=== PATIENT | female | born 1970 | race Caucasian/White ===

== ENCOUNTER → 2018-07-22 12:21 | Outpatient (CLI) | payer MEDICARE, SELFPAY ==
[2018-07-22 13:39] LABS: Hematocrit 39.2 % (36-46); Mean Corpuscular HGB Conc 33.1 % (30-36); Mean Corpuscular Hemoglobin 31.5 PG (26-34); Mean Corpuscular Volume 95.3 fL (80-100); Platelet Count 217 X10^3/uL (150-400); Red Blood Cell Count 4.12 X10^6/uL (4.0-5.2); Red Cell Distribution Width 12.2 % (11.6-14.8); White Blood Cell Count 4.2 X10^3/uL (4.5-11.0)
[2018-07-22 14:29] LABS: Alanine Aminotransferase 33 IU/L (9-52); Albumin 4.8 g/dL (3.5-5.0); Albumin Globulin Ratio 1.6 (1.0-2.8); Alkaline Phosphatase 47 U/L (38-126); Aspartate Aminotransferase 30 IU/L (14-36); BUN Creatinine Ratio 25.7 (6-22); Bilirubin Total 0.9 mg/dL (0.2-1.3); Blood Urea Nitrogen 18 mg/dL (7-17); Calcium 9.8 mg/dL (8.4-10.2); Carbon Dioxide 30 mmol/L (22-32); Chloride 97 mmol/L (98-107); Cholesterol 216 mg/dL (140-199); Estimated Glomerular Filt Rate > 60.0 mL/min (>60); Glucose 74 mg/dL (70-100); HDL Cholesterol 59 mg/dL (40-60); HEMOLYSIS < 15 (0-50); LDL Cholesterol Calculated 140 mg/dL (<100); Sodium 137 mmol/L (137-145); Total Protein 7.8 g/dL (6.3-8.2); Triglycerides 84 mg/dL (35-150)
== END ==
PROVIDERS: Visit Provider Nurse Practitioner Family
DX: Z00.00 Encounter for general adult medical examination without abnormal findings (principal); E78.2 Mixed hyperlipidemia; R79.9 Abnormal finding of blood chemistry, unspecified
CPT/HCPCS: 36415; 80053; 80061; 85027

== ENCOUNTER → 2018-10-15 12:36 | Outpatient (CLI) | payer MEDICARE, SELFPAY ==
--- NOTE | 2018-10-15 12:40 | DI.MG.S_ITS ---
BILATERAL DIGITAL SCREENING MAMMOGRAM 3D/2D WITH CAD: 10/15/2018 CLINICAL: Routine screening. Comparison is made to exams dated: 10/11/2017 mammogram, 09/29/2016 mammogram, and 09/25/2015 mammogram - [facility]. There are scattered fibroglandular elements in both breasts. Current study was also evaluated with a Computer Aided Detection (CAD) system. No significant masses, calcifications, or other findings are seen in either breast. There has been no significant interval change. IMPRESSION: NEGATIVE There is no mammographic evidence of malignancy. A 1 year screening mammogram is recommended. This exam was interpreted at Station ID: [id number]. NOTE: For mammograms, a report in lay terms will be sent to the patient. Approximately 15% of breast malignancies will not be visualized mammographically. In the management of a palpable breast mass, a negative mammogram must not discourage biopsy of a clinically suspicious lesion. Electronically Signed By: Margarito garcia/brian:10/17/2018 08:58:13 letter sent: Normal Exam ACR BI-RADS Category 1: Negative 3341F
== END ==
PROVIDERS: PCP Nurse Practitioner Family; Visit Provider Nurse Practitioner Family
DX: Z12.31 Encounter for screening mammogram for malignant neoplasm of breast (principal)
CPT/HCPCS: 77063; 77067

== ENCOUNTER 2018-12-30 14:18 | Emergency (ER) | payer MEDICARE, SELFPAY ==
[2018-12-30 14:43] VITALS: BP 128/81; PULSE 60; RESP 18; TEMP 37.6; O2SAT 99; BMI 22.8
--- NOTE | 2018-12-30 14:48 | DI.RAD.S_ITS ---
PROCEDURE: XR CHEST 2V INDICATIONS: palpitations TECHNIQUE: 2 views of the chest were acquired. COMPARISON: None. FINDINGS: Surgical changes and devices: None. Lungs and pleura: Lungs are clear. No pleural effusions or pneumothorax. Mediastinum: Mediastinal contours are normal. Heart size is normal. Bones and chest wall: No suspicious bony abnormalities. Soft tissues appear unremarkable. IMPRESSION: No evidence acute pulmonary process. Dictated by: Heath Kim M.D. on 12/30/2018 at 15:55 Approved by: Heath Kim M.D. on 12/30/2018 at 15:56
[2018-12-30 15:13] LABS: Add Manual Diff / Slide Review NO; Basophils Absolute Auto 100 /uL (0-100); Basophils Percent Auto 1.3 % (0-2); Eosinophils Absolute Auto 100 /uL (0-450); Eosinophils Percent Auto 3.1 % (2-4); Hematocrit 36.4 % (36-46); Hemoglobin 12.3 g/dL (12.0-16.0); Lymphocytes Absolute Auto 1600 /uL (1100-4500); Mean Corpuscular HGB Conc 33.7 % (30-36); Mean Corpuscular Hemoglobin 32.7 PG (26-34); Monocytes Absolute Auto 300 /uL (0-900); Monocytes Percent Auto 7.7 % (3-14); Neutrophils Absolute Auto 1900 /uL (1500-7000); Neutrophils Percent Auto 48.9 % (50-75); Platelet Count 230 X10^3/uL (150-400); Red Blood Cell Count 3.75 X10^6/uL (4.0-5.2)
[2018-12-30 15:31] LABS: BUN Creatinine Ratio 25.7 (6-22); Blood Urea Nitrogen 18 mg/dL (7-17); Carbon Dioxide 32 mmol/L (22-32); Chloride 99 mmol/L (98-107); Creatine Kinase 65 U/L (30-135); Estimated Glomerular Filt Rate > 60.0 mL/min (>60); Glucose 96 mg/dL (70-100); HEMOLYSIS < 15 (0-50); Magnesium 1.7 mg/dL (1.6-2.3); Sodium 138 mmol/L (137-145)
[2018-12-30 15:40] LABS: Troponin I < 0.012 ng/mL (0.01-0.034)
[2018-12-30 16:16] LABS: Thyroid Stimulating Hormone 0.83 uIU/mL (0.47-4.68)
--- NOTE | 2018-12-30 18:55 | ED.ARRPALP ---
HPI - Arrhythmia/Palpitations General Chief Complaint: Arrhythmia/Palpitations Stated Complaint: thinks problems with her heart, pumping hard Time Seen by Provider: 12/30/18 18:54 Source: patient Mode of arrival: ambulatory Limitations: no limitations History of Present Illness HPI narrative: 48-year-old female here for evaluation of palpitations. Patient states that she has been seen here in the emergency department multiple times in the past for this. She states that she has had labs an EKG use all of which have been unremarkable. She has talk with her primary doctor and has done a Holter monitor which she states she did not have any symptoms during the period of time she was wearing this. She states that over the past couple days she has noticed the palpitations becoming worse. She states that it is a fast heart rate. She states she is short of breath when it happens. It varies in the length of time that it lasts. Has not tried anything for the symptoms. States she becomes very anxious when the symptoms occur. Related Data Home Medications Medication Instructions Recorded Confirmed baclofen 10 mg tablet 5 - 10 mg PO TID 07/26/18 07/26/18 Allergies Allergy/AdvReac Type Severity Reaction Status Date / Time hydrocodone [From Vicodin] Allergy Severe Swelling Verified 12/30/18 14:41 of tongue, hives sumatriptan [From Imitrex] Allergy Severe Anaphylaxis/ Verified 12/30/18 14:41 seizure Review of Systems Constitutional Constitutional: Denies fever(s) Cardiovascular Cardiovascular: Denies chest pain, Denies diaphoresis, Denies syncope, Reports rapid heart rate, Reports lightheadedness, Reports palpitations and Reports dyspnea Respiratory Respiratory: Denies cough and Reports dyspnea Gastrointestinal Gastrointestinal: Denies abdominal pain, Denies diarrhea and Denies vomiting Genitourinary Genitourinary: Denies dysuria Musculoskeletal Musculoskeletal: Denies myalgias and Denies arthralgias Integumentary/Breasts Skin/Breast: Denies lesions and Denies rash Neurologic Neurologic: Denies behavioral changes and Denies syncope Psychiatric Psychiatric: Reports anxiety and Denies behavioral changes Endocrine Endocrine: Reports palpitations Hematologic/Lymphatic Hematologic/Lymphatic: Denies easy bleeding and Denies easy bruising COUNTS INCLUDE 234 BEDS AT THE [facility] Medical History Back problem (Chronic ~2000) Cervical spine disease (Chronic ~2000) Chronic back pain (Chronic ~2000) DDD (degenerative disc disease) (Chronic) Migraines (Chronic ~2000) Surgical History (Updated 07/25/18 @ 21:50 by Angeline Reaves) Anesthesia (Resolved) History of endometrial ablation (Resolved ~06/25/08) History of knee surgery (Resolved ~12/05/07) History of knee surgery (Resolved ~01/2006) History of neck surgery (Resolved ~2014) History of neck surgery (Resolved ~07/2013) Surgical procedure planned (Resolved ~08/20/16) Family History (Updated 07/25/18 @ 21:54 by Angeline Reaves) Father Cancer Heart disease Hypertension Hyperlipidemia Mother Heart disease Hyperlipidemia Hypertension Sister Chronic progressive multiple sclerosis Hyperlipidemia Hypertension Omid Dumont infection Sister Heart disease Hypertension Hyperlipidemia Social History Smoking Status: Never smoker second hand exposure: No alcohol intake: current (1-2 drinks a year at special occasions.) substance use type: does not use Family History (Updated 07/25/18 @ 21:54 by Angeline Reaves) Father Cancer Heart disease Hypertension Hyperlipidemia Mother Heart disease Hyperlipidemia Hypertension Sister Chronic progressive multiple sclerosis Hyperlipidemia Hypertension Omid Dumont infection Sister Heart disease Hypertension Hyperlipidemia Social History Smoking Status: Never smoker second hand exposure: No alcohol intake: current (1-2 drinks a year at special occasions.) substance use type: does not use Exam Initial Vital Signs Initial Vital Signs: Vital Signs Temperature 99.6 F 12/30/18 14:43 Pulse Rate 60 12/30/18 14:43 Respiratory Rate 18 12/30/18 14:43 Blood Pressure 128/81 12/30/18 14:43 Pulse Oximetry 99 12/30/18 14:43 Const General: cooperative, comfortable, well developed and well groomed Orientation: alert and awake HENMT Head: normal to inspection and normocephalic Resp Effort & Inspection: normal respiratory effort Auscultation: clear to auscultation bilaterally Cardio Rate: regular rate Rhythm: regular rhythm Pulses: radial pulses present GI Inspection: non-distended Palpation: soft Skin Lesions: no lesions Rashes: no rashes Neuro General: alert and awake Cognition: normal cognition Speech: speech normal Gait: normal gait Extrem General: normal to inspection and capillary refill normal Psych Appearance: grossly normal and well kempt Course Orders Ordered: ED Orders 12/30/18 14:48 XR chest 2V Stat EKG-12 Lead Stat 12/30/18 14:57 Basic Metabolic Panel Stat Complete Blood Count AUTO DIFF Stat Magnesium Stat Thyroid Stimulating Hormone Stat Troponin & CK Cardiac Panel Stat Vital Signs Vital signs: Vital Signs - 8 hr 12/30/18 19:03 Pulse Rate 53 L Respiratory Rate 18 Blood Pressure [Left Arm] 131/77 Pulse Oximetry 98 MDM - Arrhythmia/Palpitations Lab Data Attestation: I reviewed the patient's lab results. Result diagrams: 12/30/18 14:57 12/30/18 14:57 Labs: Lab Results 12/30/18 12/30/18 12/30/18 Range/Units 14:57 14:57 14:57 WBC 4.0 L (4.5-11.0) X10^3/uL RBC 3.75 L (4.0-5.2) X10^6/uL Hgb 12.3 (12.0-16.0) g/dL Hct 36.4 (36-46) % MCV 97.0 (80-100) fL MCH 32.7 (26-34) PG MCHC 33.7 (30-36) % RDW 12.0 (11.6-14.8) % Plt Count 230 (150-400) X10^3/uL Neut % (Auto) 48.9 L (50-75) % Lymph % (Auto) 39.0 (25-40) % [place] % (Auto) 7.7 (3-14) % Eos % (Auto) 3.1 (2-4) % Baso % (Auto) 1.3 (0-2) % Neut # (Auto) 1900 (2221-3523) /uL Lymph # (Auto) 1600 (6668-2236) /uL [place] # (Auto) 300 (0-900) /uL Eos # (Auto) 100 (0-450) /uL Baso # (Auto) 100 (0-100) /uL Sodium 138 (137-145) mmol/L Potassium 4.0 (3.4-5.1) mmol/L Chloride 99 (98-107) mmol/L Carbon Dioxide 32 (22-32) mmol/L BUN 18 H (7-17) mg/dL Creatinine 0.70 (0.52-1.04) mg/dL Estimated GFR > 60.0 (>60) mL/min BUN/Creatinine Ratio 25.7 H (6-22) Glucose 96 (70-100) mg/dL Calcium 10.0 (8.4-10.2) mg/dL Magnesium 1.7 (1.6-2.3) mg/dL Total Creatine Kinase 65 (30-135) U/L CK-MB (CK-2) TNP CK-MB (CK-2) Rel Index TNP Troponin I < 0.012 (0.01-0.034) ng/mL TSH 0.83 (0.47-4.68) uIU/mL ECG Data Attestation: I personally reviewed and interpreted this ECG as follows: Prior ECG tracings: not available for review Interpretation: Sinus bradycardia Ventricular rate of 55 Normal axis Normal QRS Normal QTC No ST T wave changes MDM Narrative Medical decision making narrative: Patient has been asymptomatic since being here in the emergency department. Her EKG is unremarkable. Her labs are unremarkable. She has not had no ectopy on the monitors. She has been fairly anxious and was given Ativan for this. Discussed this with the patient. Informed her that she she needed to talk with her primary doctor regarding another Holter monitor. She was given return precautions and follow-up instructions. She expressed understanding and agreement with plan. Discharge Plan Departure Patient Disposition: Home Clinical Impression: Palpitations Discharge Date/Time: 12/30/18 19:26 Instructions: DI for Palpitations Activity Restrictions/Additional Instructions: Recommend you talk with her primary provider about the indications for a Holter monitor. You can contact 360 talk with the health resource is coordinator to help you establish a primary provider if you wish. Return to the emergency department for any new or worsening symptoms like we discussed. Prescriptions: No Action baclofen 10 mg tablet 5 - 10 mg PO TID RF: 0 Referrals: Diana Deleon ARNP [Primary Care Provider] -
[2018-12-30 19:03] VITALS: BP 131/77; PULSE 53; RESP 18; O2SAT 98
== END 2018-12-30 19:26 | disposition home or self-care (01) ==
PROVIDERS: Emergency Medicine; Emergency Provider Emergency Medicine; PCP Nurse Practitioner Family
DX: R00.2 Palpitations (principal)
CPT/HCPCS: 36415; 71046; 80048; 82550; 83735; 84443; 84484; 85025; 93005; 93010; 99282; 99285

== ENCOUNTER → 2019-11-04 16:07 | Outpatient (CLI) | payer MEDICARE, SELFPAY ==
--- NOTE | 2019-11-04 | DI.MG.S_ITS ---
BILATERAL DIGITAL SCREENING MAMMOGRAM 3D/2D WITH CAD: 11/04/2019 CLINICAL: Routine screening. Comparison is made to exams dated: 10/15/2018 mammogram - [facility], 10/11/2017 mammogram, and 09/29/2016 mammogram - [facility]. There are scattered fibroglandular elements in both breasts. Current study was also evaluated with a Computer Aided Detection (CAD) system. No significant masses, calcifications, or other findings are seen in either breast. There has been no significant interval change. IMPRESSION: NEGATIVE There is no mammographic evidence of malignancy. A 1 year screening mammogram is recommended. This exam was interpreted at Station ID: [id number]. NOTE: For mammograms, a report in lay terms will be sent to the patient. Approximately 15% of breast malignancies will not be visualized mammographically. In the management of a palpable breast mass, a negative mammogram must not discourage biopsy of a clinically suspicious lesion. Electronically Signed By: Brady blackmon/brain:11/06/2019 10:40:19 letter sent: Normal Exam ACR BI-RADS Category 1: Negative 3341F
== END ==
PROVIDERS: PCP Nurse Practitioner Family; Referring Provider Nurse Practitioner Family; Visit Provider Nurse Practitioner Family
DX: Z12.31 Encounter for screening mammogram for malignant neoplasm of breast (principal)
CPT/HCPCS: 77063; 77067

== ENCOUNTER → 2020-05-25 08:45 | Outpatient (CLI) | payer MEDICARE, SELFPAY ==
--- NOTE | 2020-05-25 08:47 | DI.MRI.S_ITS ---
PROCEDURE: MR LUMBAR SPINE WO CON INDICATIONS: back pain flare TECHNIQUE: Noncontrast sagittal T1 spin echo and T2 fast echo, sagittal STIR, axial T1 and T2 fast spin echo through the lumbar spine. In cases with scoliosis, additional coronal T2 fast spin echo may be performed. COMPARISON: None. FINDINGS: Image quality: Excellent. Alignment and Curvature: There is Grade I retrolithesis of L3 on L4, L4 on L5 and L5 on S1, most notable at L5 on S1 measuring 5 mm. Bone Marrow: Marrow is of normal overall signal. No acute vertebral body compression fractures. Spinal Cord: Conus medullaris terminates at the L1 level. Visualized cord demonstrates normal signal and size. Paraspinous Soft Tissues: No paravertebral masses. Discs: Moderate to severe disc dessication from L2-L5. L1-L2: Mild disc bulge with mild spinal stenosis. Mild left foraminal narrowing with facet and ligamentum flavum hypertrophy. Epidural lipomatosis is present. L2-L3: Mild disc bulge with superimposed posterior central protrusion. There is severe spinal stenosis and canal compression. Mild to moderate left and minimal right foraminal narrowing with facet and ligamentum flavum hypertrophy. L3-L4: Mild disc bulge with moderate to severe spinal stenosis. Moderate left and mild right foraminal narrowing facet and ligamentum flavum hypertrophy. L4-L5: Mild disc bulge with [id number] spinal stenosis. Moderate to severe left and minimal right foraminal narrowing with facet and ligamentum flavum hypertrophy. L5-S1: Mild disc bulge with minimal spinal stenosis. Severe right and moderate to severe left foraminal narrowing with flattening of the exiting L5 nerve roots on the right. Facet hypertrophy is present. IMPRESSION: 1. Multilevel degenerative changes. 2. Multilevel spinal stenosis most severe at L3-4 secondary to disc bulge with superimposed protrusion with contributing affective facet/ligamentum flavum arthropathy. 3. Multilevel foraminal narrowing most severe at L5-S1 secondary to facet arthropathy as well as retrolisthesis. Dictated by: Aure Godfrey M.D. on 05/27/2020 at 11:46 Approved by: Aure Godfrey M.D. on 05/27/2020 at 13:24
== END ==
PROVIDERS: PCP Nurse Practitioner Family; Referring Provider Nurse Practitioner Family; Visit Provider Nurse Practitioner Family
DX: M54.9 Dorsalgia, unspecified (principal); M54.2 Cervicalgia; M51.26 Other intervertebral disc displacement, lumbar region; M47.816 Spondylosis without myelopathy or radiculopathy, lumbar region; M47.817 Spondylosis without myelopathy or radiculopathy, lumbosacral region; M48.061 Spinal stenosis, lumbar region without neurogenic claudication; M48.07 Spinal stenosis, lumbosacral region; G89.29 Other chronic pain; Z98.890 Other specified postprocedural states
CPT/HCPCS: 72148

== ENCOUNTER 2020-08-27 18:51 | Emergency (ER) | payer MEDICARE, SELFPAY ==
[2020-08-27 18:57] VITALS: BP 125/70; PULSE 93; RESP 20; TEMP 37.9; O2SAT 100
--- NOTE | 2020-08-27 19:30 | DI.RAD.S_ITS ---
PROCEDURE: XR CHEST 1V INDICATIONS: suspected sepsis TECHNIQUE: One view of the chest was acquired. COMPARISON: [facility], CR, XR CHEST 2V, 12/30/2018, 15:40. FINDINGS: Surgical changes and devices: Postsurgical changes are redemonstrated in the lower cervical spine. Lungs and pleura: Lungs are clear. No pleural effusions or pneumothorax. Mediastinum: Mediastinal contours appear normal. Heart size is normal. Bones and chest wall: No suspicious bony lesions. Overlying soft tissues appear unremarkable. IMPRESSION: 1. No acute cardiopulmonary disease. Dictated by: Margarito Christensen M.D. on 08/27/2020 at 21:45 Approved by: Margarito Christensen M.D. on 08/27/2020 at 21:46
[2020-08-27 19:39] LABS: INR 1.1 (0.9-1.3); Prothrombin Time 12.4 SECONDS (10.1-12.7)
[2020-08-27 19:40] LABS: Add Manual Diff / Slide Review NO; Basophils Absolute Auto 100 /uL (0-100); Eosinophils Absolute Auto 200 /uL (0-450); Eosinophils Percent Auto 2.9 % (2-4); Hemoglobin 13.1 g/dL (12.0-16.0); Lymphocytes Absolute Auto 1700 /uL (1100-4500); Lymphocytes Percent Auto 26.9 % (25-40); Mean Corpuscular HGB Conc 33.6 % (30-36); Mean Corpuscular Hemoglobin 32.6 PG (26-34); Monocytes Absolute Auto 400 /uL (0-900); Monocytes Percent Auto 6.5 % (3-14); Neutrophils Absolute Auto 4000 /uL (1500-7000); Neutrophils Percent Auto 62.7 % (50-75); Platelet Count 265 X10^3/uL (150-400); Red Blood Cell Count 4.02 X10^6/uL (4.0-5.2); Red Cell Distribution Width 12.3 % (11.6-14.8); White Blood Cell Count 6.3 X10^3/uL (4.5-11.0)
[2020-08-27] MEDS: SODIUM CHLORIDE 0.9% 1,000 ML 1000 ML IV (19:41)
[2020-08-27 19:42] LABS: PTT Partial Thromboplastin Tim 34 SECONDS (26.4-36.2)
[2020-08-27 19:58] LABS: Alanine Aminotransferase 98 IU/L (<35); Albumin 4.7 g/dL (3.5-5.0); Albumin Globulin Ratio 1.3 (1.0-2.8); Alkaline Phosphatase 62 U/L (38-126); Aspartate Aminotransferase 74 IU/L (14-36); BUN Creatinine Ratio 22.7 (6-22); Bilirubin Total 0.8 mg/dL (0.2-1.3); Blood Urea Nitrogen 17 mg/dL (7-17); Calcium 10.3 mg/dL (8.4-10.2); Carbon Dioxide 32 mmol/L (22-32); Chloride 96 mmol/L (98-107); Estimated Glomerular Filt Rate > 60.0 mL/min (>60); Globulin 3.6 g/dL (1.7-4.1); Glucose 105 mg/dL (70-100); HEMOLYSIS < 15 (0-50); Lipase 120 U/L (23-300); Potassium 4.2 mmol/L (3.4-5.1); Sodium 136 mmol/L (137-145); Total Protein 8.3 g/dL (6.3-8.2)
[2020-08-27 20:15] LABS: Procalcitonin 0.04 ng/mL (<0.5)
--- NOTE | 2020-08-27 20:50 | ED_ITS ---
HPI - General Adult General Chief complaint: Fever Stated complaint: unable to pee or poop , fever s/p surgery Time Seen by Provider: 08/27/20 19:47 Source: patient Mode of arrival: Ambulatory History of Present Illness HPI narrative: 49-year-old woman with a history of multiple back surgeries most recently 7 days ago at [facility] in [place]. She had L2-3 micro diskectomy and laminectomy had been doing well postop until she noticed that she no longer had the sensation that her bladder was full. When she got up to void she was able to do so. She has been voiding every 2-3 hours by the clock over the last number of days. Her friend who has been helping her recover at home also noted that she has not yet had a bowel movement, it has now been 7 days. She is not passing any gas. She states that she is not actually having any pain. Her current pain medication regimen is Zofran, 10 mg of oxycodone and cyclobenzaprine. She notes that the radicular pain that she had had prior to surgery is significantly improved. The surgical site is tender but feels that it is recovering as she had with previous surgeries. She has noted no increased pain at the surgical site, redness smell or discharge. She does note for the p ast 48 hours she has had a fever that does not seem to be affected by Tylenol. Temperature is a 100? point to, cough, dysuria(but also no bladder sensation), no lower extremity edema and no localizing source of infection. Blood pressures been stable. No nausea or vomiting. No chest pain or palpitations. Related Data Home Medications Medication Instructions Recorded Confirmed baclofen 10 mg tablet 5 - 10 mg PO TID 07/26/18 07/26/18 Previous Rx's Medication Instructions Recorded gabapentin 100 mg capsule 100 mg PO BEDTIME #60 cap 05/23/20 Allergies Allergy/AdvReac Type Severity Reaction Status Date / Time hydrocodone [From Vicodin] Allergy Severe Swelling Verified 05/23/20 15:23 of tongue, hives sumatriptan [From Imitrex] Allergy Severe Anaphylaxis/ Verified 05/23/20 15:23 seizure Review of Systems Review of Systems Narrative: Remainder of complete review of systems is otherwise unremarkable except for that included in the HPI. Patient History Medical History (Updated 08/27/20 @ 23:48 by Tali Jules MD) Back problem (~2000) Cervical spine disease (~2000) Chronic back pain (~2000) DDD (degenerative disc disease) Migraines (~2000) Surgical History (Updated 05/23/20 @ 15:42 by HENRRY Denton) Anesthesia History of endometrial ablation (~06/25/08) History of knee surgery (~12/05/07) History of knee surgery (~01/2006) History of lumbar surgery History of neck surgery (~2014) History of neck surgery (~07/2013) Surgical procedure planned (~08/20/16) Family History (Updated 07/25/18 @ 21:54 by Angeline Reaves) Father Cancer Heart disease Hypertension Hyperlipidemia Mother Heart disease Hyperlipidemia Hypertension Sister Chronic progressive multiple sclerosis Hyperlipidemia Hypertension Omid Dumont infection Sister Heart disease Hypertension Hyperlipidemia Social History Smoking Status: Never smoker second hand exposure: No alcohol intake: current (1-2 drinks a year at special occasions.) substance use type: does not use Smoking Status: Never smoker alcohol intake frequency: holidays/special occasions only Substance Use Type: does not use Exam Narrative Exam Narrative: General: Healthy appearing, in mild distress. Able to give a complete and coherent history. Well-nourished well-developed HEENT: Moist mucous membranes, normal sclera with reactive pupils, Respiratory: Lungs are clear to auscultation, no wheezing no rales no rhonchi. Full and symmetrical air movement Cardiac: Regular rate and rhythm no murmurs no bruits Abdomen: Soft, nontender, no distension, decreased but present bowel tones, no flank pain Rectal exam: Full sensation to the anus to touch and temperature and no stool in the rectal vault. Skin: Warm and dry, no rashes. Lumbar Surgical site is clean and dry. Neurologic: Grossly neurologically intact with no obvious asymmetries or abnormalities Extremities: No trauma, well perfused Psych: Cooperative, appropriate insight and affect Initial Vital Signs Initial Vital Signs: Vital Signs Temperature 100.2 F H 08/27/20 18:57 Pulse Rate 93 H 08/27/20 18:57 Respiratory Rate 20 08/27/20 18:57 Blood Pressure 125/70 08/27/20 18:57 Pulse Oximetry 100 08/27/20 18:57 Course Orders Ordered: Discontinued Medications Cyclobenzaprine HCl (Cyclobenzaprine 10 Mg Tablet) 5 mg PO NOW ONE Stop: 08/27/20 21:04 Last Admin: 08/27/20 21:09 Dose: 5 mg Documented by: DEBORA Sodium Chloride (Normal Saline 0.9%) 1,000 mls @ 1,000 mls/hr IV BOLUS ONE Stop: 08/27/20 20:29 Last Infusion: 08/27/20 20:35 Dose: 0 mls/hr Documented by: Admin: 08/27/20 19:41 Dose: 1,000 mls/hr Documented by: DEBORA Magnesium Citrate (Magnesium Citrate 300 Ml Solution) 300 ml PO NOW ONE Stop: 08/27/20 23:46 Last Admin: 08/27/20 23:50 Dose: 300 ml Documented by: DEBORA Ondansetron HCl (Ondansetron 4 Mg/2 Ml Inj) 4 mg IV NOW ONE Stop: 08/27/20 21:04 Last Admin: 08/27/20 21:08 Dose: 4 mg Documented by: DEBORA Oxycodone/Acetaminophen (Oxycodone/Acetaminophen 5/325 Tablet) 2 tab PO NOW ONE Stop: 08/27/20 21:04 Last Admin: 08/27/20 21:11 Dose: 2 tab Documented by: DEBORA Vital Signs Vital signs: Vital Signs - 8 hr 08/27/20 18:57 Temperature 100.2 F H Pulse Rate 93 H Respiratory Rate 20 Blood Pressure 125/70 Pulse Oximetry 100 Medical Decision Making Medical Records Medical records reviewed: Yes I reviewed the patient's medical records. Lab Data Lab results reviewed: Yes I reviewed the patient's lab results. Result diagrams: 08/27/20 19:25 08/27/20 19:25 Labs: Lab Results 08/27/20 08/27/20 08/27/20 Range/Units 19:25 19:25 19:25 WBC 6.3 (4.5-11.0) X10^3/uL RBC 4.02 (4.0-5.2) X10^6/uL Hgb 13.1 (12.0-16.0) g/dL Hct 39.0 (36-46) % MCV 97.0 (80-100) fL MCH 32.6 (26-34) PG MCHC 33.6 (30-36) % RDW 12.3 (11.6-14.8) % Plt Count 265 (150-400) X10^3/uL Neut % (Auto) 62.7 (50-75) % Lymph % (Auto) 26.9 (25-40) % [place] % (Auto) 6.5 (3-14) % Eos % (Auto) 2.9 (2-4) % Baso % (Auto) 1.0 (0-2) % Neut # (Auto) 4000 (9851-5605) /uL Lymph # (Auto) 1700 (0029-3791) /uL [place] # (Auto) 400 (0-900) /uL Eos # (Auto) 200 (0-450) /uL Baso # (Auto) 100 (0-100) /uL PT 12.4 (10.1-12.7) SECONDS INR 1.1 (0.9-1.3) APTT 34 (26.4-36.2) SECONDS Sodium 136 L (137-145) mmol/L Potassium 4.2 (3.4-5.1) mmol/L Chloride 96 L (98-107) mmol/L Carbon Dioxide 32 (22-32) mmol/L BUN 17 (7-17) mg/dL Creatinine 0.75 (0.52-1.04) mg/dL Estimated GFR > 60.0 (>60) mL/min BUN/Creatinine Ratio 22.7 H (6-22) Glucose 105 H (70-100) mg/dL Lactate (0.7-2.1) mmol/L Calcium 10.3 H (8.4-10.2) mg/dL Total Bilirubin 0.8 (0.2-1.3) mg/dL AST 74 H (14-36) IU/L ALT 98 H (<35) IU/L Alkaline Phosphatase 62 (38-126) U/L Total Protein 8.3 H (6.3-8.2) g/dL Albumin 4.7 (3.5-5.0) g/dL Globulin 3.6 (1.7-4.1) g/dL Albumin/Globulin Ratio 1.3 (1.0-2.8) Lipase 120 (23-300) U/L Procalcitonin 0.04 (<0.5) ng/mL 08/27/20 Range/Units 19:25 WBC (4.5-11.0) X10^3/uL RBC (4.0-5.2) X10^6/uL Hgb (12.0-16.0) g/dL Hct (36-46) % MCV (80-100) fL MCH (26-34) PG MCHC (30-36) % RDW (11.6-14.8) % Plt Count (150-400) X10^3/uL Neut % (Auto) (50-75) % Lymph % (Auto) (25-40) % [place] % (Auto) (3-14) % Eos % (Auto) (2-4) % Baso % (Auto) (0-2) % Neut # (Auto) (0659-8753) /uL Lymph # (Auto) (6649-9040) /uL [place] # (Auto) (0-900) /uL Eos # (Auto) (0-450) /uL Baso # (Auto) (0-100) /uL PT (10.1-12.7) SECONDS INR (0.9-1.3) APTT (26.4-36.2) SECONDS Sodium (137-145) mmol/L Potassium (3.4-5.1) mmol/L Chloride (98-107) mmol/L Carbon Dioxide (22-32) mmol/L BUN (7-17) mg/dL Creatinine (0.52-1.04) mg/dL Estimated GFR (>60) mL/min BUN/Creatinine Ratio (6-22) Glucose (70-100) mg/dL Lactate 1.0 (0.7-2.1) mmol/L Calcium (8.4-10.2) mg/dL Total Bilirubin (0.2-1.3) mg/dL AST (14-36) IU/L ALT (<35) IU/L Alkaline Phosphatase (38-126) U/L Total Protein (6.3-8.2) g/dL Albumin (3.5-5.0) g/dL Globulin (1.7-4.1) g/dL Albumin/Globulin Ratio (1.0-2.8) Lipase (23-300) U/L Procalcitonin (<0.5) ng/mL Urine Dip Bedside Urine Glucose Negative Bedside Urine Bilirubin - Negative Bedside Urine Ketone - Negative Urine Specific [place] 1.020 Bedside Urine Occult Blood - Negative Bedside Urine pH 6.0 Bedside Urine Protein - Negative Bedside Urine Urobilinogen - Negative Bedside Urine Nitrite - Negative Bedside Urine Leukocytes - Negative Esterase Point of care testing: Urine Dip Bedside Urine Glucose Negative Bedside Urine Bilirubin - Negative Bedside Urine Ketone - Negative Urine Specific [place] 1.020 Bedside Urine Occult Blood - Negative Bedside Urine pH 6.0 Bedside Urine Protein - Negative Bedside Urine Urobilinogen - Negative Bedside Urine Nitrite - Negative Bedside Urine Leukocytes - Negative Esterase Imaging Data Abdominal x-ray: Radiologist's Impression: FINDINGS: Surgical changes and devices: There are cholecystectomy clips in the right upper quadrant. Bowel: Bowel gas pattern demonstrates moderate fecal loading within the ascending and transverse colon as well as a small amount in the descending colon compatible with constipation. No definite bowel obstruction. Soft tissues: No suspicious abdominal calcifications. Bones: No suspicious bony lesions. IMPRESSION: 1. Proximal moderate colonic stool distention compatible with constipation. No definite bowel obstruction. Dictated by: Margarito Christensen M.D. on 08/27/2020 at 22:39 MDM Narrative Medical decision making narrative: 49-year-old woman now postop day 7 lumbar laminectomy. Acute urinary retention with low-grade fevers at home and severe constipation. Florez catheter is placed. She is given a bottle of magnesium citrate to help the constipation when she is home. There is no evidence of wound infection, epidural abscess, sepsis, pneumonia or urinary tract infection. Most likely explanation for the low-grade fever is pulmonary atelectasis in this is reviewed with patient with encouragement to continue with increasing mobility and deep breathing. Questions are answered and patient is safe for discharge home. She will follow-up with her surgeon regarding the urinary retention and Florez catheter placement and management. Discharge Plan Departure Patient Disposition: Home Clinical Impression: Acute urinary retention Constipation Qualifiers: Constipation type: drug induced constipation Qualified Code(s): K59.03 - Drug induced constipation Instructions: DI for Constipation, DI for Urinary Retention in Women Activity Restrictions/Additional Instructions: Thank you for coming in tonight You do have acute urinary retention. Your post void residual was 350 cc. We put a Florez catheter in and you need to talk to your surgeon tomorrow about management of this. You are also quite constipated with most of the stool over on the right side. I have sent home with a bottle of magnesium citrate to help encourage a bowel movement. Evaluation in the ER today did not show any evidence of infection either bladder infection pneumonia or wound infection. The remainder of your blood work was reassuring we normal as well. Regarding the fever that you have been noticing, I do not have any obvious explanation at this point. Sometimes atelectasis, with the lungs do not fully expand, can cause this. Please make sure you are up and as mobile as possible and focus on taking very deep breaths throughout the day. If things get worse, please feel free to return to the emergency department. Prescriptions: No Action baclofen 10 mg tablet 5 - 10 mg PO TID RF: 0 gabapentin 100 mg capsule 100 mg PO BEDTIME Qty: 60 RF: 0 Referrals: Diana Deleon ARNP [Primary Care Provider] -
--- NOTE | 2020-08-27 21:03 | DI.RAD.S_ITS ---
PROCEDURE: XR ABDOMEN 1V INDICATIONS: pain, no BM for 7 days TECHNIQUE: One view of the abdomen acquired. COMPARISON: None. FINDINGS: Surgical changes and devices: There are cholecystectomy clips in the right upper quadrant. Bowel: Bowel gas pattern demonstrates moderate fecal loading within the ascending and transverse colon as well as a small amount in the descending colon compatible with constipation. No definite bowel obstruction. Soft tissues: No suspicious abdominal calcifications. Bones: No suspicious bony lesions. IMPRESSION: 1. Proximal moderate colonic stool distention compatible with constipation. No definite bowel obstruction. Dictated by: Margarito Christensen M.D. on 08/27/2020 at 22:39 Approved by: Margarito Christensen M.D. on 08/27/2020 at 22:41
[2020-08-27] MEDS: ONDANSETRON 4 MG/2 ML INJ IV (21:08)
[2020-08-27] MEDS: CYCLOBENZAPRINE 10 MG TABLET 5 MG PO (21:09)
[2020-08-27] MEDS: OXYCODONE/ACETAMINOPHEN 5/325 TABLET 2 TAB PO (21:11)
[2020-08-27 23:29] VITALS: BP 95/54; PULSE 68; TEMP 36.8; O2SAT 99
[2020-08-27] MEDS: MAGNESIUM CITRATE 300 ML SOLUTION PO (23:50)
[2020-08-28 00:18] VITALS: BP 108/64; PULSE 66; RESP 20; TEMP 36.6; O2SAT 96
== END 2020-08-28 00:10 | disposition home or self-care (01) ==
PROVIDERS: Emergency Medicine; Emergency Provider Emergency Medicine; PCP Nurse Practitioner Family
DX: R33.8 Other retention of urine (principal); K59.03 Drug induced constipation
CPT/HCPCS: 36415; 51701; 51705; 51798; 71045; 74018; 80053; 81003; 83605; 83690; 84145; 85025; 85610; 85730; 87040; 96361; 96374; 99284; J2405

== ENCOUNTER 2020-08-29 12:25 | Emergency (ER) | payer MEDICARE, SELFPAY ==
[2020-08-29 12:34] VITALS: BP 116/85; PULSE 118; RESP 16; TEMP 36.9; O2SAT 96; BMI 24.8
[2020-08-29 13:50] LABS: Appearance Urine UA CLOUDY; Bilirubin Urine UA NEGATIVE (NEGATIVE); Color Urine UA BROWN; Glucose Urine UA TRACE g/dL (Negative); Ketones Urine UA NEGATIVE (NEGATIVE); Leukocyte Esterase Urine UA TRACE (NEGATIVE); Nitrite Urine UA NEGATIVE (Negative); Occult Blood Urine UA 3+ (Negative); Protein Urine UA 2+ (Negative); Specific Gravity Urine UA 1.025 (1.000-1.035); Urobilinogen Urine UA 0.2 E.U./dL (0.2)
[2020-08-29 13:51] LABS: pH Urine UA 5.5 (4.5-8.0)
[2020-08-29 14:02] LABS: RBC Urine 30-100/HPF (0-5/HPF); Squamous Epithelial Cell Urine 0-1 /HPF (0-5/HPF); WBC Urine 1-5/HPF (0-5/HPF)
[2020-08-29 14:03] LABS: Bacteria Urine Many (>30); Culture Indicated Urine Specimen Cultured; Hyaline Casts Urine 0-1/LPF
--- NOTE | 2020-08-29 14:12 | ED.BACK ---
HPI - Back Pain/Injury General Chief Complaint: Back Pain/Injury Stated Complaint: back surgery,blood in urine, no BM, lots of pain Time Seen by Provider: 08/29/20 13:24 Source: patient Mode of arrival: Ambulatory Limitations: no limitations History of Present Illness HPI Narrative: Patient is a 49-year-old female with history of multiple back surgeries most recently 9 days ago at [facility]. She had an L2-L3 micro diskectomy and laminectomy. She had had fevers off and on and realize she no longer has sensation of full bladder. She was seen and evaluated here 2 days ago and found to have urinary retention and constipation. She was given stool softeners and magnesium citrate which she said she still has not had a bowel movement and continues to have a Florez catheter. She says that she still has fever in is having pain in her right hip. She can not find a comfortable position. She continues to have intermittent fevers. Her last bowel movement was last week before surgery she says she is not passing gas. However she has no abdominal pain or rectal pressure. She has no abdominal bloating nausea or vomiting. MD Complaint: back pain Related Data Home Medications Medication Instructions Recorded Confirmed baclofen 10 mg tablet 5 - 10 mg PO TID 07/26/18 07/26/18 Previous Rx's Medication Instructions Recorded gabapentin 100 mg capsule 100 mg PO BEDTIME #60 cap 05/23/20 hydrocodone-acetaminophen 1 tab PO Q6H PRN #10 tab 08/29/20 lactulose 15 ml PO TID PRN #473 ml 08/29/20 sulfamethoxazole-trimethoprim 1 tab PO BID 5 Days #10 tab 08/29/20 [Bactrim DS] Allergies Allergy/AdvReac Type Severity Reaction Status Date / Time hydrocodone [From Vicodin] Allergy Severe Swelling Verified 08/29/20 12:34 of tongue, hives sumatriptan [From Imitrex] Allergy Severe Anaphylaxis/ Verified 08/29/20 12:34 seizure Review of Systems Review of Systems ROS Unobtainable: All systems reviewed & are unremarkable except as noted in HPI and below Constitutional Constitutional: Denies chills, Reports fatigue, Reports fever(s), Denies lethargy and Denies weakness Eyes Eyes: Denies change in vision, Denies eye discharge, Denies irritation and Denies loss of vision Cardiovascular Cardiovascular: Denies chest pain, Denies irregular heart rhythm, Denies lightheadedness, Denies palpitations, Denies dyspnea, Denies dyspnea on exertion and Denies orthopnea Respiratory Respiratory: Denies cough, Denies dyspnea, Denies dyspnea on exertion and Denies wheezing Gastrointestinal Gastrointestinal: Denies abdominal pain, Denies change in bowel habits, Denies diarrhea, Denies nausea and Denies vomiting Genitourinary Genitourinary: Reports as per HPI Genitourinary: Reports as per HPI Musculoskeletal Musculoskeletal: Reports as per HPI and Reports back pain Integumentary/Breasts Skin/Breast: Denies pruritus, Denies erythema, Denies rash and Denies wounds Neurologic Neurologic: Reports as per HPI, Denies loss of vision, Denies sensory deficit and Denies weakness Endocrine Endocrine: Reports fatigue and Denies palpitations Allergic/Immunologic Allergic/Immunologic: Denies wheezing Patient History Medical History Back problem (~2000) Cervical spine disease (~2000) Chronic back pain (~2000) DDD (degenerative disc disease) Migraines (~2000) Surgical History Anesthesia History of endometrial ablation (~06/25/08) History of knee surgery (~12/05/07) History of knee surgery (~01/2006) History of lumbar surgery History of neck surgery (~2014) History of neck surgery (~07/2013) Surgical procedure planned (~08/20/16) Family History Father Cancer Heart disease Hypertension Hyperlipidemia Mother Heart disease Hyperlipidemia Hypertension Sister Chronic progressive multiple sclerosis Hyperlipidemia Hypertension Omid Dumont infection Sister Heart disease Hypertension Hyperlipidemia Social History Smoking Status: Never smoker second hand exposure: No alcohol intake: current (1-2 drinks a year at special occasions.) substance use type: does not use Smoking Status: Never smoker alcohol intake frequency: holidays/special occasions only Substance Use Type: does not use Exam Initial Vital Signs Initial Vital Signs: Vital Signs Temperature 98.4 F 08/29/20 12:34 Pulse Rate 118 H 08/29/20 12:34 Respiratory Rate 16 08/29/20 12:34 Blood Pressure 116/85 08/29/20 12:34 Pulse Oximetry 96 08/29/20 12:34 GENERAL: Well-appearing, well-nourished and in no acute distress. HEENT: Head atraumatic,EOMI, pupils reactive, face symmetric, moist mucous membranes CARDIOVASCULAR: Regular rate and rhythm without murmurs, rubs or gallops. RESPIRATORY: Breath sounds equal bilaterally, no wheezes rales or rhonchi. ABDOMEN: Soft, nontender. Normoactive bowel sounds all 4 quadrants. No guarding or rebound. RECTAL: Good rectal tone : No CVA tenderness EXTREMITIES: Normal range of motion, no clubbing or edema. Neurovascularly intact NEUROLOGICAL: Alert and oriented x4.Normal gait and speech. Cranial nerves II through XII grossly intact. Sensation intact and equal in lower extremities SKIN: Warm, dry, no laceration, no petechiae, no rashes or lesions. Course Orders Ordered: ED Orders 08/29/20 13:15 Test Urine Stat Urinalysis and Microscopic Stat Urine Culture Stat 08/29/20 14:00 Blood Culture Stat 08/29/20 14:12 MR lumbar spine wo/w con Stat 08/29/20 14:30 C-Reactive Protein Quant Stat Complete Blood Count AUTO DIFF Stat Comprehensive Metabolic Panel Stat Erythrocyte Sedimentation Rate Stat Lactate (Lactic Acid) Stat Procalcitonin Stat Discontinued Medications Sodium Chloride (Normal Saline 0.9%) 1,000 mls @ 1,000 mls/hr IV BOLUS ONE Stop: 08/29/20 15:11 Last Infusion: 08/29/20 17:00 Dose: 0 mls/hr Documented by: [email or web address] Admin: 08/29/20 14:30 Dose: 1,000 mls/hr Documented by: [email or web address] Vital Signs Vital signs: Vital Signs - 8 hr 08/29/20 12:34 08/29/20 17:23 Temperature 98.4 F Pulse Rate 118 H 75 Respiratory Rate 16 16 Blood Pressure 116/85 129/58 L Pulse Oximetry 96 97 MDM - Back Pain/Injury Lab Data Attestation: I reviewed the patient's lab results. Result diagrams: 08/29/20 14:30 08/29/20 14:30 Labs: Lab Results 08/29/20 08/29/20 08/29/20 Range/Units 13:15 13:15 14:30 WBC 4.9 (4.5-11.0) X10^3/uL RBC 3.59 L (4.0-5.2) X10^6/uL Hgb 11.8 L (12.0-16.0) g/dL Hct 35.0 L (36-46) % MCV 97.4 (80-100) fL MCH 32.9 (26-34) PG MCHC 33.8 (30-36) % RDW 12.2 (11.6-14.8) % Plt Count 245 (150-400) X10^3/uL Neut % (Auto) 56.1 (50-75) % Lymph % (Auto) 29.7 (25-40) % [place] % (Auto) 8.8 (3-14) % Eos % (Auto) 4.2 H (2-4) % Baso % (Auto) 1.2 (0-2) % Neut # (Auto) 2700 (8877-8914) /uL Lymph # (Auto) 1400 (2154-7309) /uL [place] # (Auto) 400 (0-900) /uL Eos # (Auto) 200 (0-450) /uL Baso # (Auto) 100 (0-100) /uL ESR 45 H (0-20) MM/HR Sodium (137-145) mmol/L Potassium (3.4-5.1) mmol/L Chloride (98-107) mmol/L Carbon Dioxide (22-32) mmol/L BUN (7-17) mg/dL Creatinine (0.52-1.04) mg/dL Estimated GFR (>60) mL/min BUN/Creatinine Ratio (6-22) Glucose (70-100) mg/dL Lactate (0.7-2.1) mmol/L Calcium (8.4-10.2) mg/dL Total Bilirubin (0.2-1.3) mg/dL AST (14-36) IU/L ALT (<35) IU/L Alkaline Phosphatase (38-126) U/L C-Reactive Protein (<1.0) mg/dL Total Protein (6.3-8.2) g/dL Albumin (3.5-5.0) g/dL Globulin (1.7-4.1) g/dL Albumin/Globulin Ratio (1.0-2.8) Procalcitonin (<0.5) ng/mL Urine Color Brown Urine Appearance Cloudy Urine pH 5.5 (4.5-8.0) Ur Specific [place] 1.025 (1.000-1.035) Urine Protein 2+ H (Negative) Urine Glucose (UA) Trace H (Negative) g/dL Urine Ketones Negative (NEGATIVE) Urine Occult Blood 3+ H (Negative) Urine Nitrate Negative (Negative) Urine Bilirubin Negative (NEGATIVE) Urine Urobilinogen 0.2 (0.2) E.U./dL Ur Leukocyte Esterase Trace H (NEGATIVE) Urine RBC 30-100/hpf H (0-5/HPF) Urine WBC 1-5/hpf (0-5/HPF) Ur Squamous Epith Cells 0-1 /hpf (0-5/HPF) Urine Bacteria Many (>30) H (None) Hyaline Casts 0-1/lpf (None) Ur Culture Indicated? Specimen cultured Urine Test Negative (Negative) 08/29/20 08/29/20 Range/Units 14:30 14:30 WBC (4.5-11.0) X10^3/uL RBC (4.0-5.2) X10^6/uL Hgb (12.0-16.0) g/dL Hct (36-46) % MCV (80-100) fL MCH (26-34) PG MCHC (30-36) % RDW (11.6-14.8) % Plt Count (150-400) X10^3/uL Neut % (Auto) (50-75) % Lymph % (Auto) (25-40) % [place] % (Auto) (3-14) % Eos % (Auto) (2-4) % Baso % (Auto) (0-2) % Neut # (Auto) (0039-1297) /uL Lymph # (Auto) (1682-5476) /uL [place] # (Auto) (0-900) /uL Eos # (Auto) (0-450) /uL Baso # (Auto) (0-100) /uL ESR (0-20) MM/HR Sodium 136 L (137-145) mmol/L Potassium 4.1 (3.4-5.1) mmol/L Chloride 98 (98-107) mmol/L Carbon Dioxide 32 (22-32) mmol/L BUN 16 (7-17) mg/dL Creatinine 0.79 (0.52-1.04) mg/dL Estimated GFR > 60.0 (>60) mL/min BUN/Creatinine Ratio 20.3 (6-22) Glucose 95 (70-100) mg/dL Lactate 0.9 (0.7-2.1) mmol/L Calcium 9.4 (8.4-10.2) mg/dL Total Bilirubin 0.5 (0.2-1.3) mg/dL AST 47 H (14-36) IU/L ALT 60 H (<35) IU/L Alkaline Phosphatase 62 (38-126) U/L C-Reactive Protein 1.7 H (<1.0) mg/dL Total Protein 7.3 (6.3-8.2) g/dL Albumin 4.2 (3.5-5.0) g/dL Globulin 3.1 (1.7-4.1) g/dL Albumin/Globulin Ratio 1.4 (1.0-2.8) Procalcitonin 0.03 (<0.5) ng/mL Urine Color Urine Appearance Urine pH (4.5-8.0) Ur Specific [place] (1.000-1.035) Urine Protein (Negative) Urine Glucose (UA) (Negative) g/dL Urine Ketones (NEGATIVE) Urine Occult Blood (Negative) Urine Nitrate (Negative) Urine Bilirubin (NEGATIVE) Urine Urobilinogen (0.2) E.U./dL Ur Leukocyte Esterase (NEGATIVE) Urine RBC (0-5/HPF) Urine WBC (0-5/HPF) Ur Squamous Epith Cells (0-5/HPF) Urine Bacteria (None) Hyaline Casts (None) Ur Culture Indicated? Urine Test (Negative) Imaging Data MR Lumbar: Radiologist's Impression: PROCEDURE: MR LUMBAR SPINE WO/W CON INDICATIONS: cauda equina syndrome- post operative TECHNIQUE: Noncontrast sagittal T1 spin echo and T2 fast spin echo, sagittal STIR, axial T1 and T2 fast spin echo through the lumbar spine. In cases with scoliosis, additional coronal T2 fast spin echo may be performed. After the administration of contrast, sagittal and axial T1 spin echo with fat saturation through the lumbar spine. COMPARISON: [facility], , MR LUMBAR SPINE WO CON, 05/25/2020, 8:58. FINDINGS: Image quality: Excellent. Alignment and curvature: Straightening of the normal lordotic curvature. Trace retrolisthesis of L2 on L3 and L3 on L4 as well as L4 on L5. Grade 1 retrolisthesis of L5 on S1. Marrow: Multilevel degenerative endplate sclerosis and spurring. Diffuse facet arthropathy. No evidence of acute fracture. Postsurgical changes related to decompression at the L2-L3 level, on the left. T1 isointense, T2 hyperintense 2.3 x 1.6 cm signal change present in the operative bed at the L2-L3 level image 10/3, likely reflecting postsurgical fluid collection potentially seroma or hematoma. Spinal cord: Conus medullaris terminates at the L1-L2 level. Visualized spinal cord demonstrates normal signal, without suspicious enhancement. Paraspinous soft tissues: There are fluid collections seen within the subcutaneous paraspinal soft tissues with rim enhancement, one of these measures 1.8 x 1.6 cm on axial image 15/9. A discrete epidural abscess is not seen. There is no definite enhancing granulation tissue. T12-L1: Normal appearance. L1-L2: Normal appearance. L2-L3: Posterior annular fissure is again noted. There is overall improvement in the previously seen severe canal narrowing since the prior study dated 05/25/20. Partial effacement of both lateral recesses with bilaterally symmetric appearance. Mild bilateral foraminal stenosis appears unchanged L3-L4: Mild canal narrowing. Partial effacement of both lateral recesses with bilaterally symmetric appearance. Mild bilateral foraminal stenoses, grossly unchanged L4-L5: No interval change in mild canal narrowing. Partial effacement of both lateral recesses with bilaterally symmetric appearance. Mild right foraminal narrowing. Moderate left foraminal narrowing with questionable/borderline nerve root compression although unchanged appearance L5-S1: Mild canal narrowing. Partial effacement of both lateral recesses with bilaterally symmetric appearance. Severe right foraminal stenosis with nerve root compression. Moderate left foraminal narrowing. Overall, no interval change. IMPRESSION: Postsurgical changes with interval improvement in canal narrowing at L2-L3 since 05/25/20. No definite enhancing granulation tissue identified. Scattered ill-defined fluid collections seen within the posterior paraspinal soft tissues , and operative bed, which could reflect seroma/hematoma. Recommend clinical and laboratory correlation to exclude underlying infection. If necessary, follow-up MRI in 6 weeks could be performed after treatment. No change in diffuse bilateral foraminal stenoses as detailed above. Dictated by: James Sloan M.D. on 08/29/2020 at 16:15 MDM Narrative Medical decision making narrative: Urine is now found to have bacteria in it at this time will treat for catheter associated UTI. MRI does not show any complication from surgery or at spinal abscess. She is requesting for refill on her pain medications. I have discussed with her that she will only be getting 1 prescription in needs to see her primary care provider or orthopedic surgeon in regards to any further refills. She did not have any relief with magnesium citrate will give her lactulose to try at home. Discharge Plan Departure Patient Disposition: Home Clinical Impression: UTI (urinary tract infection) Qualifiers: Urinary tract infection type: catheter-associated UTI Indwelling urinary catheter type: indwelling urethral catheter Encounter type: initial encounter Qualified Code(s): T83.511A - Infection and inflammatory reaction due to indwelling urethral catheter, initial encounter Instructions: DI for Urinary Tract Infection (UTI) Activity Restrictions/Additional Instructions: *You have been diagnosed with UTI *What to do: At this time her MRI is negative for any surgical complications. Today your urine shows infection which is probably causing your fevers. At this time continue Florez catheter. This will be removed in about 1-2 weeks *Continue to take medications as directed--> SENT TO [facility] Bactrim 1 tablet twice a day for 7 days For bowel movement recommend: Lactulose 15 mL up to 3 times a day or in till you have a bowel movement Metamucil daily, Colace 100 mg twice a day and MiraLax as needed Casey 1 tablet every 6 hours if needed for severe pain--you will need to speak with your primary care provider or your orthopedic surgeon in regards to any further pain pill prescriptions *Follow up with your primary care provider in 2-3 days Follow-up with your orthopedic *Return to ER if you should have persistent fever, increasing weakness, pain such as or any new, worsening or concerning symptoms CONTROLLED SUBSTANCE DISCHARGE (Narcotoic/benzodiazepine/Flexeril/Phenergan) 1. You have been prescribed narcotic medications, it does have acetaminophen/Tylenol/paracetamol in it, DO NOT TAKE MORE THAN 4,00mg in 24 hours of Tylenol. TRAMADOL DOES NOT CONTAIN TYLENOL 2. Please understand that we cannot provide further refills of narcotics, benzodiazepines or controlled substances through the ED and her pain management will need to be through your provider. 3. While on these medications you cannot drive or operate heavy machinery. 4. You cannot sign legal documents or perform any duties such as this. 5. As long as you're taking opiate pain medications he should also be taking a stool softener such as Colace, Dulcolax, MiraLAX or prune juice, to help avoid constipation. Prescriptions: New lactulose 10 gram/15 mL solution 15 ml PO TID PRN (Reason: constipation) Qty: 473 RF: 0 hydrocodone-acetaminophen 5-325 mg tablet 1 tab PO Q6H PRN (Reason: pain) Qty: 10 RF: 0 sulfamethoxazole-trimethoprim [Bactrim DS] 800-160 mg tablet 1 tab PO BID 5 Days Qty: 10 RF: 0 No Action baclofen 10 mg tablet 5 - 10 mg PO TID RF: 0 gabapentin 100 mg capsule 100 mg PO BEDTIME Qty: 60 RF: 0 Referrals: Diana Deleon ARNP [Primary Care Provider] -
[2020-08-29] MEDS: SODIUM CHLORIDE 0.9% 1,000 ML 1000 ML IV (14:30)
[2020-08-29 14:39] LABS: Add Manual Diff / Slide Review NO; Basophils Absolute Auto 100 /uL (0-100); Basophils Percent Auto 1.2 % (0-2); Eosinophils Absolute Auto 200 /uL (0-450); Eosinophils Percent Auto 4.2 % (2-4); Hemoglobin 11.8 g/dL (12.0-16.0); Lymphocytes Absolute Auto 1400 /uL (1100-4500); Lymphocytes Percent Auto 29.7 % (25-40); Mean Corpuscular HGB Conc 33.8 % (30-36); Mean Corpuscular Hemoglobin 32.9 PG (26-34); Mean Corpuscular Volume 97.4 fL (80-100); Monocytes Absolute Auto 400 /uL (0-900); Monocytes Percent Auto 8.8 % (3-14); Neutrophils Absolute Auto 2700 /uL (1500-7000); Neutrophils Percent Auto 56.1 % (50-75); Platelet Count 245 X10^3/uL (150-400); Red Blood Cell Count 3.59 X10^6/uL (4.0-5.2); Red Cell Distribution Width 12.2 % (11.6-14.8); White Blood Cell Count 4.9 X10^3/uL (4.5-11.0)
[2020-08-29 14:50] LABS: Lactate (Lactic Acid) 0.9 mmol/L (0.7-2.1)
[2020-08-29 14:51] LABS: Alanine Aminotransferase 60 IU/L (<35); Albumin 4.2 g/dL (3.5-5.0); Albumin Globulin Ratio 1.4 (1.0-2.8); Alkaline Phosphatase 62 U/L (38-126); Aspartate Aminotransferase 47 IU/L (14-36); BUN Creatinine Ratio 20.3 (6-22); Bilirubin Total 0.5 mg/dL (0.2-1.3); Blood Urea Nitrogen 16 mg/dL (7-17); Calcium 9.4 mg/dL (8.4-10.2); Carbon Dioxide 32 mmol/L (22-32); Chloride 98 mmol/L (98-107); Estimated Glomerular Filt Rate > 60.0 mL/min (>60); Globulin 3.1 g/dL (1.7-4.1); Glucose 95 mg/dL (70-100); HEMOLYSIS < 15 (0-50); Potassium 4.1 mmol/L (3.4-5.1); Sodium 136 mmol/L (137-145); Total Protein 7.3 g/dL (6.3-8.2)
[2020-08-29 15:07] LABS: Procalcitonin 0.03 ng/mL (<0.5)
[2020-08-29 15:12] LABS: Erythrocyte Sedimentation Rate 45 MM/HR (0-20)
[2020-08-29 15:46] LABS: Pregnancy Test Urine Negative (Negative)
[2020-08-29 16:57] LABS: C-Reactive Protein Quant 1.7 mg/dL (<1.0)
[2020-08-29 17:23] VITALS: BP 129/58; PULSE 75; RESP 16; O2SAT 97
== END 2020-08-29 17:46 | disposition home or self-care (01) ==
PROVIDERS: Emergency Provider Emergency Medicine; PCP Nurse Practitioner Family
DX: T83.511A Infection and inflammatory reaction due to indwelling urethral catheter, initial encounter (principal); R50.9 Fever, unspecified
CPT/HCPCS: 36415; 72158; 80053; 81001; 81025; 83605; 84145; 85025; 85651; 86140; 87040; 87086; 96360; 96361; 99284; A9579

== ENCOUNTER → 2020-11-05 14:14 | Outpatient (CLI) | payer MEDICARE, SELFPAY ==
--- NOTE | 2020-11-05 14:16 | DI.MG.S_ITS ---
BILATERAL DIGITAL SCREENING MAMMOGRAM 3D/2D WITH CAD: 11/05/2020 CLINICAL: Routine screening. Comparison is made to exams dated: 11/04/2019 mammogram, 10/15/2018 mammogram - [facility], and 10/11/2017 mammogram - [facility]. The tissue of both breasts is predominantly fatty. Current study was also evaluated with a Computer Aided Detection (CAD) system. No significant masses, calcifications, or other findings are seen in either breast. There has been no significant interval change. IMPRESSION: NEGATIVE There is no mammographic evidence of malignancy. A 1 year screening mammogram is recommended. This exam was interpreted at Station ID: [id number]. NOTE: For mammograms, a report in lay terms will be sent to the patient. Approximately 15% of breast malignancies will not be visualized mammographically. In the management of a palpable breast mass, a negative mammogram must not discourage biopsy of a clinically suspicious lesion. Electronically Signed By: Rosio sun/brian:11/05/2020 14:45:05 letter sent: Normal Exam ACR BI-RADS Category 1: Negative [id number]
== END ==
PROVIDERS: PCP Nurse Practitioner Family; Referring Provider Nurse Practitioner Family; Visit Provider Nurse Practitioner Family
DX: Z12.31 Encounter for screening mammogram for malignant neoplasm of breast (principal)
CPT/HCPCS: 77063; 77067

== ENCOUNTER 2021-01-07 15:25 | Emergency (ER) | payer OTHER, SELFPAY ==
[2021-01-07 15:25] VITALS: BP 138/63; PULSE 78; RESP 15; TEMP 36.3; O2SAT 97; BMI 23.3
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
[2021-01-07] MEDS: IBUPROFEN 400 MG TABLET 800 MG PO (17:43)
[2021-01-07 18:04] VITALS: BP 109/71; PULSE 66; RESP 18; O2SAT 98
== END 2021-01-07 18:06 | disposition home or self-care (01) ==
PROVIDERS: Emergency Provider Emergency Medicine; PCP Nurse Practitioner Family
DX: S16.1XXA Strain of muscle, fascia and tendon at neck level, initial encounter (principal); M54.5 Low back pain; M25.512 Pain in left shoulder; V89.2XXA Person injured in unspecified motor-vehicle accident, traffic, initial encounter
CPT/HCPCS: 72100; 72125; 73030; 99283; 99284

== ENCOUNTER 2021-03-12 12:15 | Outpatient (RCR) | payer OTHER, SELFPAY ==
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
== END 2021-05-20 09:37 ==
LOC: PHYS 12:15
PROVIDERS: Family Provider Nurse Practitioner Family; PCP Nurse Practitioner Family; Referring Provider Nurse Practitioner Family; Visit Provider Nurse Practitioner Family
DX: Z98.890 Other specified postprocedural states (principal); S46.912A Strain of unspecified muscle, fascia and tendon at shoulder and upper arm level, left arm, initial encounter; Z87.828 Personal history of other (healed) physical injury and trauma
CPT/HCPCS: 97010; 97110; 97140; 97161; 97535

== ENCOUNTER → 2021-04-01 12:14 | Outpatient (CLI) | payer OTHER, SELFPAY ==
--- NOTE | 2021-04-01 12:15 | DI.MRI.S_ITS ---
PROCEDURE: MR SHOULDER LT WO CON INDICATIONS: ongoing pain after PT and NSAIDs TECHNIQUE: Noncontrast oblique coronal T2 fast spin echo with fat saturation, oblique sagittal T1 spin echo and T2 fast spin echo with fat saturation, axial T1 spin echo and T2 fast spin echo with fat saturation through the shoulder. COMPARISON: [facility], CR, XR SHOULDER LT MIN 2V, 01/07/2021, 15:47. FINDINGS: Image quality: Excellent. Rotator cuff: Moderate to severe supraspinatus tendinosis is seen, with superimposed bursal surface fraying. There is moderate infraspinatus tendinosis. The teres minor tendon is intact. Moderate subscapularis tendinosis is seen. No significant rotator cuff tendon tear is seen. The rotator cuff musculature is normal in bulk. Bones and bursae: No acute trabecular bone injury. Chronic traction cystic changes are seen at the posterosuperior humeral head near the rotator cuff tendon insertions. Moderate degenerative changes are seen at the acromioclavicular joint with subchondral cystic changes and edema and formation of small marginal osteophytes. There is a trace amount of fluid in the subacromial/subdeltoid bursa. Capsule and soft tissues: There is nondisplaced tearing of the posterosuperior labrum with a small 5 mm paralabral cyst posteriorly. The biceps long head tendon is intact. There is complete effacement of the fat in the rotator interval. The middle and inferior glenohumeral ligaments appear thickened. IMPRESSION: 1. Nondisplaced tearing of the posterosuperior labrum with a small 5 mm posterior paralabral cyst. 2. Moderate to severe supraspinatus tendinosis with mild bursal surface fraying but no significant tear. Moderate infraspinatus and subscapularis tendinosis. 3. Moderate acromioclavicular joint osteoarthrosis. 4. Trace subacromial/subdeltoid bursal effusion or bursitis. 5. Effacement of the rotator interval fat and thickening of the inferior and middle glenohumeral ligaments are suspicious for adhesive capsulitis. Dictated by: Too Stephens M.D. on 04/01/2021 at 13:55 Approved by: Too Stephens M.D. on 04/01/2021 at 14:03
== END ==
PROVIDERS: Family Provider Nurse Practitioner Family; PCP Nurse Practitioner Family; Referring Provider Nurse Practitioner Family; Visit Provider Nurse Practitioner Family
DX: S43.492A Other sprain of left shoulder joint, initial encounter (principal); M19.012 Primary osteoarthritis, left shoulder; X58.XXXA Exposure to other specified factors, initial encounter
CPT/HCPCS: 73221

== ENCOUNTER → 2021-06-12 18:30 | Outpatient (CLI) | payer MEDICARE, OTHER, SELFPAY | PROVIDERS: Family Provider Nurse Practitioner Family; PCP Nurse Practitioner Family; Visit Provider Student in an Organized Health Care Education/Training Program | DX: R30.0 Dysuria (principal) | CPT/HCPCS: 87077; 87086; 87186 ==

== ENCOUNTER → 2021-07-04 16:36 | Outpatient (CLI) | payer OTHER, SELFPAY ==
--- NOTE | 2021-07-04 16:41 | DI.RAD.S_ITS ---
PROCEDURE: XR LUMBAR SPINE 2-3V INDICATIONS: low back pain TECHNIQUE: 5 views of the lumbar spine were acquired. COMPARISON: [facility], , XR LUMBAR SPINE 2-3V, 01/07/2021, 15:47. FINDINGS: Bones: 5 glq-nbq-bqvarxp vertebrae are present. There is normal bony alignment. Moderate to severe disc and foraminal narrowing are present L5-S1 and L4-5. Scattered areas of svcv-ta-tewkszyk disc space narrowing are present throughout the remaining lumbar spine most severe at L2-3. Moderate foraminal narrowing is present L2-3, L3-4 as well as minimal at L1-L2. No vertebral body compression fractures. No suspicious bony lesions. Soft tissues: Overlying bowel gas pattern is normal. No suspicious soft tissue calcifications. IMPRESSION: Multilevel degenerative changes most severe at L5-S1. Dictated by: Aure Godfrey M.D. on 07/04/2021 at 17:06 Approved by: Aure Godfrey M.D. on 07/04/2021 at 17:07
== END ==
PROVIDERS: Family Provider Nurse Practitioner Family; PCP Nurse Practitioner Family; Referring Provider Nurse Practitioner Family; Visit Provider Nurse Practitioner Family
DX: M47.817 Spondylosis without myelopathy or radiculopathy, lumbosacral region (principal); M54.50 Low back pain, unspecified
CPT/HCPCS: 72100

== ENCOUNTER → 2021-07-11 19:10 | Outpatient (CLI) | payer OTHER, SELFPAY ==
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
== END ==
PROVIDERS: Family Provider Nurse Practitioner Family; PCP Nurse Practitioner Family; Referring Provider Nurse Practitioner Family; Visit Provider Nurse Practitioner Family
DX: M51.36 Other intervertebral disc degeneration, lumbar region (principal); M51.37 Other intervertebral disc degeneration, lumbosacral region; M47.816 Spondylosis without myelopathy or radiculopathy, lumbar region; M47.817 Spondylosis without myelopathy or radiculopathy, lumbosacral region; M48.061 Spinal stenosis, lumbar region without neurogenic claudication; M48.07 Spinal stenosis, lumbosacral region; Z98.890 Other specified postprocedural states
CPT/HCPCS: 72148

== ENCOUNTER 2021-08-14 13:45 | Outpatient (RCR) | payer OTHER, SELFPAY ==
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
== END 2021-09-05 09:53 ==
LOC: PHYS 13:45
PROVIDERS: Family Provider Nurse Practitioner Family; PCP Nurse Practitioner Family; Referring Provider Orthopaedic Surgery; Visit Provider Orthopaedic Surgery
DX: S40.012A Contusion of left shoulder, initial encounter (principal)
CPT/HCPCS: 97014; 97110; 97140; 97162; G0283

== ENCOUNTER → 2021-12-10 15:28 | Outpatient (CLI) | payer MEDICARE, SELFPAY ==
--- NOTE | 2021-12-10 15:29 | DI.MG.S_ITS ---
BILATERAL DIGITAL SCREENING MAMMOGRAM 3D/2D WITH CAD: 12/10/2021 CLINICAL: Routine screening. Comparison is made to exams dated: 11/05/2020 mammogram, 11/04/2019 mammogram, and 10/15/2018 mammogram - [facility]. Both breasts are almost entirely fatty (category a/<25% glandular tissue). Current study was also evaluated with a Computer Aided Detection (CAD) system. No significant masses, calcifications, or other findings are seen in either breast. There has been no significant interval change. IMPRESSION: NEGATIVE There is no mammographic evidence of malignancy. A 1 year screening mammogram is recommended. Based on the Tyrer Cuzick model (a risk assessment model) the patient's lifetime risk is 4.6% and her 10 year risk is 1.2%. According to the ACR, ACS, and NCCN guidelines, an annual breast MRI exam along with mammogram is recommended if the patient's lifetime risk is 20% or greater. This exam was interpreted at Station ID: [id number]. NOTE: For mammograms, a report in lay terms will be sent to the patient. Approximately 15% of breast malignancies will not be visualized mammographically. In the management of a palpable breast mass, a negative mammogram must not discourage biopsy of a clinically suspicious lesion. Electronically Signed By: Deena pinedo/brian:12/11/2021 08:50:17 letter sent: Normal Exam ACR BI-RADS Category 1: Negative [id number]
== END ==
PROVIDERS: Family Provider Orthopaedic Surgery; PCP Nurse Practitioner Family; Referring Provider Nurse Practitioner Family; Visit Provider Nurse Practitioner Family
DX: Z12.31 Encounter for screening mammogram for malignant neoplasm of breast (principal)
CPT/HCPCS: 77063; 77067

== ENCOUNTER → 2022-01-13 09:45 | Outpatient (CLI) | payer MEDICARE, SELFPAY ==
[2022-01-13 10:44] LABS: Add Manual Diff / Slide Review NO; Basophils Absolute Auto 0 /uL (0-100); Basophils Percent Auto 1.1 % (0-2); Eosinophils Absolute Auto 100 /uL (0-450); Eosinophils Percent Auto 2.7 % (2-4); Hematocrit 36.8 % (36-46); Hemoglobin 12.8 g/dL (12.0-16.0); Lymphocytes Absolute Auto 1900 /uL (1100-4500); Lymphocytes Percent Auto 44.7 % (25-40); Mean Corpuscular HGB Conc 34.7 % (30-36); Mean Corpuscular Hemoglobin 32.8 PG (26-34); Mean Corpuscular Volume 94.4 fL (80-100); Monocytes Absolute Auto 300 /uL (0-900); Monocytes Percent Auto 7.9 % (3-14); Neutrophils Absolute Auto 1900 /uL (1500-7000); Neutrophils Percent Auto 43.6 % (50-75); Platelet Count 214 X10^3/uL (150-400); White Blood Cell Count 4.3 X10^3/uL (4.5-11.0)
[2022-01-13 11:09] LABS: Erythrocyte Sedimentation Rate 13 MM/HR (0-20)
[2022-01-13 11:14] LABS: Alanine Aminotransferase 19 IU/L (<35); Albumin 4.4 g/dL (3.5-5.0); Albumin Globulin Ratio 1.5 (1.0-2.8); Alkaline Phosphatase 46 U/L (38-126); Aspartate Aminotransferase 27 IU/L (14-36); Blood Urea Nitrogen 19 mg/dL (7-17); C-Reactive Protein Quant < 0.5 mg/dL (<1.0); Calcium 9.6 mg/dL (8.4-10.2); Carbon Dioxide 31 mmol/L (22-32); Chloride 98 mmol/L (98-107); Cholesterol 262 mg/dL (140-199); Estimated Glomerular Filt Rate > 60 mL/min (>60); Globulin 2.9 g/dL (1.7-4.1); Glucose 89 mg/dL (70-100); HDL Cholesterol 102 mg/dL (40-60); HEMOLYSIS < 15 (0-50); LDL Cholesterol Calculated 142 mg/dL (<100); Sodium 138 mmol/L (137-145); Total Protein 7.3 g/dL (6.3-8.2); Triglycerides 88 mg/dL (35-150)
[2022-01-13 11:35] LABS: TSH w/ Reflex to FT4 1.37 uIU/mL (0.47-4.68)
== END ==
PROVIDERS: Family Provider Orthopaedic Surgery; PCP Registered Nurse Diabetes Educator; Referring Provider Registered Nurse Diabetes Educator; Visit Provider Registered Nurse Diabetes Educator
DX: Z00.00 Encounter for general adult medical examination without abnormal findings (principal); Z12.11 Encounter for screening for malignant neoplasm of colon; D64.9 Anemia, unspecified; K62.5 Hemorrhage of anus and rectum; R74.8 Abnormal levels of other serum enzymes; R79.82 Elevated C-reactive protein (CRP)
CPT/HCPCS: 36415; 80053; 80061; 84443; 85025; 85651; 86140; 99213

== ENCOUNTER → 2022-02-16 12:19 | Outpatient (CLI) | payer MEDICARE, SELFPAY ==
[2022-02-16 12:53] LABS: COVID19 -Nasal RAPID Negative (Negative)
== END ==
PROVIDERS: Family Provider Orthopaedic Surgery; PCP Registered Nurse Diabetes Educator; Visit Provider Surgery
DX: Z20.822 Contact with and (suspected) exposure to COVID-19 (principal); Z01.812 Encounter for preprocedural laboratory examination
CPT/HCPCS: 87635; C9803

== ENCOUNTER 2022-02-17 07:30 | Day surgery (SDC) | payer MEDICARE, SELFPAY ==
--- NOTE | 2022-02-17 07:51 | P.HP_ITS ---
History of Present Illness History of Present Illness Date Patient Seen: 02/17/22 Chief complaint: SCREENING COLONOSCOPY Narrative: The patient presents for colorectal screening after positive fit test. No prior colonoscopy. Family history unknown secondary to adoption. On further history denies any recent gastrointestinal symptoms. No nausea, vomiting, abdominal pain, loss of appetite, unexplained weight loss, change in bowel habits, diarrhea, constipation, melena, hematochezia, or bright red blood per rectum. Patient History Medical History Back problem (~2000) Cervical spine disease (~2000) Chronic back pain (~2000) DDD (degenerative disc disease) Labral tear of shoulder (12/2020) Left shoulder strain (12/2020) Lumbar disc narrowing Migraines (~2000) Supraspinatus tendonitis (12/2020) Surgical History Anesthesia History of endometrial ablation (~06/25/08) History of knee surgery (~12/05/07) History of knee surgery (~01/2006) History of lumbar surgery History of neck surgery (~2014) History of neck surgery (~07/2013) Surgical procedure planned (~08/20/16) Family & Social History Family History Father Cancer Heart disease Hypertension Hyperlipidemia Mother Heart disease Hyperlipidemia Hypertension Sister Chronic progressive multiple sclerosis Hyperlipidemia Hypertension Omid Dumont infection Sister Heart disease Hypertension Hyperlipidemia Tobacco & Substance use: Smoking Status Never smoker alcohol intake current alcohol intake frequency holiday/special occasion Substance Use Type does not use Meds Home Medications and Allergies Home Medications Medication Instructions Recorded Confirmed Type baclofen 10 mg tablet 10 mg PO TID 12/30/21 01/27/22 History sodium sul 1.479 gram-potas ch See Rx Instructions PO PER PKG DIR 01/30/22 Rx 0.188 gram-magnes sul 0.225 gram #24 tabs tablet (Sutab) Allergies Allergy/AdvReac Type Severity Reaction Status Date / Time hydrocodone [From Vicodin] Allergy Severe Swelling Verified 01/27/22 12:42 of tongue, hives sumatriptan [From Imitrex] Allergy Severe Anaphylaxis/ Verified 01/27/22 12:42 seizure naproxen AdvReac Intermediate diarrhea Verified 01/27/22 12:42 Exam Narrative Exam Narrative: General adult woman alert oriented no acute distress Abdomen soft nontender nondistended Assessment & Plan Assessment and plan (1) Positive FIT (fecal immunochemical test): Status: Acute Assessment & Plan narrative: The patient requires colorectal screening and colonoscopy is recommended secondary to a positive fit.. Technical details were discussed. Risks, benefits, alternatives explained. Risks including but not limited to myocardial infarction, aspiration, bleeding, pain, missed lesion, incomplete examination, need for further radiographic studies, colonic perforation, and need for major abdominal surgery were discussed. All questions were answered to their satisfaction, and they are in agreement with this plan. Time Spent With Patient Critical Care time: I spent a total of [] minutes of critical care time on this patient's care toda y; this time is exclusive of procedural time.
[2022-02-17 08:07] VITALS: BP 121/69; PULSE 71; RESP 20; TEMP 36.7; O2SAT 98; BMI 24.2
[2022-02-17] MEDS: LACTATED RINGERS 1,000 ML 200 ML IV (08:10)
--- NOTE | 2022-02-17 08:30 | PM.OP.COLON ---
Operative Date/Time/Diagnoses Date of procedure: 02/17/22 Time of procedure: 08:31 Pre-op diagnosis: Positive FIT Post-op diagnosis: same Procedure & Clinicians Study performed: Colonoscopy Same procedure as scheduled: Yes Indications: Positive FIT Surgeon: Gomez Finch Procedure Notes Procedure in detail: The history and physical was performed/updated and the patient is ASA class is 2. The procedure was discussed in detail with the patient. Potential risks complications including infection, bleeding, missed diagnosis, perforation, need for surgery, and were explained. Their questions were answered and informed consent was obtained. Patient was brought to the procedure room and placed standard monitoring equipment. The patient's vital signs were monitored continuously throughout the entire procedure. Prior to starting time-out was performed. The patient was placed in the left lateral recumbent position. Procedural sedation was administered by anesthesia. Examination began with a thorough inspection of the perianal area there was no evidence of fissures, fistulae, external hemorrhoids or cutaneous malignancy. The colonoscopy scope was then placed into the anal canal and was advanced to the cecum, which was identified by the ileocecal valve, the appendiceal orifice and the confluence of the taenia. The scope was then slowly withdrawn examining colon thoroughly in all directions, irrigating it of any residual stool. FINDINGS 1. No masses or polyps 2. Internal hemorrhoids The patient tolerated the procedure well. They will be discharged once criteria are met. The prep was of good/excellent quality. The withdrawl time was 7 minutes. Impression: Normal colonoscopy Post-procedure Recommendations: Colonoscopy in 10 years and High fiber diet Disposition: same day surgery
[2022-02-17 08:53] VITALS: BP 106/67; PULSE 68; RESP 14; TEMP 36.3; O2SAT 99
[2022-02-17 08:58] VITALS: BP 109/69; PULSE 72; RESP 14; O2SAT 98
[2022-02-17 09:03] VITALS: BP 112/73; PULSE 64; RESP 14; O2SAT 98
[2022-02-17 09:08] VITALS: BP 113/72; PULSE 61; RESP 14; O2SAT 98
[2022-02-17 09:20] VITALS: BP 112/73; PULSE 60; RESP 14; TEMP 36.3; O2SAT 98
== END 2022-02-17 09:34 | disposition home or self-care (01) ==
PROVIDERS: Family Provider Orthopaedic Surgery; PCP Registered Nurse Diabetes Educator; Referring Provider Surgery; Visit Provider Surgery
PROC: 0DJD8ZZ Inspection of Lower Intestinal Tract, Via Natural or Artificial Opening Endoscopic (ICD-10-PCS; CPT 45378; principal; 2022-02-17 08:30)
DX: R19.5 Other fecal abnormalities (principal); K64.8 Other hemorrhoids
CPT/HCPCS: 45378

== ENCOUNTER 2022-08-24 12:45 | Outpatient (RCR) | payer MEDICARE, OTHER, SELFPAY ==
--- NOTE | 2021-10-09 17:24 | PT.OIE ---
Current Diagnoses Stiffness of left shoulder, not elsewhere classified (10/09/21) Weakness (10/09/21) Contusion of left shoulder, initial encounter (10/09/21) Arthroscopic surgical procedure converted to open procedure (10/09/21) Past Medical History (Last Updated 07/04/21 @ 17:14 by HENRRY Denton) Back problem (~2000) Cervical spine disease (~2000) Chronic back pain (~2000) DDD (degenerative disc disease) Labral tear of shoulder (12/2020) Left shoulder strain (12/2020) Lumbar disc narrowing Migraines (~2000) Supraspinatus tendonitis (12/2020) Past Surgical History (Last Reviewed 06/12/21 @ 19:22 by Lissa Jiménez PA-C) Anesthesia History of endometrial ablation (~06/25/08) History of knee surgery (~12/05/07) History of knee surgery (~01/2006) History of lumbar surgery History of neck surgery (~2014) History of neck surgery (~07/2013) Surgical procedure planned (~08/20/16) Visit Care Team Role Provider Type HENRRY Denton Primary Care Provider Advanced Jailer Chief Specialty: Medical Address: [address] [place] [address], [id number] Email: [email or web address] Javier Castle MD Attending Provider Physician Family Provider Referring Provider Specialty: Orthopedics Orthopedic Surgery Address: [address] [place] [address], [address] Email: [email or web address] Physical Therapy Initial Evaluation PT-OP-A Visit Information Start: 10/09/21 08:11 Freq: Status: Active Protocol: Document 10/09/21 15:20 ANGELO (Rec: 10/09/21 16:39 SAK [id number]) Out-Patient Physical Therapy Visit Information Visit Information Visit Type Initial Evaluation Visit Note 3 weeks post-op SLAP repair with distal clavicle excision. Visit Start Time 15:20 Visit Stop Time 16:15 Total Visit Minutes 55 Visit Number 1 Evaluation Information Evaluation Date 10/09/21 Precautions Precautions No lifting, gentle PROM only until 5 weeks then AROM per protocol (protocol in chart) PT-OP-B Current Condition Start: 10/09/21 08:11 Freq: Status: Active Protocol: Document 10/09/21 15:20 [facility] (Rec: 10/09/21 16:39 [facility] [id number]) Current Condition History of Current Condition Onset Date 09/18/21 Current Complaints left shoulder pain. History of Current Condition SLAP shoulder repair after failed PT. Reports post op wore sling for 1-2 weeks per doctor, then instructed in gentle limited motion and no lifting. Has had deep throbbing pain distal clavicle , has mostly been sitting or laying down, icing. Just now starting to move around a little. Has difficulty taking pain medications, has had to modify diet to tolerate. Uses ice machine. Prior Treatments and Tests Post-op with Dr. Castle , instructed no heavy lifting, no straining, move, but not too much. General protocol shows PROM until 5 weeks post op. Will contact physician office to further clarify. Future Testing and Treatments Planned Will see Dr. Castle again 6-8 weeks post-op Treatment Goals Patient/Caregiver Goals regain full active use of her left UE Prior Functional Status Baseline Function- ADL's Independent Baseline Function- Mobility Independent Current Functional Impairments (Reported) Functional Limitations- ADL's unable to use left UE Functional Limitations- Recreation/ Unable Hobbies PT-OP-F Manual Assessment Start: 10/09/21 08:11 Freq: Status: Active Protocol: Document 10/09/21 15:20 [facility] (Rec: 10/09/21 17:09 [facility] [id number]) Manual Assessments Soft Tissue Assessment Soft Tissue Mobility Assessment increased tightness left UT, periscapular region PT-OP-H Neuro Start: 10/09/21 08:11 Freq: Status: Active Protocol: Document 10/09/21 15:20 [facility] (Rec: 10/09/21 17:09 [facility] [id number]) Sensation Evaluation Gross Sensation Gross Sensation WNL PT-OP-J Posture/Palpation/Skin Start: 10/09/21 08:11 Freq: Status: Active Protocol: Document 10/09/21 15:20 [facility] (Rec: 10/09/21 17:09 [facility] [id number]) Palpation Assessment Location upper traps Palpation Location left Palpation Findings Soft Tissue Tightness,Muscle Guarding,Tenderness,Trigger Point Skin Assessment Edema Assessment Left Arm Edema Appearance Discolored,Taut Subjective Edema Description Pain,Tightness Incisional Assessment Incision Appearance/Comments well-healing arthroscopic scar ant and post. PT-OP-K Range of Motion Start: 10/09/21 08:11 Freq: Status: Active Protocol: Document 10/09/21 15:20 [facility] (Rec: 10/09/21 16:39 [facility] [id number]) Cervical Spine Range of Motion Cervical Spine Active Testing Position Sitting Flexion 60 Extension 25 Rotation Left 55 Rotation Right 55 Lateral Flexion Left 40 Lateral Flexion Right 50 Shoulder Goniometric Range of Motion Shoulder Left Passive Testing Position standing, sitting, supine Flexion 90 Extension 10 Abduction 65 External Rotation at 0 degrees Abduction 40 Internal Rotation 45 Right Shoulder ROM WFL Yes Shoulder ROM Limitations Shoulder ROM Limitations Soft Tissue Tightness,Pain, Swelling Elbow/Forearm Range of Motion Elbow/Forearm Left Elbow/Forearm ROM WFL Yes PT-OP-M Strength Start: 10/09/21 08:11 Freq: Status: Active Protocol: Document 10/09/21 15:20 [facility] (Rec: 10/09/21 17:09 [facility] [id number]) Shoulder Strength Shoulder Manual Muscle Testing Left Comments NT due to post-op 3 weeks, PROM only at this time PT-OP-Q Treatments Start: 10/09/21 08:11 Freq: Status: Active Protocol: Document 10/09/21 15:20 [facility] (Rec: 10/09/21 16:39 [facility] [id number]) Self-Care/Home Management Treatment Education Patient Education Home Exercise Program,Joint Protection,Pain Management, Posture Other Education gentle with exercises, deep breathing, relax shoulder down PT-OP-R Modalities Start: 10/09/21 08:11 Freq: Status: Active Protocol: Document 10/09/21 15:20 [facility] (Rec: 10/09/21 16:39 [facility] [id number]) Electric Stimulation Electric Stimulation Interferential Current (IFC) Body Location L shoulder Duration (Minutes) 12 Combined With Heat/Cold Cold Pack PT-OP-T Assessment and Plan Start: 10/09/21 08:11 Freq: Status: Active Protocol: Document 10/09/21 15:20 [facility] (Rec: 10/09/21 16:39 [facility] [id number]) Physical Therapy Assessment Rehab Potential Rehabilitation Potential Good Evaluation Complexity Number of Personal Factors/Comorbidities 1-2 Number of Body Systems Impaired 3 Clinical Presentation at Evaluation Evolving Impairments Impairments Pain,ROM,Strength Goals Three Impairment shoulder function Impairment unable to reach overhead or behind her back for purposes of ADL's Short Term Goal (STG) Patient will be able to reach overhead and behind her back without difficulty STG Duration 12/07/21 Childcare Provider Goal (LTG) Patient to score less than 15% on Quickdash Disability Index score as measure of improved functional use of left UE. LTG Duration 01/07/22 Two Impairment strength Short Term Goal (STG) Patient to be independent and compliant with a progressive HEP for purposes of increased left shoulder ROM and strength STG Duration 11/06/21 Mcc Goal (LTG) Patient to achieve at least 4+ /5 muscle strength left shoulder all muscle groups to allow her to return to her usual activities LTG Duration 01/07/22 One Impairment Decreased ROM left shoulder post-op shoulder surgery Short Term Goal (STG) Patient to achieve full PROM left shoulder STG Duration 11/06/21 Childcare Provider Goal (LTG) Patient to achieve full AROM left shoulder to allow her to do all usual ADL's and activities LTG Duration 01/07/22 Assessment Summary Assessment Patient presents to PT with function-limiting pain and post-op limitations in ROM and strength. She will benefit from PT to improve her left shoulder ROM and strength per protocol to allow her to return to full active use of her left UE for all her usual activities. Initiated gentle PROM per protocol and patient was issued a written HEP. We discussed POC and she agreed. Appears highly motivated. Physical Therapy Plan Frequency and Duration Frequency of Treatment 2x/Week Duration of Treatment 12 weeks Plan of Care Start Date 10/09/21 Plan of Care End Date 01/07/22 Therapeutic Interventions Therapeutic Interventions Aquatic Therapy,Home Exercise Program,Manual Therapy,Patient /Caregiver Education,Self-Care /Home Management,Soft Tissue Mobilization,Taping, Therapeutic Activities, Therapeutic Exercises Modalities Cold Pack/Ice Massage,Electric Stimulation,Hot Packs Next Visit Focus/Plan Next Note Type Treatment Note Next Visit Plan Review HEP, gentle PROM left shoulder, STM to decrease muscle tension and pain left shoulder region, gentle scar mobilization if incisions fully healed, IFES with ice pack to decrease pain and edema.
--- NOTE | 2021-10-09 17:24 | PT.OPPOC ---
Physical, Occupational & Speech Therapy At [facility] Current Diagnoses Stiffness of left shoulder, not elsewhere classified (10/09/21) Weakness (10/09/21) Contusion of left shoulder, initial encounter (10/09/21) Arthroscopic surgical procedure converted to open procedure (10/09/21) Visit Care Team Role Provider Type HENRRY Denton Primary Care Provider Advanced Pediatric Dental Assistant Specialty: Medical Address: [address] [place] [address], [id number] Email: [email or web address] Francisco Javier Castle MD Attending Provider Physician Family Provider Referring Provider Specialty: Orthopedics Orthopedic Surgery Address: [address] [place] [address], [address] Email: [email or web address] Plan Of Care PT-OP-T Assessment and Plan Start: 10/09/21 08:11 Freq: Status: Active Protocol: Document 10/09/21 15:20 SAK (Rec: 10/09/21 16:39 SAK [id number]) Physical Therapy Assessment Rehab Potential Rehabilitation Potential Good Evaluation Complexity Number of Personal Factors/Comorbidities 1-2 Number of Body Systems Impaired 3 Clinical Presentation at Evaluation Evolving Impairments Impairments Pain,ROM,Strength Goals Three Impairment shoulder function Impairment unable to reach overhead or behind her back for purposes of ADL's Short Term Goal (STG) Patient will be able to reach overhead and behind her back without difficulty STG Duration 12/07/21 [employer] Repairer Goal (LTG) Patient to score less than 15% on Quickdash Disability Index score as measure of improved functional use of left UE. LTG Duration 01/07/22 Two Impairment strength Short Term Goal (STG) Patient to be independent and compliant with a progressive HEP for purposes of increased left shoulder ROM and strength STG Duration 11/06/21 [employer] Repairer Goal (LTG) Patient to achieve at least 4+ /5 muscle strength left shoulder all muscle groups to allow her to return to her usual activities LTG Duration 01/07/22 One Impairment Decreased ROM left shoulder post-op shoulder surgery Short Term Goal (STG) Patient to achieve full PROM left shoulder STG Duration 11/06/21 [employer] Post Repairer Goal (LTG) Patient to achieve full AROM left shoulder to allow her to do all usual ADL's and activities LTG Duration 01/07/22 Assessment Summary Assessment Patient presents to PT with function-limiting pain and post-op limitations in ROM and strength. She will benefit from PT to improve her left shoulder ROM and strength per protocol to allow her to return to full active use of her left UE for all her usual activities. Initiated gentle PROM per protocol and patient was issued a written HEP. We discussed POC and she agreed. Appears highly motivated. Physical Therapy Plan Frequency and Duration Frequency of Treatment 2x/Week Duration of Treatment 12 weeks Plan of Care Start Date 10/09/21 Plan of Care End Date 01/07/22 Therapeutic Interventions Therapeutic Interventions Aquatic Therapy,Home Exercise Program,Manual Therapy,Patient /Caregiver Education,Self-Care /Home Management,Soft Tissue Mobilization,Taping, Therapeutic Activities, Therapeutic Exercises Modalities Cold Pack/Ice Massage,Electric Stimulation,Hot Packs Next Visit Focus/Plan Next Note Type Treatment Note Next Visit Plan Review HEP, gentle PROM left shoulder, STM to decrease muscle tension and pain left shoulder region, gentle scar mobilization if incisions fully healed, IFES with ice pack to decrease pain and edema. Plan of Care Dates Plan of Care Start Date 10/09/21 Plan of Care End Date 01/07/22 Electronically Signed by: Jess Sena, PT 10/09/21 2461 If you are in agreement with this Plan of Care, please return a signed and dated copy. I have reviewed this Plan of Care and certify that the skilled therapy services above are required to meet the patient?s needs. Physician Signature Date Printed Name and Credentials Clinical Instructor Signature Printed Name and Credentials
--- NOTE | 2021-10-13 16:30 | PT.OTN ---
Current Diagnoses Stiffness of left shoulder, not elsewhere classified (10/13/21) Weakness (10/13/21) Contusion of left shoulder, initial encounter (10/13/21) Arthroscopic surgical procedure converted to open procedure (10/13/21) Physical Therapy Treatment Note PT-OP-A Visit Information Start: 10/09/21 08:11 Freq: Status: Active Protocol: Document 10/13/21 15:14 [facility] (Rec: 10/13/21 16:29 [facility] [id number]) Out-Patient Physical Therapy Visit Information Visit Information Visit Type Treatment Note Visit Note 3.5 weeks post-op SLAP repair with distal clavicle excision. Visit Start Time 15:20 Visit Stop Time 16:15 Total Visit Minutes 55 Visit Number 1 Evaluation Information Evaluation Date 10/09/21 Precautions Precautions (protocol in chart) PT-OP-B Current Condition Start: 10/09/21 08:11 Freq: Status: Active Protocol: Document 10/13/21 15:14 [facility]AK (Rec: 10/13/21 16:29 [facility] [id number]) Current Condition History of Current Condition Onset Date 09/18/21 Current Complaints left shoulder pain. History of Current Condition SLAP shoulder repair after failed PT. Reports post op wore sling for 1-2 weeks per doctor, then instructed in gentle limited motion and no lifting. Has had deep throbbing pain distal clavicle , has mostly been sitting or laying down, icing. Just now starting to move around a little. Has difficulty taking pain medications, has had to modify diet to tolerate. Uses ice machine. Prior Treatments and Tests Post-op with Dr. Castle , instructed no heavy lifting, no straining, move, but not too much. General protocol shows PROM until 5 weeks post op. Will contact physician office to further clarify. Future Testing and Treatments Planned Will see Dr. Castle again 6-8 weeks post-op Treatment Goals Patient/Caregiver Goals regain full active use of her left UE PT-OP-F Manual Assessment Start: 10/09/21 08:11 Freq: Status: Active Protocol: Document 10/09/21 15:20 [facility] (Rec: 10/09/21 17:09 [facility] [id number]) Manual Assessments Soft Tissue Assessment Soft Tissue Mobility Assessment increased tightness left UT, periscapular region PT-OP-H Neuro Start: 10/09/21 08:11 Freq: Status: Active Protocol: Document 10/09/21 15:20 [facility] (Rec: 10/09/21 17:09 [facility] [id number]) Sensation Evaluation Gross Sensation Gross Sensation WNL PT-OP-J Posture/Palpation/Skin Start: 10/09/21 08:11 Freq: Status: Active Protocol: Document 10/09/21 15:20 [facility] (Rec: 10/09/21 17:09 [facility] [id number]) Palpation Assessment Location upper traps Palpation Location left Palpation Findings Soft Tissue Tightness,Muscle Guarding,Tenderness,Trigger Point Skin Assessment Edema Assessment Left Arm Edema Appearance Discolored,Taut Subjective Edema Description Pain,Tightness Incisional Assessment Incision Appearance/Comments well-healing arthroscopic scar ant and post. PT-OP-K Range of Motion Start: 10/09/21 08:11 Freq: Status: Active Protocol: Document 10/09/21 15:20 [facility] (Rec: 10/09/21 16:39 [facility] [id number]) Cervical Spine Range of Motion Cervical Spine Active Testing Position Sitting Flexion 60 Extension 25 Rotation Left 55 Rotation Right 55 Lateral Flexion Left 40 Lateral Flexion Right 50 Shoulder Goniometric Range of Motion Shoulder Left Passive Testing Position standing, sitting, supine Flexion 90 Extension 10 Abduction 65 External Rotation at 0 degrees Abduction 40 Internal Rotation 45 Right Shoulder ROM WFL Yes Shoulder ROM Limitations Shoulder ROM Limitations Soft Tissue Tightness,Pain, Swelling Elbow/Forearm Range of Motion Elbow/Forearm Left Elbow/Forearm ROM WFL Yes PT-OP-M Strength Start: 10/09/21 08:11 Freq: Status: Active Protocol: Document 10/09/21 15:20 [facility] (Rec: 10/09/21 17:09 [facility] [id number]) Shoulder Strength Shoulder Manual Muscle Testing Left Comments NT due to post-op 3 weeks, PROM only at this time PT-OP-Q Treatments Start: 10/09/21 08:11 Freq: Status: Active Protocol: Document 10/13/21 15:14 [facility] (Rec: 10/13/21 16:29 [facility] [id number]) Therapeutic Exercises Supine Exercises shoulder IR/ER Supine Exercise Name PROM, AAROM Reps/Minutes 10x ea Comments PROM PT, AAROM with wand shoulder abduction Supine Exercise Name PROM scaption Reps/Minutes 10x Comments by PT shoulder flex Supine Exercise Name PROM, AAROM by pt. Reps/Minutes 10x Sitting Exercises shoulder ER/IR Sitting Exercise Name AROM Reps/Minutes 10x shoulder flexion Sitting Exercise Name AAROM Equipment Used table slide, hands on therapy ball pulleys Sitting Exercise Name flexion Reps/Minutes 10x Comments elbow bent, cues for relaxing left UE, max 80 deg scapular squeeze Reps/Minutes 5x5 cervical ROM Reps/Minutes 5x ea Standing Exercises counter walk away Comments verbal instruction shoulder extension Reps/Minutes 10x pendulum Standing Exercise Name all directions Reps/Minutes 10x ea Manual Therapy Treatment Soft Tissue Mobilization UT, scar mob, biceps Body Location left UE Mobilization Type Myofascial Release Intensity/Depth Moderate Body Position Hooklying Self-Care/Home Management Treatment Education Patient Education Home Exercise Program,Joint Protection,Pain Management, Posture Other Education updated written HEP continued cues for relaxation of upper trap muscles, importance of postural corection PT-OP-R Modalities Start: 10/09/21 08:11 Freq: Status: Active Protocol: Document 10/13/21 15:14 [facility] (Rec: 10/13/21 16:30 [facility] [id number]) Electric Stimulation Electric Stimulation Interferential Current (IFC) Body Location L shoulder Duration (Minutes) 12 Combined With Heat/Cold Cold Pack PT-OP-T Assessment and Plan Start: 10/09/21 08:11 Freq: Status: Active Protocol: Document 10/13/21 15:14 [facility] (Rec: 10/13/21 16:29 [facility] [id number]) Physical Therapy Assessment Goals Three Impairment shoulder function Impairment unable to reach overhead or behind her back for purposes of ADL's Short Term Goal (STG) Patient will be able to reach overhead and behind her back without difficulty STG Duration 12/07/21 [facility] Goal (LTG) Patient to score less than 15% on Quickdash Disability Index score as measure of improved functional use of left UE. LTG Duration 01/07/22 Two Impairment strength Short Term Goal (STG) Patient to be independent and compliant with a progressive HEP for purposes of increased left shoulder ROM and strength STG Duration 11/06/21 [facility] Goal (LTG) Patient to achieve at least 4+ /5 muscle strength left shoulder all muscle groups to allow her to return to her usual activities LTG Duration 01/07/22 One Impairment Decreased ROM left shoulder post-op shoulder surgery Short Term Goal (STG) Patient to achieve full PROM left shoulder STG Duration 11/06/21 [employer] Goal (LTG) Patient to achieve full AROM left shoulder to allow her to do all usual ADL's and activities LTG Duration 01/07/22 Assessment Summary Assessment Patient compliant to HEP, feeling some impingement symptoms so has been very gentle. Instructed in self scar massage and encouraged use of vitamin E oil. Given options for PROM and AAROM of shoulder, emphasis to move into stretch but not impingement or sharp pain. ROM supine : flexion to 95 deg, scaption 75, ER 35, IR50. Encouraged pain medication prior to PT treatment; patient has poor tolerance for pain medication. Physical Therapy Plan Frequency and Duration Frequency of Treatment 2x/Week Duration of Treatment 12 weeks Plan of Care Start Date 10/09/21 Plan of Care End Date 01/07/22 Therapeutic Interventions Therapeutic Interventions Aquatic Therapy,Home Exercise Program,Manual Therapy,Patient /Caregiver Education,Self-Care /Home Management,Soft Tissue Mobilization,Taping, Therapeutic Activities, Therapeutic Exercises Modalities Cold Pack/Ice Massage,Electric Stimulation,Hot Packs Next Visit Focus/Plan Next Note Type Treatment Note Next Visit Plan Continue shoulder rehab s/p SLAP with distal clavicle incision. Will be 4 weeks post-op at next visit. Per protocol can do AROM; best tolerance for gravity eliminated, AAROM and PROM at this time but will progress as tolerated.
--- NOTE | 2021-10-15 16:37 | PT.OTN ---
Current Diagnoses Stiffness of left shoulder, not elsewhere classified (10/15/21) Weakness (10/15/21) Contusion of left shoulder, initial encounter (10/15/21) Arthroscopic surgical procedure converted to open procedure (10/15/21) Physical Therapy Treatment Note PT-OP-A Visit Information Start: 10/09/21 08:11 Freq: Status: Active Protocol: Document 10/15/21 15:15 [facility] (Rec: 10/15/21 16:37 [facility] [id number]) Out-Patient Physical Therapy Visit Information Visit Information Visit Type Treatment Note Visit Note 1 day short of 4 weeks post-op SLAP repair with distal clavicle excision. Protocol: 3-4th weeks Phase II (AROM with terminal stretch, pendulums to warm up, sleeper stretch for IR), with full elevation, ER and IR, no sling but still no active use of biceps. Visit Start Time 15:20 Visit Stop Time 16:15 Total Visit Minutes 60 Visit Number 1 Evaluation Information Evaluation Date 10/09/21 Precautions Precautions (protocol in chart) see above Ran out of pain meds, has been miserable for 2 days. Has been icing and doing Tylenol. Hasn't been sleeping. Now right shoulder very sore as well due to overuse of right UE. Hasn't had a bowel movement yet since surgery, agreed to contact her doctor. Can't do much exercise; hasn't done today yet due to right shoulder pain. PT-OP-B Current Condition Start: 10/09/21 08:11 Freq: Status: Active Protocol: Document 10/15/21 15:15 [facility] (Rec: 10/15/21 16:37 [facility] [id number]) Current Condition History of Current Condition Onset Date 09/18/21 Current Complaints left shoulder pain. History of Current Condition SLAP shoulder repair after failed PT. Reports post op wore sling for 1-2 weeks per doctor, then instructed in gentle limited motion and no lifting. Has had deep throbbing pain distal clavicle , has mostly been sitting or laying down, icing. Just now starting to move around a little. Has difficulty taking pain medications, has had to modify diet to tolerate. Uses ice machine. Prior Treatments and Tests Post-op with Dr. Castle , instructed no heavy lifting, no straining, move, but not too much. General protocol shows PROM until 5 weeks post op. Will contact physician office to further clarify. Future Testing and Treatments Planned Will see Dr. Castle again 6-8 weeks post-op Treatment Goals Patient/Caregiver Goals regain full active use of her left UE PT-OP-F Manual Assessment Start: 10/09/21 08:11 Freq: Status: Active Protocol: Document 10/09/21 15:20 [facility] (Rec: 10/09/21 17:09 [facility] [id number]) Manual Assessments Soft Tissue Assessment Soft Tissue Mobility Assessment increased tightness left UT, periscapular region PT-OP-H Neuro Start: 10/09/21 08:11 Freq: Status: Active Protocol: Document 10/09/21 15:20 [facility] (Rec: 10/09/21 17:09 [facility] [id number]) Sensation Evaluation Gross Sensation Gross Sensation WNL PT-OP-J Posture/Palpation/Skin Start: 10/09/21 08:11 Freq: Status: Active Protocol: Document 10/09/21 15:20 [facility] (Rec: 10/09/21 17:09 [facility] [id number]) Palpation Assessment Location upper traps Palpation Location left Palpation Findings Soft Tissue Tightness,Muscle Guarding,Tenderness,Trigger Point Skin Assessment Edema Assessment Left Arm Edema Appearance Discolored,Taut Subjective Edema Description Pain,Tightness Incisional Assessment Incision Appearance/Comments well-healing arthroscopic scar ant and post. PT-OP-K Range of Motion Start: 10/09/21 08:11 Freq: Status: Active Protocol: Document 10/09/21 15:20 [facility] (Rec: 10/09/21 16:39 [facility] [id number]) Cervical Spine Range of Motion Cervical Spine Active Testing Position Sitting Flexion 60 Extension 25 Rotation Left 55 Rotation Right 55 Lateral Flexion Left 40 Lateral Flexion Right 50 Shoulder Goniometric Range of Motion Shoulder Left Passive Testing Position standing, sitting, supine Flexion 90 Extension 10 Abduction 65 External Rotation at 0 degrees Abduction 40 Internal Rotation 45 Right Shoulder ROM WFL Yes Shoulder ROM Limitations Shoulder ROM Limitations Soft Tissue Tightness,Pain, Swelling Elbow/Forearm Range of Motion Elbow/Forearm Left Elbow/Forearm ROM WFL Yes PT-OP-M Strength Start: 10/09/21 08:11 Freq: Status: Active Protocol: Document 10/09/21 15:20 [facility] (Rec: 10/09/21 17:09 [facility] [id number]) Shoulder Strength Shoulder Manual Muscle Testing Left Comments NT due to post-op 3 weeks, PROM only at this time PT-OP-Q Treatments Start: 10/09/21 08:11 Freq: Status: Active Protocol: Document 10/15/21 15:15 [facility] (Rec: 10/15/21 16:37 [facility] [id number]) Therapeutic Exercises Supine Exercises shoulder IR/ER Supine Exercise Name PROM, AAROM Equipment Used towel roll under distal upper arm Reps/Minutes 10x ea Comments PROM PT, AAROM to AROM shoulder abduction Supine Exercise Name PROM scaption Reps/Minutes 10x Comments by PT shoulder flex Supine Exercise Name PROM Reps/Minutes 10x Comments (no AAROM using right UE due to right UE soreness) Sitting Exercises shoulder scaption Sitting Exercise Name table slide Reps/Minutes 10x Comments cues for thumb up shoulder ER/IR Sitting Exercise Name AROM, gravity eliminated table slide Reps/Minutes 10x Comments cues for relaxed UT shoulder flexion Sitting Exercise Name AAROM Equipment Used table slide, thumbs up Reps/Minutes 10x scapular squeeze Reps/Minutes 5x5 cervical ROM Reps/Minutes 5x ea Standing Exercises relaxed arm swing Standing Exercise Name walking Reps/Minutes 3 min Comments cues for relaxed shoulder, thumb forward walk pendulum Standing Exercise Name all directions Equipment Used theraband around neck as cue for relaxation, use of body Reps/Minutes 10x ea Manual Therapy Treatment Soft Tissue Mobilization UT, scar mob, biceps Body Location left UE Mobilization Type Myofascial Release Intensity/Depth Moderate Body Position Hooklying Self-Care/Home Management Treatment Education Patient Education Home Exercise Program,Joint Protection,Pain Management, Posture Other Education contacted surgeon's office during PT per PT recommendation; was adviced to try Miralax or enema, contact GP if still hasn't had bowel movement. Urged increased activity level to promote movement of bowels . updated written HEP Recommended I love you massage video to facilitate bowel movement PT-OP-R Modalities Start: 10/09/21 08:11 Freq: Status: Active Protocol: Document 10/15/21 15:15 [facility] (Rec: 10/15/21 16:37 [facility] [id number]) Electric Stimulation Electric Stimulation Interferential Current (IFC) Body Location L shoulder, right shoulder Duration (Minutes) 12 Combined With Heat/Cold Cold Pack PT-OP-T Assessment and Plan Start: 10/09/21 08:11 Freq: Status: Active Protocol: Document 10/15/21 15:15 [facility] (Rec: 10/15/21 16:37 [facility] [id number]) Physical Therapy Assessment Goals Three Impairment shoulder function Impairment unable to reach overhead or behind her back for purposes of ADL's Short Term Goal (STG) Patient will be able to reach overhead and behind her back without difficulty STG Duration 12/07/21 Detention Goal (LTG) Patient to score less than 15% on Quickdash Disability Index score as measure of improved functional use of left UE. LTG Duration 01/07/22 Two Impairment strength Short Term Goal (STG) Patient to be independent and compliant with a progressive HEP for purposes of increased left shoulder ROM and strength STG Duration 11/06/21 Detention Goal (LTG) Patient to achieve at least 4+ /5 muscle strength left shoulder all muscle groups to allow her to return to her usual activities LTG Duration 01/07/22 One Impairment Decreased ROM left shoulder post-op shoulder surgery Short Term Goal (STG) Patient to achieve full PROM left shoulder STG Duration 11/06/21 Detention Goal (LTG) Patient to achieve full AROM left shoulder to allow her to do all usual ADL's and activities LTG Duration 01/07/22 Assessment Summary Assessment Due to difficulty tolerating pain meds, and deciding to discontinue except for Tylenol patient pain has increased, she has slept poorly last couple days and done minimal exercise. Also suffering from constipation, has contacted physician and follow recommendations, contact GP if difficulty persists. Physical Therapy Plan Frequency and Duration Frequency of Treatment 2x/Week Duration of Treatment 12 weeks Plan of Care Start Date 10/09/21 Plan of Care End Date 01/07/22 Therapeutic Interventions Therapeutic Interventions Aquatic Therapy,Home Exercise Program,Manual Therapy,Patient /Caregiver Education,Self-Care /Home Management,Soft Tissue Mobilization,Taping, Therapeutic Activities, Therapeutic Exercises Modalities Cold Pack/Ice Massage,Electric Stimulation,Hot Packs Next Visit Focus/Plan Next Note Type Treatment Note Next Visit Plan ROM measurements. Continue shoulder rehab s/p SLAP with distal clavicle incision. Progress to more active movement at shoulder per protocol with caution to prevent impingement. Soft tissue mobilization and modalities PRN to decrease soft tissue tension and post exercise pain and swelling.
--- NOTE | 2021-10-21 12:47 | PT.OTN ---
Current Diagnoses Stiffness of left shoulder, not elsewhere classified (10/21/21) Weakness (10/21/21) Contusion of left shoulder, initial encounter (10/21/21) Arthroscopic surgical procedure converted to open procedure (10/21/21) Physical Therapy Treatment Note PT-OP-A Visit Information Start: 10/09/21 08:11 Freq: Status: Active Protocol: Document 10/21/21 11:19 AMB (Rec: 10/21/21 12:02 AMB [id number]) Out-Patient Physical Therapy Visit Information Visit Information Visit Type Treatment Note Visit Note 2 days short of 5 weeks post of SLAP repair Visit Start Time 11:19 Visit Stop Time 12:16 Total Visit Minutes 55 Visit Number 4 PT-OP-B Current Condition Start: 10/09/21 08:11 Freq: Status: Active Protocol: Document 10/15/21 15:15 SAK (Rec: 10/15/21 16:37 SAK [id number]) Current Condition History of Current Condition Onset Date 09/18/21 Current Complaints left shoulder pain. History of Current Condition SLAP shoulder repair after failed PT. Reports post op wore sling for 1-2 weeks per doctor, then instructed in gentle limited motion and no lifting. Has had deep throbbing pain distal clavicle , has mostly been sitting or laying down, icing. Just now starting to move around a little. Has difficulty taking pain medications, has had to modify diet to tolerate. Uses ice machine. Prior Treatments and Tests Post-op with Dr. Castle , instructed no heavy lifting, no straining, move, but not too much. General protocol shows PROM until 5 weeks post op. Will contact physician office to further clarify. Future Testing and Treatments Planned Will see Dr. Castle again 6-8 weeks post-op Treatment Goals Patient/Caregiver Goals regain full active use of her left UE PT-OP-C Subjective Start: 10/09/21 08:11 Freq: Status: Active Protocol: Document 10/21/21 11:19 AMB (Rec: 10/21/21 12:02 AMB [id number]) OP-PT Subjective Patient Comments Patient Comments Not taking pain meds, shoulder is getting better slowly, not sleeping well. PT-OP-F Manual Assessment Start: 10/09/21 08:11 Freq: Status: Active Protocol: Document 10/09/21 15:20 SAK (Rec: 10/09/21 17:09 [facility] [id number]) Manual Assessments Soft Tissue Assessment Soft Tissue Mobility Assessment increased tightness left UT, periscapular region PT-OP-H Neuro Start: 10/09/21 08:11 Freq: Status: Active Protocol: Document 10/09/21 15:20 [facility] (Rec: 10/09/21 17:09 [facility] [id number]) Sensation Evaluation Gross Sensation Gross Sensation WNL PT-OP-J Posture/Palpation/Skin Start: 10/09/21 08:11 Freq: Status: Active Protocol: Document 10/09/21 15:20 [facility] (Rec: 10/09/21 17:09 [facility] [id number]) Palpation Assessment Location upper traps Palpation Location left Palpation Findings Soft Tissue Tightness,Muscle Guarding,Tenderness,Trigger Point Skin Assessment Edema Assessment Left Arm Edema Appearance Discolored,Taut Subjective Edema Description Pain,Tightness Incisional Assessment Incision Appearance/Comments well-healing arthroscopic scar ant and post. PT-OP-K Range of Motion Start: 10/09/21 08:11 Freq: Status: Active Protocol: Document 10/09/21 15:20 [facility] (Rec: 10/09/21 16:39 [facility] [id number]) Cervical Spine Range of Motion Cervical Spine Active Testing Position Sitting Flexion 60 Extension 25 Rotation Left 55 Rotation Right 55 Lateral Flexion Left 40 Lateral Flexion Right 50 Shoulder Goniometric Range of Motion Shoulder Left Passive Testing Position standing, sitting, supine Flexion 90 Extension 10 Abduction 65 External Rotation at 0 degrees Abduction 40 Internal Rotation 45 Right Shoulder ROM WFL Yes Shoulder ROM Limitations Shoulder ROM Limitations Soft Tissue Tightness,Pain, Swelling Elbow/Forearm Range of Motion Elbow/Forearm Left Elbow/Forearm ROM WFL Yes PT-OP-M Strength Start: 10/09/21 08:11 Freq: Status: Active Protocol: Document 10/09/21 15:20 [facility] (Rec: 10/09/21 17:09 [facility] [id number]) Shoulder Strength Shoulder Manual Muscle Testing Left Comments NT due to post-op 3 weeks, PROM only at this time PT-OP-Q Treatments Start: 10/09/21 08:11 Freq: Status: Active Protocol: Document 10/21/21 11:19 AMB (Rec: 10/21/21 12:02 AMB [id number]) Therapeutic Exercises Supine Exercises shoulder IR/ER Supine Exercise Name PROM, AAROM Equipment Used towel roll under distal upper arm Reps/Minutes 10x ea Comments PROM PT, AAROM to AROM shoulder abduction Supine Exercise Name PROM scaption Reps/Minutes 10x Comments by PT shoulder flex Supine Exercise Name PROM Reps/Minutes 10x Comments (no AAROM using right UE due to right UE soreness) Sitting Exercises shoulder scaption Sitting Exercise Name table slide Reps/Minutes 10x Comments cues for thumb up shoulder flexion Sitting Exercise Name AAROM Equipment Used table slide, thumbs up Reps/Minutes 10x Standing Exercises counter walk away Comments verbal instruction shoulder extension Resistance AROM Reps/Minutes 10x pendulum Standing Exercise Name all directions Equipment Used theraband around neck as cue for relaxation, use of body Reps/Minutes 10x ea Manual Therapy Treatment Soft Tissue Mobilization UT, scar mob, biceps Body Location left UE Mobilization Type Myofascial Release Intensity/Depth Moderate Body Position Hooklying PT-OP-R Modalities Start: 10/09/21 08:11 Freq: Status: Active Protocol: Document 10/21/21 11:15 AMB (Rec: 10/21/21 12:42 AMB [id number]) Electric Stimulation Electric Stimulation Interferential Current (IFC) Body Location L shoulder, Duration (Minutes) 12 Combined With Heat/Cold Cold Pack PT-OP-T Assessment and Plan Start: 10/09/21 08:11 Freq: Status: Active Protocol: Document 10/21/21 11:19 AMB (Rec: 10/21/21 12:02 AMB [id number]) Physical Therapy Assessment Goals Three Impairment shoulder function Impairment unable to reach overhead or behind her back for purposes of ADL's Short Term Goal (STG) Patient will be able to reach overhead and behind her back without difficulty STG Duration 12/07/21 [employer] Reading [employer] Goal (LTG) Patient to score less than 15% on Quickdash Disability Index score as measure of improved functional use of left UE. LTG Duration 01/07/22 Two Impairment strength Short Term Goal (STG) Patient to be independent and compliant with a progressive HEP for purposes of increased left shoulder ROM and strength STG Duration 11/06/21 Retirement Goal (LTG) Patient to achieve at least 4+ /5 muscle strength left shoulder all muscle groups to allow her to return to her usual activities LTG Duration 01/07/22 One Impairment Decreased ROM left shoulder post-op shoulder surgery Short Term Goal (STG) Patient to achieve full PROM left shoulder STG Duration 11/06/21 Retirement Goal (LTG) Patient to achieve full AROM left shoulder to allow her to do all usual ADL's and activities LTG Duration 01/07/22 Assessment Summary Assessment Rajwinder pain is overall improving, but pain continues above shoulder height, will work more into AROM as tolerated as next visit she will be 5 weeks post op, but will likely need slower progression due to pain. Physical Therapy Plan Next Visit Focus/Plan Next Note Type Treatment Note Next Visit Plan ROM measurements. Continue shoulder rehab s/p SLAP with distal clavicle incision. Progress to more active movement at shoulder per protocol with caution to prevent impingement. Soft tissue mobilization and modalities PRN to decrease soft tissue tension and post exercise pain and swelling.
--- NOTE | 2021-10-23 16:02 | PT.OTN ---
Current Diagnoses Stiffness of left shoulder, not elsewhere classified (10/23/21) Weakness (10/23/21) Contusion of left shoulder, initial encounter (10/23/21) Arthroscopic surgical procedure converted to open procedure (10/23/21) Physical Therapy Treatment Note PT-OP-A Visit Information Start: 10/09/21 08:11 Freq: Status: Active Protocol: Document 10/23/21 15:40 AMB (Rec: 10/23/21 16:02 AMB [id number]) Out-Patient Physical Therapy Visit Information Visit Information Visit Type Treatment Note Visit Note 5 week protocol: active range of motion elevation, external and internal range. Visit Start Time 13:45 Visit Stop Time 14:30 Total Visit Minutes 45 Visit Number 5 PT-OP-B Current Condition Start: 10/09/21 08:11 Freq: Status: Active Protocol: Document 10/15/21 15:15 SAK (Rec: 10/15/21 16:37 SAK [id number]) Current Condition History of Current Condition Onset Date 09/18/21 Current Complaints left shoulder pain. History of Current Condition SLAP shoulder repair after failed PT. Reports post op wore sling for 1-2 weeks per doctor, then instructed in gentle limited motion and no lifting. Has had deep throbbing pain distal clavicle , has mostly been sitting or laying down, icing. Just now starting to move around a little. Has difficulty taking pain medications, has had to modify diet to tolerate. Uses ice machine. Prior Treatments and Tests Post-op with Dr. Castle , instructed no heavy lifting, no straining, move, but not too much. General protocol shows PROM until 5 weeks post op. Will contact physician office to further clarify. Future Testing and Treatments Planned Will see Dr. Castle again 6-8 weeks post-op Treatment Goals Patient/Caregiver Goals regain full active use of her left UE PT-OP-C Subjective Start: 10/09/21 08:11 Freq: Status: Active Protocol: Document 10/23/21 15:40 AMB (Rec: 10/23/21 16:02 AMB [id number]) OP-PT Subjective Patient Comments Patient Comments Taking aleve, sleep still challenging, but is doing HEP. Icing. PT-OP-F Manual Assessment Start: 10/09/21 08:11 Freq: Status: Active Protocol: Document 10/09/21 15:20 SAK (Rec: 10/09/21 17:09 [facility] [id number]) Manual Assessments Soft Tissue Assessment Soft Tissue Mobility Assessment increased tightness left UT, periscapular region PT-OP-H Neuro Start: 10/09/21 08:11 Freq: Status: Active Protocol: Document 10/09/21 15:20 SAK (Rec: 10/09/21 17:09 SAK [id number]) Sensation Evaluation Gross Sensation Gross Sensation WNL PT-OP-J Posture/Palpation/Skin Start: 10/09/21 08:11 Freq: Status: Active Protocol: Document 10/09/21 15:20 SAK (Rec: 10/09/21 17:09 SAK [id number]) Palpation Assessment Location upper traps Palpation Location left Palpation Findings Soft Tissue Tightness,Muscle Guarding,Tenderness,Trigger Point Skin Assessment Edema Assessment Left Arm Edema Appearance Discolored,Taut Subjective Edema Description Pain,Tightness Incisional Assessment Incision Appearance/Comments well-healing arthroscopic scar ant and post. PT-OP-K Range of Motion Start: 10/09/21 08:11 Freq: Status: Active Protocol: Document 10/09/21 15:20 [facility] (Rec: 10/09/21 16:39 SAK [id number]) Cervical Spine Range of Motion Cervical Spine Active Testing Position Sitting Flexion 60 Extension 25 Rotation Left 55 Rotation Right 55 Lateral Flexion Left 40 Lateral Flexion Right 50 Shoulder Goniometric Range of Motion Shoulder Left Passive Testing Position standing, sitting, supine Flexion 90 Extension 10 Abduction 65 External Rotation at 0 degrees Abduction 40 Internal Rotation 45 Right Shoulder ROM WFL Yes Shoulder ROM Limitations Shoulder ROM Limitations Soft Tissue Tightness,Pain, Swelling Elbow/Forearm Range of Motion Elbow/Forearm Left Elbow/Forearm ROM WFL Yes PT-OP-M Strength Start: 10/09/21 08:11 Freq: Status: Active Protocol: Document 10/09/21 15:20 [facility] (Rec: 10/09/21 17:09 [facility] [id number]) Shoulder Strength Shoulder Manual Muscle Testing Left Comments NT due to post-op 3 weeks, PROM only at this time PT-OP-Q Treatments Start: 10/09/21 08:11 Freq: Status: Active Protocol: Document 10/23/21 15:40 AMB (Rec: 10/23/21 16:02 AMB [id number]) Therapeutic Exercises Supine Exercises shoulder flexion Supine Exercise Name AROM Reps/Minutes 2x10 Comments partial range 0-30 shoulder IR/ER Supine Exercise Name AROM Equipment Used towel roll under distal upper arm Reps/Minutes 10x ea Comments PROM PT, AAROM to AROM shoulder abduction Supine Exercise Name PROM scaption Reps/Minutes 10x Comments by PT shoulder flex Supine Exercise Name PROM Reps/Minutes 10x Comments (no AAROM using right UE due to right UE soreness) Sidelying Exercises 1 Sidelying Exercise Name shoulder ER AROM Reps/Minutes 2x10 Sitting Exercises shoulder ER/IR Sitting Exercise Name AROM Reps/Minutes 10x Comments cues for relaxed UT Standing Exercises pendulum Standing Exercise Name all directions Reps/Minutes 10x ea Manual Therapy Treatment Soft Tissue Mobilization UT, scar mob, biceps Body Location left UE Mobilization Type Myofascial Release Intensity/Depth Moderate Body Position Hooklying PT-OP-R Modalities Start: 10/09/21 08:11 Freq: Status: Active Protocol: Document 10/21/21 11:15 AMB (Rec: 10/21/21 12:42 AMB [id number]) Electric Stimulation Electric Stimulation Interferential Current (IFC) Body Location L shoulder, Duration (Minutes) 12 Combined With Heat/Cold Cold Pack PT-OP-T Assessment and Plan Start: 10/09/21 08:11 Freq: Status: Active Protocol: Document 10/23/21 15:40 AMB (Rec: 10/23/21 16:02 AMB [id number]) Physical Therapy Assessment Goals Three Impairment shoulder function Impairment unable to reach overhead or behind her back for purposes of ADL's Short Term Goal (STG) Patient will be able to reach overhead and behind her back without difficulty STG Duration 12/07/21 Supervisor [employer] Goal (LTG) Patient to score less than 15% on Quickdash Disability Index score as measure of improved functional use of left UE. LTG Duration 01/07/22 Two Impairment strength Short Term Goal (STG) Patient to be independent and compliant with a progressive HEP for purposes of increased left shoulder ROM and strength STG Duration 11/06/21 Supervisor [employer] Goal (LTG) Patient to achieve at least 4+ /5 muscle strength left shoulder all muscle groups to allow her to return to her usual activities LTG Duration 01/07/22 One Impairment Decreased ROM left shoulder post-op shoulder surgery Short Term Goal (STG) Patient to achieve full PROM left shoulder STG Duration 7/21/22 [facility] Goal (LTG) Patient to achieve full AROM left shoulder to allow her to do all usual ADL's and activities LTG Duration 01/07/22 Assessment Summary Assessment Ansley tolerated AROM activities with low repetition today. Will benefit from continued strengthening as tolerated. Physical Therapy Plan Next Visit Focus/Plan Next Note Type Treatment Note Next Visit Plan ROM measurements. Progress active range
--- NOTE | 2021-10-27 15:58 | PT.OTN ---
Current Diagnoses Stiffness of left shoulder, not elsewhere classified (10/27/21) Weakness (10/27/21) Contusion of left shoulder, initial encounter (10/27/21) Arthroscopic surgical procedure converted to open procedure (10/27/21) Physical Therapy Treatment Note PT-OP-A Visit Information Start: 10/09/21 08:11 Freq: Status: Active Protocol: Document 10/27/21 13:00 AMB (Rec: 10/27/21 13:48 AMB [id number]) Out-Patient Physical Therapy Visit Information Visit Information Visit Type Treatment Note Visit Note 5 week protocol: active range of motion elevation, external and internal range. Visit Start Time 13:00 Visit Stop Time 13:45 Total Visit Minutes 45 Visit Number 6 PT-OP-B Current Condition Start: 10/09/21 08:11 Freq: Status: Active Protocol: Document 10/15/21 15:15 SAK (Rec: 10/15/21 16:37 SAK [id number]) Current Condition History of Current Condition Onset Date 09/18/21 Current Complaints left shoulder pain. History of Current Condition SLAP shoulder repair after failed PT. Reports post op wore sling for 1-2 weeks per doctor, then instructed in gentle limited motion and no lifting. Has had deep throbbing pain distal clavicle , has mostly been sitting or laying down, icing. Just now starting to move around a little. Has difficulty taking pain medications, has had to modify diet to tolerate. Uses ice machine. Prior Treatments and Tests Post-op with Dr. Castle , instructed no heavy lifting, no straining, move, but not too much. General protocol shows PROM until 5 weeks post op. Will contact physician office to further clarify. Future Testing and Treatments Planned Will see Dr. Castle again 6-8 weeks post-op Treatment Goals Patient/Caregiver Goals regain full active use of her left UE PT-OP-C Subjective Start: 10/09/21 08:11 Freq: Status: Active Protocol: Document 10/27/21 13:00 AMB (Rec: 10/27/21 13:48 AMB [id number]) OP-PT Subjective Patient Comments Patient Comments Did suddenly move at the [employer] parking long. Was quite sore after that. Has been doing the exercises though. PT-OP-F Manual Assessment Start: 10/09/21 08:11 Freq: Status: Active Protocol: Document 10/09/21 15:20 SAK (Rec: 10/09/21 17:09 SAK [id number]) Manual Assessments Soft Tissue Assessment Soft Tissue Mobility Assessment increased tightness left UT, periscapular region PT-OP-H Neuro Start: 10/09/21 08:11 Freq: Status: Active Protocol: Document 10/09/21 15:20 SAK (Rec: 10/09/21 17:09 SAK [id number]) Sensation Evaluation Gross Sensation Gross Sensation WNL PT-OP-J Posture/Palpation/Skin Start: 10/09/21 08:11 Freq: Status: Active Protocol: Document 10/09/21 15:20 SAK (Rec: 10/09/21 17:09 SAK [id number]) Palpation Assessment Location upper traps Palpation Location left Palpation Findings Soft Tissue Tightness,Muscle Guarding,Tenderness,Trigger Point Skin Assessment Edema Assessment Left Arm Edema Appearance Discolored,Taut Subjective Edema Description Pain,Tightness Incisional Assessment Incision Appearance/Comments well-healing arthroscopic scar ant and post. PT-OP-K Range of Motion Start: 10/09/21 08:11 Freq: Status: Active Protocol: Document 10/09/21 15:20 SAK (Rec: 10/09/21 16:39 SAK [id number]) Cervical Spine Range of Motion Cervical Spine Active Testing Position Sitting Flexion 60 Extension 25 Rotation Left 55 Rotation Right 55 Lateral Flexion Left 40 Lateral Flexion Right 50 Shoulder Goniometric Range of Motion Shoulder Left Passive Testing Position standing, sitting, supine Flexion 90 Extension 10 Abduction 65 External Rotation at 0 degrees Abduction 40 Internal Rotation 45 Right Shoulder ROM WFL Yes Shoulder ROM Limitations Shoulder ROM Limitations Soft Tissue Tightness,Pain, Swelling Elbow/Forearm Range of Motion Elbow/Forearm Left Elbow/Forearm ROM WFL Yes PT-OP-M Strength Start: 10/09/21 08:11 Freq: Status: Active Protocol: Document 10/09/21 15:20 SAK (Rec: 10/09/21 17:09 SAK [id number]) Shoulder Strength Shoulder Manual Muscle Testing Left Comments NT due to post-op 3 weeks, PROM only at this time PT-OP-Q Treatments Start: 10/09/21 08:11 Freq: Status: Active Protocol: Document 10/27/21 13:00 AMB (Rec: 10/27/21 13:48 AMB [id number]) Therapeutic Exercises Supine Exercises shoulder flexion Supine Exercise Name AROM-- bent elbow Reps/Minutes 2x10 Comments partial range 0-30 shoulder IR/ER Supine Exercise Name AROM Equipment Used towel roll under distal upper arm Reps/Minutes 10x ea Comments PROM PT, AAROM to AROM shoulder abduction Supine Exercise Name PROM scaption Reps/Minutes 10x Comments by PT shoulder flex Supine Exercise Name PROM Reps/Minutes 10x Comments (no AAROM using right UE due to right UE soreness) Sidelying Exercises shoulder abduciton Comments AAROM 0-90 1 Sidelying Exercise Name shoulder ER AROM Reps/Minutes 2x10 Sitting Exercises rows Sitting Exercise Name AROM Reps/Minutes 2x10 scapular squeeze Reps/Minutes 5x5 Standing Exercises shoulder extension Resistance AROM Reps/Minutes 10x Manual Therapy Treatment Soft Tissue Mobilization UT, scar mob, biceps Body Location left UE Mobilization Type Myofascial Release Intensity/Depth Moderate Body Position Hooklying PT-OP-R Modalities Start: 10/09/21 08:11 Freq: Status: Active Protocol: Document 10/21/21 11:15 AMB (Rec: 10/21/21 12:42 AMB [id number]) Electric Stimulation Electric Stimulation Interferential Current (IFC) Body Location L shoulder, Duration (Minutes) 12 Combined With Heat/Cold Cold Pack PT-OP-T Assessment and Plan Start: 10/09/21 08:11 Freq: Status: Active Protocol: Document 10/27/21 13:00 AMB (Rec: 10/27/21 13:48 AMB [id number]) Physical Therapy Assessment Goals Three Impairment shoulder function Impairment unable to reach overhead or behind her back for purposes of ADL's Short Term Goal (STG) Patient will be able to reach overhead and behind her back without difficulty STG Duration 12/07/21 Senior Living Goal (LTG) Patient to score less than 15% on Quickdash Disability Index score as measure of improved functional use of left UE. LTG Duration 01/07/22 Two Impairment strength Short Term Goal (STG) Patient to be independent and compliant with a progressive HEP for purposes of increased left shoulder ROM and strength STG Duration 11/06/21 Manager [employer] Goal (LTG) Patient to achieve at least 4+ /5 muscle strength left shoulder all muscle groups to allow her to return to her usual activities LTG Duration 01/07/22 One Impairment Decreased ROM left shoulder post-op shoulder surgery Short Term Goal (STG) Patient to achieve full PROM left shoulder STG Duration 11/06/21 Senior Living Goal (LTG) Patient to achieve full AROM left shoulder to allow her to do all usual ADL's and activities LTG Duration 01/07/22 Assessment Summary Assessment Ansley is improving and tolerating more AROM activities. Continues to have pain when moving into neutral from shoulder flexion feels like a catch. Encouraged her in rows just AROM for now as a new part of her HEP. Physical Therapy Plan Next Visit Focus/Plan Next Note Type Treatment Note Next Visit Plan ROM measurements. Progress active range, consider resistance
--- NOTE | 2021-10-29 15:29 | PT.OTN ---
Current Diagnoses Stiffness of left shoulder, not elsewhere classified (10/29/21) Weakness (10/29/21) Contusion of left shoulder, initial encounter (10/29/21) Arthroscopic surgical procedure converted to open procedure (10/29/21) Physical Therapy Treatment Note PT-OP-A Visit Information Start: 10/09/21 08:11 Freq: Status: Active Protocol: Document 10/29/21 13:01 AMB (Rec: 10/29/21 13:38 AMB [id number]) Out-Patient Physical Therapy Visit Information Visit Information Visit Type Treatment Note Visit Start Time 13:00 Visit Stop Time 13:45 Total Visit Minutes 45 Visit Number 7 PT-OP-B Current Condition Start: 10/09/21 08:11 Freq: Status: Active Protocol: Document 10/15/21 15:15 SAK (Rec: 10/15/21 16:37 SAK [id number]) Current Condition History of Current Condition Onset Date 09/18/21 Current Complaints left shoulder pain. History of Current Condition SLAP shoulder repair after failed PT. Reports post op wore sling for 1-2 weeks per doctor, then instructed in gentle limited motion and no lifting. Has had deep throbbing pain distal clavicle , has mostly been sitting or laying down, icing. Just now starting to move around a little. Has difficulty taking pain medications, has had to modify diet to tolerate. Uses ice machine. Prior Treatments and Tests Post-op with Dr. Castle , instructed no heavy lifting, no straining, move, but not too much. General protocol shows PROM until 5 weeks post op. Will contact physician office to further clarify. Future Testing and Treatments Planned Will see Dr. Castle again 6-8 weeks post-op Treatment Goals Patient/Caregiver Goals regain full active use of her left UE PT-OP-C Subjective Start: 10/09/21 08:11 Freq: Status: Active Protocol: Document 10/29/21 13:01 AMB (Rec: 10/29/21 13:38 AMB [id number]) OP-PT Subjective Patient Comments Patient Comments Bent elbow flexion is the hardest. Other exercises are going ok. PT-OP-F Manual Assessment Start: 10/09/21 08:11 Freq: Status: Active Protocol: Document 10/09/21 15:20 SAK (Rec: 10/09/21 17:09 SAK [id number]) Manual Assessments Soft Tissue Assessment Soft Tissue Mobility Assessment increased tightness left UT, periscapular region PT-OP-H Neuro Start: 10/09/21 08:11 Freq: Status: Active Protocol: Document 10/09/21 15:20 [facility] (Rec: 10/09/21 17:09 [facility] [id number]) Sensation Evaluation Gross Sensation Gross Sensation WNL PT-OP-J Posture/Palpation/Skin Start: 10/09/21 08:11 Freq: Status: Active Protocol: Document 10/09/21 15:20 [facility] (Rec: 10/09/21 17:09 [facility] [id number]) Palpation Assessment Location upper traps Palpation Location left Palpation Findings Soft Tissue Tightness,Muscle Guarding,Tenderness,Trigger Point Skin Assessment Edema Assessment Left Arm Edema Appearance Discolored,Taut Subjective Edema Description Pain,Tightness Incisional Assessment Incision Appearance/Comments well-healing arthroscopic scar ant and post. PT-OP-K Range of Motion Start: 10/09/21 08:11 Freq: Status: Active Protocol: Document 10/09/21 15:20 [facility] (Rec: 10/09/21 16:39 [facility] [id number]) Cervical Spine Range of Motion Cervical Spine Active Testing Position Sitting Flexion 60 Extension 25 Rotation Left 55 Rotation Right 55 Lateral Flexion Left 40 Lateral Flexion Right 50 Shoulder Goniometric Range of Motion Shoulder Left Passive Testing Position standing, sitting, supine Flexion 90 Extension 10 Abduction 65 External Rotation at 0 degrees Abduction 40 Internal Rotation 45 Right Shoulder ROM WFL Yes Shoulder ROM Limitations Shoulder ROM Limitations Soft Tissue Tightness,Pain, Swelling Elbow/Forearm Range of Motion Elbow/Forearm Left Elbow/Forearm ROM WFL Yes PT-OP-M Strength Start: 10/09/21 08:11 Freq: Status: Active Protocol: Document 10/09/21 15:20 [facility] (Rec: 10/09/21 17:09 [facility] [id number]) Shoulder Strength Shoulder Manual Muscle Testing Left Comments NT due to post-op 3 weeks, PROM only at this time PT-OP-Q Treatments Start: 10/09/21 08:11 Freq: Status: Active Protocol: Document 10/29/21 13:01 AMB (Rec: 10/29/21 13:38 AMB [id number]) Therapeutic Exercises Supine Exercises isometrics Supine Exercise Name IR and extension Side left Reps/Minutes 5x5 ea shoulder flexion Supine Exercise Name AROM-- bent elbow Reps/Minutes 2x10 Comments partial -83 Sidelying Exercises shoulder abduciton Reps/Minutes 2x10 Comments AROM 0-90 1 Sidelying Exercise Name shoulder ER AROM Reps/Minutes 2x10 Sitting Exercises rows Sitting Exercise Name AROM Reps/Minutes 2x10 scapular squeeze Reps/Minutes 5x5 Standing Exercises t band rows Side bilateral Resistance #1 t band Reps/Minutes 1x10 counter walk away Comments verbal instruction Manual Therapy Treatment Soft Tissue Mobilization UT, scar mob, biceps Body Location left UE Mobilization Type Myofascial Release Intensity/Depth Moderate Body Position Hooklying Manual Techniques scar mobilization Body Location l shoulder PT-OP-R Modalities Start: 10/09/21 08:11 Freq: Status: Active Protocol: Document 10/21/21 11:15 AMB (Rec: 10/21/21 12:42 AMB [id number]) Electric Stimulation Electric Stimulation Interferential Current (IFC) Body Location L shoulder, Duration (Minutes) 12 Combined With Heat/Cold Cold Pack PT-OP-T Assessment and Plan Start: 10/09/21 08:11 Freq: Status: Active Protocol: Document 10/29/21 15:23 AMB (Rec: 10/29/21 15:25 AMB [id number]) Physical Therapy Assessment Goals Three Impairment shoulder function Impairment unable to reach overhead or behind her back for purposes of ADL's Short Term Goal (STG) Patient will be able to reach overhead and behind her back without difficulty STG Duration 12/07/21 Sales And Marketing Engineer Goal (LTG) Patient to score less than 15% on Quickdash Disability Index score as measure of improved functional use of left UE. LTG Duration 01/07/22 Two Impairment strength Short Term Goal (STG) Patient to be independent and compliant with a progressive HEP for purposes of increased left shoulder ROM and strength STG Duration 11/06/21 Jail Goal (LTG) Patient to achieve at least 4+ /5 muscle strength left shoulder all muscle groups to allow her to return to her usual activities LTG Duration 01/07/22 One Impairment Decreased ROM left shoulder post-op shoulder surgery Short Term Goal (STG) Patient to achieve full PROM left shoulder STG Duration 11/06/21 Sales And Marketing Engineer Goal (LTG) Patient to achieve full AROM left shoulder to allow her to do all usual ADL's and activities LTG Duration 01/07/22 Assessment Summary Assessment Ansley is improving in tolerance to exercises, she tolerated isometrics today, and was given another option for flexion, avoiding the most difficult 0-30 zones. Started resistance with t bands for rows, and tolerated low reps well. Physical Therapy Plan Next Visit Focus/Plan Next Note Type Treatment Note Next Visit Plan ROM measurements. Progress active range, consider resistance
--- NOTE | 2021-11-03 15:48 | PT.OTN ---
Current Diagnoses Stiffness of left shoulder, not elsewhere classified (11/03/21) Weakness (11/03/21) Contusion of left shoulder, initial encounter (11/03/21) Arthroscopic surgical procedure converted to open procedure (11/03/21) Physical Therapy Treatment Note PT-OP-A Visit Information Start: 10/09/21 08:11 Freq: Status: Active Protocol: Document 11/03/21 13:05 AMB (Rec: 11/03/21 13:48 AMB [id number]) Out-Patient Physical Therapy Visit Information Visit Information Visit Type Treatment Note Visit Start Time 13:00 Visit Stop Time 13:45 Total Visit Minutes 45 Visit Number 8 PT-OP-B Current Condition Start: 10/09/21 08:11 Freq: Status: Active Protocol: Document 10/15/21 15:15 SAK (Rec: 10/15/21 16:37 SAK [id number]) Current Condition History of Current Condition Onset Date 09/18/21 Current Complaints left shoulder pain. History of Current Condition SLAP shoulder repair after failed PT. Reports post op wore sling for 1-2 weeks per doctor, then instructed in gentle limited motion and no lifting. Has had deep throbbing pain distal clavicle , has mostly been sitting or laying down, icing. Just now starting to move around a little. Has difficulty taking pain medications, has had to modify diet to tolerate. Uses ice machine. Prior Treatments and Tests Post-op with Dr. Castle , instructed no heavy lifting, no straining, move, but not too much. General protocol shows PROM until 5 weeks post op. Will contact physician office to further clarify. Future Testing and Treatments Planned Will see Dr. Castle again 6-8 weeks post-op Treatment Goals Patient/Caregiver Goals regain full active use of her left UE PT-OP-C Subjective Start: 10/09/21 08:11 Freq: Status: Active Protocol: Document 11/03/21 13:05 AMB (Rec: 11/03/21 13:48 AMB [id number]) OP-PT Subjective Patient Comments Patient Comments Feels like turning a corner and getting better, still challenging to put a plate in a microwave PT-OP-F Manual Assessment Start: 10/09/21 08:11 Freq: Status: Active Protocol: Document 10/09/21 15:20 SAK (Rec: 10/09/21 17:09 SAK [id number]) Manual Assessments Soft Tissue Assessment Soft Tissue Mobility Assessment increased tightness left UT, periscapular region PT-OP-H Neuro Start: 10/09/21 08:11 Freq: Status: Active Protocol: Document 10/09/21 15:20 SAK (Rec: 10/09/21 17:09 [facility] [id number]) Sensation Evaluation Gross Sensation Gross Sensation WNL PT-OP-J Posture/Palpation/Skin Start: 10/09/21 08:11 Freq: Status: Active Protocol: Document 10/09/21 15:20 SAK (Rec: 10/09/21 17:09 [facility] [id number]) Palpation Assessment Location upper traps Palpation Location left Palpation Findings Soft Tissue Tightness,Muscle Guarding,Tenderness,Trigger Point Skin Assessment Edema Assessment Left Arm Edema Appearance Discolored,Taut Subjective Edema Description Pain,Tightness Incisional Assessment Incision Appearance/Comments well-healing arthroscopic scar ant and post. PT-OP-K Range of Motion Start: 10/09/21 08:11 Freq: Status: Active Protocol: Document 10/09/21 15:20 [facility] (Rec: 10/09/21 16:39 [facility] [id number]) Cervical Spine Range of Motion Cervical Spine Active Testing Position Sitting Flexion 60 Extension 25 Rotation Left 55 Rotation Right 55 Lateral Flexion Left 40 Lateral Flexion Right 50 Shoulder Goniometric Range of Motion Shoulder Left Passive Testing Position standing, sitting, supine Flexion 90 Extension 10 Abduction 65 External Rotation at 0 degrees Abduction 40 Internal Rotation 45 Right Shoulder ROM WFL Yes Shoulder ROM Limitations Shoulder ROM Limitations Soft Tissue Tightness,Pain, Swelling Elbow/Forearm Range of Motion Elbow/Forearm Left Elbow/Forearm ROM WFL Yes PT-OP-M Strength Start: 10/09/21 08:11 Freq: Status: Active Protocol: Document 10/09/21 15:20 [facility] (Rec: 10/09/21 17:09 [facility] [id number]) Shoulder Strength Shoulder Manual Muscle Testing Left Comments NT due to post-op 3 weeks, PROM only at this time PT-OP-Q Treatments Start: 10/09/21 08:11 Freq: Status: Active Protocol: Document 11/03/21 13:05 AMB (Rec: 11/03/21 13:48 AMB [id number]) Therapeutic Exercises Sidelying Exercises shoulder abduciton Reps/Minutes 2x10 Comments AROM 0-90 1 Sidelying Exercise Name shoulder ER AROM Reps/Minutes 2x10 Standing Exercises t band IR Side left Resistance #1 t band Reps/Minutes 2x10 horizontal adduction Side left Resistance T band #1 Reps/Minutes 2x10 t band rows Side bilateral Resistance #1 t band Reps/Minutes 2x10 shoulder extension Side left Resistance AROM Reps/Minutes 20x Manual Therapy Treatment Soft Tissue Mobilization UT, scar mob, biceps Body Location left UE Mobilization Type Myofascial Release Intensity/Depth Moderate Body Position Hooklying PT-OP-R Modalities Start: 10/09/21 08:11 Freq: Status: Active Protocol: Document 10/21/21 11:15 AMB (Rec: 10/21/21 12:42 AMB [id number]) Electric Stimulation Electric Stimulation Interferential Current (IFC) Body Location L shoulder, Duration (Minutes) 12 Combined With Heat/Cold Cold Pack PT-OP-T Assessment and Plan Start: 10/09/21 08:11 Freq: Status: Active Protocol: Document 11/03/21 13:05 AMB (Rec: 11/03/21 13:48 AMB [id number]) Physical Therapy Assessment Goals Three Impairment shoulder function Impairment unable to reach overhead or behind her back for purposes of ADL's Short Term Goal (STG) Patient will be able to reach overhead and behind her back without difficulty STG Duration 12/07/21 Senior Sql Server Dba Goal (LTG) Patient to score less than 15% on Quickdash Disability Index score as measure of improved functional use of left UE. LTG Duration 01/07/22 Two Impairment strength Short Term Goal (STG) Patient to be independent and compliant with a progressive HEP for purposes of increased left shoulder ROM and strength STG Duration 11/06/21 Half-Way Goal (LTG) Patient to achieve at least 4+ /5 muscle strength left shoulder all muscle groups to allow her to return to her usual activities LTG Duration 01/07/22 One Impairment Decreased ROM left shoulder post-op shoulder surgery Short Term Goal (STG) Patient to achieve full PROM left shoulder STG Duration 11/06/21 Half-Way Goal (LTG) Patient to achieve full AROM left shoulder to allow her to do all usual ADL's and activities LTG Duration 01/07/22 Assessment Summary Assessment Ansley is doing better, shoulder is continuing to tolerate more range and strengthening, but keeping resistance low for now.
--- NOTE | 2021-11-05 15:31 | PT.OTN ---
Current Diagnoses Stiffness of left shoulder, not elsewhere classified (11/05/21) Weakness (11/05/21) Contusion of left shoulder, initial encounter (11/05/21) Arthroscopic surgical procedure converted to open procedure (11/05/21) Physical Therapy Treatment Note PT-OP-A Visit Information Start: 10/09/21 08:11 Freq: Status: Active Protocol: Document 11/05/21 13:00 AMB (Rec: 11/05/21 13:48 AMB [id number]) Out-Patient Physical Therapy Visit Information Visit Information Visit Type Treatment Note Visit Start Time 13:00 Visit Stop Time 13:45 Total Visit Minutes 45 Visit Number 9 PT-OP-B Current Condition Start: 10/09/21 08:11 Freq: Status: Active Protocol: Document 10/15/21 15:15 SAK (Rec: 10/15/21 16:37 SAK [id number]) Current Condition History of Current Condition Onset Date 09/18/21 Current Complaints left shoulder pain. History of Current Condition SLAP shoulder repair after failed PT. Reports post op wore sling for 1-2 weeks per doctor, then instructed in gentle limited motion and no lifting. Has had deep throbbing pain distal clavicle , has mostly been sitting or laying down, icing. Just now starting to move around a little. Has difficulty taking pain medications, has had to modify diet to tolerate. Uses ice machine. Prior Treatments and Tests Post-op with Dr. Castle , instructed no heavy lifting, no straining, move, but not too much. General protocol shows PROM until 5 weeks post op. Will contact physician office to further clarify. Future Testing and Treatments Planned Will see Dr. Castle again 6-8 weeks post-op Treatment Goals Patient/Caregiver Goals regain full active use of her left UE PT-OP-C Subjective Start: 10/09/21 08:11 Freq: Status: Active Protocol: Document 11/05/21 13:00 AMB (Rec: 11/05/21 13:48 AMB [id number]) OP-PT Subjective Patient Comments Patient Comments Did try to rock up a package this morning and his having more pain with her clavicle. PT-OP-F Manual Assessment Start: 10/09/21 08:11 Freq: Status: Active Protocol: Document 10/09/21 15:20 SAK (Rec: 10/09/21 17:09 SAK [id number]) Manual Assessments Soft Tissue Assessment Soft Tissue Mobility Assessment increased tightness left UT, periscapular region PT-OP-H Neuro Start: 10/09/21 08:11 Freq: Status: Active Protocol: Document 10/09/21 15:20 SAK (Rec: 10/09/21 17:09 [facility] [id number]) Sensation Evaluation Gross Sensation Gross Sensation WNL PT-OP-J Posture/Palpation/Skin Start: 10/09/21 08:11 Freq: Status: Active Protocol: Document 10/09/21 15:20 SAK (Rec: 10/09/21 17:09 [facility] [id number]) Palpation Assessment Location upper traps Palpation Location left Palpation Findings Soft Tissue Tightness,Muscle Guarding,Tenderness,Trigger Point Skin Assessment Edema Assessment Left Arm Edema Appearance Discolored,Taut Subjective Edema Description Pain,Tightness Incisional Assessment Incision Appearance/Comments well-healing arthroscopic scar ant and post. PT-OP-K Range of Motion Start: 10/09/21 08:11 Freq: Status: Active Protocol: Document 10/09/21 15:20 [facility] (Rec: 10/09/21 16:39 [facility] [id number]) Cervical Spine Range of Motion Cervical Spine Active Testing Position Sitting Flexion 60 Extension 25 Rotation Left 55 Rotation Right 55 Lateral Flexion Left 40 Lateral Flexion Right 50 Shoulder Goniometric Range of Motion Shoulder Left Passive Testing Position standing, sitting, supine Flexion 90 Extension 10 Abduction 65 External Rotation at 0 degrees Abduction 40 Internal Rotation 45 Right Shoulder ROM WFL Yes Shoulder ROM Limitations Shoulder ROM Limitations Soft Tissue Tightness,Pain, Swelling Elbow/Forearm Range of Motion Elbow/Forearm Left Elbow/Forearm ROM WFL Yes PT-OP-M Strength Start: 10/09/21 08:11 Freq: Status: Active Protocol: Document 10/09/21 15:20 SAK (Rec: 10/09/21 17:09 [facility] [id number]) Shoulder Strength Shoulder Manual Muscle Testing Left Comments NT due to post-op 3 weeks, PROM only at this time PT-OP-Q Treatments Start: 10/09/21 08:11 Freq: Status: Active Protocol: Document 11/05/21 15:25 AMB (Rec: 11/05/21 15:29 AMB [id number]) Therapeutic Exercises Supine Exercises shoulder flexion Supine Exercise Name AROM-- bent elbow Reps/Minutes 2x10 Comments partial [id number] shoulder abduction Supine Exercise Name PROM scaption Reps/Minutes 10x Comments by PT shoulder flex Supine Exercise Name PROM Reps/Minutes 10x Prone Exercises I, Y Comments AROM, partial range rows Prone Exercise Name off side of table Side left Reps/Minutes 2x5 Comments AROM Sidelying Exercises 1 Sidelying Exercise Name shoulder ER AROM Reps/Minutes 2x10 Manual Therapy Treatment Soft Tissue Mobilization subclavius Body Location Left Mobilization Type Myofascial Release,Sustained Pressure,Trigger Point Release Intensity/Depth Moderate Body Position Supine PT-OP-R Modalities Start: 10/09/21 08:11 Freq: Status: Active Protocol: Document 10/21/21 11:15 AMB (Rec: 10/21/21 12:42 AMB [id number]) Electric Stimulation Electric Stimulation Interferential Current (IFC) Body Location L shoulder, Duration (Minutes) 12 Combined With Heat/Cold Cold Pack PT-OP-T Assessment and Plan Start: 10/09/21 08:11 Freq: Status: Active Protocol: Document 11/05/21 13:00 AMB (Rec: 11/05/21 13:48 AMB [id number]) Physical Therapy Assessment Goals Three Impairment shoulder function Impairment unable to reach overhead or behind her back for purposes of ADL's Short Term Goal (STG) Patient will be able to reach overhead and behind her back without difficulty STG Duration 12/07/21 Alf Goal (LTG) Patient to score less than 15% on Quickdash Disability Index score as measure of improved functional use of left UE. LTG Duration 01/07/22 Two Impairment strength Short Term Goal (STG) Patient to be independent and compliant with a progressive HEP for purposes of increased left shoulder ROM and strength STG Duration 11/06/21 Antique Furniture Reproducer Goal (LTG) Patient to achieve at least 4+ /5 muscle strength left shoulder all muscle groups to allow her to return to her usual activities LTG Duration 01/07/22 One Impairment Decreased ROM left shoulder post-op shoulder surgery Short Term Goal (STG) Patient to achieve full PROM left shoulder STG Duration 11/06/21 Antique Furniture Reproducer Goal (LTG) Patient to achieve full AROM left shoulder to allow her to do all usual ADL's and activities LTG Duration 01/07/22 Assessment Summary Assessment Ansley continues to have discomfort over AC joint, especially after trying to lift package today, but did feel better after manual today . Progressing, tolerating more AROM activities, does fatigue quickly with scapular stabilization. Physical Therapy Plan Next Visit Focus/Plan Next Note Type Progress Note Next Visit Plan ROM measurements. Progress active range, consider resistance
--- NOTE | 2021-11-10 15:10 | PT.OTN ---
Current Diagnoses Stiffness of left shoulder, not elsewhere classified (11/10/21) Weakness (11/10/21) Contusion of left shoulder, initial encounter (11/10/21) Arthroscopic surgical procedure converted to open procedure (11/10/21) Physical Therapy Treatment Note PT-OP-A Visit Information Start: 10/09/21 08:11 Freq: Status: Active Protocol: Document 11/10/21 13:00 AMB (Rec: 11/10/21 15:10 AMB [id number]) Out-Patient Physical Therapy Visit Information Visit Information Visit Type Treatment Note Visit Start Time 13:00 Visit Stop Time 13:45 Total Visit Minutes 45 Visit Number 10 PT-OP-B Current Condition Start: 10/09/21 08:11 Freq: Status: Active Protocol: Document 10/15/21 15:15 SAK (Rec: 10/15/21 16:37 SAK [id number]) Current Condition History of Current Condition Onset Date 09/18/21 Current Complaints left shoulder pain. History of Current Condition SLAP shoulder repair after failed PT. Reports post op wore sling for 1-2 weeks per doctor, then instructed in gentle limited motion and no lifting. Has had deep throbbing pain distal clavicle , has mostly been sitting or laying down, icing. Just now starting to move around a little. Has difficulty taking pain medications, has had to modify diet to tolerate. Uses ice machine. Prior Treatments and Tests Post-op with Dr. Castle , instructed no heavy lifting, no straining, move, but not too much. General protocol shows PROM until 5 weeks post op. Will contact physician office to further clarify. Future Testing and Treatments Planned Will see Dr. Castle again 6-8 weeks post-op Treatment Goals Patient/Caregiver Goals regain full active use of her left UE PT-OP-C Subjective Start: 10/09/21 08:11 Freq: Status: Active Protocol: Document 11/10/21 13:00 AMB (Rec: 11/10/21 15:10 AMB [id number]) OP-PT Subjective Patient Comments Patient Comments Ansley was sore in her upper trap over the weekend, overall is continuing to try to use the arm more. Switching to her personal insurance because PIP is up, so now has a copay which may be a limiting factor. PT-OP-F Manual Assessment Start: 10/09/21 08:11 Freq: Status: Active Protocol: Document 10/09/21 15:20 SAK (Rec: 10/09/21 17:09 SAK [id number]) Manual Assessments Soft Tissue Assessment Soft Tissue Mobility Assessment increased tightness left UT, periscapular region PT-OP-H Neuro Start: 10/09/21 08:11 Freq: Status: Active Protocol: Document 10/09/21 15:20 SAK (Rec: 10/09/21 17:09 SAK [id number]) Sensation Evaluation Gross Sensation Gross Sensation WNL PT-OP-J Posture/Palpation/Skin Start: 10/09/21 08:11 Freq: Status: Active Protocol: Document 10/09/21 15:20 SAK (Rec: 10/09/21 17:09 SAK [id number]) Palpation Assessment Location upper traps Palpation Location left Palpation Findings Soft Tissue Tightness,Muscle Guarding,Tenderness,Trigger Point Skin Assessment Edema Assessment Left Arm Edema Appearance Discolored,Taut Subjective Edema Description Pain,Tightness Incisional Assessment Incision Appearance/Comments well-healing arthroscopic scar ant and post. PT-OP-K Range of Motion Start: 10/09/21 08:11 Freq: Status: Active Protocol: Document 10/09/21 15:20 SAK (Rec: 10/09/21 16:39 SAK [id number]) Cervical Spine Range of Motion Cervical Spine Active Testing Position Sitting Flexion 60 Extension 25 Rotation Left 55 Rotation Right 55 Lateral Flexion Left 40 Lateral Flexion Right 50 Shoulder Goniometric Range of Motion Shoulder Left Passive Testing Position standing, sitting, supine Flexion 90 Extension 10 Abduction 65 External Rotation at 0 degrees Abduction 40 Internal Rotation 45 Right Shoulder ROM WFL Yes Shoulder ROM Limitations Shoulder ROM Limitations Soft Tissue Tightness,Pain, Swelling Elbow/Forearm Range of Motion Elbow/Forearm Left Elbow/Forearm ROM WFL Yes PT-OP-M Strength Start: 10/09/21 08:11 Freq: Status: Active Protocol: Document 10/09/21 15:20 SAK (Rec: 10/09/21 17:09 SAK [id number]) Shoulder Strength Shoulder Manual Muscle Testing Left Comments NT due to post-op 3 weeks, PROM only at this time PT-OP-Q Treatments Start: 10/09/21 08:11 Freq: Status: Active Protocol: Document 11/10/21 13:00 AMB (Rec: 11/10/21 15:10 AMB [id number]) Therapeutic Exercises Prone Exercises I, Y Reps/Minutes 2x8 Comments AROM, partial range rows Prone Exercise Name off side of table Side left Reps/Minutes 2x5 Comments AROM Standing Exercises adduction Resistance #1 t band Reps/Minutes 2x10 t band IR Side left Resistance #1 t band Reps/Minutes 2x10 horizontal adduction Side left Resistance T band #1 Reps/Minutes 2x10 Comments to neutral only t band rows Side bilateral Resistance #1 t band Reps/Minutes 2x10 relaxed arm swing Standing Exercise Name walking Reps/Minutes 3 min Comments cues for relaxed shoulder, thumb forward walk counter walk away Comments verbal instruction shoulder extension Side left Resistance AROM Reps/Minutes 20x pendulum Standing Exercise Name all directions Reps/Minutes 10x ea Manual Therapy Treatment Soft Tissue Mobilization UT, scar mob, biceps Body Location left UE Mobilization Type Myofascial Release Intensity/Depth Moderate Body Position Hooklying PT-OP-R Modalities Start: 10/09/21 08:11 Freq: Status: Active Protocol: Document 10/21/21 11:15 AMB (Rec: 10/21/21 12:42 AMB [id number]) Electric Stimulation Electric Stimulation Interferential Current (IFC) Body Location L shoulder, Duration (Minutes) 12 Combined With Heat/Cold Cold Pack PT-OP-T Assessment and Plan Start: 10/09/21 08:11 Freq: Status: Active Protocol: Document 11/10/21 13:00 AMB (Rec: 11/10/21 15:10 AMB [id number]) Physical Therapy Assessment Goals Three Impairment shoulder function Impairment unable to reach overhead or behind her back for purposes of ADL's Short Term Goal (STG) Patient will be able to reach overhead and behind her back without difficulty STG Duration 12/07/21 Assisted Goal (LTG) Patient to score less than 15% on Quickdash Disability Index score as measure of improved functional use of left UE. LTG Duration 01/07/22 Two Impairment strength Short Term Goal (STG) Patient to be independent and compliant with a progressive HEP for purposes of increased left shoulder ROM and strength STG Duration 11/06/21 Upper Cutter Goal (LTG) Patient to achieve at least 4+ /5 muscle strength left shoulder all muscle groups to allow her to return to her usual activities LTG Duration 01/07/22 One Impairment Decreased ROM left shoulder post-op shoulder surgery Short Term Goal (STG) Patient to achieve full PROM left shoulder STG Duration 11/06/21 Assisted Goal (LTG) Patient to achieve full AROM left shoulder to allow her to do all usual ADL's and activities LTG Duration 01/07/22 Assessment Summary Assessment Ansley is tolerating more resistance exercises, still keeping t band resistance low. But overall tolerating exercises below shoulder height well, prone exercises can perform scaption above shoulder height. Physical Therapy Plan Next Visit Focus/Plan Next Note Type Progress Note Next Visit Plan Progress resistance as tolerated.
--- NOTE | 2021-11-12 13:52 | PT.OTN ---
Current Diagnoses Stiffness of left shoulder, not elsewhere classified (11/12/21) Weakness (11/12/21) Contusion of left shoulder, initial encounter (11/12/21) Arthroscopic surgical procedure converted to open procedure (11/12/21) Physical Therapy Treatment Note PT-OP-A Visit Information Start: 10/09/21 08:11 Freq: Status: Active Protocol: Document 11/12/21 13:08 AMB (Rec: 11/12/21 13:23 AMB [id number]) Out-Patient Physical Therapy Visit Information Visit Information Visit Type Progress Note Visit Start Time 13:00 Visit Stop Time 13:45 Total Visit Minutes 45 Visit Number 11 PT-OP-B Current Condition Start: 10/09/21 08:11 Freq: Status: Active Protocol: Document 10/15/21 15:15 SAK (Rec: 10/15/21 16:37 SAK [id number]) Current Condition History of Current Condition Onset Date 09/18/21 Current Complaints left shoulder pain. History of Current Condition SLAP shoulder repair after failed PT. Reports post op wore sling for 1-2 weeks per doctor, then instructed in gentle limited motion and no lifting. Has had deep throbbing pain distal clavicle , has mostly been sitting or laying down, icing. Just now starting to move around a little. Has difficulty taking pain medications, has had to modify diet to tolerate. Uses ice machine. Prior Treatments and Tests Post-op with Dr. Castle , instructed no heavy lifting, no straining, move, but not too much. General protocol shows PROM until 5 weeks post op. Will contact physician office to further clarify. Future Testing and Treatments Planned Will see Dr. Catsle again 6-8 weeks post-op Treatment Goals Patient/Caregiver Goals regain full active use of her left UE PT-OP-C Subjective Start: 10/09/21 08:11 Freq: Status: Active Protocol: Document 11/12/21 13:08 AMB (Rec: 11/12/21 13:23 AMB [id number]) OP-PT Subjective Patient Comments Patient Comments Ansley has been doing the t band at home. PT-OP-F Manual Assessment Start: 10/09/21 08:11 Freq: Status: Active Protocol: Document 10/09/21 15:20 SAK (Rec: 10/09/21 17:09 SAK [id number]) Manual Assessments Soft Tissue Assessment Soft Tissue Mobility Assessment increased tightness left UT, periscapular region PT-OP-H Neuro Start: 10/09/21 08:11 Freq: Status: Active Protocol: Document 10/09/21 15:20 SAK (Rec: 10/09/21 17:09 SAK [id number]) Sensation Evaluation Gross Sensation Gross Sensation WNL PT-OP-J Posture/Palpation/Skin Start: 10/09/21 08:11 Freq: Status: Active Protocol: Document 10/09/21 15:20 SAK (Rec: 10/09/21 17:09 SAK [id number]) Palpation Assessment Location upper traps Palpation Location left Palpation Findings Soft Tissue Tightness,Muscle Guarding,Tenderness,Trigger Point Skin Assessment Edema Assessment Left Arm Edema Appearance Discolored,Taut Subjective Edema Description Pain,Tightness Incisional Assessment Incision Appearance/Comments well-healing arthroscopic scar ant and post. PT-OP-K Range of Motion Start: 10/09/21 08:11 Freq: Status: Active Protocol: Document 11/12/21 13:23 AMB (Rec: 11/12/21 13:26 AMB [id number]) Shoulder Goniometric Range of Motion Shoulder Left Passive Flexion 140 Abduction 155 External Rotation at 90 degrees 61 Abduction External Rotation at 0 degrees Abduction 70 PT-OP-M Strength Start: 10/09/21 08:11 Freq: Status: Active Protocol: Document 10/09/21 15:20 SAK (Rec: 10/09/21 17:09 SAK [id number]) Shoulder Strength Shoulder Manual Muscle Testing Left Comments NT due to post-op 3 weeks, PROM only at this time PT-OP-Q Treatments Start: 10/09/21 08:11 Freq: Status: Active Protocol: Document 11/12/21 13:42 AMB (Rec: 11/12/21 13:45 AMB [id number]) Therapeutic Exercises Standing Exercises t band ER Resistance #2 t band Reps/Minutes 2x10 t band IR Side left Resistance #2 t band Reps/Minutes 2x10 t band rows Side bilateral Resistance #2 t band Reps/Minutes 2x10 shoulder extension Side left Resistance #2 t band Reps/Minutes 20x Manual Therapy Treatment Soft Tissue Mobilization UT, scar mob, biceps Body Location left UE Mobilization Type Myofascial Release Intensity/Depth Moderate Body Position Hooklying PT-OP-R Modalities Start: 10/09/21 08:11 Freq: Status: Active Protocol: Document 10/21/21 11:15 AMB (Rec: 10/21/21 12:42 AMB [id number]) Electric Stimulation Electric Stimulation Interferential Current (IFC) Body Location L shoulder, Duration (Minutes) 12 Combined With Heat/Cold Cold Pack PT-OP-T Assessment and Plan Start: 10/09/21 08:11 Freq: Status: Active Protocol: Document 11/12/21 13:08 AMB (Rec: 11/12/21 13:23 AMB [id number]) Physical Therapy Assessment Goals Three Impairment shoulder function Impairment unable to reach overhead or behind her back for purposes of ADL's Short Term Goal (STG) Patient will be able to reach overhead and behind her back without difficulty STG Duration 12/07/21 Penitentiary Goal (LTG) Patient to score less than 15% on Quickdash Disability Index score as measure of improved functional use of left UE. LTG Duration 01/07/22 Two Impairment strength Short Term Goal (STG) Patient to be independent and compliant with a progressive HEP for purposes of increased left shoulder ROM and strength STG Duration 11/06/21 Penitentiary Goal (LTG) Patient to achieve at least 4+ /5 muscle strength left shoulder all muscle groups to allow her to return to her usual activities LTG Duration 01/07/22 One Impairment Decreased ROM left shoulder post-op shoulder surgery Short Term Goal (STG) Patient to achieve full PROM left shoulder STG Duration 11/06/21 Penitentiary Goal (LTG) Patient to achieve full AROM left shoulder to allow her to do all usual ADL's and activities LTG Duration 01/07/22 Assessment Summary Assessment Ansley is tolerating more resistance, does continue to have pain in scapula. Overall pain is improving, and ROM is significantly improved from eval. Physical Therapy Plan Next Visit Focus/Plan Next Note Type Progress Note Next Visit Plan Progress resistance as tolerated.
--- NOTE | 2021-11-17 13:46 | PT.OTN ---
Current Diagnoses Stiffness of left shoulder, not elsewhere classified (11/17/21) Weakness (11/17/21) Contusion of left shoulder, initial encounter (11/17/21) Arthroscopic surgical procedure converted to open procedure (11/17/21) Physical Therapy Treatment Note PT-OP-A Visit Information Start: 10/09/21 08:11 Freq: Status: Active Protocol: Document 11/17/21 13:05 AMB (Rec: 11/17/21 13:17 AMB [id number]) Out-Patient Physical Therapy Visit Information Visit Information Visit Type Treatment Note Visit Start Time 13:00 Visit Stop Time 13:45 Total Visit Minutes 45 Visit Number 12 PT-OP-B Current Condition Start: 10/09/21 08:11 Freq: Status: Active Protocol: Document 10/15/21 15:15 SAK (Rec: 10/15/21 16:37 SAK [id number]) Current Condition History of Current Condition Onset Date 09/18/21 Current Complaints left shoulder pain. History of Current Condition SLAP shoulder repair after failed PT. Reports post op wore sling for 1-2 weeks per doctor, then instructed in gentle limited motion and no lifting. Has had deep throbbing pain distal clavicle , has mostly been sitting or laying down, icing. Just now starting to move around a little. Has difficulty taking pain medications, has had to modify diet to tolerate. Uses ice machine. Prior Treatments and Tests Post-op with Dr. Castle , instructed no heavy lifting, no straining, move, but not too much. General protocol shows PROM until 5 weeks post op. Will contact physician office to further clarify. Future Testing and Treatments Planned Will see Dr. Castle again 6-8 weeks post-op Treatment Goals Patient/Caregiver Goals regain full active use of her left UE PT-OP-C Subjective Start: 10/09/21 08:11 Freq: Status: Active Protocol: Document 11/17/21 13:05 AMB (Rec: 11/17/21 13:17 AMB [id number]) OP-PT Subjective Patient Comments Patient Comments Pt has returned to [place] for the first time since surgery. PT-OP-F Manual Assessment Start: 10/09/21 08:11 Freq: Status: Active Protocol: Document 10/09/21 15:20 SAK (Rec: 10/09/21 17:09 SAK [id number]) Manual Assessments Soft Tissue Assessment Soft Tissue Mobility Assessment increased tightness left UT, periscapular region PT-OP-H Neuro Start: 10/09/21 08:11 Freq: Status: Active Protocol: Document 10/09/21 15:20 SAK (Rec: 10/09/21 17:09 SAK [id number]) Sensation Evaluation Gross Sensation Gross Sensation WNL PT-OP-J Posture/Palpation/Skin Start: 10/09/21 08:11 Freq: Status: Active Protocol: Document 10/09/21 15:20 SAK (Rec: 10/09/21 17:09 SAK [id number]) Palpation Assessment Location upper traps Palpation Location left Palpation Findings Soft Tissue Tightness,Muscle Guarding,Tenderness,Trigger Point Skin Assessment Edema Assessment Left Arm Edema Appearance Discolored,Taut Subjective Edema Description Pain,Tightness Incisional Assessment Incision Appearance/Comments well-healing arthroscopic scar ant and post. PT-OP-K Range of Motion Start: 10/09/21 08:11 Freq: Status: Active Protocol: Document 11/12/21 13:23 AMB (Rec: 11/12/21 13:26 AMB [id number]) Shoulder Goniometric Range of Motion Shoulder Left Passive Flexion 140 Abduction 155 External Rotation at 90 degrees 61 Abduction External Rotation at 0 degrees Abduction 70 PT-OP-M Strength Start: 10/09/21 08:11 Freq: Status: Active Protocol: Document 10/09/21 15:20 SAK (Rec: 10/09/21 17:09 SAK [id number]) Shoulder Strength Shoulder Manual Muscle Testing Left Comments NT due to post-op 3 weeks, PROM only at this time PT-OP-Q Treatments Start: 10/09/21 08:11 Freq: Status: Active Protocol: Document 11/17/21 13:05 AMB (Rec: 11/17/21 13:17 AMB [id number]) Cardio Equipment Upper Body Ergometer (UBE) Seat Position 9 Height 0 Therapeutic Exercises Prone Exercises I, Y Reps/Minutes 2x8 Comments AROM, partial range rows Prone Exercise Name off side of table Side left Reps/Minutes 2x5 Comments AROM Standing Exercises t band ER Resistance #2 t band Reps/Minutes 2x10 t band IR Side left Resistance #2 t band Reps/Minutes 2x10 t band rows Side bilateral Resistance #2 t band Reps/Minutes 2x10 shoulder extension Side left Resistance #2 t band Reps/Minutes 20x Manual Therapy Treatment Soft Tissue Mobilization subclavius Body Location Left Mobilization Type Myofascial Release,Sustained Pressure,Trigger Point Release Intensity/Depth Moderate Body Position Supine UT, scar mob, biceps Body Location left UE Mobilization Type Myofascial Release Intensity/Depth Moderate Body Position Hooklying PT-OP-R Modalities Start: 10/09/21 08:11 Freq: Status: Active Protocol: Document 10/21/21 11:15 AMB (Rec: 10/21/21 12:42 AMB [id number]) Electric Stimulation Electric Stimulation Interferential Current (IFC) Body Location L shoulder, Duration (Minutes) 12 Combined With Heat/Cold Cold Pack PT-OP-T Assessment and Plan Start: 10/09/21 08:11 Freq: Status: Active Protocol: Document 11/17/21 13:05 AMB (Rec: 11/17/21 13:17 AMB [id number]) Physical Therapy Assessment Goals Three Impairment shoulder function Impairment unable to reach overhead or behind her back for purposes of ADL's Short Term Goal (STG) Patient will be able to reach overhead and behind her back without difficulty STG Duration 12/07/21 Assistant Teacher Primary Goal (LTG) Patient to score less than 15% on Quickdash Disability Index score as measure of improved functional use of left UE. LTG Duration 01/07/22 Two Impairment strength Short Term Goal (STG) Patient to be independent and compliant with a progressive HEP for purposes of increased left shoulder ROM and strength STG Duration 11/06/21 Assistant Teacher Primary Goal (LTG) Patient to achieve at least 4+ /5 muscle strength left shoulder all muscle groups to allow her to return to her usual activities LTG Duration 01/07/22 One Impairment Decreased ROM left shoulder post-op shoulder surgery Short Term Goal (STG) Patient to achieve full PROM left shoulder STG Duration 11/06/21 Alf Goal (LTG) Patient to achieve full AROM left shoulder to allow her to do all usual ADL's and activities LTG Duration 01/07/22 Assessment Summary Assessment Ansley is going to be cutting her appointments down to 1x/ week due to her copay. Tolerated UBE. Physical Therapy Plan Next Visit Focus/Plan Next Note Type Progress Note Next Visit Plan Progress resistance as tolerated.
--- NOTE | 2021-12-02 15:46 | PT.OTN ---
Current Diagnoses Stiffness of left shoulder, not elsewhere classified (12/02/21) Weakness (12/02/21) Contusion of left shoulder, initial encounter (12/02/21) Arthroscopic surgical procedure converted to open procedure (12/02/21) Physical Therapy Treatment Note PT-OP-A Visit Information Start: 10/09/21 08:11 Freq: Status: Active Protocol: Document 12/02/21 14:37 AMB (Rec: 12/02/21 15:46 AMB [id number]) Out-Patient Physical Therapy Visit Information Visit Information Visit Type Treatment Note Visit Start Time 14:30 Visit Stop Time 15:15 Total Visit Minutes 45 Visit Number 13 PT-OP-B Current Condition Start: 10/09/21 08:11 Freq: Status: Active Protocol: Document 10/15/21 15:15 SAK (Rec: 10/15/21 16:37 SAK [id number]) Current Condition History of Current Condition Onset Date 09/18/21 Current Complaints left shoulder pain. History of Current Condition SLAP shoulder repair after failed PT. Reports post op wore sling for 1-2 weeks per doctor, then instructed in gentle limited motion and no lifting. Has had deep throbbing pain distal clavicle , has mostly been sitting or laying down, icing. Just now starting to move around a little. Has difficulty taking pain medications, has had to modify diet to tolerate. Uses ice machine. Prior Treatments and Tests Post-op with Dr. Castle , instructed no heavy lifting, no straining, move, but not too much. General protocol shows PROM until 5 weeks post op. Will contact physician office to further clarify. Future Testing and Treatments Planned Will see Dr. Castle again 6-8 weeks post-op Treatment Goals Patient/Caregiver Goals regain full active use of her left UE PT-OP-C Subjective Start: 10/09/21 08:11 Freq: Status: Active Protocol: Document 12/02/21 14:37 AMB (Rec: 12/02/21 15:46 AMB [id number]) OP-PT Subjective Patient Comments Patient Comments Pt returns from helpign her sister and forgot to take her theraband while she was gone. PT-OP-F Manual Assessment Start: 10/09/21 08:11 Freq: Status: Active Protocol: Document 10/09/21 15:20 SAK (Rec: 10/09/21 17:09 SAK [id number]) Manual Assessments Soft Tissue Assessment Soft Tissue Mobility Assessment increased tightness left UT, periscapular region PT-OP-H Neuro Start: 10/09/21 08:11 Freq: Status: Active Protocol: Document 10/09/21 15:20 SAK (Rec: 10/09/21 17:09 [facility] [id number]) Sensation Evaluation Gross Sensation Gross Sensation WNL PT-OP-J Posture/Palpation/Skin Start: 10/09/21 08:11 Freq: Status: Active Protocol: Document 10/09/21 15:20 SAK (Rec: 10/09/21 17:09 [facility] [id number]) Palpation Assessment Location upper traps Palpation Location left Palpation Findings Soft Tissue Tightness,Muscle Guarding,Tenderness,Trigger Point Skin Assessment Edema Assessment Left Arm Edema Appearance Discolored,Taut Subjective Edema Description Pain,Tightness Incisional Assessment Incision Appearance/Comments well-healing arthroscopic scar ant and post. PT-OP-K Range of Motion Start: 10/09/21 08:11 Freq: Status: Active Protocol: Document 11/12/21 13:23 AMB (Rec: 11/12/21 13:26 AMB [id number]) Shoulder Goniometric Range of Motion Shoulder Left Passive Flexion 140 Abduction 155 External Rotation at 90 degrees 61 Abduction External Rotation at 0 degrees Abduction 70 PT-OP-M Strength Start: 10/09/21 08:11 Freq: Status: Active Protocol: Document 10/09/21 15:20 SAK (Rec: 10/09/21 17:09 [facility] [id number]) Shoulder Strength Shoulder Manual Muscle Testing Left Comments NT due to post-op 3 weeks, PROM only at this time PT-OP-Q Treatments Start: 10/09/21 08:11 Freq: Status: Active Protocol: Document 12/02/21 14:37 AMB (Rec: 12/02/21 15:46 AMB [id number]) Therapeutic Exercises Supine Exercises isometrics Supine Exercise Name IR and extension Side left Reps/Minutes 5x5 ea Standing Exercises ball against wall circles Standing Exercise Name CW, CCW wall walk up and lift Reps/Minutes 5x5 Manual Therapy Treatment Soft Tissue Mobilization subclavius Body Location Left Mobilization Type Myofascial Release,Sustained Pressure,Trigger Point Release Intensity/Depth Moderate Body Position Supine Comments added deltoid PT-OP-R Modalities Start: 10/09/21 08:11 Freq: Status: Active Protocol: Document 10/21/21 11:15 AMB (Rec: 10/21/21 12:42 AMB [id number]) Electric Stimulation Electric Stimulation Interferential Current (IFC) Body Location L shoulder, Duration (Minutes) 12 Combined With Heat/Cold Cold Pack PT-OP-T Assessment and Plan Start: 10/09/21 08:11 Freq: Status: Active Protocol: Document 12/02/21 14:37 AMB (Rec: 12/02/21 15:46 AMB [id number]) Physical Therapy Assessment Goals Three Impairment shoulder function Impairment unable to reach overhead or behind her back for purposes of ADL's Short Term Goal (STG) Patient will be able to reach overhead and behind her back without difficulty STG Duration 12/07/21 Snf Goal (LTG) Patient to score less than 15% on Quickdash Disability Index score as measure of improved functional use of left UE. LTG Duration 01/07/22 Two Impairment strength Short Term Goal (STG) Patient to be independent and compliant with a progressive HEP for purposes of increased left shoulder ROM and strength STG Duration 11/06/21 Cocoa Butter Filter Operator Goal (LTG) Patient to achieve at least 4+ /5 muscle strength left shoulder all muscle groups to allow her to return to her usual activities LTG Duration 01/07/22 One Impairment Decreased ROM left shoulder post-op shoulder surgery Short Term Goal (STG) Patient to achieve full PROM left shoulder STG Duration 11/06/21 Snf Goal (LTG) Patient to achieve full AROM left shoulder to allow her to do all usual ADL's and activities LTG Duration 01/07/22 Assessment Summary Assessment Ansley is having more deltoid pain that she had been. Difficulty with sleeping when arm is out away from her. Continues to have weakness in shoulder height and above positions but ROM is improving . Physical Therapy Plan Next Visit Focus/Plan Next Note Type Treatment Note Next Visit Plan Progress resistance as tolerated.
--- NOTE | 2021-12-08 14:30 | PT.OTN ---
Current Diagnoses Stiffness of left shoulder, not elsewhere classified (12/08/21) Weakness (12/08/21) Contusion of left shoulder, initial encounter (12/08/21) Arthroscopic surgical procedure converted to open procedure (12/08/21) Physical Therapy Treatment Note PT-OP-A Visit Information Start: 10/09/21 08:11 Freq: Status: Active Protocol: Document 12/08/21 14:32 AMB (Rec: 12/08/21 15:16 AMB [id number]) Out-Patient Physical Therapy Visit Information Visit Information Visit Type Treatment Note Visit Start Time 14:30 Visit Stop Time 15:15 Total Visit Minutes 45 Visit Number 14 PT-OP-B Current Condition Start: 10/09/21 08:11 Freq: Status: Active Protocol: Document 10/15/21 15:15 SAK (Rec: 10/15/21 16:37 SAK [id number]) Current Condition History of Current Condition Onset Date 09/18/21 Current Complaints left shoulder pain. History of Current Condition SLAP shoulder repair after failed PT. Reports post op wore sling for 1-2 weeks per doctor, then instructed in gentle limited motion and no lifting. Has had deep throbbing pain distal clavicle , has mostly been sitting or laying down, icing. Just now starting to move around a little. Has difficulty taking pain medications, has had to modify diet to tolerate. Uses ice machine. Prior Treatments and Tests Post-op with Dr. Castle , instructed no heavy lifting, no straining, move, but not too much. General protocol shows PROM until 5 weeks post op. Will contact physician office to further clarify. Future Testing and Treatments Planned Will see Dr. Castle again 6-8 weeks post-op Treatment Goals Patient/Caregiver Goals regain full active use of her left UE PT-OP-C Subjective Start: 10/09/21 08:11 Freq: Status: Active Protocol: Document 12/08/21 14:32 AMB (Rec: 12/08/21 15:16 AMB [id number]) OP-PT Subjective Patient Comments Patient Comments Pt reports she drove a lot over this last week and her shoulder has been really painful PT-OP-F Manual Assessment Start: 10/09/21 08:11 Freq: Status: Active Protocol: Document 10/09/21 15:20 SAK (Rec: 10/09/21 17:09 SAK [id number]) Manual Assessments Soft Tissue Assessment Soft Tissue Mobility Assessment increased tightness left UT, periscapular region PT-OP-H Neuro Start: 10/09/21 08:11 Freq: Status: Active Protocol: Document 10/09/21 15:20 SAK (Rec: 10/09/21 17:09 SAK [id number]) Sensation Evaluation Gross Sensation Gross Sensation WNL PT-OP-J Posture/Palpation/Skin Start: 10/09/21 08:11 Freq: Status: Active Protocol: Document 10/09/21 15:20 SAK (Rec: 10/09/21 17:09 SAK [id number]) Palpation Assessment Location upper traps Palpation Location left Palpation Findings Soft Tissue Tightness,Muscle Guarding,Tenderness,Trigger Point Skin Assessment Edema Assessment Left Arm Edema Appearance Discolored,Taut Subjective Edema Description Pain,Tightness Incisional Assessment Incision Appearance/Comments well-healing arthroscopic scar ant and post. PT-OP-K Range of Motion Start: 10/09/21 08:11 Freq: Status: Active Protocol: Document 11/12/21 13:23 AMB (Rec: 11/12/21 13:26 AMB [id number]) Shoulder Goniometric Range of Motion Shoulder Left Passive Flexion 140 Abduction 155 External Rotation at 90 degrees 61 Abduction External Rotation at 0 degrees Abduction 70 PT-OP-M Strength Start: 10/09/21 08:11 Freq: Status: Active Protocol: Document 10/09/21 15:20 SAK (Rec: 10/09/21 17:09 [facility] [id number]) Shoulder Strength Shoulder Manual Muscle Testing Left Comments NT due to post-op 3 weeks, PROM only at this time PT-OP-Q Treatments Start: 10/09/21 08:11 Freq: Status: Active Protocol: Document 12/08/21 14:32 AMB (Rec: 12/08/21 15:16 AMB [id number]) Cardio Equipment Upper Body Ergometer (UBE) Duration (Minutes) 5 Seat Position 9 Height 0 Therapeutic Exercises Supine Exercises isometrics Supine Exercise Name IR and extension Side left Reps/Minutes 5x5 ea Sitting Exercises rows Sitting Exercise Name AROM Reps/Minutes 2x10 scapular squeeze Reps/Minutes 5x5 cervical ROM Reps/Minutes 5x ea Standing Exercises adduction Resistance #1 t band Reps/Minutes 2x10 Manual Therapy Treatment Soft Tissue Mobilization UT, scar mob, biceps Body Location left UE Mobilization Type Myofascial Release Intensity/Depth Moderate Body Position Hooklying PT-OP-R Modalities Start: 10/09/21 08:11 Freq: Status: Active Protocol: Document 10/21/21 11:15 AMB (Rec: 10/21/21 12:42 AMB [id number]) Electric Stimulation Electric Stimulation Interferential Current (IFC) Body Location L shoulder, Duration (Minutes) 12 Combined With Heat/Cold Cold Pack PT-OP-T Assessment and Plan Start: 10/09/21 08:11 Freq: Status: Active Protocol: Document 12/08/21 14:32 AMB (Rec: 12/08/21 15:16 AMB [id number]) Physical Therapy Assessment Goals Three Impairment shoulder function Impairment unable to reach overhead or behind her back for purposes of ADL's Short Term Goal (STG) Patient will be able to reach overhead and behind her back without difficulty STG Duration 12/07/21 Mcfp Goal (LTG) Patient to score less than 15% on Quickdash Disability Index score as measure of improved functional use of left UE. LTG Duration 01/07/22 Two Impairment strength Short Term Goal (STG) Patient to be independent and compliant with a progressive HEP for purposes of increased left shoulder ROM and strength STG Duration 11/06/21 Software Asset Management Analyst Goal (LTG) Patient to achieve at least 4+ /5 muscle strength left shoulder all muscle groups to allow her to return to her usual activities LTG Duration 01/07/22 One Impairment Decreased ROM left shoulder post-op shoulder surgery Short Term Goal (STG) Patient to achieve full PROM left shoulder STG Duration 11/06/21 Mcfp Goal (LTG) Patient to achieve full AROM left shoulder to allow her to do all usual ADL's and activities LTG Duration 01/07/22 Assessment Summary Assessment Ansley is continuing to have upper trap pain, especially with increased activity. Physical Therapy Plan Next Visit Focus/Plan Next Note Type Treatment Note Next Visit Plan Progress resistance as tolerated.
--- NOTE | 2021-12-09 07:40 | PT.OTN ---
Current Diagnoses Stiffness of left shoulder, not elsewhere classified (12/08/21) Weakness (12/08/21) Contusion of left shoulder, initial encounter (12/08/21) Arthroscopic surgical procedure converted to open procedure (12/08/21) Physical Therapy Treatment Note PT-OP-A Visit Information Start: 10/09/21 08:11 Freq: Status: Active Protocol: Document 12/08/21 14:32 AMB (Rec: 12/08/21 15:16 AMB [id number]) Out-Patient Physical Therapy Visit Information Visit Information Visit Type Treatment Note Visit Start Time 14:30 Visit Stop Time 15:15 Total Visit Minutes 45 Visit Number 14 PT-OP-B Current Condition Start: 10/09/21 08:11 Freq: Status: Active Protocol: Document 10/15/21 15:15 SAK (Rec: 10/15/21 16:37 SAK [id number]) Current Condition History of Current Condition Onset Date 09/18/21 Current Complaints left shoulder pain. History of Current Condition SLAP shoulder repair after failed PT. Reports post op wore sling for 1-2 weeks per doctor, then instructed in gentle limited motion and no lifting. Has had deep throbbing pain distal clavicle , has mostly been sitting or laying down, icing. Just now starting to move around a little. Has difficulty taking pain medications, has had to modify diet to tolerate. Uses ice machine. Prior Treatments and Tests Post-op with Dr. Castle , instructed no heavy lifting, no straining, move, but not too much. General protocol shows PROM until 5 weeks post op. Will contact physician office to further clarify. Future Testing and Treatments Planned Will see Dr. Castle again 6-8 weeks post-op Treatment Goals Patient/Caregiver Goals regain full active use of her left UE PT-OP-C Subjective Start: 10/09/21 08:11 Freq: Status: Active Protocol: Document 12/08/21 14:32 AMB (Rec: 12/08/21 15:16 AMB [id number]) OP-PT Subjective Patient Comments Patient Comments Pt reports she drove a lot over this last week and her shoulder has been really painful PT-OP-F Manual Assessment Start: 10/09/21 08:11 Freq: Status: Active Protocol: Document 10/09/21 15:20 SAK (Rec: 10/09/21 17:09 SAK [id number]) Manual Assessments Soft Tissue Assessment Soft Tissue Mobility Assessment increased tightness left UT, periscapular region PT-OP-H Neuro Start: 10/09/21 08:11 Freq: Status: Active Protocol: Document 10/09/21 15:20 SAK (Rec: 10/09/21 17:09 SAK [id number]) Sensation Evaluation Gross Sensation Gross Sensation WNL PT-OP-J Posture/Palpation/Skin Start: 10/09/21 08:11 Freq: Status: Active Protocol: Document 10/09/21 15:20 SAK (Rec: 10/09/21 17:09 SAK [id number]) Palpation Assessment Location upper traps Palpation Location left Palpation Findings Soft Tissue Tightness,Muscle Guarding,Tenderness,Trigger Point Skin Assessment Edema Assessment Left Arm Edema Appearance Discolored,Taut Subjective Edema Description Pain,Tightness Incisional Assessment Incision Appearance/Comments well-healing arthroscopic scar ant and post. PT-OP-K Range of Motion Start: 10/09/21 08:11 Freq: Status: Active Protocol: Document 11/12/21 13:23 AMB (Rec: 11/12/21 13:26 AMB [id number]) Shoulder Goniometric Range of Motion Shoulder Left Passive Flexion 140 Abduction 155 External Rotation at 90 degrees 61 Abduction External Rotation at 0 degrees Abduction 70 PT-OP-M Strength Start: 10/09/21 08:11 Freq: Status: Active Protocol: Document 10/09/21 15:20 SAK (Rec: 10/09/21 17:09 [facility] [id number]) Shoulder Strength Shoulder Manual Muscle Testing Left Comments NT due to post-op 3 weeks, PROM only at this time PT-OP-Q Treatments Start: 10/09/21 08:11 Freq: Status: Active Protocol: Document 12/08/21 14:32 AMB (Rec: 12/08/21 15:16 AMB [id number]) Cardio Equipment Upper Body Ergometer (UBE) Duration (Minutes) 5 Seat Position 9 Height 0 Therapeutic Exercises Supine Exercises isometrics Supine Exercise Name IR and extension Side left Reps/Minutes 5x5 ea Sitting Exercises rows Sitting Exercise Name AROM Reps/Minutes 2x10 scapular squeeze Reps/Minutes 5x5 cervical ROM Reps/Minutes 5x ea Standing Exercises adduction Resistance #1 t band Reps/Minutes 2x10 Manual Therapy Treatment Soft Tissue Mobilization UT, scar mob, biceps Body Location left UE Mobilization Type Myofascial Release Intensity/Depth Moderate Body Position Hooklying PT-OP-R Modalities Start: 10/09/21 08:11 Freq: Status: Active Protocol: Document 10/21/21 11:15 AMB (Rec: 10/21/21 12:42 AMB [id number]) Electric Stimulation Electric Stimulation Interferential Current (IFC) Body Location L shoulder, Duration (Minutes) 12 Combined With Heat/Cold Cold Pack PT-OP-T Assessment and Plan Start: 10/09/21 08:11 Freq: Status: Active Protocol: Document 12/08/21 14:32 AMB (Rec: 12/08/21 15:16 AMB [id number]) Physical Therapy Assessment Goals Three Impairment shoulder function Impairment unable to reach overhead or behind her back for purposes of ADL's Short Term Goal (STG) Patient will be able to reach overhead and behind her back without difficulty STG Duration 12/07/21 Residential Goal (LTG) Patient to score less than 15% on Quickdash Disability Index score as measure of improved functional use of left UE. LTG Duration 01/07/22 Two Impairment strength Short Term Goal (STG) Patient to be independent and compliant with a progressive HEP for purposes of increased left shoulder ROM and strength STG Duration 11/06/21 Coal Handling Supervisor Goal (LTG) Patient to achieve at least 4+ /5 muscle strength left shoulder all muscle groups to allow her to return to her usual activities LTG Duration 01/07/22 One Impairment Decreased ROM left shoulder post-op shoulder surgery Short Term Goal (STG) Patient to achieve full PROM left shoulder STG Duration 11/06/21 Residential Goal (LTG) Patient to achieve full AROM left shoulder to allow her to do all usual ADL's and activities LTG Duration 01/07/22 Assessment Summary Assessment Ansley is continuing to have upper trap pain, especially with increased activity. Physical Therapy Plan Next Visit Focus/Plan Next Note Type Treatment Note Next Visit Plan Progress resistance as tolerated.
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
--- NOTE | 2022-01-06 17:03 | PT.OTN ---
Current Diagnoses Stiffness of left shoulder, not elsewhere classified (01/06/22) Weakness (01/06/22) Contusion of left shoulder, initial encounter (01/06/22) Arthroscopic surgical procedure converted to open procedure (01/06/22) Physical Therapy Treatment Note PT-OP-A Visit Information Start: 10/09/21 08:11 Freq: Status: Active Protocol: Document 01/06/22 13:48 SAK (Rec: 01/06/22 14:36 [facility] [id number]) Out-Patient Physical Therapy Visit Information Visit Information Visit Type Treatment Note Visit Start Time 13:45 Visit Stop Time 14:45 Total Visit Minutes 60 Visit Number 18 PT-OP-B Current Condition Start: 10/09/21 08:11 Freq: Status: Active Protocol: Document 10/15/21 15:15 SAK (Rec: 10/15/21 16:37 SAK [id number]) Current Condition History of Current Condition Onset Date 09/18/21 Current Complaints left shoulder pain. History of Current Condition SLAP shoulder repair after failed PT. Reports post op wore sling for 1-2 weeks per doctor, then instructed in gentle limited motion and no lifting. Has had deep throbbing pain distal clavicle , has mostly been sitting or laying down, icing. Just now starting to move around a little. Has difficulty taking pain medications, has had to modify diet to tolerate. Uses ice machine. Prior Treatments and Tests Post-op with Dr. Castle , instructed no heavy lifting, no straining, move, but not too much. General protocol shows PROM until 5 weeks post op. Will contact physician office to further clarify. Future Testing and Treatments Planned Will see Dr. Castle again 6-8 weeks post-op Treatment Goals Patient/Caregiver Goals regain full active use of her left UE PT-OP-C Subjective Start: 10/09/21 08:11 Freq: Status: Active Protocol: Document 01/06/22 13:48 SAK (Rec: 01/06/22 14:36 SAK [id number]) OP-PT Subjective Patient Comments Patient Comments Still hurting at night, feels she took 10 steps backward, shoulder tight all the time, can't get into a comfortable position; if shoulder falls in front or back of her. Doing HEP though only tolerates lower reps and slower, smaller movement. Using ball and theracane for self massage PT-OP-F Manual Assessment Start: 10/09/21 08:11 Freq: Status: Active Protocol: Document 10/09/21 15:20 SAK (Rec: 10/09/21 17:09 SAK [id number]) Manual Assessments Soft Tissue Assessment Soft Tissue Mobility Assessment increased tightness left UT, periscapular region PT-OP-H Neuro Start: 10/09/21 08:11 Freq: Status: Active Protocol: Document 10/09/21 15:20 SAK (Rec: 10/09/21 17:09 SAK [id number]) Sensation Evaluation Gross Sensation Gross Sensation WNL PT-OP-J Posture/Palpation/Skin Start: 10/09/21 08:11 Freq: Status: Active Protocol: Document 10/09/21 15:20 SAK (Rec: 10/09/21 17:09 SAK [id number]) Palpation Assessment Location upper traps Palpation Location left Palpation Findings Soft Tissue Tightness,Muscle Guarding,Tenderness,Trigger Point Skin Assessment Edema Assessment Left Arm Edema Appearance Discolored,Taut Subjective Edema Description Pain,Tightness Incisional Assessment Incision Appearance/Comments well-healing arthroscopic scar ant and post. PT-OP-K Range of Motion Start: 10/09/21 08:11 Freq: Status: Active Protocol: Document 12/25/21 14:02 AMB (Rec: 12/25/21 14:14 AMB [id number]) Shoulder Goniometric Range of Motion Shoulder Left Passive Flexion 146 Abduction 155 PT-OP-M Strength Start: 10/09/21 08:11 Freq: Status: Active Protocol: Document 12/29/21 13:32 AMB (Rec: 12/31/21 13:33 AMB [id number]) Shoulder Strength Shoulder Manual Muscle Testing Left Flexion 4- Good- Extension 4+ Good+ Abduction (C5) 4 Good External Rotation 4- Good- Internal Rotation 4 Good PT-OP-Q Treatments Start: 10/09/21 08:11 Freq: Status: Active Protocol: Document 01/06/22 13:48 SAK (Rec: 01/06/22 14:36 SAK [id number]) Therapeutic Exercises Sitting Exercises trunk rotation Sitting Exercise Name hand on lateral opposite knee Reps/Minutes 2 x 30 Comments with deep breathing shoulder rolls Sitting Exercise Name demetria, unil Reps/Minutes 5x ea shoulder ER/IR Sitting Exercise Name AROM Reps/Minutes 10x Comments cues for relaxed UT pulleys Sitting Exercise Name flexion, scaption Reps/Minutes 10x Comments elbow bent, cues for relaxing left UE, max 105 deg scapular squeeze Reps/Minutes 5x5 Standing Exercises wall walk up and lift Standing Exercise Name HEP t band ER Standing Exercise Name HEP t band IR Standing Exercise Name HEP t band rows Standing Exercise Name HEP shoulder extension Standing Exercise Name HEP Manual Therapy Treatment Soft Tissue Mobilization rhomboids Body Location plus Teres lucrecia Mobilization Type Myofascial Release,Sustained Pressure,Trigger Point Release Intensity/Depth Moderate Body Position Sidelying subscapularis Mobilization Type Sustained Pressure,Trigger Point Release,Other Intensity/Depth Moderate Body Position Supine Comments pin and stretch with passive shoulder flex UT, scar mob, biceps Body Location left UE Mobilization Type Myofascial Release Intensity/Depth Moderate Body Position Hooklying Self-Care/Home Management Treatment Education Patient Education Home Exercise Program,Pain Management,Posture Other Education deep breathing in and out through nose, longer exhale than inhale for calming of nervous system, muscle relaxation PT-OP-R Modalities Start: 10/09/21 08:11 Freq: Status: Active Protocol: Document 01/06/22 13:48 [facility] (Rec: 01/06/22 17:03 [facility] [id number]) Hot Pack/Cold Pack Treatment Hot Pack Location L shoulder Patient Position Hooklying Treatment Duration (minutes) 15 Patient Tolerance Good Comments 2 hot packs; one over the top of shoulder and one in subaxillary region PT-OP-T Assessment and Plan Start: 10/09/21 08:11 Freq: Status: Active Protocol: Document 01/06/22 13:48 [facility] (Rec: 01/06/22 14:36 [facility] [id number]) Physical Therapy Assessment Goals Three Impairment shoulder function Impairment unable to reach overhead or behind her back for purposes of ADL's Short Term Goal (STG) Patient will be able to reach overhead and behind her back without difficulty. Pain continues to limit, can reach overhead but for very limited duration, can don/doff bra with difficulty. STG Duration 12/07/21 Senior Living Goal (LTG) Patient to score less than 15% on Quickdash Disability Index score as measure of improved functional use of left UE. LTG Duration 01/07/22 Two Impairment strength Short Term Goal (STG) Patient to be independent and compliant with a progressive HEP for purposes of increased left shoulder ROM and strength STG Duration MET Senior Living Goal (LTG) Patient to achieve at least 4+ /5 muscle strength left shoulder all muscle groups to allow her to return to her usual activities. Progress made: 4/5 in most muscle groups LTG Duration 02/23/21 One Impairment Decreased ROM left shoulder post-op shoulder surgery Short Term Goal (STG) Patient to achieve full PROM left shoulder-- pain limit end range, but significantly improved in comparison to preop and immediately post op STG Duration - progressing Senior Living Goal (LTG) Patient to achieve full AROM left shoulder to allow her to do all usual ADL's and activities LTG Duration 02/23/22 Assessment Summary Assessment patient verbalizing good compliance to HEP, increased time spent on manual techniques and trial of moist heat for muscle relaxation as patient in chronic stress and pain pattern. Improved relaxation and tolerance for ROM with deep breathing, subscap needs further pin and stretch, release techniques. Physical Therapy Plan Frequency and Duration Frequency of Treatment 1x/Week Duration of Treatment 8 weeks Plan of Care Start Date 12/29/20 Plan of Care End Date 02/23/22 Therapeutic Interventions Therapeutic Interventions Aquatic Therapy,Home Exercise Program,Manual Therapy,Patient /Caregiver Education,Self-Care /Home Management,Soft Tissue Mobilization,Taping, Therapeutic Activities, Therapeutic Exercises Modalities Cold Pack/Ice Massage,Electric Stimulation,Hot Packs Next Visit Focus/Plan Next Note Type Treatment Note Next Visit Plan Progress ther ex per POC as tolerated. Manual techniques especially to subscap, consider gentle joint mobs. Continue to stress deep breathing, relaxation techniques. Evaluate response to moist heat today. Consider IFES with moist heat next session. Also consider iontophoresis
--- NOTE | 2022-01-13 20:09 | PT.OPPOC ---
Physical, Occupational & Speech Therapy At [facility] Current Diagnoses Stiffness of left shoulder, not elsewhere classified (01/13/22) Weakness (01/13/22) Contusion of left shoulder, initial encounter (01/13/22) Arthroscopic surgical procedure converted to open procedure (01/13/22) Visit Care Team Role Provider Type HENRRY [place] Primary Care Provider Advanced Manufacturing Worker Specialty: Medical Address: [address] [place] [address], [id number] Email: [email or web address] Francisco Javier Castle MD Attending Provider Physician Family Provider Referring Provider Specialty: Orthopedics Orthopedic Surgery Address: [address] [place] [address], [id number] Email: Plan Of Care PT-OP-T Assessment and Plan Start: 10/09/21 08:11 Freq: Status: Active Protocol: Document 01/13/22 20:55 AMB (Rec: 01/13/22 21:14 AMB [id number]) Physical Therapy Assessment Assessment Summary Assessment nAsley has plateaued both with her reported pain and ROM, so we are planning to increase her frequency back up to 2x/ week to work on reducing her pain, improving her ROM and strength so that she is able to get back to a more aggressive HEP. Physical Therapy Plan Frequency and Duration Frequency of Treatment 2x/Week Duration of treatment (weeks) 10 Plan of Care Start Date 01/13/22 Plan of Care End Date 03/24/22 Therapeutic Interventions Therapeutic Interventions Aquatic Therapy,Home Exercise Program,Manual Therapy,Patient /Caregiver Education,Self-Care /Home Management,Soft Tissue Mobilization,Taping, Therapeutic Activities, Therapeutic Exercises Modalities Cold Pack/Ice Massage,Electric Stimulation,Hot Packs, Iontophoresis Other Therapeutic Interventions iontophoresis with dexamethasone Next Visit Focus/Plan Next Note Type Treatment Note Next Visit Plan Progress ther ex per POC as tolerated. Manual techniques especially to subscap, consider gentle joint mobs. Continue to stress deep breathing, relaxation techniques. Evaluate response to moist heat today. Consider IFES with moist heat next session. Also consider iontophoresis Plan of Care Dates Plan of Care Start Date 01/13/22 Plan of Care End Date 03/24/22 Electronically Signed by: Madiha Winchester, ROLY 01/15/222008 If you are in agreement with this Plan of Care, please return a signed and dated copy. I have reviewed this Plan of Care and certify that the skilled therapy services above are required to meet the patient?s needs. Physician Signature Date Printed Name and Credentials Clinical Instructor Signature Printed Name and Credentials
--- NOTE | 2022-01-13 20:09 | PT.OTN ---
Current Diagnoses Stiffness of left shoulder, not elsewhere classified (01/13/22) Weakness (01/13/22) Contusion of left shoulder, initial encounter (01/13/22) Arthroscopic surgical procedure converted to open procedure (01/13/22) Physical Therapy Treatment Note PT-OP-A Visit Information Start: 10/09/21 08:11 Freq: Status: Active Protocol: Document 01/13/22 20:55 AMB (Rec: 01/13/22 21:14 AMB [id number]) Out-Patient Physical Therapy Visit Information Visit Information Visit Type Treatment Note Visit Start Time 13:45 Visit Stop Time 14:30 Total Visit Minutes 45 Visit Number 19 PT-OP-B Current Condition Start: 10/09/21 08:11 Freq: Status: Active Protocol: Document 10/15/21 15:15 SAK (Rec: 10/15/21 16:37 SAK [id number]) Current Condition History of Current Condition Onset Date 09/18/21 Current Complaints left shoulder pain. History of Current Condition SLAP shoulder repair after failed PT. Reports post op wore sling for 1-2 weeks per doctor, then instructed in gentle limited motion and no lifting. Has had deep throbbing pain distal clavicle , has mostly been sitting or laying down, icing. Just now starting to move around a little. Has difficulty taking pain medications, has had to modify diet to tolerate. Uses ice machine. Prior Treatments and Tests Post-op with Dr. Castel , instructed no heavy lifting, no straining, move, but not too much. General protocol shows PROM until 5 weeks post op. Will contact physician office to further clarify. Future Testing and Treatments Planned Will see Dr. Castle again 6-8 weeks post-op Treatment Goals Patient/Caregiver Goals regain full active use of her left UE PT-OP-C Subjective Start: 10/09/21 08:11 Freq: Status: Active Protocol: Document 01/13/22 20:55 AMB (Rec: 01/13/22 21:14 AMB [id number]-) OP-PT Subjective Patient Comments Patient Comments Continues to find that sleep is difficult, feels that PT is hleping,b ut also feels like she has plateaued since decreasing frequency to 1x/ week due to copay. PT-OP-F Manual Assessment Start: 10/09/21 08:11 Freq: Status: Active Protocol: Document 10/09/21 15:20 SAK (Rec: 10/09/21 17:09 SAK [id number]) Manual Assessments Soft Tissue Assessment Soft Tissue Mobility Assessment increased tightness left UT, periscapular region PT-OP-H Neuro Start: 10/09/21 08:11 Freq: Status: Active Protocol: Document 10/09/21 15:20 SAK (Rec: 10/09/21 17:09 SAK [id number]) Sensation Evaluation Gross Sensation Gross Sensation WNL PT-OP-J Posture/Palpation/Skin Start: 10/09/21 08:11 Freq: Status: Active Protocol: Document 10/09/21 15:20 SAK (Rec: 10/09/21 17:09 SAK [id number]) Palpation Assessment Location upper traps Palpation Location left Palpation Findings Soft Tissue Tightness,Muscle Guarding,Tenderness,Trigger Point Skin Assessment Edema Assessment Left Arm Edema Appearance Discolored,Taut Subjective Edema Description Pain,Tightness Incisional Assessment Incision Appearance/Comments well-healing arthroscopic scar ant and post. PT-OP-K Range of Motion Start: 10/09/21 08:11 Freq: Status: Active Protocol: Document 12/25/21 14:02 AMB (Rec: 12/25/21 14:14 AMB [id number]) Shoulder Goniometric Range of Motion Shoulder Left Passive Flexion 146 Abduction 155 PT-OP-M Strength Start: 10/09/21 08:11 Freq: Status: Active Protocol: Document 12/29/21 13:32 AMB (Rec: 12/31/21 13:33 AMB [id number]) Shoulder Strength Shoulder Manual Muscle Testing Left Flexion 4- Good- Extension 4+ Good+ Abduction (C5) 4 Good External Rotation 4- Good- Internal Rotation 4 Good PT-OP-Q Treatments Start: 10/09/21 08:11 Freq: Status: Active Protocol: Document 01/13/22 12:56 AMB (Rec: 01/14/22 13:01 AMB [id number]) Therapeutic Exercises Sitting Exercises shoulder rolls Sitting Exercise Name demetria, unil Reps/Minutes 5x ea Standing Exercises t band ER Standing Exercise Name HEP Resistance #2 t band Reps/Minutes 2x10 t band IR Standing Exercise Name HEP Side left Resistance #2 t band Reps/Minutes 2x10 t band rows Standing Exercise Name HEP Side bilateral Resistance #3 t band Reps/Minutes 2x10 shoulder extension Standing Exercise Name HEP Side left Resistance #2 t band Reps/Minutes 20x Manual Therapy Treatment Soft Tissue Mobilization rhomboids Body Location plus Teres lucrecia Mobilization Type Myofascial Release,Sustained Pressure,Trigger Point Release Intensity/Depth Moderate Body Position Sidelying subscapularis Mobilization Type Sustained Pressure,Trigger Point Release,Other Intensity/Depth Moderate Body Position Supine Comments pin and stretch with passive shoulder flex PT-OP-R Modalities Start: 10/09/21 08:11 Freq: Status: Active Protocol: Document 01/06/22 13:48 SAK (Rec: 01/06/22 17:03 SAK [id number]) Hot Pack/Cold Pack Treatment Hot Pack Location L shoulder Patient Position Hooklying Treatment Duration (minutes) 15 Patient Tolerance Good Comments 2 hot packs; one over the top of shoulder and one in subaxillary region PT-OP-T Assessment and Plan Start: 10/09/21 08:11 Freq: Status: Active Protocol: Document 01/13/22 20:55 AMB (Rec: 01/13/22 21:14 AMB [id number]) Physical Therapy Assessment Assessment Summary Assessment Ansley has plateaued both with her reported pain and ROM, so we are planning to increase her frequency back up to 2x/ week to work on reducing her pain, improving her ROM and strength so that she is able to get back to a more aggressive HEP. Physical Therapy Plan Frequency and Duration Frequency of Treatment 2x/Week Duration of treatment (weeks) 10 Plan of Care Start Date 01/13/22 Plan of Care End Date 03/24/22 Therapeutic Interventions Therapeutic Interventions Aquatic Therapy,Home Exercise Program,Manual Therapy,Patient /Caregiver Education,Self-Care /Home Management,Soft Tissue Mobilization,Taping, Therapeutic Activities, Therapeutic Exercises Modalities Cold Pack/Ice Massage,Electric Stimulation,Hot Packs, Iontophoresis Other Therapeutic Interventions iontophoresis with dexamethasone Next Visit Focus/Plan Next Note Type Treatment Note Next Visit Plan Progress ther ex per POC as tolerated. Manual techniques especially to subscap, consider gentle joint mobs. Continue to stress deep breathing, relaxation techniques. Evaluate response to moist heat today. Consider IFES with moist heat next session. Also consider iontophoresis
--- NOTE | 2022-01-16 20:51 | PT.OTN ---
Current Diagnoses Stiffness of left shoulder, not elsewhere classified (01/16/22) Weakness (01/16/22) Contusion of left shoulder, initial encounter (01/16/22) Arthroscopic surgical procedure converted to open procedure (01/16/22) Physical Therapy Treatment Note PT-OP-A Visit Information Start: 10/09/21 08:11 Freq: Status: Active Protocol: Document 01/16/22 13:04 AMB (Rec: 01/16/22 13:44 AMB [id number]) Out-Patient Physical Therapy Visit Information Visit Information Visit Type Treatment Note Visit Start Time 13:00 Visit Stop Time 13:45 Total Visit Minutes 45 Visit Number 20 PT-OP-B Current Condition Start: 10/09/21 08:11 Freq: Status: Active Protocol: Document 10/15/21 15:15 SAK (Rec: 10/15/21 16:37 SAK [id number]) Current Condition History of Current Condition Onset Date 09/18/21 Current Complaints left shoulder pain. History of Current Condition SLAP shoulder repair after failed PT. Reports post op wore sling for 1-2 weeks per doctor, then instructed in gentle limited motion and no lifting. Has had deep throbbing pain distal clavicle , has mostly been sitting or laying down, icing. Just now starting to move around a little. Has difficulty taking pain medications, has had to modify diet to tolerate. Uses ice machine. Prior Treatments and Tests Post-op with Dr. Castle , instructed no heavy lifting, no straining, move, but not too much. General protocol shows PROM until 5 weeks post op. Will contact physician office to further clarify. Future Testing and Treatments Planned Will see Dr. Castle again 6-8 weeks post-op Treatment Goals Patient/Caregiver Goals regain full active use of her left UE PT-OP-C Subjective Start: 10/09/21 08:11 Freq: Status: Active Protocol: Document 01/16/22 13:04 AMB (Rec: 01/16/22 13:44 AMB [id number]) OP-PT Subjective Patient Comments Patient Comments Continues to be painful with sleeping, hasn't been able to return to yardowork yet. PT-OP-F Manual Assessment Start: 10/09/21 08:11 Freq: Status: Active Protocol: Document 10/09/21 15:20 SAK (Rec: 10/09/21 17:09 SAK [id number]) Manual Assessments Soft Tissue Assessment Soft Tissue Mobility Assessment increased tightness left UT, periscapular region PT-OP-H Neuro Start: 10/09/21 08:11 Freq: Status: Active Protocol: Document 10/09/21 15:20 SAK (Rec: 10/09/21 17:09 SAK [id number]) Sensation Evaluation Gross Sensation Gross Sensation WNL PT-OP-J Posture/Palpation/Skin Start: 10/09/21 08:11 Freq: Status: Active Protocol: Document 10/09/21 15:20 SAK (Rec: 10/09/21 17:09 SAK [id number]) Palpation Assessment Location upper traps Palpation Location left Palpation Findings Soft Tissue Tightness,Muscle Guarding,Tenderness,Trigger Point Skin Assessment Edema Assessment Left Arm Edema Appearance Discolored,Taut Subjective Edema Description Pain,Tightness Incisional Assessment Incision Appearance/Comments well-healing arthroscopic scar ant and post. PT-OP-K Range of Motion Start: 10/09/21 08:11 Freq: Status: Active Protocol: Document 12/25/21 14:02 AMB (Rec: 12/25/21 14:14 AMB [id number]) Shoulder Goniometric Range of Motion Shoulder Left Passive Flexion 146 Abduction 155 PT-OP-M Strength Start: 10/09/21 08:11 Freq: Status: Active Protocol: Document 12/29/21 13:32 AMB (Rec: 12/31/21 13:33 AMB [id number]) Shoulder Strength Shoulder Manual Muscle Testing Left Flexion 4- Good- Extension 4+ Good+ Abduction (C5) 4 Good External Rotation 4- Good- Internal Rotation 4 Good PT-OP-Q Treatments Start: 10/09/21 08:11 Freq: Status: Active Protocol: Document 01/16/22 13:04 AMB (Rec: 01/16/22 13:44 AMB [id number]) Therapeutic Exercises Standing Exercises t band ER Standing Exercise Name HEP Resistance #3 t band Reps/Minutes 2x10 adduction Resistance #2 t band Reps/Minutes 2x10 t band IR Standing Exercise Name HEP Side left Resistance #3 t band Reps/Minutes 2x10 t band rows Standing Exercise Name HEP Side bilateral Resistance #3 t band Reps/Minutes 2x10 Manual Therapy Treatment Soft Tissue Mobilization rhomboids Body Location plus Teres lucrecia Mobilization Type Myofascial Release,Sustained Pressure,Trigger Point Release Intensity/Depth Moderate Body Position Sidelying subscapularis Mobilization Type Sustained Pressure,Trigger Point Release,Other Intensity/Depth Moderate Body Position Supine Comments pin and stretch with passive shoulder flex PT-OP-R Modalities Start: 10/09/21 08:11 Freq: Status: Active Protocol: Document 01/16/22 13:00 AMB (Rec: 01/18/22 20:43 AMB [id number]) Iontophoresis Treatment Shoulder Treatment Medication Dexamethasone (-) Medication Amount (mL) (ml) 1 Treatment Polarity Negative to Negative Active Electrode Placement posterior shoulder Dispersive Electrode Placement anterior shoulder PT-OP-T Assessment and Plan Start: 10/09/21 08:11 Freq: Status: Active Protocol: Document 01/16/22 13:04 AMB (Rec: 01/16/22 13:44 AMB [id number]) Physical Therapy Assessment Goals Three Impairment shoulder function Impairment unable to reach overhead or behind her back for purposes of ADL's Short Term Goal (STG) Patient will be able to reach overhead and behind her back without difficulty. Pain continues to limit, can reach overhead but for very limited duration, can don/doff bra with difficulty. STG Duration 12/07/21 Penitentiary Goal (LTG) Patient to score less than 15% on Quickdash Disability Index score as measure of improved functional use of left UE. LTG Duration 01/07/22 Two Impairment strength Short Term Goal (STG) Patient to be independent and compliant with a progressive HEP for purposes of increased left shoulder ROM and strength STG Duration MET Project Lead Goal (LTG) Patient to achieve at least 4+ /5 muscle strength left shoulder all muscle groups to allow her to return to her usual activities. Progress made: 4/5 in most muscle groups LTG Duration 02/23/21 One Impairment Decreased ROM left shoulder post-op shoulder surgery Short Term Goal (STG) Patient to achieve full PROM left shoulder-- pain limit end range, but significantly improved in comparison to preop and immediately post op STG Duration - progressing Project Lead Goal (LTG) Patient to achieve full AROM left shoulder to allow her to do all usual ADL's and activities LTG Duration 02/23/22 Assessment Summary Assessment Ansley does have sensitive skin so did explain in detail regarding iontophoresis, to leave on for 4 hours, etc. Overall continues to have pain both anterior and posterior shoulder, feels a block with flexion and abduction. Passive flexion is significantly improved from before surgery, but active use of the shoulder continues to be limited. Physical Therapy Plan Frequency and Duration Frequency of Treatment 2x/Week Duration of treatment (weeks) 10 Plan of Care Start Date 01/13/22 Plan of Care End Date 03/24/22 Next Visit Focus/Plan Next Note Type Treatment Note Next Visit Plan Progress ther ex per POC as tolerated. Manual techniques especially to subscap, consider gentle joint mobs. Continue to stress deep breathing, relaxation techniques. Evaluate response to moist heat today.
--- NOTE | 2022-01-19 13:03 | PT.OTN ---
Current Diagnoses Stiffness of left shoulder, not elsewhere classified (01/19/22) Weakness (01/19/22) Contusion of left shoulder, initial encounter (01/19/22) Arthroscopic surgical procedure converted to open procedure (01/19/22) Physical Therapy Treatment Note PT-OP-A Visit Information Start: 10/09/21 08:11 Freq: Status: Active Protocol: Document 01/19/22 10:13 AMB (Rec: 01/19/22 10:58 AMB [id number]) Out-Patient Physical Therapy Visit Information Visit Information Visit Type Treatment Note Visit Start Time 10:15 Visit Stop Time 11:00 Total Visit Minutes 45 Visit Number 21 PT-OP-B Current Condition Start: 10/09/21 08:11 Freq: Status: Active Protocol: Document 10/15/21 15:15 SAK (Rec: 10/15/21 16:37 SAK [id number]) Current Condition History of Current Condition Onset Date 09/18/21 Current Complaints left shoulder pain. History of Current Condition SLAP shoulder repair after failed PT. Reports post op wore sling for 1-2 weeks per doctor, then instructed in gentle limited motion and no lifting. Has had deep throbbing pain distal clavicle , has mostly been sitting or laying down, icing. Just now starting to move around a little. Has difficulty taking pain medications, has had to modify diet to tolerate. Uses ice machine. Prior Treatments and Tests Post-op with Dr. Castle , instructed no heavy lifting, no straining, move, but not too much. General protocol shows PROM until 5 weeks post op. Will contact physician office to further clarify. Future Testing and Treatments Planned Will see Dr. Castle again 6-8 weeks post-op Treatment Goals Patient/Caregiver Goals regain full active use of her left UE PT-OP-C Subjective Start: 10/09/21 08:11 Freq: Status: Active Protocol: Document 01/16/22 13:04 AMB (Rec: 01/16/22 13:44 AMB [id number]) OP-PT Subjective Patient Comments Patient Comments Continues to be painful with sleeping, hasn't been able to return to yardowork yet. PT-OP-F Manual Assessment Start: 10/09/21 08:11 Freq: Status: Active Protocol: Document 10/09/21 15:20 SAK (Rec: 10/09/21 17:09 SAK [id number]) Manual Assessments Soft Tissue Assessment Soft Tissue Mobility Assessment increased tightness left UT, periscapular region PT-OP-H Neuro Start: 10/09/21 08:11 Freq: Status: Active Protocol: Document 10/09/21 15:20 SAK (Rec: 10/09/21 17:09 SAK [id number]) Sensation Evaluation Gross Sensation Gross Sensation WNL PT-OP-J Posture/Palpation/Skin Start: 10/09/21 08:11 Freq: Status: Active Protocol: Document 10/09/21 15:20 SAK (Rec: 10/09/21 17:09 SAK [id number]) Palpation Assessment Location upper traps Palpation Location left Palpation Findings Soft Tissue Tightness,Muscle Guarding,Tenderness,Trigger Point Skin Assessment Edema Assessment Left Arm Edema Appearance Discolored,Taut Subjective Edema Description Pain,Tightness Incisional Assessment Incision Appearance/Comments well-healing arthroscopic scar ant and post. PT-OP-K Range of Motion Start: 10/09/21 08:11 Freq: Status: Active Protocol: Document 12/25/21 14:02 AMB (Rec: 12/25/21 14:14 AMB [id number]) Shoulder Goniometric Range of Motion Shoulder Left Passive Flexion 146 Abduction 155 PT-OP-M Strength Start: 10/09/21 08:11 Freq: Status: Active Protocol: Document 12/29/21 13:32 AMB (Rec: 12/31/21 13:33 AMB [id number]) Shoulder Strength Shoulder Manual Muscle Testing Left Flexion 4- Good- Extension 4+ Good+ Abduction (C5) 4 Good External Rotation 4- Good- Internal Rotation 4 Good PT-OP-Q Treatments Start: 10/09/21 08:11 Freq: Status: Active Protocol: Document 01/19/22 10:13 AMB (Rec: 01/19/22 10:58 AMB [id number]) Therapeutic Exercises Standing Exercises biceps curls Standing Exercise Name supination and neutral Resistance 3# Reps/Minutes 2x10 t band ER Standing Exercise Name HEP Resistance #3 t band Reps/Minutes 2x10 adduction Resistance #2 t band Reps/Minutes 2x10 t band IR Standing Exercise Name HEP Side left Resistance #3 t band Reps/Minutes 2x10 t band rows Standing Exercise Name HEP Side bilateral Resistance #3 t band Reps/Minutes 2x10 counter walk away Comments verbal instruction Manual Therapy Treatment Soft Tissue Mobilization rhomboids Body Location plus Teres lucrecia Mobilization Type Myofascial Release,Sustained Pressure,Trigger Point Release Intensity/Depth Moderate Body Position Sidelying subscapularis Mobilization Type Sustained Pressure,Trigger Point Release,Other Intensity/Depth Moderate Body Position Supine Comments pin and stretch with passive shoulder flex PT-OP-R Modalities Start: 10/09/21 08:11 Freq: Status: Active Protocol: Document 01/19/22 10:13 AMB (Rec: 01/19/22 10:58 AMB [id number]) Iontophoresis Treatment Shoulder Treatment Medication Dexamethasone (-) Medication Amount (mL) (ml) 1 Treatment Polarity Negative to Negative Active Electrode Placement posterior shoulder Dispersive Electrode Placement anterior shoulder PT-OP-T Assessment and Plan Start: 10/09/21 08:11 Freq: Status: Active Protocol: Document 01/19/22 10:13 AMB (Rec: 01/19/22 10:58 AMB [id number]) Physical Therapy Assessment Goals Three Impairment shoulder function Impairment unable to reach overhead or behind her back for purposes of ADL's Short Term Goal (STG) Patient will be able to reach overhead and behind her back without difficulty. Pain continues to limit, can reach overhead but for very limited duration, can don/doff bra with difficulty. STG Duration 12/07/21 Snf Goal (LTG) Patient to score less than 15% on Quickdash Disability Index score as measure of improved functional use of left UE. LTG Duration 01/07/22 Two Impairment strength Short Term Goal (STG) Patient to be independent and compliant with a progressive HEP for purposes of increased left shoulder ROM and strength STG Duration MET [employer] Goal (LTG) Patient to achieve at least 4+ /5 muscle strength left shoulder all muscle groups to allow her to return to her usual activities. Progress made: 4/5 in most muscle groups LTG Duration 02/23/21 One Impairment Decreased ROM left shoulder post-op shoulder surgery Short Term Goal (STG) Patient to achieve full PROM left shoulder-- pain limit end range, but significantly improved in comparison to preop and immediately post op STG Duration - progressing Snf Goal (LTG) Patient to achieve full AROM left shoulder to allow her to do all usual ADL's and activities LTG Duration 02/23/22 Assessment Summary Assessment Ansley did well with iontophoresis last visit. She continues to have pain with abduction, ER, IR, but tolerated biceps curls well, stating that is the most weight she has lifted in a long time. Physical Therapy Plan Frequency and Duration Frequency of Treatment 2x/Week Duration of treatment (weeks) 10 Plan of Care Start Date 01/13/22 Plan of Care End Date 03/24/22 Therapeutic Interventions Therapeutic Interventions Aquatic Therapy,Home Exercise Program,Manual Therapy,Patient /Caregiver Education,Self-Care /Home Management,Soft Tissue Mobilization,Taping, Therapeutic Activities, Therapeutic Exercises Modalities Cold Pack/Ice Massage,Electric Stimulation,Hot Packs, Iontophoresis Other Therapeutic Interventions iontophoresis with dexamethasone Next Visit Focus/Plan Next Note Type Treatment Note Next Visit Plan Progress ther ex per POC as tolerated. Manual techniques especially to subscap, consider gentle joint mobs. Continue to stress deep breathing, relaxation techniques.
--- NOTE | 2022-01-27 16:00 | PT.OTN ---
Current Diagnoses Stiffness of left shoulder, not elsewhere classified (01/27/22) Weakness (01/27/22) Contusion of left shoulder, initial encounter (01/27/22) Arthroscopic surgical procedure converted to open procedure (01/27/22) Physical Therapy Treatment Note PT-OP-A Visit Information Start: 10/09/21 08:11 Freq: Status: Active Protocol: Document 01/27/22 08:18 AMB (Rec: 01/27/22 08:59 AMB [id number]) Out-Patient Physical Therapy Visit Information Visit Information Visit Type Treatment Note Visit Start Time 08:15 Visit Stop Time 09:00 Total Visit Minutes 45 Visit Number 22 PT-OP-B Current Condition Start: 10/09/21 08:11 Freq: Status: Active Protocol: Document 10/15/21 15:15 SAK (Rec: 10/15/21 16:37 SAK [id number]) Current Condition History of Current Condition Onset Date 09/18/21 Current Complaints left shoulder pain. History of Current Condition SLAP shoulder repair after failed PT. Reports post op wore sling for 1-2 weeks per doctor, then instructed in gentle limited motion and no lifting. Has had deep throbbing pain distal clavicle , has mostly been sitting or laying down, icing. Just now starting to move around a little. Has difficulty taking pain medications, has had to modify diet to tolerate. Uses ice machine. Prior Treatments and Tests Post-op with Dr. Castle , instructed no heavy lifting, no straining, move, but not too much. General protocol shows PROM until 5 weeks post op. Will contact physician office to further clarify. Future Testing and Treatments Planned Will see Dr. Castle again 6-8 weeks post-op Treatment Goals Patient/Caregiver Goals regain full active use of her left UE PT-OP-C Subjective Start: 10/09/21 08:11 Freq: Status: Active Protocol: Document 01/27/22 08:18 AMB (Rec: 01/27/22 08:59 AMB [id number]) OP-PT Subjective Patient Comments Patient Comments Did feel like ionto was helpful, was painful over the weekend. PT-OP-F Manual Assessment Start: 10/09/21 08:11 Freq: Status: Active Protocol: Document 10/09/21 15:20 SAK (Rec: 10/09/21 17:09 SAK [id number]) Manual Assessments Soft Tissue Assessment Soft Tissue Mobility Assessment increased tightness left UT, periscapular region PT-OP-H Neuro Start: 10/09/21 08:11 Freq: Status: Active Protocol: Document 10/09/21 15:20 SAK (Rec: 10/09/21 17:09 SAK [id number]) Sensation Evaluation Gross Sensation Gross Sensation WNL PT-OP-J Posture/Palpation/Skin Start: 10/09/21 08:11 Freq: Status: Active Protocol: Document 10/09/21 15:20 SAK (Rec: 10/09/21 17:09 SAK [id number]) Palpation Assessment Location upper traps Palpation Location left Palpation Findings Soft Tissue Tightness,Muscle Guarding,Tenderness,Trigger Point Skin Assessment Edema Assessment Left Arm Edema Appearance Discolored,Taut Subjective Edema Description Pain,Tightness Incisional Assessment Incision Appearance/Comments well-healing arthroscopic scar ant and post. PT-OP-K Range of Motion Start: 10/09/21 08:11 Freq: Status: Active Protocol: Document 12/25/21 14:02 AMB (Rec: 12/25/21 14:14 AMB [id number]) Shoulder Goniometric Range of Motion Shoulder Left Passive Flexion 146 Abduction 155 PT-OP-M Strength Start: 10/09/21 08:11 Freq: Status: Active Protocol: Document 12/29/21 13:32 AMB (Rec: 12/31/21 13:33 AMB [id number]) Shoulder Strength Shoulder Manual Muscle Testing Left Flexion 4- Good- Extension 4+ Good+ Abduction (C5) 4 Good External Rotation 4- Good- Internal Rotation 4 Good PT-OP-Q Treatments Start: 10/09/21 08:11 Freq: Status: Active Protocol: Document 01/27/22 08:18 AMB (Rec: 01/27/22 08:59 AMB [id number]) Therapeutic Exercises Standing Exercises biceps curls Standing Exercise Name supination and neutral Resistance 3# Reps/Minutes 2x10 adduction Resistance #2 t band Reps/Minutes 2x10 t band IR Standing Exercise Name HEP Side left Resistance #3 t band Reps/Minutes 2x10 t band rows Standing Exercise Name HEP Side bilateral Resistance #3 t band Reps/Minutes 2x10 shoulder extension Standing Exercise Name HEP Side left Resistance #2 t band Reps/Minutes 20x Manual Therapy Treatment Soft Tissue Mobilization rhomboids Body Location plus Teres lucrecia Mobilization Type Myofascial Release,Sustained Pressure,Trigger Point Release Intensity/Depth Moderate Body Position Sidelying subscapularis Mobilization Type Sustained Pressure,Trigger Point Release,Other Intensity/Depth Moderate Body Position Supine Comments pin and stretch with passive shoulder flex PT-OP-R Modalities Start: 10/09/21 08:11 Freq: Status: Active Protocol: Document 01/19/22 10:13 AMB (Rec: 01/19/22 10:58 AMB [id number]) Iontophoresis Treatment Shoulder Treatment Medication Dexamethasone (-) Medication Amount (mL) (ml) 1 Treatment Polarity Negative to Negative Active Electrode Placement posterior shoulder Dispersive Electrode Placement anterior shoulder PT-OP-T Assessment and Plan Start: 10/09/21 08:11 Freq: Status: Active Protocol: Document 01/27/22 08:18 AMB (Rec: 01/27/22 08:59 AMB [id number]) Physical Therapy Assessment Goals Three Impairment shoulder function Impairment unable to reach overhead or behind her back for purposes of ADL's Short Term Goal (STG) Patient will be able to reach overhead and behind her back without difficulty. Pain continues to limit, can reach overhead but for very limited duration, can don/doff bra with difficulty. STG Duration 12/07/21 Senior Care Goal (LTG) Patient to score less than 15% on Quickdash Disability Index score as measure of improved functional use of left UE. 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 Progress made: 4/5 in most muscle groups LTG Duration 02/23/21 One Impairment Decreased ROM left shoulder post-op shoulder surgery Short Term Goal (STG) Patient to achieve full PROM left shoulder-- pain limit end range, but significantly improved in comparison to preop and immediately post op STG Duration - progressing Senior Care Goal (LTG) Patient to achieve full AROM left shoulder to allow her to do all usual ADL's and activities LTG Duration 02/23/22 Assessment Summary Assessment Ansley was dissapointed we didn't have iontophoresis pads today. Does find those helpful. Overall is continuing to have improving ROM, but pain is a limiting factor. Physical Therapy Plan Next Visit Focus/Plan Next Note Type Treatment Note Next Visit Plan Progress ther ex per POC as tolerated. Manual techniques especially to subscap, consider gentle joint mobs. Continue to stress deep breathing, relaxation techniques.
--- NOTE | 2022-01-30 14:05 | PT.OTN ---
Current Diagnoses Stiffness of left shoulder, not elsewhere classified (01/30/22) Weakness (01/30/22) Contusion of left shoulder, initial encounter (01/30/22) Arthroscopic surgical procedure converted to open procedure (01/30/22) Physical Therapy Treatment Note PT-OP-A Visit Information Start: 10/09/21 08:11 Freq: Status: Active Protocol: Document 01/30/22 11:21 AMB (Rec: 01/30/22 11:37 AMB [id number]) Out-Patient Physical Therapy Visit Information Visit Information Visit Type Treatment Note Visit Start Time 11:15 Visit Stop Time 12:00 Total Visit Minutes 45 Visit Number 23 PT-OP-B Current Condition Start: 10/09/21 08:11 Freq: Status: Active Protocol: Document 10/15/21 15:15 SAK (Rec: 10/15/21 16:37 SAK [id number]) Current Condition History of Current Condition Onset Date 09/18/21 Current Complaints left shoulder pain. History of Current Condition SLAP shoulder repair after failed PT. Reports post op wore sling for 1-2 weeks per doctor, then instructed in gentle limited motion and no lifting. Has had deep throbbing pain distal clavicle , has mostly been sitting or laying down, icing. Just now starting to move around a little. Has difficulty taking pain medications, has had to modify diet to tolerate. Uses ice machine. Prior Treatments and Tests Post-op with Dr. Castle , instructed no heavy lifting, no straining, move, but not too much. General protocol shows PROM until 5 weeks post op. Will contact physician office to further clarify. Future Testing and Treatments Planned Will see Dr. Castle again 6-8 weeks post-op Treatment Goals Patient/Caregiver Goals regain full active use of her left UE PT-OP-C Subjective Start: 10/09/21 08:11 Freq: Status: Active Protocol: Document 01/30/22 11:21 AMB (Rec: 01/30/22 11:37 AMB [id number]) OP-PT Subjective Patient Comments Patient Comments Pt is continueing to notice soreness but is continuing to go on her walks. PT-OP-F Manual Assessment Start: 10/09/21 08:11 Freq: Status: Active Protocol: Document 10/09/21 15:20 SAK (Rec: 10/09/21 17:09 SAK [id number]) Manual Assessments Soft Tissue Assessment Soft Tissue Mobility Assessment increased tightness left UT, periscapular region PT-OP-H Neuro Start: 10/09/21 08:11 Freq: Status: Active Protocol: Document 10/09/21 15:20 SAK (Rec: 10/09/21 17:09 SAK [id number]) Sensation Evaluation Gross Sensation Gross Sensation WNL PT-OP-J Posture/Palpation/Skin Start: 10/09/21 08:11 Freq: Status: Active Protocol: Document 10/09/21 15:20 SAK (Rec: 10/09/21 17:09 SAK [id number]) Palpation Assessment Location upper traps Palpation Location left Palpation Findings Soft Tissue Tightness,Muscle Guarding,Tenderness,Trigger Point Skin Assessment Edema Assessment Left Arm Edema Appearance Discolored,Taut Subjective Edema Description Pain,Tightness Incisional Assessment Incision Appearance/Comments well-healing arthroscopic scar ant and post. PT-OP-K Range of Motion Start: 10/09/21 08:11 Freq: Status: Active Protocol: Document 12/25/21 14:02 AMB (Rec: 12/25/21 14:14 AMB [id number]) Shoulder Goniometric Range of Motion Shoulder Left Passive Flexion 146 Abduction 155 PT-OP-M Strength Start: 10/09/21 08:11 Freq: Status: Active Protocol: Document 12/29/21 13:32 AMB (Rec: 12/31/21 13:33 AMB [id number]) Shoulder Strength Shoulder Manual Muscle Testing Left Flexion 4- Good- Extension 4+ Good+ Abduction (C5) 4 Good External Rotation 4- Good- Internal Rotation 4 Good PT-OP-Q Treatments Start: 10/09/21 08:11 Freq: Status: Active Protocol: Document 01/30/22 11:21 AMB (Rec: 01/30/22 11:37 AMB [id number]) Therapeutic Exercises Standing Exercises scaption Standing Exercise Name 1# Reps/Minutes 10 biceps curls Standing Exercise Name supination and neutral Resistance 3# Reps/Minutes 2x10 t band ER Standing Exercise Name HEP Resistance #3 t band Reps/Minutes 2x10 adduction Resistance #2 t band Reps/Minutes 2x10 t band rows Standing Exercise Name HEP Side bilateral Resistance #3 t band Reps/Minutes 2x10 Manual Therapy Treatment Soft Tissue Mobilization rhomboids Body Location plus Teres lucrecia Mobilization Type Myofascial Release,Sustained Pressure,Trigger Point Release Intensity/Depth Moderate Body Position Sidelying subscapularis Mobilization Type Sustained Pressure,Trigger Point Release,Other Intensity/Depth Moderate Body Position Supine Comments pin and stretch with passive shoulder flex PT-OP-R Modalities Start: 10/09/21 08:11 Freq: Status: Active Protocol: Document 01/30/22 11:15 AMB (Rec: 01/30/22 11:54 AMB [id number]) Iontophoresis Treatment Shoulder Treatment Medication Dexamethasone (-) Medication Amount (mL) (ml) 1 Treatment Polarity Negative to Negative Active Electrode Placement posterior shoulder Dispersive Electrode Placement anterior shoulder PT-OP-T Assessment and Plan Start: 10/09/21 08:11 Freq: Status: Active Protocol: Document 01/30/22 11:21 AMB (Rec: 01/30/22 11:37 AMB [id number]) Physical Therapy Assessment Goals Three Impairment shoulder function Impairment unable to reach overhead or behind her back for purposes of ADL's Short Term Goal (STG) Patient will be able to reach overhead and behind her back without difficulty. Pain continues to limit, can reach overhead but for very limited duration, can don/doff bra with difficulty. STG Duration 12/07/21 Skilled Nursing Goal (LTG) Patient to score less than 15% on Quickdash Disability Index score as measure of improved functional use of left UE. 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 Progress made: 4/5 in most muscle groups LTG Duration 02/23/21 One Impairment Decreased ROM left shoulder post-op shoulder surgery Short Term Goal (STG) Patient to achieve full PROM left shoulder-- pain limit end range, but significantly improved in comparison to preop and immediately post op STG Duration - progressing Coin Machine Assembler Goal (LTG) Patient to achieve full AROM left shoulder to allow her to do all usual ADL's and activities LTG Duration 02/23/22 Assessment Summary Assessment Ansley is tolerating more weight exercises, but does have pain with these, continues to feel a clunk in the shoulder with flexion over shoulder height, less so with passive range. Physical Therapy Plan Frequency and Duration Frequency of Treatment 2x/Week Duration of treatment (weeks) 10 Plan of Care Start Date 01/13/22 Plan of Care End Date 03/24/22 Next Visit Focus/Plan Next Note Type Treatment Note Next Visit Plan Progress ther ex per POC as tolerated. Manual techniques especially to subscap, consider gentle joint mobs. Continue to stress deep breathing, relaxation techniques.
--- NOTE | 2022-02-10 15:44 | PT.OTN ---
Current Diagnoses Stiffness of left shoulder, not elsewhere classified (02/10/22) Weakness (02/10/22) Contusion of left shoulder, initial encounter (02/10/22) Arthroscopic surgical procedure converted to open procedure (02/10/22) Physical Therapy Treatment Note PT-OP-A Visit Information Start: 10/09/21 08:11 Freq: Status: Active Protocol: Document 02/10/22 14:30 AMB (Rec: 02/10/22 15:41 AMB [id number]) Out-Patient Physical Therapy Visit Information Visit Information Visit Type Treatment Note Visit Note 09/26 Visit Start Time 11:15 Visit Stop Time 12:00 Total Visit Minutes 45 Visit Number 24 PT-OP-B Current Condition Start: 10/09/21 08:11 Freq: Status: Active Protocol: Document 10/15/21 15:15 SAK (Rec: 10/15/21 16:37 SAK [id number]) Current Condition History of Current Condition Onset Date 09/18/21 Current Complaints left shoulder pain. History of Current Condition SLAP shoulder repair after failed PT. Reports post op wore sling for 1-2 weeks per doctor, then instructed in gentle limited motion and no lifting. Has had deep throbbing pain distal clavicle , has mostly been sitting or laying down, icing. Just now starting to move around a little. Has difficulty taking pain medications, has had to modify diet to tolerate. Uses ice machine. Prior Treatments and Tests Post-op with Dr. Castle , instructed no heavy lifting, no straining, move, but not too much. General protocol shows PROM until 5 weeks post op. Will contact physician office to further clarify. Future Testing and Treatments Planned Will see Dr. Castle again 6-8 weeks post-op Treatment Goals Patient/Caregiver Goals regain full active use of her left UE PT-OP-C Subjective Start: 10/09/21 08:11 Freq: Status: Active Protocol: Document 02/10/22 14:30 AMB (Rec: 02/10/22 15:41 AMB [id number]) OP-PT Subjective Patient Comments Patient Comments Pt describing some increased soreness after last visit, but it has calmed down. However is noticing more upper trap tightness today. PT-OP-F Manual Assessment Start: 10/09/21 08:11 Freq: Status: Active Protocol: Document 10/09/21 15:20 SAK (Rec: 10/09/21 17:09 SAK [id number]) Manual Assessments Soft Tissue Assessment Soft Tissue Mobility Assessment increased tightness left UT, periscapular region PT-OP-H Neuro Start: 10/09/21 08:11 Freq: Status: Active Protocol: Document 10/09/21 15:20 SAK (Rec: 10/09/21 17:09 SAK [id number]) Sensation Evaluation Gross Sensation Gross Sensation WNL PT-OP-J Posture/Palpation/Skin Start: 10/09/21 08:11 Freq: Status: Active Protocol: Document 10/09/21 15:20 SAK (Rec: 10/09/21 17:09 SAK [id number]) Palpation Assessment Location upper traps Palpation Location left Palpation Findings Soft Tissue Tightness,Muscle Guarding,Tenderness,Trigger Point Skin Assessment Edema Assessment Left Arm Edema Appearance Discolored,Taut Subjective Edema Description Pain,Tightness Incisional Assessment Incision Appearance/Comments well-healing arthroscopic scar ant and post. PT-OP-K Range of Motion Start: 10/09/21 08:11 Freq: Status: Active Protocol: Document 12/25/21 14:02 AMB (Rec: 12/25/21 14:14 AMB [id number]) Shoulder Goniometric Range of Motion Shoulder Left Passive Flexion 146 Abduction 155 PT-OP-M Strength Start: 10/09/21 08:11 Freq: Status: Active Protocol: Document 12/29/21 13:32 AMB (Rec: 12/31/21 13:33 AMB [id number]) Shoulder Strength Shoulder Manual Muscle Testing Left Flexion 4- Good- Extension 4+ Good+ Abduction (C5) 4 Good External Rotation 4- Good- Internal Rotation 4 Good PT-OP-Q Treatments Start: 10/09/21 08:11 Freq: Status: Active Protocol: Document 02/10/22 14:30 AMB (Rec: 02/10/22 15:41 AMB [id number]) Cardio Equipment Upper Body Ergometer (UBE) Duration (Minutes) 5 Seat Position 9 Height 3 Other fwd/backward Therapeutic Exercises Standing Exercises rows (weight) Side left Resistance 2# Reps/Minutes 2x10 scaption Standing Exercise Name 1# Reps/Minutes 10 Comments 0-45 biceps curls Standing Exercise Name supination and neutral Resistance 3# Reps/Minutes 2x10 Manual Therapy Treatment Soft Tissue Mobilization subscapularis Mobilization Type Sustained Pressure,Trigger Point Release,Other Intensity/Depth Moderate Body Position Supine Comments pin and stretch with passive shoulder flex UT, scar mob, biceps Body Location left UE Mobilization Type Myofascial Release Intensity/Depth Moderate Body Position Hooklying PT-OP-R Modalities Start: 10/09/21 08:11 Freq: Status: Active Protocol: Document 02/10/22 14:30 AMB (Rec: 02/10/22 15:41 AMB [id number]) Iontophoresis Treatment Shoulder Treatment Medication Dexamethasone (-) Medication Amount (mL) (ml) 1 Treatment Polarity Negative to Negative Active Electrode Placement anterior shoulder Dispersive Electrode Placement posterior shoulder PT-OP-T Assessment and Plan Start: 10/09/21 08:11 Freq: Status: Active Protocol: Document 02/10/22 14:30 AMB (Rec: 02/10/22 15:41 AMB [id number]) Physical Therapy Assessment Goals Three Impairment shoulder function Impairment unable to reach overhead or behind her back for purposes of ADL's Short Term Goal (STG) Patient will be able to reach overhead and behind her back without difficulty. Pain continues to limit, can reach overhead but for very limited duration, can don/doff bra with difficulty. STG Duration 12/07/21 Fpc Goal (LTG) Patient to score less than 15% on Quickdash Disability Index score as measure of improved functional use of left UE. LTG Duration 01/07/22 Two Impairment strength Short Term Goal (STG) Patient to be independent and compliant with a progressive HEP for purposes of increased left shoulder ROM and strength STG Duration MET Fpc Goal (LTG) Patient to achieve at least 4+ /5 muscle strength left shoulder all muscle groups to allow her to return to her usual activities. Progress made: 4/5 in most muscle groups LTG Duration 02/23/21 One Impairment Decreased ROM left shoulder post-op shoulder surgery Short Term Goal (STG) Patient to achieve full PROM left shoulder-- pain limit end range, but significantly improved in comparison to preop and immediately post op STG Duration - progressing Senior Net Developer Goal (LTG) Patient to achieve full AROM left shoulder to allow her to do all usual ADL's and activities LTG Duration 02/23/22 Assessment Summary Assessment Added new weight exercises today. She is tolerating them , but she continuing to have pain in the throughout the shoulder and the mid trap with shoulder height movements. Physical Therapy Plan Next Visit Focus/Plan Next Note Type Treatment Note Next Visit Plan Progress ther ex per POC as tolerated. Manual techniques especially to subscap, consider gentle joint mobs. Continue to stress deep breathing, relaxation techniques.
--- NOTE | 2022-02-23 16:00 | PT.OTN ---
Current Diagnoses Stiffness of left shoulder, not elsewhere classified (02/23/22) Weakness (02/23/22) Contusion of left shoulder, initial encounter (02/23/22) Arthroscopic surgical procedure converted to open procedure (02/23/22) Physical Therapy Treatment Note PT-OP-A Visit Information Start: 10/09/21 08:11 Freq: Status: Active Protocol: Document 02/23/22 13:05 AMB (Rec: 02/23/22 13:25 AMB [id number]) Out-Patient Physical Therapy Visit Information Visit Information Visit Type Treatment Note Visit Note 10/26 Visit Start Time 13:00 Visit Stop Time 13:45 Total Visit Minutes 45 Visit Number 25 PT-OP-B Current Condition Start: 10/09/21 08:11 Freq: Status: Active Protocol: Document 10/15/21 15:15 SAK (Rec: 10/15/21 16:37 SAK [id number]) Current Condition History of Current Condition Onset Date 09/18/21 Current Complaints left shoulder pain. History of Current Condition SLAP shoulder repair after failed PT. Reports post op wore sling for 1-2 weeks per doctor, then instructed in gentle limited motion and no lifting. Has had deep throbbing pain distal clavicle , has mostly been sitting or laying down, icing. Just now starting to move around a little. Has difficulty taking pain medications, has had to modify diet to tolerate. Uses ice machine. Prior Treatments and Tests Post-op with Dr. Castle , instructed no heavy lifting, no straining, move, but not too much. General protocol shows PROM until 5 weeks post op. Will contact physician office to further clarify. Future Testing and Treatments Planned Will see Dr. Castle again 6-8 weeks post-op Treatment Goals Patient/Caregiver Goals regain full active use of her left UE PT-OP-C Subjective Start: 10/09/21 08:11 Freq: Status: Active Protocol: Document 02/23/22 13:05 AMB (Rec: 02/23/22 13:25 AMB [id number]) OP-PT Subjective Patient Comments Patient Comments Pt continues to have pain with abduction and extension. PT-OP-F Manual Assessment Start: 10/09/21 08:11 Freq: Status: Active Protocol: Document 10/09/21 15:20 SAK (Rec: 10/09/21 17:09 SAK [id number]) Manual Assessments Soft Tissue Assessment Soft Tissue Mobility Assessment increased tightness left UT, periscapular region PT-OP-H Neuro Start: 10/09/21 08:11 Freq: Status: Active Protocol: Document 10/09/21 15:20 SAK (Rec: 10/09/21 17:09 SAK [id number]) Sensation Evaluation Gross Sensation Gross Sensation WNL PT-OP-J Posture/Palpation/Skin Start: 10/09/21 08:11 Freq: Status: Active Protocol: Document 10/09/21 15:20 SAK (Rec: 10/09/21 17:09 SAK [id number]) Palpation Assessment Location upper traps Palpation Location left Palpation Findings Soft Tissue Tightness,Muscle Guarding,Tenderness,Trigger Point Skin Assessment Edema Assessment Left Arm Edema Appearance Discolored,Taut Subjective Edema Description Pain,Tightness Incisional Assessment Incision Appearance/Comments well-healing arthroscopic scar ant and post. PT-OP-K Range of Motion Start: 10/09/21 08:11 Freq: Status: Active Protocol: Document 12/25/21 14:02 AMB (Rec: 12/25/21 14:14 AMB [id number]) Shoulder Goniometric Range of Motion Shoulder Left Passive Flexion 146 Abduction 155 PT-OP-M Strength Start: 10/09/21 08:11 Freq: Status: Active Protocol: Document 12/29/21 13:32 AMB (Rec: 12/31/21 13:33 AMB [id number]) Shoulder Strength Shoulder Manual Muscle Testing Left Flexion 4- Good- Extension 4+ Good+ Abduction (C5) 4 Good External Rotation 4- Good- Internal Rotation 4 Good PT-OP-Q Treatments Start: 10/09/21 08:11 Freq: Status: Active Protocol: Document 02/23/22 13:05 AMB (Rec: 02/23/22 13:25 AMB [id number]) Cardio Equipment Upper Body Ergometer (UBE) Duration (Minutes) 7 Seat Position 9 Height 3 Other fwd/backward Therapeutic Exercises Sitting Exercises rows Sitting Exercise Name AROM Reps/Minutes 2x10 shoulder ER/IR Sitting Exercise Name AROM Reps/Minutes 10x Comments cues for relaxed UT pulleys Sitting Exercise Name flexion, scaption Reps/Minutes 10x Comments elbow bent, cues for relaxing left UE, max 105 deg Standing Exercises t band ER Standing Exercise Name HEP Resistance #3 t band Reps/Minutes 2x10 t band IR Standing Exercise Name HEP Side left Resistance #3 t band Reps/Minutes 2x10 Manual Therapy Treatment Soft Tissue Mobilization subscapularis Mobilization Type Sustained Pressure,Trigger Point Release,Other Intensity/Depth Moderate Body Position Supine Comments pin and stretch with passive shoulder flex UT, scar mob, biceps Body Location left UE Mobilization Type Myofascial Release Intensity/Depth Moderate Body Position Hooklying PT-OP-R Modalities Start: 10/09/21 08:11 Freq: Status: Active Protocol: Document 02/23/22 13:05 AMB (Rec: 02/23/22 13:25 AMB [id number]) Iontophoresis Treatment Shoulder Treatment Medication Dexamethasone (-) Medication Amount (mL) (ml) 1 Treatment Polarity Negative to Negative Active Electrode Placement anterior shoulder Dispersive Electrode Placement posterior shoulder PT-OP-T Assessment and Plan Start: 10/09/21 08:11 Freq: Status: Active Protocol: Document 02/23/22 13:05 AMB (Rec: 02/23/22 13:25 AMB [id number]) Physical Therapy Assessment Goals Three Impairment shoulder function Impairment unable to reach overhead or behind her back for purposes of ADL's Short Term Goal (STG) Patient will be able to reach overhead and behind her back without difficulty. Pain continues to limit, can reach overhead but for very limited duration, can don/doff bra with difficulty. STG Duration 12/07/21 Offset Printing Pressmen Goal (LTG) Patient to score less than 15% on Quickdash Disability Index score as measure of improved functional use of left UE. LTG Duration 01/07/22 Two Impairment strength Short Term Goal (STG) Patient to be independent and compliant with a progressive HEP for purposes of increased left shoulder ROM and strength STG Duration MET [facility] Goal (LTG) Patient to achieve at least 4+ /5 muscle strength left shoulder all muscle groups to allow her to return to her usual activities. Progress made: 4/5 in most muscle groups LTG Duration 02/23/21 One Impairment Decreased ROM left shoulder post-op shoulder surgery Short Term Goal (STG) Patient to achieve full PROM left shoulder-- pain limit end range, but significantly improved in comparison to preop and immediately post op STG Duration - progressing Offset Printing Pressmen Goal (LTG) Patient to achieve full AROM left shoulder to allow her to do all usual ADL's and activities LTG Duration 02/23/22 Assessment Summary Assessment Ansley continues to have painful abduction and internal rotation. Iontophoresis appears to be helping with pain. Physical Therapy Plan Frequency and Duration Frequency of Treatment 2x/Week Duration of treatment (weeks) 10 Plan of Care Start Date 01/13/22 Plan of Care End Date 03/24/22 Therapeutic Interventions Therapeutic Interventions Aquatic Therapy,Home Exercise Program,Manual Therapy,Patient /Caregiver Education,Self-Care /Home Management,Soft Tissue Mobilization,Taping, Therapeutic Activities, Therapeutic Exercises Modalities Cold Pack/Ice Massage,Electric Stimulation,Hot Packs, Iontophoresis Other Therapeutic Interventions iontophoresis with dexamethasone Next Visit Focus/Plan Next Note Type Treatment Note Next Visit Plan Manual techniques especially to subscap, consider gentle joint mobs. Continue to stress deep breathing, relaxation techniques.
--- NOTE | 2022-02-25 21:11 | PT.OTN ---
Current Diagnoses Stiffness of left shoulder, not elsewhere classified (02/25/22) Weakness (02/25/22) Contusion of left shoulder, initial encounter (02/25/22) Arthroscopic surgical procedure converted to open procedure (02/25/22) Physical Therapy Treatment Note PT-OP-A Visit Information Start: 10/09/21 08:11 Freq: Status: Active Protocol: Document 02/25/22 13:00 AMB (Rec: 02/25/22 13:17 AMB [id number]) Out-Patient Physical Therapy Visit Information Visit Information Visit Type Treatment Note Visit Note 11/26 Visit Start Time 13:00 Visit Stop Time 13:45 Total Visit Minutes 45 Visit Number 26 PT-OP-B Current Condition Start: 10/09/21 08:11 Freq: Status: Active Protocol: Document 10/15/21 15:15 SAK (Rec: 10/15/21 16:37 SAK [id number]) Current Condition History of Current Condition Onset Date 09/18/21 Current Complaints left shoulder pain. History of Current Condition SLAP shoulder repair after failed PT. Reports post op wore sling for 1-2 weeks per doctor, then instructed in gentle limited motion and no lifting. Has had deep throbbing pain distal clavicle , has mostly been sitting or laying down, icing. Just now starting to move around a little. Has difficulty taking pain medications, has had to modify diet to tolerate. Uses ice machine. Prior Treatments and Tests Post-op with Dr. Castle , instructed no heavy lifting, no straining, move, but not too much. General protocol shows PROM until 5 weeks post op. Will contact physician office to further clarify. Future Testing and Treatments Planned Will see Dr. Castle again 6-8 weeks post-op Treatment Goals Patient/Caregiver Goals regain full active use of her left UE PT-OP-C Subjective Start: 10/09/21 08:11 Freq: Status: Active Protocol: Document 02/25/22 13:00 AMB (Rec: 02/25/22 13:17 AMB [id number]) OP-PT Subjective Patient Comments Patient Comments Pt is stiff today with the cold weather. PT-OP-F Manual Assessment Start: 10/09/21 08:11 Freq: Status: Active Protocol: Document 10/09/21 15:20 SAK (Rec: 10/09/21 17:09 SAK [id number]) Manual Assessments Soft Tissue Assessment Soft Tissue Mobility Assessment increased tightness left UT, periscapular region PT-OP-H Neuro Start: 10/09/21 08:11 Freq: Status: Active Protocol: Document 10/09/21 15:20 SAK (Rec: 10/09/21 17:09 SAK [id number]) Sensation Evaluation Gross Sensation Gross Sensation WNL PT-OP-J Posture/Palpation/Skin Start: 10/09/21 08:11 Freq: Status: Active Protocol: Document 10/09/21 15:20 SAK (Rec: 10/09/21 17:09 SAK [id number]) Palpation Assessment Location upper traps Palpation Location left Palpation Findings Soft Tissue Tightness,Muscle Guarding,Tenderness,Trigger Point Skin Assessment Edema Assessment Left Arm Edema Appearance Discolored,Taut Subjective Edema Description Pain,Tightness Incisional Assessment Incision Appearance/Comments well-healing arthroscopic scar ant and post. PT-OP-K Range of Motion Start: 10/09/21 08:11 Freq: Status: Active Protocol: Document 12/25/21 14:02 AMB (Rec: 12/25/21 14:14 AMB [id number]) Shoulder Goniometric Range of Motion Shoulder Left Passive Flexion 146 Abduction 155 PT-OP-M Strength Start: 10/09/21 08:11 Freq: Status: Active Protocol: Document 12/29/21 13:32 AMB (Rec: 12/31/21 13:33 AMB [id number]) Shoulder Strength Shoulder Manual Muscle Testing Left Flexion 4- Good- Extension 4+ Good+ Abduction (C5) 4 Good External Rotation 4- Good- Internal Rotation 4 Good PT-OP-Q Treatments Start: 10/09/21 08:11 Freq: Status: Active Protocol: Document 02/25/22 13:00 AMB (Rec: 02/25/22 13:17 AMB [id number]) Cardio Equipment Upper Body Ergometer (UBE) Duration (Minutes) 7 Seat Position 9 Height 3 Other fwd/backward Therapeutic Exercises Sitting Exercises rows Sitting Exercise Name AROM Reps/Minutes 2x10 shoulder ER/IR Sitting Exercise Name AROM Reps/Minutes 10x Comments cues for relaxed UT pulleys Sitting Exercise Name flexion, scaption Reps/Minutes 10x Comments elbow bent, cues for relaxing left UE, max 105 deg Standing Exercises wall walk up and lift Reps/Minutes 3 Comments to 90 degrees only, did increase pain t band ER Standing Exercise Name HEP Resistance #3 t band Reps/Minutes 2x10 t band IR Standing Exercise Name HEP Side left Resistance #3 t band Reps/Minutes 2x10 Manual Therapy Treatment Soft Tissue Mobilization subscapularis Mobilization Type Sustained Pressure,Trigger Point Release,Other Intensity/Depth Moderate Body Position Supine Comments pin and stretch with passive shoulder flex PT-OP-R Modalities Start: 10/09/21 08:11 Freq: Status: Active Protocol: Document 02/23/22 13:05 AMB (Rec: 02/23/22 13:25 AMB [id number]) Iontophoresis Treatment Shoulder Treatment Medication Dexamethasone (-) Medication Amount (mL) (ml) 1 Treatment Polarity Negative to Negative Active Electrode Placement anterior shoulder Dispersive Electrode Placement posterior shoulder PT-OP-T Assessment and Plan Start: 10/09/21 08:11 Freq: Status: Active Protocol: Document 02/25/22 13:00 AMB (Rec: 02/25/22 13:17 AMB [id number]) Physical Therapy Assessment Goals Three Impairment shoulder function Impairment unable to reach overhead or behind her back for purposes of ADL's Short Term Goal (STG) Patient will be able to reach overhead and behind her back without difficulty. Pain continues to limit, can reach overhead but for very limited duration, can don/doff bra with difficulty. STG Duration 12/07/21 Supervisor In Charge Goal (LTG) Patient to score less than 15% on Quickdash Disability Index score as measure of improved functional use of left UE. LTG Duration 01/07/22 Two Impairment strength Short Term Goal (STG) Patient to be independent and compliant with a progressive HEP for purposes of increased left shoulder ROM and strength STG Duration MET [facility] Goal (LTG) Patient to achieve at least 4+ /5 muscle strength left shoulder all muscle groups to allow her to return to her usual activities. Progress made: 4/5 in most muscle groups LTG Duration 02/23/21 One Impairment Decreased ROM left shoulder post-op shoulder surgery Short Term Goal (STG) Patient to achieve full PROM left shoulder-- pain limit end range, but significantly improved in comparison to preop and immediately post op STG Duration - progressing Supervisor In Charge Goal (LTG) Patient to achieve full AROM left shoulder to allow her to do all usual ADL's and activities LTG Duration 02/23/22 Assessment Summary Assessment Ansley continues to have pain with overhead activities, but is tolerating shoulder flexion and abduction to shoulder height at this point. Physical Therapy Plan Frequency and Duration Frequency of Treatment 2x/Week Duration of treatment (weeks) 10 Plan of Care Start Date 01/13/22 Plan of Care End Date 03/24/22
--- NOTE | 2022-03-02 16:00 | PT.OTN ---
Current Diagnoses Stiffness of left shoulder, not elsewhere classified (03/02/22) Weakness (03/02/22) Contusion of left shoulder, initial encounter (03/02/22) Arthroscopic surgical procedure converted to open procedure (03/02/22) Physical Therapy Treatment Note PT-OP-A Visit Information Start: 10/09/21 08:11 Freq: Status: Active Protocol: Document 03/02/22 13:20 AMB (Rec: 03/02/22 13:54 AMB [id number]) Out-Patient Physical Therapy Visit Information Visit Information Visit Type Treatment Note Visit Note 12/27 Visit Start Time 13:00 Visit Stop Time 13:45 Total Visit Minutes 45 Visit Number 27 PT-OP-B Current Condition Start: 10/09/21 08:11 Freq: Status: Active Protocol: Document 10/15/21 15:15 SAK (Rec: 10/15/21 16:37 SAK [id number]) Current Condition History of Current Condition Onset Date 09/18/21 Current Complaints left shoulder pain. History of Current Condition SLAP shoulder repair after failed PT. Reports post op wore sling for 1-2 weeks per doctor, then instructed in gentle limited motion and no lifting. Has had deep throbbing pain distal clavicle , has mostly been sitting or laying down, icing. Just now starting to move around a little. Has difficulty taking pain medications, has had to modify diet to tolerate. Uses ice machine. Prior Treatments and Tests Post-op with Dr. Castle , instructed no heavy lifting, no straining, move, but not too much. General protocol shows PROM until 5 weeks post op. Will contact physician office to further clarify. Future Testing and Treatments Planned Will see Dr. Castle again 6-8 weeks post-op Treatment Goals Patient/Caregiver Goals regain full active use of her left UE PT-OP-C Subjective Start: 10/09/21 08:11 Freq: Status: Active Protocol: Document 03/02/22 13:00 AMB (Rec: 03/03/22 12:57 AMB [id number]) OP-PT Subjective Patient Comments Patient Comments Ansley had a bad weekend, had increased pain after last visit with the wall walks, continues to feel burning pain down the arm. PT-OP-F Manual Assessment Start: 10/09/21 08:11 Freq: Status: Active Protocol: Document 10/09/21 15:20 SAK (Rec: 10/09/21 17:09 SAK [id number]) Manual Assessments Soft Tissue Assessment Soft Tissue Mobility Assessment increased tightness left UT, periscapular region PT-OP-H Neuro Start: 10/09/21 08:11 Freq: Status: Active Protocol: Document 10/09/21 15:20 SAK (Rec: 10/09/21 17:09 SAK [id number]) Sensation Evaluation Gross Sensation Gross Sensation WNL PT-OP-J Posture/Palpation/Skin Start: 10/09/21 08:11 Freq: Status: Active Protocol: Document 10/09/21 15:20 SAK (Rec: 10/09/21 17:09 SAK [id number]) Palpation Assessment Location upper traps Palpation Location left Palpation Findings Soft Tissue Tightness,Muscle Guarding,Tenderness,Trigger Point Skin Assessment Edema Assessment Left Arm Edema Appearance Discolored,Taut Subjective Edema Description Pain,Tightness Incisional Assessment Incision Appearance/Comments well-healing arthroscopic scar ant and post. PT-OP-K Range of Motion Start: 10/09/21 08:11 Freq: Status: Active Protocol: Document 12/25/21 14:02 AMB (Rec: 12/25/21 14:14 AMB [id number]) Shoulder Goniometric Range of Motion Shoulder Left Passive Flexion 146 Abduction 155 PT-OP-M Strength Start: 10/09/21 08:11 Freq: Status: Active Protocol: Document 12/29/21 13:32 AMB (Rec: 12/31/21 13:33 AMB [id number]) Shoulder Strength Shoulder Manual Muscle Testing Left Flexion 4- Good- Extension 4+ Good+ Abduction (C5) 4 Good External Rotation 4- Good- Internal Rotation 4 Good PT-OP-Q Treatments Start: 10/09/21 08:11 Freq: Status: Active Protocol: Document 03/02/22 13:00 AMB (Rec: 03/08/22 09:28 AMB [id number]) Manual Therapy Treatment Soft Tissue Mobilization rhomboids Body Location plus Teres lucrecia Mobilization Type Myofascial Release,Sustained Pressure,Trigger Point Release Intensity/Depth Moderate Body Position Sidelying subscapularis Mobilization Type Sustained Pressure,Trigger Point Release,Other Intensity/Depth Moderate Body Position Supine Comments pin and stretch with passive shoulder flex, abd, ER, IR UT, scar mob, biceps Body Location left UE Mobilization Type Myofascial Release Intensity/Depth Moderate Body Position Hooklying PT-OP-R Modalities Start: 10/09/21 08:11 Freq: Status: Active Protocol: Document 03/02/22 13:00 AMB (Rec: 03/08/22 09:28 AMB [id number]) Iontophoresis Treatment Shoulder Treatment Medication Dexamethasone (-) Medication Amount (mL) (ml) 1 Treatment Polarity Negative to Negative Active Electrode Placement anterior shoulder Dispersive Electrode Placement posterior shoulder PT-OP-T Assessment and Plan Start: 10/09/21 08:11 Freq: Status: Active Protocol: Document 03/02/22 13:20 AMB (Rec: 03/02/22 13:54 AMB [id number]) Physical Therapy Assessment Goals Three Impairment shoulder function Impairment unable to reach overhead or behind her back for purposes of ADL's Short Term Goal (STG) Patient will be able to reach overhead and behind her back without difficulty. Pain continues to limit, can reach overhead but for very limited duration, can don/doff bra with difficulty. STG Duration 12/07/21 Care Home Goal (LTG) Patient to score less than 15% on Quickdash Disability Index score as measure of improved functional use of left UE. LTG Duration 01/07/22 Two Impairment strength Short Term Goal (STG) Patient to be independent and compliant with a progressive HEP for purposes of increased left shoulder ROM and strength STG Duration MET Research Analyst Goal (LTG) Patient to achieve at least 4+ /5 muscle strength left shoulder all muscle groups to allow her to return to her usual activities. Progress made: 4/5 in most muscle groups LTG Duration 02/23/21 One Impairment Decreased ROM left shoulder post-op shoulder surgery Short Term Goal (STG) Patient to achieve full PROM left shoulder-- pain limit end range, but significantly improved in comparison to preop and immediately post op STG Duration - progressing Research Analyst Goal (LTG) Patient to achieve full AROM left shoulder to allow her to do all usual ADL's and activities LTG Duration 02/23/22 Assessment Summary Assessment Backed off on ther ex today as pt had another flareup, likely after wall walk exercise last visit. Discussed how we do need to push the shoulder at this point, butpt feels that pain that has been lasting this long is not ok. Physical Therapy Plan Next Visit Focus/Plan Next Note Type Treatment Note Next Visit Plan Manual techniques especially to subscap, consider gentle joint mobs. Continue to stress deep breathing, relaxation techniques.
--- NOTE | 2022-03-09 15:45 | PT.OTN ---
Current Diagnoses Stiffness of left shoulder, not elsewhere classified (03/09/22) Weakness (03/09/22) Contusion of left shoulder, initial encounter (03/09/22) Arthroscopic surgical procedure converted to open procedure (03/09/22) Physical Therapy Treatment Note PT-OP-A Visit Information Start: 10/09/21 08:11 Freq: Status: Active Protocol: Document 03/09/22 12:59 AMB (Rec: 03/09/22 14:35 AMB [id number]) Out-Patient Physical Therapy Visit Information Visit Information Visit Type Progress Note Visit Start Time 14:00 Visit Stop Time 14:30 Total Visit Minutes 30 Visit Number 28 PT-OP-B Current Condition Start: 10/09/21 08:11 Freq: Status: Active Protocol: Document 10/15/21 15:15 SAK (Rec: 10/15/21 16:37 SAK [id number]) Current Condition History of Current Condition Onset Date 09/18/21 Current Complaints left shoulder pain. History of Current Condition SLAP shoulder repair after failed PT. Reports post op wore sling for 1-2 weeks per doctor, then instructed in gentle limited motion and no lifting. Has had deep throbbing pain distal clavicle , has mostly been sitting or laying down, icing. Just now starting to move around a little. Has difficulty taking pain medications, has had to modify diet to tolerate. Uses ice machine. Prior Treatments and Tests Post-op with Dr. Castle , instructed no heavy lifting, no straining, move, but not too much. General protocol shows PROM until 5 weeks post op. Will contact physician office to further clarify. Future Testing and Treatments Planned Will see Dr. Castle again 6-8 weeks post-op Treatment Goals Patient/Caregiver Goals regain full active use of her left UE PT-OP-C Subjective Start: 10/09/21 08:11 Freq: Status: Active Protocol: Document 03/09/22 12:59 AMB (Rec: 03/09/22 14:35 AMB [id number]) OP-PT Subjective Patient Comments Patient Comments Ansley is noticing that the arm is feeling better than last week. But has still be really careful about moving the arm. PT-OP-F Manual Assessment Start: 10/09/21 08:11 Freq: Status: Active Protocol: Document 10/09/21 15:20 SAK (Rec: 10/09/21 17:09 SAK [id number]) Manual Assessments Soft Tissue Assessment Soft Tissue Mobility Assessment increased tightness left UT, periscapular region PT-OP-H Neuro Start: 10/09/21 08:11 Freq: Status: Active Protocol: Document 10/09/21 15:20 SAK (Rec: 10/09/21 17:09 SAK [id number]) Sensation Evaluation Gross Sensation Gross Sensation WNL PT-OP-J Posture/Palpation/Skin Start: 10/09/21 08:11 Freq: Status: Active Protocol: Document 10/09/21 15:20 SAK (Rec: 10/09/21 17:09 SAK [id number]) Palpation Assessment Location upper traps Palpation Location left Palpation Findings Soft Tissue Tightness,Muscle Guarding,Tenderness,Trigger Point Skin Assessment Edema Assessment Left Arm Edema Appearance Discolored,Taut Subjective Edema Description Pain,Tightness Incisional Assessment Incision Appearance/Comments well-healing arthroscopic scar ant and post. PT-OP-K Range of Motion Start: 10/09/21 08:11 Freq: Status: Active Protocol: Document 12/25/21 14:02 AMB (Rec: 12/25/21 14:14 AMB [id number]) Shoulder Goniometric Range of Motion Shoulder Left Passive Flexion 146 Abduction 155 PT-OP-M Strength Start: 10/09/21 08:11 Freq: Status: Active Protocol: Document 12/29/21 13:32 AMB (Rec: 12/31/21 13:33 AMB [id number]) Shoulder Strength Shoulder Manual Muscle Testing Left Flexion 4- Good- Extension 4+ Good+ Abduction (C5) 4 Good External Rotation 4- Good- Internal Rotation 4 Good PT-OP-Q Treatments Start: 10/09/21 08:11 Freq: Status: Active Protocol: Document 03/09/22 13:45 AMB (Rec: 03/09/22 15:41 AMB [id number]) Therapeutic Exercises Supine Exercises shoulder flexion Supine Exercise Name AROM-- bent elbow Reps/Minutes 2x10 Comments partial [id number] shoulder IR/ER Supine Exercise Name AROM Equipment Used towel roll under distal upper arm Reps/Minutes 10x ea Comments PROM PT, AAROM to AROM shoulder abduction Supine Exercise Name PROM scaption Reps/Minutes 10x Comments by PT Sitting Exercises shoulder rolls Sitting Exercise Name demetria, unil Reps/Minutes 5x ea pulleys Sitting Exercise Name flexion, scaption Reps/Minutes 10x Comments elbow bent, cues for relaxing left UE, Manual Therapy Treatment Soft Tissue Mobilization rhomboids Body Location plus Teres lucrecia Mobilization Type Myofascial Release,Sustained Pressure,Trigger Point Release Intensity/Depth Moderate Body Position Sidelying subscapularis Mobilization Type Sustained Pressure,Trigger Point Release,Other Intensity/Depth Moderate Body Position Supine Comments pin and stretch with passive shoulder flex, abd, ER, IR PT-OP-R Modalities Start: 10/09/21 08:11 Freq: Status: Active Protocol: Document 03/09/22 13:45 AMB (Rec: 03/09/22 15:42 AMB [id number]) Iontophoresis Treatment Shoulder Treatment Medication Dexamethasone (-) Medication Amount (mL) (ml) 1 Treatment Polarity Negative to Negative Active Electrode Placement anterior shoulder Dispersive Electrode Placement posterior shoulder PT-OP-T Assessment and Plan Start: 10/09/21 08:11 Freq: Status: Active Protocol: Document 03/09/22 12:59 AMB (Rec: 03/09/22 14:35 AMB [id number]) Physical Therapy Assessment Goals Three Impairment shoulder function Impairment unable to reach overhead or behind her back for purposes of ADL's Short Term Goal (STG) Patient will be able to reach overhead and behind her back without difficulty. Pain continues to limit, can reach overhead but for very limited duration, can don/doff bra with difficulty. STG Duration 12/07/21 Day Trader Goal (LTG) Patient to score less than 15% on Quickdash Disability Index score as measure of improved functional use of left UE. LTG Duration 01/07/22 Two Impairment strength Short Term Goal (STG) Patient to be independent and compliant with a progressive HEP for purposes of increased left shoulder ROM and strength STG Duration MET Day Trader Goal (LTG) Patient to achieve at least 4+ /5 muscle strength left shoulder all muscle groups to allow her to return to her usual activities. Progress made: 4/5 in most muscle groups LTG Duration 02/23/21 One Impairment Decreased ROM left shoulder post-op shoulder surgery Short Term Goal (STG) Patient to achieve full PROM left shoulder-- pain limit end range, but significantly improved in comparison to preop and immediately post op STG Duration - progressing Group Home Goal (LTG) Patient to achieve full AROM left shoulder to allow her to do all usual ADL's and activities LTG Duration 02/23/22 Assessment Summary Assessment Ansley is doing better with her pain, but does describe fearfullness of overdoing it again and creating pain at rest. Pt will benefit from continued strengthening below shoulder height. Physical Therapy Plan Frequency and Duration Frequency of Treatment 2x/Week Duration of treatment (weeks) 10 Plan of Care Start Date 01/13/22 Plan of Care End Date 03/24/22 Therapeutic Interventions Therapeutic Interventions Aquatic Therapy,Home Exercise Program,Manual Therapy,Patient /Caregiver Education,Self-Care /Home Management,Soft Tissue Mobilization,Taping, Therapeutic Activities, Therapeutic Exercises Modalities Cold Pack/Ice Massage,Electric Stimulation,Hot Packs, Iontophoresis Other Therapeutic Interventions iontophoresis with dexamethasone Next Visit Focus/Plan Next Note Type Treatment Note Next Visit Plan Manual techniques especially to subscap, consider gentle joint mobs. Continue to stress deep breathing, relaxation techniques.
--- NOTE | 2022-03-16 13:00 | PT.OTN ---
Current Diagnoses Stiffness of left shoulder, not elsewhere classified (03/16/22) Weakness (03/16/22) Contusion of left shoulder, initial encounter (03/16/22) Arthroscopic surgical procedure converted to open procedure (03/16/22) Physical Therapy Treatment Note PT-OP-A Visit Information Start: 10/09/21 08:11 Freq: Status: Active Protocol: Document 03/16/22 13:00 AMB (Rec: 03/16/22 13:47 AMB [id number]) Out-Patient Physical Therapy Visit Information Visit Information Visit Type Progress Note Visit Start Time 13:00 Visit Stop Time 13:45 Total Visit Minutes 45 Visit Number 29 PT-OP-B Current Condition Start: 10/09/21 08:11 Freq: Status: Active Protocol: Document 10/15/21 15:15 SAK (Rec: 10/15/21 16:37 SAK [id number]) Current Condition History of Current Condition Onset Date 09/18/21 Current Complaints left shoulder pain. History of Current Condition SLAP shoulder repair after failed PT. Reports post op wore sling for 1-2 weeks per doctor, then instructed in gentle limited motion and no lifting. Has had deep throbbing pain distal clavicle , has mostly been sitting or laying down, icing. Just now starting to move around a little. Has difficulty taking pain medications, has had to modify diet to tolerate. Uses ice machine. Prior Treatments and Tests Post-op with Dr. Castle , instructed no heavy lifting, no straining, move, but not too much. General protocol shows PROM until 5 weeks post op. Will contact physician office to further clarify. Future Testing and Treatments Planned Will see Dr. Castle again 6-8 weeks post-op Treatment Goals Patient/Caregiver Goals regain full active use of her left UE PT-OP-C Subjective Start: 10/09/21 08:11 Freq: Status: Active Protocol: Document 03/16/22 13:00 AMB (Rec: 03/16/22 13:47 AMB [id number]) OP-PT Subjective Patient Comments Patient Comments Ansley PT-OP-F Manual Assessment Start: 10/09/21 08:11 Freq: Status: Active Protocol: Document 10/09/21 15:20 SAK (Rec: 10/09/21 17:09 SAK [id number]) Manual Assessments Soft Tissue Assessment Soft Tissue Mobility Assessment increased tightness left UT, periscapular region PT-OP-H Neuro Start: 10/09/21 08:11 Freq: Status: Active Protocol: Document 10/09/21 15:20 SAK (Rec: 10/09/21 17:09 SAK [id number]) Sensation Evaluation Gross Sensation Gross Sensation WNL PT-OP-J Posture/Palpation/Skin Start: 10/09/21 08:11 Freq: Status: Active Protocol: Document 10/09/21 15:20 SAK (Rec: 10/09/21 17:09 SAK [id number]) Palpation Assessment Location upper traps Palpation Location left Palpation Findings Soft Tissue Tightness,Muscle Guarding,Tenderness,Trigger Point Skin Assessment Edema Assessment Left Arm Edema Appearance Discolored,Taut Subjective Edema Description Pain,Tightness Incisional Assessment Incision Appearance/Comments well-healing arthroscopic scar ant and post. PT-OP-K Range of Motion Start: 10/09/21 08:11 Freq: Status: Active Protocol: Document 12/25/21 14:02 AMB (Rec: 12/25/21 14:14 AMB [id number]) Shoulder Goniometric Range of Motion Shoulder Left Passive Flexion 146 Abduction 155 PT-OP-M Strength Start: 10/09/21 08:11 Freq: Status: Active Protocol: Document 12/29/21 13:32 AMB (Rec: 12/31/21 13:33 AMB [id number]) Shoulder Strength Shoulder Manual Muscle Testing Left Flexion 4- Good- Extension 4+ Good+ Abduction (C5) 4 Good External Rotation 4- Good- Internal Rotation 4 Good PT-OP-Q Treatments Start: 10/09/21 08:11 Freq: Status: Active Protocol: Document 03/16/22 13:00 AMB (Rec: 03/16/22 13:47 AMB [id number]) Therapeutic Exercises Supine Exercises scapular punch Supine Exercise Name AROM Reps/Minutes 2x10 shoulder flexion to 90 degrees Supine Exercise Name isometrics maintaining position against flex/ext/ horiz add/horiz abd Reps/Minutes 3 min shoulder flexion Supine Exercise Name AROM-- bent elbow Reps/Minutes 2x10 Comments partial -98 shoulder abduction Supine Exercise Name PROM scaption Reps/Minutes 10x Comments by PT Sitting Exercises pulleys Sitting Exercise Name flexion, scaption Reps/Minutes 10x Comments elbow bent, cues for relaxing left UE, Manual Therapy Treatment Soft Tissue Mobilization rhomboids Body Location plus Teres lucrecia Mobilization Type Myofascial Release,Sustained Pressure,Trigger Point Release Intensity/Depth Moderate Body Position Sidelying subscapularis Mobilization Type Sustained Pressure,Trigger Point Release,Other Intensity/Depth Moderate Body Position Supine Comments pin and stretch with passive shoulder flex, abd, ER, IR PT-OP-R Modalities Start: 10/09/21 08:11 Freq: Status: Active Protocol: Document 03/16/22 13:00 AMB (Rec: 03/17/22 08:48 AMB [id number]) Iontophoresis Treatment Shoulder Treatment Medication Dexamethasone (-) Medication Amount (mL) (ml) 1 Treatment Polarity Negative to Negative Active Electrode Placement anterior shoulder Dispersive Electrode Placement posterior shoulder PT-OP-T Assessment and Plan Start: 10/09/21 08:11 Freq: Status: Active Protocol: Document 03/16/22 13:00 AMB (Rec: 03/16/22 13:47 AMB [id number]) Physical Therapy Assessment Goals Three Impairment shoulder function Impairment unable to reach overhead or behind her back for purposes of ADL's Short Term Goal (STG) Patient will be able to reach overhead and behind her back without difficulty. Pain continues to limit, can reach overhead but for very limited duration, can don/doff bra with difficulty. STG Duration 04/24/22 Plasticator Goal (LTG) Patient to score less than 15% on Quickdash Disability Index score as measure of improved functional use of left UE. LTG Duration 05/25/21 Two Impairment strength Short Term Goal (STG) Patient to be independent and compliant with a progressive HEP for purposes of increased left shoulder ROM and strength STG Duration MET Snf Goal (LTG) Patient to achieve at least 4+ /5 muscle strength left shoulder all muscle groups to allow her to return to her usual activities. Progress made: 4/5 in most muscle groups LTG Duration 05/25/22 One Impairment Decreased ROM left shoulder post-op shoulder surgery Short Term Goal (STG) Patient to achieve full PROM left shoulder-- pain limit end range, but significantly improved in comparison to preop and immediately post op STG Duration - progressing Snf Goal (LTG) Patient to achieve full AROM left shoulder to allow her to do all usual ADL's and activities LTG Duration 05/25/22 Assessment Summary Assessment 142 flexion today. Overall Ansley has had ups and downs. Both exercises in physical therapy and activities at home tend to flare up her pain for weeks. Today it was having made 2 apple pies. Ansley verbalizes that she does her exercises, and tries to move her shoulder so that it doesn' t freeze, but she also rests it due to the pain. In comparsion to last progress note her ROM has not really progressed, but it was doing better before this last flare up. Pain continues to be a limiting factor. We will continue to work in PT on getting more range and strength, but Ansley will need to show good improvement over the next few months to continue. Physical Therapy Plan Frequency and Duration Frequency of Treatment 1x/Week Duration of treatment (weeks) 10 Plan of Care Start Date 03/16/22 Plan of Care End Date 05/25/22 Therapeutic Interventions Therapeutic Interventions Aquatic Therapy,Home Exercise Program,Manual Therapy,Patient /Caregiver Education,Self-Care /Home Management,Soft Tissue Mobilization,Taping, Therapeutic Activities, Therapeutic Exercises Modalities Cold Pack/Ice Massage,Electric Stimulation,Hot Packs, Iontophoresis Other Therapeutic Interventions iontophoresis with dexamethasone Next Visit Focus/Plan Next Note Type Treatment Note Next Visit Plan Progress strengthening starting with below shoulder height.
--- NOTE | 2022-03-16 13:00 | PT.OPPOC ---
Physical, Occupational & Speech Therapy At [facility] Current Diagnoses Stiffness of left shoulder, not elsewhere classified (03/16/22) Weakness (03/16/22) Contusion of left shoulder, initial encounter (03/16/22) Arthroscopic surgical procedure converted to open procedure (03/16/22) Visit Care Team Role Provider Type HENRRY [place] Primary Care Provider Advanced Cotton Classer Aide Specialty: Medical Address: [address] [place] [address], [id number] Email: [email or web address] Javier Castle MD Attending Provider Physician Family Provider Referring Provider Specialty: Orthopedics Orthopedic Surgery Address: [address] [place] [address], [id number] Email: [email or web address] Plan Of Care PT-OP-T Assessment and Plan Start: 10/09/21 08:11 Freq: Status: Active Protocol: Document 03/16/22 13:00 AMB (Rec: 03/16/22 13:47 AMB [id number]) Physical Therapy Assessment Goals Three Impairment shoulder function Impairment unable to reach overhead or behind her back for purposes of ADL's Short Term Goal (STG) Patient will be able to reach overhead and behind her back without difficulty. Pain continues to limit, can reach overhead but for very limited duration, can don/doff bra with difficulty. STG Duration 04/24/22 Meeting Specialist Goal (LTG) Patient to score less than 15% on Quickdash Disability Index score as measure of improved functional use of left UE. LTG Duration 05/25/21 Two Impairment strength Short Term Goal (STG) Patient to be independent and compliant with a progressive HEP for purposes of increased left shoulder ROM and strength STG Duration MET Residential Goal (LTG) Patient to achieve at least 4+ /5 muscle strength left shoulder all muscle groups to allow her to return to her usual activities. Progress made: 4/5 in most muscle groups LTG Duration 05/25/22 One Impairment Decreased ROM left shoulder post-op shoulder surgery Short Term Goal (STG) Patient to achieve full PROM left shoulder-- pain limit end range, but significantly improved in comparison to preop and immediately post op STG Duration - progressing Meeting Specialist Goal (LTG) Patient to achieve full AROM left shoulder to allow her to do all usual ADL's and activities LTG Duration 05/25/22 Assessment Summary Assessment 142 flexion today. Overall Ansley has had ups and downs. Both exercises in physical therapy and activities at home tend to flare up her pain for weeks. Today it was having made 2 apple pies. Ansley verbalizes that she does her exercises, and tries to move her shoulder so that it doesn' t freeze, but she also rests it due to the pain. In comparison to last progress note her ROM has not really progressed, but it was doing better before this last flare up. Pain continues to be a limiting factor. We will continue to work in PT on getting more range and strength, but Ansley will need to show good improvement over the next few months to continue. Physical Therapy Plan Frequency and Duration Frequency of Treatment 1x/Week Duration of treatment (weeks) 10 Plan of Care Start Date 03/16/22 Plan of Care End Date 05/25/22 Therapeutic Interventions Therapeutic Interventions Aquatic Therapy,Home Exercise Program,Manual Therapy,Patient /Caregiver Education,Self-Care /Home Management,Soft Tissue Mobilization,Taping, Therapeutic Activities, Therapeutic Exercises Modalities Cold Pack/Ice Massage,Electric Stimulation,Hot Packs, Iontophoresis Other Therapeutic Interventions iontophoresis with dexamethasone Next Visit Focus/Plan Next Note Type Treatment Note Next Visit Plan Progress strengthening starting with below shoulder height. Plan of Care Dates Plan of Care Start Date 03/16/22 Plan of Care End Date 05/25/22 Electronically Signed by: Madiha Winchester, PT 03/17/22 0852 If you are in agreement with this Plan of Care, please return a signed and dated copy. I have reviewed this Plan of Care and certify that the skilled therapy services above are required to meet the patient?s needs. Physician Signature Date Printed Name and Credentials Clinical Instructor Signature Printed Name and Credentials
--- NOTE | 2022-03-23 14:00 | PT.OTN ---
Current Diagnoses Stiffness of left shoulder, not elsewhere classified (03/23/22) Weakness (03/23/22) Contusion of left shoulder, initial encounter (03/23/22) Arthroscopic surgical procedure converted to open procedure (03/23/22) Physical Therapy Treatment Note PT-OP-A Visit Information Start: 10/09/21 08:11 Freq: Status: Active Protocol: Document 03/23/22 13:06 AMB (Rec: 03/23/22 13:36 AMB [id number]) Out-Patient Physical Therapy Visit Information Visit Information Visit Type Treatment Note Visit Start Time 13:00 Visit Stop Time 13:45 Total Visit Minutes 45 Visit Number 30 PT-OP-B Current Condition Start: 10/09/21 08:11 Freq: Status: Active Protocol: Document 10/15/21 15:15 SAK (Rec: 10/15/21 16:37 SAK [id number]) Current Condition History of Current Condition Onset Date 09/18/21 Current Complaints left shoulder pain. History of Current Condition SLAP shoulder repair after failed PT. Reports post op wore sling for 1-2 weeks per doctor, then instructed in gentle limited motion and no lifting. Has had deep throbbing pain distal clavicle , has mostly been sitting or laying down, icing. Just now starting to move around a little. Has difficulty taking pain medications, has had to modify diet to tolerate. Uses ice machine. Prior Treatments and Tests Post-op with Dr. Castle , instructed no heavy lifting, no straining, move, but not too much. General protocol shows PROM until 5 weeks post op. Will contact physician office to further clarify. Future Testing and Treatments Planned Will see Dr. Castle again 6-8 weeks post-op Treatment Goals Patient/Caregiver Goals regain full active use of her left UE PT-OP-C Subjective Start: 10/09/21 08:11 Freq: Status: Active Protocol: Document 03/23/22 13:06 AMB (Rec: 03/23/22 13:36 AMB [id number]) OP-PT Subjective Patient Comments Patient Comments Nadeems shoulder is doing a little bit better. PT-OP-F Manual Assessment Start: 10/09/21 08:11 Freq: Status: Active Protocol: Document 10/09/21 15:20 SAK (Rec: 10/09/21 17:09 SAK [id number]) Manual Assessments Soft Tissue Assessment Soft Tissue Mobility Assessment increased tightness left UT, periscapular region PT-OP-H Neuro Start: 10/09/21 08:11 Freq: Status: Active Protocol: Document 10/09/21 15:20 SAK (Rec: 10/09/21 17:09 SAK [id number]) Sensation Evaluation Gross Sensation Gross Sensation WNL PT-OP-J Posture/Palpation/Skin Start: 10/09/21 08:11 Freq: Status: Active Protocol: Document 10/09/21 15:20 SAK (Rec: 10/09/21 17:09 SAK [id number]) Palpation Assessment Location upper traps Palpation Location left Palpation Findings Soft Tissue Tightness,Muscle Guarding,Tenderness,Trigger Point Skin Assessment Edema Assessment Left Arm Edema Appearance Discolored,Taut Subjective Edema Description Pain,Tightness Incisional Assessment Incision Appearance/Comments well-healing arthroscopic scar ant and post. PT-OP-K Range of Motion Start: 10/09/21 08:11 Freq: Status: Active Protocol: Document 12/25/21 14:02 AMB (Rec: 12/25/21 14:14 AMB [id number]) Shoulder Goniometric Range of Motion Shoulder Left Passive Flexion 146 Abduction 155 PT-OP-M Strength Start: 10/09/21 08:11 Freq: Status: Active Protocol: Document 12/29/21 13:32 AMB (Rec: 12/31/21 13:33 AMB [id number]) Shoulder Strength Shoulder Manual Muscle Testing Left Flexion 4- Good- Extension 4+ Good+ Abduction (C5) 4 Good External Rotation 4- Good- Internal Rotation 4 Good PT-OP-Q Treatments Start: 10/09/21 08:11 Freq: Status: Active Protocol: Document 03/23/22 13:06 AMB (Rec: 03/23/22 13:36 AMB [id number]) Therapeutic Exercises Supine Exercises scapular punch Supine Exercise Name AROM Reps/Minutes 2x10 Sitting Exercises rows Sitting Exercise Name AROM Reps/Minutes 2x10 pulleys Sitting Exercise Name flexion, scaption Reps/Minutes 10x Comments elbow bent, cues for relaxing left UE, Standing Exercises biceps curls Standing Exercise Name neutral Resistance 3# Reps/Minutes 2x10 Manual Therapy Treatment Soft Tissue Mobilization rhomboids Body Location plus Teres lucrecia Mobilization Type Myofascial Release,Sustained Pressure,Trigger Point Release Intensity/Depth Moderate Body Position Sidelying Joint Mobilizations GH AP Comments GrII PT-OP-R Modalities Start: 10/09/21 08:11 Freq: Status: Active Protocol: Document 03/23/22 13:00 AMB (Rec: 03/26/22 12:21 AMB [id number]) Iontophoresis Treatment Shoulder Treatment Medication Dexamethasone (-) Medication Amount (mL) (ml) 1 Treatment Polarity Negative to Negative Active Electrode Placement anterior shoulder Dispersive Electrode Placement posterior shoulder PT-OP-T Assessment and Plan Start: 10/09/21 08:11 Freq: Status: Active Protocol: Document 03/23/22 13:06 AMB (Rec: 03/23/22 13:36 AMB [id number]) Physical Therapy Assessment Goals Three Impairment shoulder function Impairment unable to reach overhead or behind her back for purposes of ADL's Short Term Goal (STG) Patient will be able to reach overhead and behind her back without difficulty. Pain continues to limit, can reach overhead but for very limited duration, can don/doff bra with difficulty. STG Duration 04/24/22 Skilled Nursing Goal (LTG) Patient to score less than 15% on Quickdash Disability Index score as measure of improved functional use of left UE. LTG Duration 05/25/21 Two Impairment strength Short Term Goal (STG) Patient to be independent and compliant with a progressive HEP for purposes of increased left shoulder ROM and strength STG Duration MET Skilled Nursing Goal (LTG) Patient to achieve at least 4+ /5 muscle strength left shoulder all muscle groups to allow her to return to her usual activities. Progress made: 4/5 in most muscle groups LTG Duration 05/25/22 One Impairment Decreased ROM left shoulder post-op shoulder surgery Short Term Goal (STG) Patient to achieve full PROM left shoulder-- pain limit end range, but significantly improved in comparison to preop and immediately post op STG Duration - progressing Skilled Nursing Goal (LTG) Patient to achieve full AROM left shoulder to allow her to do all usual ADL's and activities LTG Duration 05/25/22 Assessment Summary Assessment Pt had 148 degrees of flexion today but continues to be limited by pain. Reports continued difficulty sleeping. Did try to vacuum and that went ok, but continues to be sore. Physical Therapy Plan Frequency and Duration Frequency of Treatment 1x/Week Duration of treatment (weeks) 10 Plan of Care Start Date 03/16/22 Plan of Care End Date 05/25/22 Therapeutic Interventions Therapeutic Interventions Aquatic Therapy,Home Exercise Program,Manual Therapy,Patient /Caregiver Education,Self-Care /Home Management,Soft Tissue Mobilization,Taping, Therapeutic Activities, Therapeutic Exercises Modalities Cold Pack/Ice Massage,Electric Stimulation,Hot Packs, Iontophoresis Other Therapeutic Interventions iontophoresis with dexamethasone Next Visit Focus/Plan Next Note Type Treatment Note Next Visit Plan Progress strengthening starting with below shoulder height.
--- NOTE | 2022-03-30 14:03 | PT.OTN ---
Current Diagnoses Stiffness of left shoulder, not elsewhere classified (03/30/22) Weakness (03/30/22) Contusion of left shoulder, initial encounter (03/30/22) Arthroscopic surgical procedure converted to open procedure (03/30/22) Physical Therapy Treatment Note PT-OP-A Visit Information Start: 10/09/21 08:11 Freq: Status: Active Protocol: Document 03/30/22 13:01 AMB (Rec: 03/30/22 13:14 AMB [id number]) Out-Patient Physical Therapy Visit Information Visit Information Visit Type Treatment Note Visit Start Time 13:00 Visit Stop Time 13:45 Total Visit Minutes 45 Visit Number 31 PT-OP-B Current Condition Start: 10/09/21 08:11 Freq: Status: Active Protocol: Document 10/15/21 15:15 SAK (Rec: 10/15/21 16:37 SAK [id number]) Current Condition History of Current Condition Onset Date 09/18/21 Current Complaints left shoulder pain. History of Current Condition SLAP shoulder repair after failed PT. Reports post op wore sling for 1-2 weeks per doctor, then instructed in gentle limited motion and no lifting. Has had deep throbbing pain distal clavicle , has mostly been sitting or laying down, icing. Just now starting to move around a little. Has difficulty taking pain medications, has had to modify diet to tolerate. Uses ice machine. Prior Treatments and Tests Post-op with Dr. Castle , instructed no heavy lifting, no straining, move, but not too much. General protocol shows PROM until 5 weeks post op. Will contact physician office to further clarify. Future Testing and Treatments Planned Will see Dr. Castle again 6-8 weeks post-op Treatment Goals Patient/Caregiver Goals regain full active use of her left UE PT-OP-C Subjective Start: 10/09/21 08:11 Freq: Status: Active Protocol: Document 03/30/22 13:01 AMB (Rec: 03/30/22 13:14 AMB [id number]) OP-PT Subjective Patient Comments Patient Comments Nadeems shoulder is doing a little bit better. PT-OP-F Manual Assessment Start: 10/09/21 08:11 Freq: Status: Active Protocol: Document 10/09/21 15:20 SAK (Rec: 10/09/21 17:09 SAK [id number]) Manual Assessments Soft Tissue Assessment Soft Tissue Mobility Assessment increased tightness left UT, periscapular region PT-OP-H Neuro Start: 10/09/21 08:11 Freq: Status: Active Protocol: Document 10/09/21 15:20 SAK (Rec: 10/09/21 17:09 SAK [id number]) Sensation Evaluation Gross Sensation Gross Sensation WNL PT-OP-J Posture/Palpation/Skin Start: 10/09/21 08:11 Freq: Status: Active Protocol: Document 10/09/21 15:20 SAK (Rec: 10/09/21 17:09 SAK [id number]) Palpation Assessment Location upper traps Palpation Location left Palpation Findings Soft Tissue Tightness,Muscle Guarding,Tenderness,Trigger Point Skin Assessment Edema Assessment Left Arm Edema Appearance Discolored,Taut Subjective Edema Description Pain,Tightness Incisional Assessment Incision Appearance/Comments well-healing arthroscopic scar ant and post. PT-OP-K Range of Motion Start: 10/09/21 08:11 Freq: Status: Active Protocol: Document 12/25/21 14:02 AMB (Rec: 12/25/21 14:14 AMB [id number]) Shoulder Goniometric Range of Motion Shoulder Left Passive Flexion 146 Abduction 155 PT-OP-M Strength Start: 10/09/21 08:11 Freq: Status: Active Protocol: Document 12/29/21 13:32 AMB (Rec: 12/31/21 13:33 AMB [id number]) Shoulder Strength Shoulder Manual Muscle Testing Left Flexion 4- Good- Extension 4+ Good+ Abduction (C5) 4 Good External Rotation 4- Good- Internal Rotation 4 Good PT-OP-Q Treatments Start: 10/09/21 08:11 Freq: Status: Active Protocol: Document 03/30/22 13:01 AMB (Rec: 03/30/22 13:14 AMB [id number]) Therapeutic Exercises Sitting Exercises pulleys Sitting Exercise Name flexion, scaption Reps/Minutes 10x Comments elbow bent, cues for relaxing left UE, Standing Exercises biceps curls Standing Exercise Name neutral Resistance 3# Reps/Minutes 2x10 t band ER Standing Exercise Name HEP Resistance #3 t band Reps/Minutes 2x10 t band IR Standing Exercise Name HEP Side left Resistance #3 t band Reps/Minutes 2x10 Manual Therapy Treatment Soft Tissue Mobilization rhomboids Body Location plus Teres lucrecia Mobilization Type Myofascial Release,Sustained Pressure,Trigger Point Release Intensity/Depth Moderate Body Position Sidelying subscapularis Mobilization Type Sustained Pressure,Trigger Point Release,Other Intensity/Depth Moderate Body Position Supine Comments pin and stretch with passive shoulder flex, abd, ER, IR PT-OP-R Modalities Start: 10/09/21 08:11 Freq: Status: Active Protocol: Document 03/30/22 13:01 AMB (Rec: 03/30/22 13:14 AMB [id number]) Iontophoresis Treatment Shoulder Treatment Medication Dexamethasone (-) Medication Amount (mL) (ml) 1 Treatment Polarity Negative to Negative Active Electrode Placement anterior shoulder Dispersive Electrode Placement posterior shoulder PT-OP-T Assessment and Plan Start: 10/09/21 08:11 Freq: Status: Active Protocol: Document 03/30/22 13:01 AMB (Rec: 03/30/22 13:14 AMB [id number]) Physical Therapy Assessment Goals Three Impairment shoulder function Impairment unable to reach overhead or behind her back for purposes of ADL's Short Term Goal (STG) Patient will be able to reach overhead and behind her back without difficulty. Pain continues to limit, can reach overhead but for very limited duration, can don/doff bra with difficulty. STG Duration 04/24/22 Mcfp Goal (LTG) Patient to score less than 15% on Quickdash Disability Index score as measure of improved functional use of left UE. LTG Duration 05/25/21 Two Impairment strength Short Term Goal (STG) Patient to be independent and compliant with a progressive HEP for purposes of increased left shoulder ROM and strength STG Duration MET First Grade Teacher Goal (LTG) Patient to achieve at least 4+ /5 muscle strength left shoulder all muscle groups to allow her to return to her usual activities. Progress made: 4/5 in most muscle groups LTG Duration 05/25/22 One Impairment Decreased ROM left shoulder post-op shoulder surgery Short Term Goal (STG) Patient to achieve full PROM left shoulder-- pain limit end range, but significantly improved in comparison to preop and immediately post op STG Duration - progressing First Grade Teacher Goal (LTG) Patient to achieve full AROM left shoulder to allow her to do all usual ADL's and activities LTG Duration 05/25/22 Assessment Summary Assessment Pt's pain is decreased today, but continues to be fearful of movement, increased pain. Physical Therapy Plan Frequency and Duration Frequency of Treatment 1x/Week Duration of treatment (weeks) 10 Plan of Care Start Date 03/16/22 Plan of Care End Date 05/25/22 Therapeutic Interventions Therapeutic Interventions Aquatic Therapy,Home Exercise Program,Manual Therapy,Patient /Caregiver Education,Self-Care /Home Management,Soft Tissue Mobilization,Taping, Therapeutic Activities, Therapeutic Exercises Modalities Cold Pack/Ice Massage,Electric Stimulation,Hot Packs, Iontophoresis Other Therapeutic Interventions iontophoresis with dexamethasone
--- NOTE | 2022-04-22 11:03 | PT.OTN ---
Current Diagnoses Stiffness of left shoulder, not elsewhere classified (04/22/22) Weakness (04/22/22) Contusion of left shoulder, initial encounter (04/22/22) Arthroscopic surgical procedure converted to open procedure (04/22/22) Physical Therapy Treatment Note PT-OP-A Visit Information Start: 10/09/21 08:11 Freq: Status: Active Protocol: Document 04/22/22 09:45 AMB (Rec: 04/22/22 10:34 AMB [id number]) Out-Patient Physical Therapy Visit Information Visit Information Visit Type Treatment Note Visit Start Time 09:45 Visit Stop Time 10:30 Total Visit Minutes 45 Visit Number 32 PT-OP-B Current Condition Start: 10/09/21 08:11 Freq: Status: Active Protocol: Document 10/15/21 15:15 SAK (Rec: 10/15/21 16:37 SAK [id number]) Current Condition History of Current Condition Onset Date 09/18/21 Current Complaints left shoulder pain. History of Current Condition SLAP shoulder repair after failed PT. Reports post op wore sling for 1-2 weeks per doctor, then instructed in gentle limited motion and no lifting. Has had deep throbbing pain distal clavicle , has mostly been sitting or laying down, icing. Just now starting to move around a little. Has difficulty taking pain medications, has had to modify diet to tolerate. Uses ice machine. Prior Treatments and Tests Post-op with Dr. Castle , instructed no heavy lifting, no straining, move, but not too much. General protocol shows PROM until 5 weeks post op. Will contact physician office to further clarify. Future Testing and Treatments Planned Will see Dr. Castle again 6-8 weeks post-op Treatment Goals Patient/Caregiver Goals regain full active use of her left UE PT-OP-C Subjective Start: 10/09/21 08:11 Freq: Status: Active Protocol: Document 04/22/22 09:45 AMB (Rec: 04/22/22 10:34 AMB [id number]) OP-PT Subjective Patient Comments Patient Comments Ansley did not have any big flare ups over the past few weeks while she was celebrating [employer]. PT-OP-F Manual Assessment Start: 10/09/21 08:11 Freq: Status: Active Protocol: Document 10/09/21 15:20 SAK (Rec: 10/09/21 17:09 SAK [id number]) Manual Assessments Soft Tissue Assessment Soft Tissue Mobility Assessment increased tightness left UT, periscapular region PT-OP-H Neuro Start: 10/09/21 08:11 Freq: Status: Active Protocol: Document 10/09/21 15:20 SAK (Rec: 10/09/21 17:09 SAK [id number]) Sensation Evaluation Gross Sensation Gross Sensation WNL PT-OP-J Posture/Palpation/Skin Start: 10/09/21 08:11 Freq: Status: Active Protocol: Document 10/09/21 15:20 SAK (Rec: 10/09/21 17:09 SAK [id number]) Palpation Assessment Location upper traps Palpation Location left Palpation Findings Soft Tissue Tightness,Muscle Guarding,Tenderness,Trigger Point Skin Assessment Edema Assessment Left Arm Edema Appearance Discolored,Taut Subjective Edema Description Pain,Tightness Incisional Assessment Incision Appearance/Comments well-healing arthroscopic scar ant and post. PT-OP-K Range of Motion Start: 10/09/21 08:11 Freq: Status: Active Protocol: Document 12/25/21 14:02 AMB (Rec: 12/25/21 14:14 AMB [id number]) Shoulder Goniometric Range of Motion Shoulder Left Passive Flexion 146 Abduction 155 PT-OP-M Strength Start: 10/09/21 08:11 Freq: Status: Active Protocol: Document 12/29/21 13:32 AMB (Rec: 12/31/21 13:33 AMB [id number]) Shoulder Strength Shoulder Manual Muscle Testing Left Flexion 4- Good- Extension 4+ Good+ Abduction (C5) 4 Good External Rotation 4- Good- Internal Rotation 4 Good PT-OP-Q Treatments Start: 10/09/21 08:11 Freq: Status: Active Protocol: Document 04/22/22 09:45 AMB (Rec: 04/22/22 10:34 AMB [id number]) Therapeutic Exercises Sidelying Exercises shoulder abduciton Reps/Minutes 2x10 Comments AROM 0-90 1 Sidelying Exercise Name shoulder ER AROM Reps/Minutes 2x10 Sitting Exercises pulleys Sitting Exercise Name flexion, scaption Reps/Minutes 10x Comments elbow bent, cues for relaxing left UE, Standing Exercises biceps curls Standing Exercise Name neutral Resistance 3# Reps/Minutes 2x10 t band rows Standing Exercise Name HEP Side bilateral Resistance #3 t band Reps/Minutes 2x10 shoulder extension Standing Exercise Name HEP Side left Resistance #2 t band Reps/Minutes 20x Manual Therapy Treatment Soft Tissue Mobilization UT, scar mob, biceps Body Location left UE Mobilization Type Myofascial Release Intensity/Depth Moderate Body Position Hooklying PT-OP-R Modalities Start: 10/09/21 08:11 Freq: Status: Active Protocol: Document 04/22/22 14:20 AMB (Rec: 04/22/22 14:21 AMB [id number]) Iontophoresis Treatment Shoulder Treatment Medication Dexamethasone (-) Medication Amount (mL) (ml) 1 Treatment Polarity Negative to Negative Active Electrode Placement anterior shoulder Dispersive Electrode Placement posterior shoulder PT-OP-T Assessment and Plan Start: 10/09/21 08:11 Freq: Status: Active Protocol: Document 04/22/22 09:45 AMB (Rec: 04/22/22 10:34 AMB [id number]) Physical Therapy Assessment Goals Three Impairment shoulder function Impairment unable to reach overhead or behind her back for purposes of ADL's Short Term Goal (STG) Patient will be able to reach overhead and behind her back without difficulty. Pain continues to limit, can reach overhead but for very limited duration, can don/doff bra with difficulty. STG Duration 04/24/22 Alf Goal (LTG) Patient to score less than 15% on Quickdash Disability Index score as measure of improved functional use of left UE. LTG Duration 05/25/21 Two Impairment strength Short Term Goal (STG) Patient to be independent and compliant with a progressive HEP for purposes of increased left shoulder ROM and strength STG Duration MET Trucking Supervisor Goal (LTG) Patient to achieve at least 4+ /5 muscle strength left shoulder all muscle groups to allow her to return to her usual activities. Progress made: 4/5 in most muscle groups LTG Duration 05/25/22 One Impairment Decreased ROM left shoulder post-op shoulder surgery Short Term Goal (STG) Patient to achieve full PROM left shoulder-- pain limit end range, but significantly improved in comparison to preop and immediately post op STG Duration - progressing Alf Goal (LTG) Patient to achieve full AROM left shoulder to allow her to do all usual ADL's and activities LTG Duration 05/25/22 Assessment Summary Assessment Working more on strengthening below shoulder height seemed to work better today. Less pain in joint, although continues to be painful in upper trap. Physical Therapy Plan Frequency and Duration Frequency of Treatment 1x/Week Duration of treatment (weeks) 10 Plan of Care Start Date 03/16/22 Plan of Care End Date 05/25/22 Therapeutic Interventions Therapeutic Interventions Aquatic Therapy,Home Exercise Program,Manual Therapy,Patient /Caregiver Education,Self-Care /Home Management,Soft Tissue Mobilization,Taping, Therapeutic Activities, Therapeutic Exercises Modalities Cold Pack/Ice Massage,Electric Stimulation,Hot Packs, Iontophoresis Other Therapeutic Interventions iontophoresis with dexamethasone Next Visit Focus/Plan Next Note Type Treatment Note Next Visit Plan Progress strengthening starting with below shoulder height.
--- NOTE | 2022-05-04 13:48 | PT.OTN ---
Current Diagnoses Stiffness of left shoulder, not elsewhere classified (05/04/22) Weakness (05/04/22) Contusion of left shoulder, initial encounter (05/04/22) Arthroscopic surgical procedure converted to open procedure (05/04/22) Physical Therapy Treatment Note PT-OP-A Visit Information Start: 10/09/21 08:11 Freq: Status: Active Protocol: Document 05/04/22 13:02 AMB (Rec: 05/04/22 13:48 AMB [id number]) Out-Patient Physical Therapy Visit Information Visit Information Visit Type Treatment Note Visit Start Time 13:00 Visit Stop Time 13:45 Total Visit Minutes 45 Visit Number 33 PT-OP-B Current Condition Start: 10/09/21 08:11 Freq: Status: Active Protocol: Document 10/15/21 15:15 SAK (Rec: 10/15/21 16:37 SAK [id number]) Current Condition History of Current Condition Onset Date 09/18/21 Current Complaints left shoulder pain. History of Current Condition SLAP shoulder repair after failed PT. Reports post op wore sling for 1-2 weeks per doctor, then instructed in gentle limited motion and no lifting. Has had deep throbbing pain distal clavicle , has mostly been sitting or laying down, icing. Just now starting to move around a little. Has difficulty taking pain medications, has had to modify diet to tolerate. Uses ice machine. Prior Treatments and Tests Post-op with Dr. Castle , instructed no heavy lifting, no straining, move, but not too much. General protocol shows PROM until 5 weeks post op. Will contact physician office to further clarify. Future Testing and Treatments Planned Will see Dr. Castle again 6-8 weeks post-op Treatment Goals Patient/Caregiver Goals regain full active use of her left UE PT-OP-C Subjective Start: 10/09/21 08:11 Freq: Status: Active Protocol: Document 05/04/22 13:02 AMB (Rec: 05/04/22 13:48 AMB [id number]) OP-PT Subjective Patient Comments Patient Comments Pt reports continuing doing pendulums and wall walks, has been stressed with family and that has been making her tighter. PT-OP-F Manual Assessment Start: 10/09/21 08:11 Freq: Status: Active Protocol: Document 10/09/21 15:20 SAK (Rec: 10/09/21 17:09 SAK [id number]) Manual Assessments Soft Tissue Assessment Soft Tissue Mobility Assessment increased tightness left UT, periscapular region PT-OP-H Neuro Start: 10/09/21 08:11 Freq: Status: Active Protocol: Document 10/09/21 15:20 SAK (Rec: 10/09/21 17:09 SAK [id number]) Sensation Evaluation Gross Sensation Gross Sensation WNL PT-OP-J Posture/Palpation/Skin Start: 10/09/21 08:11 Freq: Status: Active Protocol: Document 10/09/21 15:20 SAK (Rec: 10/09/21 17:09 SAK [id number]) Palpation Assessment Location upper traps Palpation Location left Palpation Findings Soft Tissue Tightness,Muscle Guarding,Tenderness,Trigger Point Skin Assessment Edema Assessment Left Arm Edema Appearance Discolored,Taut Subjective Edema Description Pain,Tightness Incisional Assessment Incision Appearance/Comments well-healing arthroscopic scar ant and post. PT-OP-K Range of Motion Start: 10/09/21 08:11 Freq: Status: Active Protocol: Document 12/25/21 14:02 AMB (Rec: 12/25/21 14:14 AMB [id number]) Shoulder Goniometric Range of Motion Shoulder Left Passive Flexion 146 Abduction 155 PT-OP-M Strength Start: 10/09/21 08:11 Freq: Status: Active Protocol: Document 12/29/21 13:32 AMB (Rec: 12/31/21 13:33 AMB [id number]) Shoulder Strength Shoulder Manual Muscle Testing Left Flexion 4- Good- Extension 4+ Good+ Abduction (C5) 4 Good External Rotation 4- Good- Internal Rotation 4 Good PT-OP-Q Treatments Start: 10/09/21 08:11 Freq: Status: Active Protocol: Document 05/04/22 13:02 AMB (Rec: 05/04/22 13:48 AMB [id number]) Therapeutic Exercises Sidelying Exercises shoulder abduciton Reps/Minutes 2x10 Comments AROM 0-45 1 Sidelying Exercise Name shoulder ER AROM Reps/Minutes 2x10 Standing Exercises rows (weight) Side left Resistance 2# Reps/Minutes 2x10 biceps curls Standing Exercise Name neutral Resistance 3# Reps/Minutes 2x10 Manual Therapy Treatment Soft Tissue Mobilization rhomboids Body Location plus Teres lucrecia Mobilization Type Myofascial Release,Sustained Pressure,Trigger Point Release Intensity/Depth Moderate Body Position Sidelying UT, scar mob, biceps Body Location left UE Mobilization Type Myofascial Release Intensity/Depth Moderate Body Position Hooklying PT-OP-R Modalities Start: 10/09/21 08:11 Freq: Status: Active Protocol: Document 05/04/22 13:02 AMB (Rec: 05/04/22 13:48 AMB [id number]) Iontophoresis Treatment Shoulder Treatment Medication Dexamethasone (-) Medication Amount (mL) (ml) 1 Treatment Polarity Negative to Negative Active Electrode Placement anterior shoulder Dispersive Electrode Placement posterior shoulder PT-OP-T Assessment and Plan Start: 10/09/21 08:11 Freq: Status: Active Protocol: Document 05/04/22 13:02 AMB (Rec: 05/04/22 13:48 AMB [id number]) Physical Therapy Assessment Goals Three Impairment shoulder function Impairment unable to reach overhead or behind her back for purposes of ADL's Short Term Goal (STG) Patient will be able to reach overhead and behind her back without difficulty. Pain continues to limit, can reach overhead but for very limited duration, can don/doff bra with difficulty. STG Duration 04/24/22 Halfway Goal (LTG) Patient to score less than 15% on Quickdash Disability Index score as measure of improved functional use of left UE. LTG Duration 05/25/21 Two Impairment strength Short Term Goal (STG) Patient to be independent and compliant with a progressive HEP for purposes of increased left shoulder ROM and strength STG Duration MET Loading Machine Tool Setter Goal (LTG) Patient to achieve at least 4+ /5 muscle strength left shoulder all muscle groups to allow her to return to her usual activities. Progress made: 4/5 in most muscle groups LTG Duration 05/25/22 One Impairment Decreased ROM left shoulder post-op shoulder surgery Short Term Goal (STG) Patient to achieve full PROM left shoulder-- pain limit end range, but significantly improved in comparison to preop and immediately post op STG Duration - progressing Loading Machine Tool Setter Goal (LTG) Patient to achieve full AROM left shoulder to allow her to do all usual ADL's and activities LTG Duration 05/25/22 Assessment Summary Assessment Ansley is tolerating stretching, but continues to be painful and tight. Encouraged to continue with gentle ROM and work back into resistance training. Physical Therapy Plan Frequency and Duration Frequency of Treatment 1x/Week Duration of treatment (weeks) 10 Plan of Care Start Date 03/16/22 Plan of Care End Date 05/25/22 Therapeutic Interventions Therapeutic Interventions Aquatic Therapy,Home Exercise Program,Manual Therapy,Patient /Caregiver Education,Self-Care /Home Management,Soft Tissue Mobilization,Taping, Therapeutic Activities, Therapeutic Exercises Modalities Cold Pack/Ice Massage,Electric Stimulation,Hot Packs, Iontophoresis Other Therapeutic Interventions iontophoresis with dexamethasone Next Visit Focus/Plan Next Note Type Treatment Note Next Visit Plan Progress strengthening starting with below shoulder height.
--- NOTE | 2022-05-11 14:53 | PT.OTN ---
Current Diagnoses Stiffness of left shoulder, not elsewhere classified (05/11/22) Weakness (05/11/22) Contusion of left shoulder, initial encounter (05/11/22) Arthroscopic surgical procedure converted to open procedure (05/11/22) Physical Therapy Treatment Note PT-OP-A Visit Information Start: 10/09/21 08:11 Freq: Status: Active Protocol: Document 05/11/22 13:03 AMB (Rec: 05/11/22 13:46 AMB [id number]) Out-Patient Physical Therapy Visit Information Visit Information Visit Type Treatment Note Visit Start Time 13:00 Visit Stop Time 13:45 Total Visit Minutes 45 Visit Number 34 PT-OP-B Current Condition Start: 10/09/21 08:11 Freq: Status: Active Protocol: Document 10/15/21 15:15 SAK (Rec: 10/15/21 16:37 SAK [id number]) Current Condition History of Current Condition Onset Date 09/18/21 Current Complaints left shoulder pain. History of Current Condition SLAP shoulder repair after failed PT. Reports post op wore sling for 1-2 weeks per doctor, then instructed in gentle limited motion and no lifting. Has had deep throbbing pain distal clavicle , has mostly been sitting or laying down, icing. Just now starting to move around a little. Has difficulty taking pain medications, has had to modify diet to tolerate. Uses ice machine. Prior Treatments and Tests Post-op with Dr. Castle , instructed no heavy lifting, no straining, move, but not too much. General protocol shows PROM until 5 weeks post op. Will contact physician office to further clarify. Future Testing and Treatments Planned Will see Dr. Castle again 6-8 weeks post-op Treatment Goals Patient/Caregiver Goals regain full active use of her left UE PT-OP-C Subjective Start: 10/09/21 08:11 Freq: Status: Active Protocol: Document 05/11/22 13:03 AMB (Rec: 05/11/22 13:46 AMB [id number]) OP-PT Subjective Patient Comments Patient Comments Pt reports stiffness in shoulder is continuing, has been doign her HEP, is challenged by horizontal abduction. PT-OP-F Manual Assessment Start: 10/09/21 08:11 Freq: Status: Active Protocol: Document 10/09/21 15:20 SAK (Rec: 10/09/21 17:09 SAK [id number]) Manual Assessments Soft Tissue Assessment Soft Tissue Mobility Assessment increased tightness left UT, periscapular region PT-OP-H Neuro Start: 10/09/21 08:11 Freq: Status: Active Protocol: Document 10/09/21 15:20 SAK (Rec: 10/09/21 17:09 SAK [id number]) Sensation Evaluation Gross Sensation Gross Sensation WNL PT-OP-J Posture/Palpation/Skin Start: 10/09/21 08:11 Freq: Status: Active Protocol: Document 10/09/21 15:20 SAK (Rec: 10/09/21 17:09 SAK [id number]) Palpation Assessment Location upper traps Palpation Location left Palpation Findings Soft Tissue Tightness,Muscle Guarding,Tenderness,Trigger Point Skin Assessment Edema Assessment Left Arm Edema Appearance Discolored,Taut Subjective Edema Description Pain,Tightness Incisional Assessment Incision Appearance/Comments well-healing arthroscopic scar ant and post. PT-OP-K Range of Motion Start: 10/09/21 08:11 Freq: Status: Active Protocol: Document 12/25/21 14:02 AMB (Rec: 12/25/21 14:14 AMB [id number]) Shoulder Goniometric Range of Motion Shoulder Left Passive Flexion 146 Abduction 155 PT-OP-M Strength Start: 10/09/21 08:11 Freq: Status: Active Protocol: Document 12/29/21 13:32 AMB (Rec: 12/31/21 13:33 AMB [id number]) Shoulder Strength Shoulder Manual Muscle Testing Left Flexion 4- Good- Extension 4+ Good+ Abduction (C5) 4 Good External Rotation 4- Good- Internal Rotation 4 Good PT-OP-Q Treatments Start: 10/09/21 08:11 Freq: Status: Active Protocol: Document 05/11/22 13:03 AMB (Rec: 05/11/22 13:46 AMB [id number]) Therapeutic Exercises Sidelying Exercises shoulder abduciton Reps/Minutes 2x10 Comments AROM 0-45 1 Sidelying Exercise Name shoulder ER AROM Reps/Minutes 2x10 Sitting Exercises ball rolling Sitting Exercise Name 65cm Reps/Minutes 2x2 min Comments flexion, horizontal abduction Standing Exercises biceps curls Standing Exercise Name neutral Resistance 2# Reps/Minutes 2x10 t band ER Standing Exercise Name HEP Resistance #3 t band Reps/Minutes 2x10 t band IR Standing Exercise Name HEP Side left Resistance #3 t band Reps/Minutes 2x10 t band rows Standing Exercise Name HEP Side bilateral Resistance #3 t band Reps/Minutes 2x10 Manual Therapy Treatment Soft Tissue Mobilization UT, scar mob, biceps Body Location left UE Mobilization Type Myofascial Release Intensity/Depth Moderate Body Position Hooklying PT-OP-R Modalities Start: 10/09/21 08:11 Freq: Status: Active Protocol: Document 05/11/22 13:03 AMB (Rec: 05/11/22 13:46 AMB [id number]) Iontophoresis Treatment Shoulder Treatment Medication Dexamethasone (-) Medication Amount (mL) (ml) 1 Treatment Polarity Negative to Negative Active Electrode Placement anterior shoulder Dispersive Electrode Placement posterior shoulder PT-OP-T Assessment and Plan Start: 10/09/21 08:11 Freq: Status: Active Protocol: Document 05/11/22 13:03 AMB (Rec: 05/11/22 13:46 AMB [id number]) Physical Therapy Assessment Goals Three Impairment shoulder function Impairment unable to reach overhead or behind her back for purposes of ADL's Short Term Goal (STG) Patient will be able to reach overhead and behind her back without difficulty. Pain continues to limit, can reach overhead but for very limited duration, can don/doff bra with difficulty. STG Duration 04/24/22 Detention Goal (LTG) Patient to score less than 15% on Quickdash Disability Index score as measure of improved functional use of left UE. LTG Duration 05/25/21 Two Impairment strength Short Term Goal (STG) Patient to be independent and compliant with a progressive HEP for purposes of increased left shoulder ROM and strength STG Duration MET Detention Goal (LTG) Patient to achieve at least 4+ /5 muscle strength left shoulder all muscle groups to allow her to return to her usual activities. Progress made: 4/5 in most muscle groups LTG Duration 05/25/22 One Impairment Decreased ROM left shoulder post-op shoulder surgery Short Term Goal (STG) Patient to achieve full PROM left shoulder-- pain limit end range, but significantly improved in comparison to preop and immediately post op STG Duration - progressing Detention Goal (LTG) Patient to achieve full AROM left shoulder to allow her to do all usual ADL's and activities LTG Duration 05/25/22 Assessment Summary Assessment Ansley continues to be challenged by strengthening exercises, but she did not have any sharp pain with this treatment. Have decreased PROM activities and doing more AROM and self stretching which she is tolerating more. Physical Therapy Plan Frequency and Duration Frequency of Treatment 1x/Week Duration of treatment (weeks) 10 Plan of Care Start Date 03/16/22 Plan of Care End Date 05/25/22 Therapeutic Interventions Therapeutic Interventions Aquatic Therapy,Home Exercise Program,Manual Therapy,Patient /Caregiver Education,Self-Care /Home Management,Soft Tissue Mobilization,Taping, Therapeutic Activities, Therapeutic Exercises Modalities Cold Pack/Ice Massage,Electric Stimulation,Hot Packs, Iontophoresis Other Therapeutic Interventions iontophoresis with dexamethasone Next Visit Focus/Plan Next Note Type Treatment Note Next Visit Plan Progress strengthening starting with below shoulder height.
--- NOTE | 2022-06-01 11:51 | PT.OTN ---
Current Diagnoses Stiffness of left shoulder, not elsewhere classified (06/01/22) Weakness (06/01/22) Contusion of left shoulder, initial encounter (06/01/22) Arthroscopic surgical procedure converted to open procedure (06/01/22) Physical Therapy Treatment Note PT-OP-A Visit Information Start: 10/09/21 08:11 Freq: Status: Active Protocol: Document 06/01/22 10:35 AMB (Rec: 06/01/22 11:17 AMB [id number]) Out-Patient Physical Therapy Visit Information Visit Information Visit Type Progress Note Visit Start Time 10:30 Visit Stop Time 11:15 Total Visit Minutes 45 Visit Number 35 PT-OP-B Current Condition Start: 10/09/21 08:11 Freq: Status: Active Protocol: Document 10/15/21 15:15 SAK (Rec: 10/15/21 16:37 SAK [id number]) Current Condition History of Current Condition Onset Date 09/18/21 Current Complaints left shoulder pain. History of Current Condition SLAP shoulder repair after failed PT. Reports post op wore sling for 1-2 weeks per doctor, then instructed in gentle limited motion and no lifting. Has had deep throbbing pain distal clavicle , has mostly been sitting or laying down, icing. Just now starting to move around a little. Has difficulty taking pain medications, has had to modify diet to tolerate. Uses ice machine. Prior Treatments and Tests Post-op with Dr. Castle , instructed no heavy lifting, no straining, move, but not too much. General protocol shows PROM until 5 weeks post op. Will contact physician office to further clarify. Future Testing and Treatments Planned Will see Dr. Castle again 6-8 weeks post-op Treatment Goals Patient/Caregiver Goals regain full active use of her left UE PT-OP-C Subjective Start: 10/09/21 08:11 Freq: Status: Active Protocol: Document 06/01/22 10:35 AMB (Rec: 06/01/22 11:17 AMB [id number]) OP-PT Subjective Patient Comments Patient Comments Pt hasn't been seen in a few weeks. PT-OP-F Manual Assessment Start: 10/09/21 08:11 Freq: Status: Active Protocol: Document 10/09/21 15:20 SAK (Rec: 10/09/21 17:09 SAK [id number]) Manual Assessments Soft Tissue Assessment Soft Tissue Mobility Assessment increased tightness left UT, periscapular region PT-OP-H Neuro Start: 10/09/21 08:11 Freq: Status: Active Protocol: Document 10/09/21 15:20 SAK (Rec: 10/09/21 17:09 SAK [id number]) Sensation Evaluation Gross Sensation Gross Sensation WNL PT-OP-J Posture/Palpation/Skin Start: 10/09/21 08:11 Freq: Status: Active Protocol: Document 10/09/21 15:20 SAK (Rec: 10/09/21 17:09 SAK [id number]) Palpation Assessment Location upper traps Palpation Location left Palpation Findings Soft Tissue Tightness,Muscle Guarding,Tenderness,Trigger Point Skin Assessment Edema Assessment Left Arm Edema Appearance Discolored,Taut Subjective Edema Description Pain,Tightness Incisional Assessment Incision Appearance/Comments well-healing arthroscopic scar ant and post. PT-OP-K Range of Motion Start: 10/09/21 08:11 Freq: Status: Active Protocol: Document 12/25/21 14:02 AMB (Rec: 12/25/21 14:14 AMB [id number]) Shoulder Goniometric Range of Motion Shoulder Left Passive Flexion 146 Abduction 155 PT-OP-M Strength Start: 10/09/21 08:11 Freq: Status: Active Protocol: Document 12/29/21 13:32 AMB (Rec: 12/31/21 13:33 AMB [id number]) Shoulder Strength Shoulder Manual Muscle Testing Left Flexion 4- Good- Extension 4+ Good+ Abduction (C5) 4 Good External Rotation 4- Good- Internal Rotation 4 Good PT-OP-Q Treatments Start: 10/09/21 08:11 Freq: Status: Active Protocol: Document 06/01/22 10:35 AMB (Rec: 06/01/22 11:17 AMB [id number]) Therapeutic Exercises Sidelying Exercises 1 Sidelying Exercise Name shoulder ER AROM Reps/Minutes 2x10 Sitting Exercises scapular squeeze Reps/Minutes 5x5 Standing Exercises tricep ext Resistance 2# Reps/Minutes 1x10 biceps curls Standing Exercise Name neutral Resistance 2# Reps/Minutes 2x15 t band IR Standing Exercise Name HEP Side left Resistance #3 t band Reps/Minutes 2x10 t band rows Standing Exercise Name HEP Side bilateral Resistance #3 t band Reps/Minutes 2x10 shoulder extension Standing Exercise Name HEP Side left Resistance #2 t band Reps/Minutes 20x Manual Therapy Treatment Soft Tissue Mobilization rhomboids Body Location plus Teres lucrecia Mobilization Type Myofascial Release,Sustained Pressure,Trigger Point Release Intensity/Depth Moderate Body Position Sidelying subscapularis Mobilization Type Sustained Pressure,Trigger Point Release,Other Intensity/Depth Moderate Body Position Supine Comments pin and stretch with very gentle passive shoulder flex, abd, ER, IR subclavius Body Location Left Mobilization Type Myofascial Release,Sustained Pressure,Trigger Point Release Intensity/Depth Moderate Body Position Supine Comments added deltoid UT, scar mob, biceps Body Location left UE Mobilization Type Myofascial Release Intensity/Depth Moderate Body Position Hooklying PT-OP-R Modalities Start: 10/09/21 08:11 Freq: Status: Active Protocol: Document 05/11/22 13:03 AMB (Rec: 05/11/22 13:46 AMB [id number]) Iontophoresis Treatment Shoulder Treatment Medication Dexamethasone (-) Medication Amount (mL) (ml) 1 Treatment Polarity Negative to Negative Active Electrode Placement anterior shoulder Dispersive Electrode Placement posterior shoulder PT-OP-T Assessment and Plan Start: 10/09/21 08:11 Freq: Status: Active Protocol: Document 06/01/22 10:35 AMB (Rec: 06/01/22 11:17 AMB [id number]) Physical Therapy Assessment Goals Three Impairment shoulder function Impairment unable to reach overhead or behind her back for purposes of ADL's Short Term Goal (STG) Patient will be able to reach overhead and behind her back without difficulty. Pain continues to limit, can reach overhead but for very limited duration, can don/doff bra with difficulty. STG Duration 07/10/22 Penitentiary Goal (LTG) Patient to score less than 15% on Quickdash Disability Index score as measure of improved functional use of left UE. LTG Duration 08/10/22 Two Impairment strength Short Term Goal (STG) Patient to be independent and compliant with a progressive HEP for purposes of increased left shoulder ROM and strength STG Duration MET Penitentiary Goal (LTG) Patient to achieve at least 4+ /5 muscle strength left shoulder all muscle groups to allow her to return to her usual activities. Progress made: 4/5 in most muscle groups LTG Duration 08/09/22 One Impairment Decreased ROM left shoulder post-op shoulder surgery Short Term Goal (STG) Patient to achieve full PROM left shoulder-- pain limit end range, but significantly improved in comparison to preop and immediately post op STG Duration 07/10/22 Penitentiary Goal (LTG) Patient to achieve full AROM left shoulder to allow her to do all usual ADL's and activities LTG Duration 08/09/22 Assessment Summary Assessment Ansley tolerated increased strengthening today. She seems to be turning a corner with her rehab, with less pain flares. Continues to be very weak and has really struggled to progress strengthening to anything above shoulder height . Is tolerating more strengthening at this point, but weight and ROM is very limited. As pt has shown improvements in pain and strengthening tolerance, but continues to be very challenged with ADLs (example donning bra is still challenging and painful) she would continue to benefit from skilled therapy to guide her in getting as much function out of the shoulder as possible. Physical Therapy Plan Frequency and Duration Frequency of Treatment 1x/Week Duration of treatment (weeks) 10 Plan of Care Start Date 06/01/22 Plan of Care End Date 08/10/22 Therapeutic Interventions Therapeutic Interventions Aquatic Therapy,Home Exercise Program,Manual Therapy,Patient /Caregiver Education,Self-Care /Home Management,Soft Tissue Mobilization,Taping, Therapeutic Activities, Therapeutic Exercises Modalities Cold Pack/Ice Massage,Electric Stimulation,Hot Packs, Iontophoresis Other Therapeutic Interventions iontophoresis with dexamethasone Next Visit Focus/Plan Next Note Type Treatment Note Next Visit Plan Progress strengthening starting with below shoulder height.
--- NOTE | 2022-06-01 11:51 | PT.OPPOC ---
Physical, Occupational & Speech Therapy At [facility] Current Diagnoses Stiffness of left shoulder, not elsewhere classified (06/01/22) Weakness (06/01/22) Contusion of left shoulder, initial encounter (06/01/22) Arthroscopic surgical procedure converted to open procedure (06/01/22) Visit Care Team Role Provider Type HENRRY [place] Primary Care Provider Advanced Creative Services Designer Specialty: Medical Address: [address] [place] [address], [id number] Email: [email or web address] Javier Castle MD Attending Provider Physician Family Provider Referring Provider Specialty: Orthopedics Orthopedic Surgery Address: [address] [place] [address], [id number] Email: [email or web address] Plan Of Care PT-OP-T Assessment and Plan Start: 10/09/21 08:11 Freq: Status: Active Protocol: Document 06/01/22 10:35 AMB (Rec: 06/01/22 11:17 AMB [id number]) Physical Therapy Assessment Goals Three Impairment shoulder function Impairment unable to reach overhead or behind her back for purposes of ADL's Short Term Goal (STG) Patient will be able to reach overhead and behind her back without difficulty. Pain continues to limit, can reach overhead but for very limited duration, can don/doff bra with difficulty. STG Duration 07/10/22 Vascular Tech Goal (LTG) Patient to score less than 15% on Quickdash Disability Index score as measure of improved functional use of left UE. LTG Duration 08/10/22 Two Impairment strength Short Term Goal (STG) Patient to be independent and compliant with a progressive HEP for purposes of increased left shoulder ROM and strength STG Duration MET Fci Goal (LTG) Patient to achieve at least 4+ /5 muscle strength left shoulder all muscle groups to allow her to return to her usual activities. Progress made: 4/5 in most muscle groups LTG Duration 08/09/22 One Impairment Decreased ROM left shoulder post-op shoulder surgery Short Term Goal (STG) Patient to achieve full PROM left shoulder-- pain limit end range, but significantly improved in comparison to preop and immediately post op STG Duration 07/10/22 Fci Goal (LTG) Patient to achieve full AROM left shoulder to allow her to do all usual ADL's and activities LTG Duration 08/09/22 Assessment Summary Assessment Ansley tolerated increased strengthening today. She seems to be turning a corner with her rehab, with less pain flares. Continues to be very weak and has really struggled to progress strengthening to anything above shoulder height . Is tolerating more strengthening at this point, but weight and ROM is very limited. As pt has shown improvements in pain and strengthening tolerance, but continues to be very challenged with ADLs (example donning bra is still challenging and painful) she would continue to benefit from skilled therapy to guide her in getting as much function out of the shoulder as possible. Physical Therapy Plan Frequency and Duration Frequency of Treatment 1x/Week Duration of treatment (weeks) 10 Plan of Care Start Date 06/01/22 Plan of Care End Date 08/10/22 Therapeutic Interventions Therapeutic Interventions Aquatic Therapy,Home Exercise Program,Manual Therapy,Patient /Caregiver Education,Self-Care /Home Management,Soft Tissue Mobilization,Taping, Therapeutic Activities, Therapeutic Exercises Modalities Cold Pack/Ice Massage,Electric Stimulation,Hot Packs, Iontophoresis Other Therapeutic Interventions iontophoresis with dexamethasone Next Visit Focus/Plan Next Note Type Treatment Note Next Visit Plan Progress strengthening starting with below shoulder height. Plan of Care Dates Plan of Care Start Date 06/01/22 Plan of Care End Date 08/10/22 Electronically Signed by: Madiha Winchester, PT 06/04/22 5103 If you are in agreement with this Plan of Care, please return a signed and dated copy. I have reviewed this Plan of Care and certify that the skilled therapy services above are required to meet the patient?s needs. Physician Signature Date Printed Name and Credentials Clinical Instructor Signature Printed Name and Credentials
--- NOTE | 2022-06-09 16:18 | PT.OTN ---
Current Diagnoses Stiffness of left shoulder, not elsewhere classified (06/09/22) Weakness (06/09/22) Contusion of left shoulder, initial encounter (06/09/22) Arthroscopic surgical procedure converted to open procedure (06/09/22) Physical Therapy Treatment Note PT-OP-A Visit Information Start: 10/09/21 08:11 Freq: Status: Active Protocol: Document 06/09/22 13:53 AMB (Rec: 06/09/22 14:30 AMB [id number]) Out-Patient Physical Therapy Visit Information Visit Information Visit Type Treatment Note Visit Start Time 13:45 Visit Stop Time 14:30 Total Visit Minutes 45 Visit Number 36 PT-OP-B Current Condition Start: 10/09/21 08:11 Freq: Status: Active Protocol: Document 10/15/21 15:15 SAK (Rec: 10/15/21 16:37 SAK [id number]) Current Condition History of Current Condition Onset Date 09/18/21 Current Complaints left shoulder pain. History of Current Condition SLAP shoulder repair after failed PT. Reports post op wore sling for 1-2 weeks per doctor, then instructed in gentle limited motion and no lifting. Has had deep throbbing pain distal clavicle , has mostly been sitting or laying down, icing. Just now starting to move around a little. Has difficulty taking pain medications, has had to modify diet to tolerate. Uses ice machine. Prior Treatments and Tests Post-op with Dr. Castle , instructed no heavy lifting, no straining, move, but not too much. General protocol shows PROM until 5 weeks post op. Will contact physician office to further clarify. Future Testing and Treatments Planned Will see Dr. Castle again 6-8 weeks post-op Treatment Goals Patient/Caregiver Goals regain full active use of her left UE PT-OP-C Subjective Start: 10/09/21 08:11 Freq: Status: Active Protocol: Document 06/09/22 13:53 AMB (Rec: 06/09/22 14:30 AMB [id number]) OP-PT Subjective Patient Comments Patient Comments Pt reports increased stress and collar bone pain. PT-OP-F Manual Assessment Start: 10/09/21 08:11 Freq: Status: Active Protocol: Document 10/09/21 15:20 SAK (Rec: 10/09/21 17:09 SAK [id number]) Manual Assessments Soft Tissue Assessment Soft Tissue Mobility Assessment increased tightness left UT, periscapular region PT-OP-H Neuro Start: 10/09/21 08:11 Freq: Status: Active Protocol: Document 10/09/21 15:20 SAK (Rec: 10/09/21 17:09 SAK [id number]) Sensation Evaluation Gross Sensation Gross Sensation WNL PT-OP-J Posture/Palpation/Skin Start: 10/09/21 08:11 Freq: Status: Active Protocol: Document 10/09/21 15:20 SAK (Rec: 10/09/21 17:09 SAK [id number]) Palpation Assessment Location upper traps Palpation Location left Palpation Findings Soft Tissue Tightness,Muscle Guarding,Tenderness,Trigger Point Skin Assessment Edema Assessment Left Arm Edema Appearance Discolored,Taut Subjective Edema Description Pain,Tightness Incisional Assessment Incision Appearance/Comments well-healing arthroscopic scar ant and post. PT-OP-K Range of Motion Start: 10/09/21 08:11 Freq: Status: Active Protocol: Document 12/25/21 14:02 AMB (Rec: 12/25/21 14:14 AMB [id number]) Shoulder Goniometric Range of Motion Shoulder Left Passive Flexion 146 Abduction 155 PT-OP-M Strength Start: 10/09/21 08:11 Freq: Status: Active Protocol: Document 12/29/21 13:32 AMB (Rec: 12/31/21 13:33 AMB [id number]) Shoulder Strength Shoulder Manual Muscle Testing Left Flexion 4- Good- Extension 4+ Good+ Abduction (C5) 4 Good External Rotation 4- Good- Internal Rotation 4 Good PT-OP-Q Treatments Start: 10/09/21 08:11 Freq: Status: Active Protocol: Document 06/09/22 13:53 AMB (Rec: 06/09/22 14:30 AMB [id number]) Therapeutic Exercises Standing Exercises tricep ext Resistance 2# Reps/Minutes 1x10 rows (weight) Side left Resistance 2# Reps/Minutes 2x10 biceps curls Standing Exercise Name neutral Resistance 3# Reps/Minutes 1x15 shoulder extension Standing Exercise Name HEP Side left Resistance #2 t band Reps/Minutes 20x Manual Therapy Treatment Soft Tissue Mobilization subscapularis Mobilization Type Sustained Pressure,Trigger Point Release,Other Intensity/Depth Moderate Body Position Supine Comments pin and stretch with very gentle passive shoulder flex, abd, ER, IR subclavius Body Location Left Mobilization Type Myofascial Release,Sustained Pressure,Trigger Point Release Intensity/Depth Moderate Body Position Supine Comments added deltoid UT, scar mob, biceps Body Location left UE Mobilization Type Myofascial Release Intensity/Depth Moderate Body Position Hooklying PT-OP-R Modalities Start: 10/09/21 08:11 Freq: Status: Active Protocol: Document 05/11/22 13:03 AMB (Rec: 05/11/22 13:46 AMB [id number]) Iontophoresis Treatment Shoulder Treatment Medication Dexamethasone (-) Medication Amount (mL) (ml) 1 Treatment Polarity Negative to Negative Active Electrode Placement anterior shoulder Dispersive Electrode Placement posterior shoulder PT-OP-T Assessment and Plan Start: 10/09/21 08:11 Freq: Status: Active Protocol: Document 06/09/22 13:53 AMB (Rec: 06/09/22 14:30 AMB [id number]) Physical Therapy Assessment Goals Three Impairment shoulder function Impairment unable to reach overhead or behind her back for purposes of ADL's Short Term Goal (STG) Patient will be able to reach overhead and behind her back without difficulty. Pain continues to limit, can reach overhead but for very limited duration, can don/doff bra with difficulty. STG Duration 07/10/22 Long-Term Goal (LTG) Patient to score less than 15% on Quickdash Disability Index score as measure of improved functional use of left UE. LTG Duration 08/10/22 Two Impairment strength Short Term Goal (STG) Patient to be independent and compliant with a progressive HEP for purposes of increased left shoulder ROM and strength STG Duration MET Diabetologist Goal (LTG) Patient to achieve at least 4+ /5 muscle strength left shoulder all muscle groups to allow her to return to her usual activities. Progress made: 4/5 in most muscle groups LTG Duration 08/09/22 One Impairment Decreased ROM left shoulder post-op shoulder surgery Short Term Goal (STG) Patient to achieve full PROM left shoulder-- pain limit end range, but significantly improved in comparison to preop and immediately post op STG Duration 07/10/22 Diabetologist Goal (LTG) Patient to achieve full AROM left shoulder to allow her to do all usual ADL's and activities LTG Duration 08/09/22 Assessment Summary Assessment Ansley is frustrated by pain with sleeping, gets very anxious and stressed with difficulty getting restful sleep. Very tender at subclavius today. Physical Therapy Plan Frequency and Duration Frequency of Treatment 1x/Week Duration of treatment (weeks) 10 Plan of Care Start Date 06/01/22 Plan of Care End Date 08/10/22 Therapeutic Interventions Therapeutic Interventions Aquatic Therapy,Home Exercise Program,Manual Therapy,Patient /Caregiver Education,Self-Care /Home Management,Soft Tissue Mobilization,Taping, Therapeutic Activities, Therapeutic Exercises Modalities Cold Pack/Ice Massage,Electric Stimulation,Hot Packs, Iontophoresis Other Therapeutic Interventions iontophoresis with dexamethasone Next Visit Focus/Plan Next Note Type Treatment Note Next Visit Plan Consider stress/anxiety reduction for sleep hygeine.
--- NOTE | 2022-06-15 12:17 | PT.OTN ---
Current Diagnoses Stiffness of left shoulder, not elsewhere classified (06/15/22) Weakness (06/15/22) Contusion of left shoulder, initial encounter (06/15/22) Arthroscopic surgical procedure converted to open procedure (06/15/22) Physical Therapy Treatment Note PT-OP-A Visit Information Start: 10/09/21 08:11 Freq: Status: Active Protocol: Document 06/15/22 11:21 AMB (Rec: 06/15/22 12:00 AMB [id number]) Out-Patient Physical Therapy Visit Information Visit Information Visit Type Treatment Note Visit Start Time 11:15 Visit Stop Time 12:00 Total Visit Minutes 45 Visit Number 37 PT-OP-B Current Condition Start: 10/09/21 08:11 Freq: Status: Active Protocol: Document 10/15/21 15:15 SAK (Rec: 10/15/21 16:37 SAK [id number]) Current Condition History of Current Condition Onset Date 09/18/21 Current Complaints left shoulder pain. History of Current Condition SLAP shoulder repair after failed PT. Reports post op wore sling for 1-2 weeks per doctor, then instructed in gentle limited motion and no lifting. Has had deep throbbing pain distal clavicle , has mostly been sitting or laying down, icing. Just now starting to move around a little. Has difficulty taking pain medications, has had to modify diet to tolerate. Uses ice machine. Prior Treatments and Tests Post-op with Dr. Castle , instructed no heavy lifting, no straining, move, but not too much. General protocol shows PROM until 5 weeks post op. Will contact physician office to further clarify. Future Testing and Treatments Planned Will see Dr. Castle again 6-8 weeks post-op Treatment Goals Patient/Caregiver Goals regain full active use of her left UE PT-OP-C Subjective Start: 10/09/21 08:11 Freq: Status: Active Protocol: Document 06/15/22 11:21 AMB (Rec: 06/15/22 12:00 AMB [id number]) OP-PT Subjective Patient Comments Patient Comments Pt reports increased trap pain , driving continues to be painful. PT-OP-F Manual Assessment Start: 10/09/21 08:11 Freq: Status: Active Protocol: Document 10/09/21 15:20 SAK (Rec: 10/09/21 17:09 SAK [id number]) Manual Assessments Soft Tissue Assessment Soft Tissue Mobility Assessment increased tightness left UT, periscapular region PT-OP-H Neuro Start: 10/09/21 08:11 Freq: Status: Active Protocol: Document 10/09/21 15:20 SAK (Rec: 10/09/21 17:09 SAK [id number]) Sensation Evaluation Gross Sensation Gross Sensation WNL PT-OP-J Posture/Palpation/Skin Start: 10/09/21 08:11 Freq: Status: Active Protocol: Document 10/09/21 15:20 SAK (Rec: 10/09/21 17:09 SAK [id number]) Palpation Assessment Location upper traps Palpation Location left Palpation Findings Soft Tissue Tightness,Muscle Guarding,Tenderness,Trigger Point Skin Assessment Edema Assessment Left Arm Edema Appearance Discolored,Taut Subjective Edema Description Pain,Tightness Incisional Assessment Incision Appearance/Comments well-healing arthroscopic scar ant and post. PT-OP-K Range of Motion Start: 10/09/21 08:11 Freq: Status: Active Protocol: Document 12/25/21 14:02 AMB (Rec: 12/25/21 14:14 AMB [id number]) Shoulder Goniometric Range of Motion Shoulder Left Passive Flexion 146 Abduction 155 PT-OP-M Strength Start: 10/09/21 08:11 Freq: Status: Active Protocol: Document 12/29/21 13:32 AMB (Rec: 12/31/21 13:33 AMB [id number]) Shoulder Strength Shoulder Manual Muscle Testing Left Flexion 4- Good- Extension 4+ Good+ Abduction (C5) 4 Good External Rotation 4- Good- Internal Rotation 4 Good PT-OP-Q Treatments Start: 10/09/21 08:11 Freq: Status: Active Protocol: Document 06/15/22 11:21 AMB (Rec: 06/15/22 12:00 AMB [id number]) Therapeutic Exercises Supine Exercises pec stretch Reps/Minutes 30x2 Comments gnetle scapular punch Supine Exercise Name AROM Reps/Minutes 2x10 isometrics Supine Exercise Name IR and extension, flexion, horiz abd, add, Side left Reps/Minutes 5x5 ea Manual Therapy Treatment Soft Tissue Mobilization rhomboids Body Location plus Teres lucrecia Mobilization Type Myofascial Release,Sustained Pressure,Trigger Point Release Intensity/Depth Moderate Body Position Sidelying subclavius Body Location Left Mobilization Type Myofascial Release,Sustained Pressure,Trigger Point Release Intensity/Depth Moderate Body Position Supine Comments added deltoid PT-OP-R Modalities Start: 10/09/21 08:11 Freq: Status: Active Protocol: Document 05/11/22 13:03 AMB (Rec: 05/11/22 13:46 AMB [id number]) Iontophoresis Treatment Shoulder Treatment Medication Dexamethasone (-) Medication Amount (mL) (ml) 1 Treatment Polarity Negative to Negative Active Electrode Placement anterior shoulder Dispersive Electrode Placement posterior shoulder PT-OP-T Assessment and Plan Start: 10/09/21 08:11 Freq: Status: Active Protocol: Document 06/15/22 11:21 AMB (Rec: 06/15/22 12:00 AMB [id number]) Physical Therapy Assessment Goals Three Impairment shoulder function Impairment unable to reach overhead or behind her back for purposes of ADL's Short Term Goal (STG) Patient will be able to reach overhead and behind her back without difficulty. Pain continues to limit, can reach overhead but for very limited duration, can don/doff bra with difficulty. STG Duration 07/10/22 Tag Clerk Goal (LTG) Patient to score less than 15% on Quickdash Disability Index score as measure of improved functional use of left UE. LTG Duration 08/10/22 Two Impairment strength Short Term Goal (STG) Patient to be independent and compliant with a progressive HEP for purposes of increased left shoulder ROM and strength STG Duration MET Shelter Goal (LTG) Patient to achieve at least 4+ /5 muscle strength left shoulder all muscle groups to allow her to return to her usual activities. Progress made: 4/5 in most muscle groups LTG Duration 08/09/22 One Impairment Decreased ROM left shoulder post-op shoulder surgery Short Term Goal (STG) Patient to achieve full PROM left shoulder-- pain limit end range, but significantly improved in comparison to preop and immediately post op STG Duration 07/10/22 Tag Clerk Goal (LTG) Patient to achieve full AROM left shoulder to allow her to do all usual ADL's and activities LTG Duration 08/09/22 Assessment Summary Assessment Ansley continues to have clavicular and pec pain, really encouraged in chest opening, also discussed stress /anxiety management. Physical Therapy Plan Frequency and Duration Frequency of Treatment 1x/Week Duration of treatment (weeks) 10 Plan of Care Start Date 06/01/22 Plan of Care End Date 08/10/22 Therapeutic Interventions Therapeutic Interventions Aquatic Therapy,Home Exercise Program,Manual Therapy,Patient /Caregiver Education,Self-Care /Home Management,Soft Tissue Mobilization,Taping, Therapeutic Activities, Therapeutic Exercises Modalities Cold Pack/Ice Massage,Electric Stimulation,Hot Packs, Iontophoresis Other Therapeutic Interventions iontophoresis with dexamethasone Next Visit Focus/Plan Next Note Type Treatment Note Next Visit Plan Consider stress/anxiety reduction for sleep hygeine, continue to work on chest opening, below shoulder strengthening.
--- NOTE | 2022-06-23 13:47 | PT.OTN ---
Current Diagnoses Stiffness of left shoulder, not elsewhere classified (06/23/22) Weakness (06/23/22) Contusion of left shoulder, initial encounter (06/23/22) Arthroscopic surgical procedure converted to open procedure (06/23/22) Physical Therapy Treatment Note PT-OP-A Visit Information Start: 10/09/21 08:11 Freq: Status: Active Protocol: Document 06/23/22 13:06 AMB (Rec: 06/23/22 13:47 AMB [id number]) Out-Patient Physical Therapy Visit Information Visit Information Visit Type Treatment Note Visit Start Time 13:00 Visit Stop Time 13:45 Total Visit Minutes 45 Visit Number 38 PT-OP-B Current Condition Start: 10/09/21 08:11 Freq: Status: Active Protocol: Document 10/15/21 15:15 SAK (Rec: 10/15/21 16:37 SAK [id number]) Current Condition History of Current Condition Onset Date 09/18/21 Current Complaints left shoulder pain. History of Current Condition SLAP shoulder repair after failed PT. Reports post op wore sling for 1-2 weeks per doctor, then instructed in gentle limited motion and no lifting. Has had deep throbbing pain distal clavicle , has mostly been sitting or laying down, icing. Just now starting to move around a little. Has difficulty taking pain medications, has had to modify diet to tolerate. Uses ice machine. Prior Treatments and Tests Post-op with Dr. Castle , instructed no heavy lifting, no straining, move, but not too much. General protocol shows PROM until 5 weeks post op. Will contact physician office to further clarify. Future Testing and Treatments Planned Will see Dr. Castle again 6-8 weeks post-op Treatment Goals Patient/Caregiver Goals regain full active use of her left UE PT-OP-C Subjective Start: 10/09/21 08:11 Freq: Status: Active Protocol: Document 06/23/22 13:06 AMB (Rec: 06/23/22 13:47 AMB [id number]) OP-PT Subjective Patient Comments Patient Comments Pt noticing increased tingling down L arm today. PT-OP-F Manual Assessment Start: 10/09/21 08:11 Freq: Status: Active Protocol: Document 10/09/21 15:20 SAK (Rec: 10/09/21 17:09 SAK [id number]) Manual Assessments Soft Tissue Assessment Soft Tissue Mobility Assessment increased tightness left UT, periscapular region PT-OP-H Neuro Start: 10/09/21 08:11 Freq: Status: Active Protocol: Document 10/09/21 15:20 SAK (Rec: 10/09/21 17:09 SAK [id number]) Sensation Evaluation Gross Sensation Gross Sensation WNL PT-OP-J Posture/Palpation/Skin Start: 10/09/21 08:11 Freq: Status: Active Protocol: Document 10/09/21 15:20 SAK (Rec: 10/09/21 17:09 SAK [id number]) Palpation Assessment Location upper traps Palpation Location left Palpation Findings Soft Tissue Tightness,Muscle Guarding,Tenderness,Trigger Point Skin Assessment Edema Assessment Left Arm Edema Appearance Discolored,Taut Subjective Edema Description Pain,Tightness Incisional Assessment Incision Appearance/Comments well-healing arthroscopic scar ant and post. PT-OP-K Range of Motion Start: 10/09/21 08:11 Freq: Status: Active Protocol: Document 12/25/21 14:02 AMB (Rec: 12/25/21 14:14 AMB [id number]) Shoulder Goniometric Range of Motion Shoulder Left Passive Flexion 146 Abduction 155 PT-OP-M Strength Start: 10/09/21 08:11 Freq: Status: Active Protocol: Document 12/29/21 13:32 AMB (Rec: 12/31/21 13:33 AMB [id number]) Shoulder Strength Shoulder Manual Muscle Testing Left Flexion 4- Good- Extension 4+ Good+ Abduction (C5) 4 Good External Rotation 4- Good- Internal Rotation 4 Good PT-OP-Q Treatments Start: 10/09/21 08:11 Freq: Status: Active Protocol: Document 06/23/22 13:06 AMB (Rec: 06/23/22 13:47 AMB [id number]) Therapeutic Exercises Supine Exercises pec stretch Reps/Minutes 30x2 Comments gnetle Standing Exercises biceps curls Standing Exercise Name neutral Resistance 2# Reps/Minutes 1x15 t band rows Standing Exercise Name HEP Side bilateral Resistance #3 t band Reps/Minutes 2x10 PT-OP-R Modalities Start: 10/09/21 08:11 Freq: Status: Active Protocol: Document 05/11/22 13:03 AMB (Rec: 05/11/22 13:46 AMB [id number]) Iontophoresis Treatment Shoulder Treatment Medication Dexamethasone (-) Medication Amount (mL) (ml) 1 Treatment Polarity Negative to Negative Active Electrode Placement anterior shoulder Dispersive Electrode Placement posterior shoulder PT-OP-T Assessment and Plan Start: 10/09/21 08:11 Freq: Status: Active Protocol: Document 06/23/22 13:06 AMB (Rec: 06/23/22 13:47 AMB [id number]) Physical Therapy Assessment Goals Three Impairment shoulder function Impairment unable to reach overhead or behind her back for purposes of ADL's Short Term Goal (STG) Patient will be able to reach overhead and behind her back without difficulty. Pain continues to limit, can reach overhead but for very limited duration, can don/doff bra with difficulty. STG Duration 07/10/22 Armhole Baster Jumpbasting Goal (LTG) Patient to score less than 15% on Quickdash Disability Index score as measure of improved functional use of left UE. LTG Duration 08/10/22 Two Impairment strength Short Term Goal (STG) Patient to be independent and compliant with a progressive HEP for purposes of increased left shoulder ROM and strength STG Duration MET Armhole Baster Jumpbasting Goal (LTG) Patient to achieve at least 4+ /5 muscle strength left shoulder all muscle groups to allow her to return to her usual activities. Progress made: 4/5 in most muscle groups LTG Duration 08/09/22 One Impairment Decreased ROM left shoulder post-op shoulder surgery Short Term Goal (STG) Patient to achieve full PROM left shoulder-- pain limit end range, but significantly improved in comparison to preop and immediately post op STG Duration 07/10/22 Armhole Baster Jumpbasting Goal (LTG) Patient to achieve full AROM left shoulder to allow her to do all usual ADL's and activities LTG Duration 08/09/22 Assessment Summary Assessment Ansley tolerated stretching more today, but strengthening was more challenging. Physical Therapy Plan Frequency and Duration Frequency of Treatment 1x/Week Duration of treatment (weeks) 10 Plan of Care Start Date 06/01/22 Plan of Care End Date 08/10/22 Therapeutic Interventions Therapeutic Interventions Aquatic Therapy,Home Exercise Program,Manual Therapy,Patient /Caregiver Education,Self-Care /Home Management,Soft Tissue Mobilization,Taping, Therapeutic Activities, Therapeutic Exercises Modalities Cold Pack/Ice Massage,Electric Stimulation,Hot Packs, Iontophoresis Other Therapeutic Interventions iontophoresis with dexamethasone Next Visit Focus/Plan Next Note Type Treatment Note Next Visit Plan Consider stress/anxiety reduction for sleep hygeine, continue to work on chest opening, below shoulder strengthening.
--- NOTE | 2022-07-06 16:00 | PT.OTN ---
Current Diagnoses Stiffness of left shoulder, not elsewhere classified (07/06/22) Weakness (07/06/22) Contusion of left shoulder, initial encounter (07/06/22) Arthroscopic surgical procedure converted to open procedure (07/06/22) Physical Therapy Treatment Note PT-OP-A Visit Information Start: 10/09/21 08:11 Freq: Status: Active Protocol: Document 07/06/22 13:46 AMB (Rec: 07/06/22 14:33 AMB [id number]) Out-Patient Physical Therapy Visit Information Visit Information Visit Type Treatment Note Visit Start Time 13:00 Visit Stop Time 13:45 Total Visit Minutes 45 Visit Number 39 PT-OP-B Current Condition Start: 10/09/21 08:11 Freq: Status: Active Protocol: Document 10/15/21 15:15 SAK (Rec: 10/15/21 16:37 SAK [id number]) Current Condition History of Current Condition Onset Date 09/18/21 Current Complaints left shoulder pain. History of Current Condition SLAP shoulder repair after failed PT. Reports post op wore sling for 1-2 weeks per doctor, then instructed in gentle limited motion and no lifting. Has had deep throbbing pain distal clavicle , has mostly been sitting or laying down, icing. Just now starting to move around a little. Has difficulty taking pain medications, has had to modify diet to tolerate. Uses ice machine. Prior Treatments and Tests Post-op with Dr. Castle , instructed no heavy lifting, no straining, move, but not too much. General protocol shows PROM until 5 weeks post op. Will contact physician office to further clarify. Future Testing and Treatments Planned Will see Dr. Castle again 6-8 weeks post-op Treatment Goals Patient/Caregiver Goals regain full active use of her left UE PT-OP-C Subjective Start: 10/09/21 08:11 Freq: Status: Active Protocol: Document 07/06/22 13:46 AMB (Rec: 07/06/22 14:33 AMB [id number]) OP-PT Subjective Patient Comments Patient Comments Pt is continuing to notice swelling at the clavicle that is painful especially with sleep. Patient Questionnaires Quick Dash- Upper Extremity Quick Dash UE Score 50 Quick Dash UE Impairment 40 to 59% Impaired (Score 40- 59) PT-OP-F Manual Assessment Start: 10/09/21 08:11 Freq: Status: Active Protocol: Document 10/09/21 15:20 SAK (Rec: 10/09/21 17:09 SAK [id number]) Manual Assessments Soft Tissue Assessment Soft Tissue Mobility Assessment increased tightness left UT, periscapular region PT-OP-H Neuro Start: 10/09/21 08:11 Freq: Status: Active Protocol: Document 10/09/21 15:20 SAK (Rec: 10/09/21 17:09 SAK [id number]) Sensation Evaluation Gross Sensation Gross Sensation WNL PT-OP-J Posture/Palpation/Skin Start: 10/09/21 08:11 Freq: Status: Active Protocol: Document 10/09/21 15:20 SAK (Rec: 10/09/21 17:09 SAK [id number]) Palpation Assessment Location upper traps Palpation Location left Palpation Findings Soft Tissue Tightness,Muscle Guarding,Tenderness,Trigger Point Skin Assessment Edema Assessment Left Arm Edema Appearance Discolored,Taut Subjective Edema Description Pain,Tightness Incisional Assessment Incision Appearance/Comments well-healing arthroscopic scar ant and post. PT-OP-K Range of Motion Start: 10/09/21 08:11 Freq: Status: Active Protocol: Document 12/25/21 14:02 AMB (Rec: 12/25/21 14:14 AMB [id number]) Shoulder Goniometric Range of Motion Shoulder Left Passive Flexion 146 Abduction 155 PT-OP-M Strength Start: 10/09/21 08:11 Freq: Status: Active Protocol: Document 12/29/21 13:32 AMB (Rec: 12/31/21 13:33 AMB [id number]) Shoulder Strength Shoulder Manual Muscle Testing Left Flexion 4- Good- Extension 4+ Good+ Abduction (C5) 4 Good External Rotation 4- Good- Internal Rotation 4 Good PT-OP-Q Treatments Start: 10/09/21 08:11 Freq: Status: Active Protocol: Document 07/06/22 13:45 AMB (Rec: 07/08/22 07:33 AMB [id number]) Therapeutic Exercises Standing Exercises biceps curls Standing Exercise Name neutral Resistance 2# Reps/Minutes 1x15 t band ER Standing Exercise Name HEP Resistance #3 t band Reps/Minutes 2x10 t band IR Standing Exercise Name HEP Side left Resistance #3 t band Reps/Minutes 2x10 t band rows Standing Exercise Name HEP Side bilateral Resistance #3 t band Reps/Minutes 2x10 Manual Therapy Treatment Soft Tissue Mobilization rhomboids Body Location plus Teres lucrecia Mobilization Type Myofascial Release,Sustained Pressure,Trigger Point Release Intensity/Depth Moderate Body Position Sidelying subclavius Body Location Left Mobilization Type Myofascial Release,Sustained Pressure,Trigger Point Release Intensity/Depth Moderate Body Position Supine Comments added deltoid PT-OP-R Modalities Start: 10/09/21 08:11 Freq: Status: Active Protocol: Document 05/11/22 13:03 AMB (Rec: 05/11/22 13:46 AMB [id number]) Iontophoresis Treatment Shoulder Treatment Medication Dexamethasone (-) Medication Amount (mL) (ml) 1 Treatment Polarity Negative to Negative Active Electrode Placement anterior shoulder Dispersive Electrode Placement posterior shoulder PT-OP-T Assessment and Plan Start: 10/09/21 08:11 Freq: Status: Active Protocol: Document 07/06/22 13:46 AMB (Rec: 07/06/22 14:33 AMB [id number]) Physical Therapy Assessment Goals Three Impairment shoulder function Impairment unable to reach overhead or behind her back for purposes of ADL's Short Term Goal (STG) Patient will be able to reach overhead and behind her back without difficulty. Pain continues to limit, can reach overhead but for very limited duration, can don/doff bra with difficulty. STG Duration 07/10/22 Regulatory Affairs Spec Goal (LTG) Patient to score less than 15% on Quickdash Disability Index score as measure of improved functional use of left UE. LTG Duration 08/10/22 Two Impairment strength Short Term Goal (STG) Patient to be independent and compliant with a progressive HEP for purposes of increased left shoulder ROM and strength STG Duration MET Nursing Home Goal (LTG) Patient to achieve at least 4+ /5 muscle strength left shoulder all muscle groups to allow her to return to her usual activities. Progress made: 4/5 in most muscle groups LTG Duration 08/09/22 One Impairment Decreased ROM left shoulder post-op shoulder surgery Short Term Goal (STG) Patient to achieve full PROM left shoulder-- pain limit end range, but significantly improved in comparison to preop and immediately post op STG Duration 07/10/22 Nursing Home Goal (LTG) Patient to achieve full AROM left shoulder to allow her to do all usual ADL's and activities LTG Duration 08/09/22 Assessment Summary Assessment Pt continues to be frustrated by shoulder/back pain. Increased swelling and pain around clavicle today. Continues to have difficulty sleeping due to the pain. Physical Therapy Plan Frequency and Duration Frequency of Treatment 1x/Week Duration of treatment (weeks) 10 Plan of Care Start Date 06/01/22 Plan of Care End Date 08/10/22 Therapeutic Interventions Therapeutic Interventions Aquatic Therapy,Home Exercise Program,Manual Therapy,Patient /Caregiver Education,Self-Care /Home Management,Soft Tissue Mobilization,Taping, Therapeutic Activities, Therapeutic Exercises Modalities Cold Pack/Ice Massage,Electric Stimulation,Hot Packs, Iontophoresis Other Therapeutic Interventions iontophoresis with dexamethasone Next Visit Focus/Plan Next Note Type Treatment Note Next Visit Plan Consider stress/anxiety reduction for sleep hygeine, continue to work on chest opening, below shoulder strengthening.
--- NOTE | 2022-07-13 07:56 | PT.OPPOC ---
Physical, Occupational & Speech Therapy At [facility] Current Diagnoses Stiffness of left shoulder, not elsewhere classified (07/13/22) Weakness (07/13/22) Contusion of left shoulder, initial encounter (07/13/22) Arthroscopic surgical procedure converted to open procedure (07/13/22) Visit Care Team Role Provider Type HENRRY [place] Primary Care Provider Advanced Town Administrator Specialty: Medical Address: [address] [place] [address], [id number] Email: [email or web address] Javier Castle MD Attending Provider Physician Family Provider Referring Provider Specialty: Orthopedics Orthopedic Surgery Address: [address] [place] [address], [id number] Email: [email or web address] Plan Of Care PT-OP-T Assessment and Plan Start: 10/09/21 08:11 Freq: Status: Active Protocol: Document 07/13/22 13:00 AMB (Rec: 07/14/22 07:55 AMB [id number]) Physical Therapy Assessment Goals Three Impairment shoulder function Impairment unable to reach overhead or behind her back for purposes of ADL's Short Term Goal (STG) Patient will be able to reach overhead and behind her back without difficulty. Pain continues to limit, can reach overhead but for very limited duration, can don/doff bra with difficulty. STG Duration NOT MET [employer] Goal (LTG) Patient to score less than 15% on Quickdash Disability Index score as measure of improved functional use of left UE. LTG Duration NOT MET 50% Two Impairment strength Short Term Goal (STG) Patient to be independent and compliant with a progressive HEP for purposes of increased left shoulder ROM and strength STG Duration MET Detention Goal (LTG) Patient to achieve at least 4+ /5 muscle strength left shoulder all muscle groups to allow her to return to her usual activities. Progress made: 4/5 in most muscle groups LTG Duration PROGRESS MADE One Impairment Decreased ROM left shoulder post-op shoulder surgery Short Term Goal (STG) Patient to achieve full PROM left shoulder-- pain limit end range, but significantly improved in comparison to preop and immediately post op STG Duration NOT MET [employer] Goal (LTG) Patient to achieve full AROM left shoulder to allow her to do all usual ADL's and activities LTG Duration NOT MET Assessment Summary Assessment Encouraged pt to return to ortho surgery for follow up. Pt's ROM has not significantly improved despite extensive PT . While her strength is improving, and her pain is less now than immediately after surgery, she continues to be challenged by painful sleeping, painful reaching ( especially behind her back to don her bra). Pt continues to have pain that limits her activity with over shoulder activities, she is very concerned about the pain with sleeping. Physical Therapy Plan Frequency and Duration Frequency of Treatment 1x/Week Duration of treatment (weeks) 10 Plan of Care Start Date 07/13/22 Plan of Care End Date 09/21/22 Therapeutic Interventions Therapeutic Interventions Aquatic Therapy,Home Exercise Program,Manual Therapy,Patient /Caregiver Education,Self-Care /Home Management,Soft Tissue Mobilization,Taping, Therapeutic Activities, Therapeutic Exercises Modalities Cold Pack/Ice Massage,Electric Stimulation,Hot Packs, Iontophoresis Other Therapeutic Interventions iontophoresis with dexamethasone Next Visit Focus/Plan Next Note Type Treatment Note Next Visit Plan Consider stress/anxiety reduction for sleep hygeine, continue to work on chest opening, below shoulder strengthening. Plan of Care Dates Plan of Care Start Date 07/13/22 Plan of Care End Date 09/21/22 Electronically Signed by: Madiha Winchester, PT 07/14/22 0756 If you are in agreement with this Plan of Care, please return a signed and dated copy. I have reviewed this Plan of Care and certify that the skilled therapy services above are required to meet the patient?s needs. Physician Signature Date Printed Name and Credentials Clinical Instructor Signature Printed Name and Credentials
--- NOTE | 2022-07-13 16:00 | PT.OTN ---
Current Diagnoses Stiffness of left shoulder, not elsewhere classified (07/13/22) Weakness (07/13/22) Contusion of left shoulder, initial encounter (07/13/22) Arthroscopic surgical procedure converted to open procedure (07/13/22) Physical Therapy Treatment Note PT-OP-A Visit Information Start: 10/09/21 08:11 Freq: Status: Active Protocol: Document 07/13/22 13:00 AMB (Rec: 07/14/22 07:55 AMB [id number]) Out-Patient Physical Therapy Visit Information Visit Information Visit Type Progress Note Visit Start Time 13:00 Visit Stop Time 13:45 Total Visit Minutes 45 Visit Number 40 PT-OP-B Current Condition Start: 10/09/21 08:11 Freq: Status: Active Protocol: Document 10/15/21 15:15 SAK (Rec: 10/15/21 16:37 SAK [id number]) Current Condition History of Current Condition Onset Date 09/18/21 Current Complaints left shoulder pain. History of Current Condition SLAP shoulder repair after failed PT. Reports post op wore sling for 1-2 weeks per doctor, then instructed in gentle limited motion and no lifting. Has had deep throbbing pain distal clavicle , has mostly been sitting or laying down, icing. Just now starting to move around a little. Has difficulty taking pain medications, has had to modify diet to tolerate. Uses ice machine. Prior Treatments and Tests Post-op with Dr. Castle , instructed no heavy lifting, no straining, move, but not too much. General protocol shows PROM until 5 weeks post op. Will contact physician office to further clarify. Future Testing and Treatments Planned Will see Dr. Castle again 6-8 weeks post-op Treatment Goals Patient/Caregiver Goals regain full active use of her left UE PT-OP-C Subjective Start: 10/09/21 08:11 Freq: Status: Active Protocol: Document 07/13/22 13:00 AMB (Rec: 07/14/22 07:55 AMB [id number]) OP-PT Subjective Patient Comments Patient Comments Pt had a bad night of sleep so shoulder is feeling extra tight. Pt states she does her band and stretching exercises on days she doesn't come to PT. PT-OP-F Manual Assessment Start: 10/09/21 08:11 Freq: Status: Active Protocol: Document 10/09/21 15:20 SAK (Rec: 10/09/21 17:09 SAK [id number]) Manual Assessments Soft Tissue Assessment Soft Tissue Mobility Assessment increased tightness left UT, periscapular region PT-OP-H Neuro Start: 10/09/21 08:11 Freq: Status: Active Protocol: Document 10/09/21 15:20 SAK (Rec: 10/09/21 17:09 SAK [id number]) Sensation Evaluation Gross Sensation Gross Sensation WNL PT-OP-J Posture/Palpation/Skin Start: 10/09/21 08:11 Freq: Status: Active Protocol: Document 10/09/21 15:20 SAK (Rec: 10/09/21 17:09 SAK [id number]) Palpation Assessment Location upper traps Palpation Location left Palpation Findings Soft Tissue Tightness,Muscle Guarding,Tenderness,Trigger Point Skin Assessment Edema Assessment Left Arm Edema Appearance Discolored,Taut Subjective Edema Description Pain,Tightness Incisional Assessment Incision Appearance/Comments well-healing arthroscopic scar ant and post. PT-OP-K Range of Motion Start: 10/09/21 08:11 Freq: Status: Active Protocol: Document 07/13/22 13:02 AMB (Rec: 07/13/22 13:41 AMB [id number]) Shoulder Goniometric Range of Motion Shoulder Left Passive External Rotation at 90 degrees 50 Abduction Internal Rotation 35 Comments BEfore PT: flexion 130, abduction 120 PT-OP-M Strength Start: 10/09/21 08:11 Freq: Status: Active Protocol: Document 07/13/22 13:02 AMB (Rec: 07/13/22 13:41 AMB [id number]) Shoulder Strength Shoulder Manual Muscle Testing Left Flexion 4 Good Extension 4+ Good+ Abduction (C5) 4 Good External Rotation 4- Good- Internal Rotation 4 Good PT-OP-Q Treatments Start: 10/09/21 08:11 Freq: Status: Active Protocol: Document 07/13/22 13:00 AMB (Rec: 07/14/22 07:55 AMB [id number]) Therapeutic Exercises Supine Exercises pec stretch Reps/Minutes 30x2 Comments gnetle scapular punch Supine Exercise Name AROM Reps/Minutes 2x10 Manual Therapy Treatment Soft Tissue Mobilization rhomboids Body Location plus Teres lucrecia Mobilization Type Myofascial Release,Sustained Pressure,Trigger Point Release Intensity/Depth Moderate Body Position Sidelying subclavius Body Location Left Mobilization Type Myofascial Release,Sustained Pressure,Trigger Point Release Intensity/Depth Moderate Body Position Supine Comments added deltoid UT, scar mob, biceps Body Location left UE Mobilization Type Myofascial Release Intensity/Depth Moderate Body Position Hooklying PT-OP-R Modalities Start: 10/09/21 08:11 Freq: Status: Active Protocol: Document 05/11/22 13:03 AMB (Rec: 05/11/22 13:46 AMB [id number]) Iontophoresis Treatment Shoulder Treatment Medication Dexamethasone (-) Medication Amount (mL) (ml) 1 Treatment Polarity Negative to Negative Active Electrode Placement anterior shoulder Dispersive Electrode Placement posterior shoulder PT-OP-T Assessment and Plan Start: 10/09/21 08:11 Freq: Status: Active Protocol: Document 07/13/22 13:00 AMB (Rec: 07/14/22 07:55 AMB [id number]) Physical Therapy Assessment Goals Three Impairment shoulder function Impairment unable to reach overhead or behind her back for purposes of ADL's Short Term Goal (STG) Patient will be able to reach overhead and behind her back without difficulty. Pain continues to limit, can reach overhead but for very limited duration, can don/doff bra with difficulty. STG Duration NOT MET Senior Living Goal (LTG) Patient to score less than 15% on Quickdash Disability Index score as measure of improved functional use of left UE. LTG Duration NOT MET 50% Two Impairment strength Short Term Goal (STG) Patient to be independent and compliant with a progressive HEP for purposes of increased left shoulder ROM and strength STG Duration MET Senior Living Goal (LTG) Patient to achieve at least 4+ /5 muscle strength left shoulder all muscle groups to allow her to return to her usual activities. Progress made: 4/5 in most muscle groups LTG Duration PROGRESS MADE One Impairment Decreased ROM left shoulder post-op shoulder surgery Short Term Goal (STG) Patient to achieve full PROM left shoulder-- pain limit end range, but significantly improved in comparison to preop and immediately post op STG Duration NOT MET Senior Living Goal (LTG) Patient to achieve full AROM left shoulder to allow her to do all usual ADL's and activities LTG Duration NOT MET Assessment Summary Assessment Encouraged pt to return to ortho surgery for follow up. Pt's ROM has not significantly improved despite extensive PT . While her strength is improving, and her pain is less now than immediately after surgery, she continues to be challenged by painful sleeping, painful reaching ( especially behind her back to don her bra). Pt continues to have pain that limits her activity with over shoulder activities, she is very concerned about the pain with sleeping. Physical Therapy Plan Frequency and Duration Frequency of Treatment 1x/Week Duration of treatment (weeks) 10 Plan of Care Start Date 07/13/22 Plan of Care End Date 09/21/22 Therapeutic Interventions Therapeutic Interventions Aquatic Therapy,Home Exercise Program,Manual Therapy,Patient /Caregiver Education,Self-Care /Home Management,Soft Tissue Mobilization,Taping, Therapeutic Activities, Therapeutic Exercises Modalities Cold Pack/Ice Massage,Electric Stimulation,Hot Packs, Iontophoresis Other Therapeutic Interventions iontophoresis with dexamethasone Next Visit Focus/Plan Next Note Type Treatment Note Next Visit Plan Consider stress/anxiety reduction for sleep hygeine, continue to work on chest opening, below shoulder strengthening.
--- NOTE | 2022-08-19 16:00 | PT.OTN ---
Current Diagnoses Stiffness of left shoulder, not elsewhere classified (08/18/22) Weakness (08/18/22) Contusion of left shoulder, initial encounter (08/18/22) Arthroscopic surgical procedure converted to open procedure (08/18/22) Physical Therapy Treatment Note PT-OP-A Visit Information Start: 10/09/21 08:11 Freq: Status: Active Protocol: Document 08/18/22 12:55 AMB (Rec: 08/18/22 13:29 AMB [id number]) Out-Patient Physical Therapy Visit Information Visit Information Visit Type Treatment Note Visit Start Time 12:45 Visit Stop Time 13:30 Total Visit Minutes 45 Visit Number 41 PT-OP-B Current Condition Start: 10/09/21 08:11 Freq: Status: Active Protocol: Document 10/15/21 15:15 SAK (Rec: 10/15/21 16:37 SAK [id number]) Current Condition History of Current Condition Onset Date 09/18/21 Current Complaints left shoulder pain. History of Current Condition SLAP shoulder repair after failed PT. Reports post op wore sling for 1-2 weeks per doctor, then instructed in gentle limited motion and no lifting. Has had deep throbbing pain distal clavicle , has mostly been sitting or laying down, icing. Just now starting to move around a little. Has difficulty taking pain medications, has had to modify diet to tolerate. Uses ice machine. Prior Treatments and Tests Post-op with Dr. Castle , instructed no heavy lifting, no straining, move, but not too much. General protocol shows PROM until 5 weeks post op. Will contact physician office to further clarify. Future Testing and Treatments Planned Will see Dr. Castle again 6-8 weeks post-op Treatment Goals Patient/Caregiver Goals regain full active use of her left UE PT-OP-C Subjective Start: 10/09/21 08:11 Freq: Status: Active Protocol: Document 08/18/22 12:55 AMB (Rec: 08/18/22 13:29 AMB [id number]) OP-PT Subjective Patient Comments Patient Comments Pt returns to PT stating she is about the same. PT-OP-F Manual Assessment Start: 10/09/21 08:11 Freq: Status: Active Protocol: Document 10/09/21 15:20 SAK (Rec: 10/09/21 17:09 SAK [id number]) Manual Assessments Soft Tissue Assessment Soft Tissue Mobility Assessment increased tightness left UT, periscapular region PT-OP-H Neuro Start: 10/09/21 08:11 Freq: Status: Active Protocol: Document 10/09/21 15:20 SAK (Rec: 10/09/21 17:09 SAK [id number]) Sensation Evaluation Gross Sensation Gross Sensation WNL PT-OP-J Posture/Palpation/Skin Start: 10/09/21 08:11 Freq: Status: Active Protocol: Document 10/09/21 15:20 SAK (Rec: 10/09/21 17:09 SAK [id number]) Palpation Assessment Location upper traps Palpation Location left Palpation Findings Soft Tissue Tightness,Muscle Guarding,Tenderness,Trigger Point Skin Assessment Edema Assessment Left Arm Edema Appearance Discolored,Taut Subjective Edema Description Pain,Tightness Incisional Assessment Incision Appearance/Comments well-healing arthroscopic scar ant and post. PT-OP-K Range of Motion Start: 10/09/21 08:11 Freq: Status: Active Protocol: Document 07/13/22 13:02 AMB (Rec: 07/13/22 13:41 AMB [id number]) Shoulder Goniometric Range of Motion Shoulder Left Passive External Rotation at 90 degrees 50 Abduction Internal Rotation 35 Comments BEfore PT: flexion 130, abduction 120 PT-OP-M Strength Start: 10/09/21 08:11 Freq: Status: Active Protocol: Document 07/13/22 13:02 AMB (Rec: 07/13/22 13:41 AMB [id number]) Shoulder Strength Shoulder Manual Muscle Testing Left Flexion 4 Good Extension 4+ Good+ Abduction (C5) 4 Good External Rotation 4- Good- Internal Rotation 4 Good PT-OP-Q Treatments Start: 10/09/21 08:11 Freq: Status: Active Protocol: Document 08/19/22 12:45 AMB (Rec: 08/22/22 11:46 AMB [id number]) Therapeutic Exercises Standing Exercises biceps curls Standing Exercise Name neutral Resistance 3# Reps/Minutes 1x15 wall walk up and lift Reps/Minutes 3 Comments to 90 degrees only, t band IR Standing Exercise Name HEP Side left Resistance #3 t band Reps/Minutes 2x10 t band rows Standing Exercise Name HEP Side bilateral Resistance #3 t band Reps/Minutes 2x10 Manual Therapy Treatment Soft Tissue Mobilization subscapularis Mobilization Type Sustained Pressure,Trigger Point Release,Other Intensity/Depth Moderate Body Position Supine Comments pin and stretch with very gentle passive shoulder flex, abd, ER, IR subclavius Body Location Left Mobilization Type Myofascial Release,Sustained Pressure,Trigger Point Release Intensity/Depth Moderate Body Position Supine Comments added deltoid PT-OP-R Modalities Start: 10/09/21 08:11 Freq: Status: Active Protocol: Document 05/11/22 13:03 AMB (Rec: 05/11/22 13:46 AMB [id number]) Iontophoresis Treatment Shoulder Treatment Medication Dexamethasone (-) Medication Amount (mL) (ml) 1 Treatment Polarity Negative to Negative Active Electrode Placement anterior shoulder Dispersive Electrode Placement posterior shoulder PT-OP-T Assessment and Plan Start: 10/09/21 08:11 Freq: Status: Active Protocol: Document 08/18/22 12:55 AMB (Rec: 08/18/22 13:29 AMB [id number]) Physical Therapy Assessment Goals Three Impairment shoulder function Impairment unable to reach overhead or behind her back for purposes of ADL's Short Term Goal (STG) Patient will be able to reach overhead and behind her back without difficulty. Pain continues to limit, can reach overhead but for very limited duration, can don/doff bra with difficulty. STG Duration NOT MET Small Stock Facer Goal (LTG) Patient to score less than 15% on Quickdash Disability Index score as measure of improved functional use of left UE. LTG Duration NOT MET 50% Two Impairment strength Short Term Goal (STG) Patient to be independent and compliant with a progressive HEP for purposes of increased left shoulder ROM and strength STG Duration MET Intermediate Goal (LTG) Patient to achieve at least 4+ /5 muscle strength left shoulder all muscle groups to allow her to return to her usual activities. Progress made: 4/5 in most muscle groups LTG Duration PROGRESS MADE One Impairment Decreased ROM left shoulder post-op shoulder surgery Short Term Goal (STG) Patient to achieve full PROM left shoulder-- pain limit end range, but significantly improved in comparison to preop and immediately post op STG Duration NOT MET Intermediate Goal (LTG) Patient to achieve full AROM left shoulder to allow her to do all usual ADL's and activities LTG Duration NOT MET Assessment Summary Assessment Walking 3 miles continues to irritate shoulder and clavicle . Sleeping continues to be difficult. Pt continues to have clavicle pain, tried to contact her MD but was unsuccessful, considering a second opinion. Physical Therapy Plan Frequency and Duration Frequency of Treatment 1x/Week Duration of treatment (weeks) 10 Plan of Care Start Date 07/13/22 Plan of Care End Date 09/21/22 Therapeutic Interventions Therapeutic Interventions Aquatic Therapy,Home Exercise Program,Manual Therapy,Patient /Caregiver Education,Self-Care /Home Management,Soft Tissue Mobilization,Taping, Therapeutic Activities, Therapeutic Exercises Modalities Cold Pack/Ice Massage,Electric Stimulation,Hot Packs, Iontophoresis Other Therapeutic Interventions iontophoresis with dexamethasone Next Visit Focus/Plan Next Note Type Treatment Note Next Visit Plan Consider stress/anxiety reduction for sleep hygeine, continue to work on chest opening, below shoulder strengthening.
--- NOTE | 2022-08-24 13:29 | PT.OTN ---
Current Diagnoses Stiffness of left shoulder, not elsewhere classified (08/24/22) Weakness (08/24/22) Contusion of left shoulder, initial encounter (08/24/22) Arthroscopic surgical procedure converted to open procedure (08/24/22) Physical Therapy Treatment Note PT-OP-A Visit Information Start: 10/09/21 08:11 Freq: Status: Active Protocol: Document 08/24/22 12:48 AMB (Rec: 08/24/22 13:29 AMB [id number]) Out-Patient Physical Therapy Visit Information Visit Information Visit Type Treatment Note Visit Start Time 12:45 Visit Stop Time 13:30 Total Visit Minutes 45 Visit Number 42 PT-OP-B Current Condition Start: 10/09/21 08:11 Freq: Status: Active Protocol: Document 10/15/21 15:15 SAK (Rec: 10/15/21 16:37 SAK [id number]) Current Condition History of Current Condition Onset Date 09/18/21 Current Complaints left shoulder pain. History of Current Condition SLAP shoulder repair after failed PT. Reports post op wore sling for 1-2 weeks per doctor, then instructed in gentle limited motion and no lifting. Has had deep throbbing pain distal clavicle , has mostly been sitting or laying down, icing. Just now starting to move around a little. Has difficulty taking pain medications, has had to modify diet to tolerate. Uses ice machine. Prior Treatments and Tests Post-op with Dr. Castle , instructed no heavy lifting, no straining, move, but not too much. General protocol shows PROM until 5 weeks post op. Will contact physician office to further clarify. Future Testing and Treatments Planned Will see Dr. Castle again 6-8 weeks post-op Treatment Goals Patient/Caregiver Goals regain full active use of her left UE PT-OP-C Subjective Start: 10/09/21 08:11 Freq: Status: Active Protocol: Document 08/24/22 12:48 AMB (Rec: 08/24/22 13:29 AMB [id number]) OP-PT Subjective Patient Comments Patient Comments Pt reports increased pain after PT last visit, had increased clavicle pain. PT-OP-F Manual Assessment Start: 10/09/21 08:11 Freq: Status: Active Protocol: Document 10/09/21 15:20 SAK (Rec: 10/09/21 17:09 SAK [id number]) Manual Assessments Soft Tissue Assessment Soft Tissue Mobility Assessment increased tightness left UT, periscapular region PT-OP-H Neuro Start: 10/09/21 08:11 Freq: Status: Active Protocol: Document 10/09/21 15:20 SAK (Rec: 10/09/21 17:09 [facility] [id number]) Sensation Evaluation Gross Sensation Gross Sensation WNL PT-OP-J Posture/Palpation/Skin Start: 10/09/21 08:11 Freq: Status: Active Protocol: Document 10/09/21 15:20 SAK (Rec: 10/09/21 17:09 [facility] [id number]) Palpation Assessment Location upper traps Palpation Location left Palpation Findings Soft Tissue Tightness,Muscle Guarding,Tenderness,Trigger Point Skin Assessment Edema Assessment Left Arm Edema Appearance Discolored,Taut Subjective Edema Description Pain,Tightness Incisional Assessment Incision Appearance/Comments well-healing arthroscopic scar ant and post. PT-OP-K Range of Motion Start: 10/09/21 08:11 Freq: Status: Active Protocol: Document 07/13/22 13:02 AMB (Rec: 07/13/22 13:41 AMB [id number]) Shoulder Goniometric Range of Motion Shoulder Left Passive External Rotation at 90 degrees 50 Abduction Internal Rotation 35 Comments BEfore PT: flexion 130, abduction 120 PT-OP-M Strength Start: 10/09/21 08:11 Freq: Status: Active Protocol: Document 07/13/22 13:02 AMB (Rec: 07/13/22 13:41 AMB [id number]) Shoulder Strength Shoulder Manual Muscle Testing Left Flexion 4 Good Extension 4+ Good+ Abduction (C5) 4 Good External Rotation 4- Good- Internal Rotation 4 Good PT-OP-Q Treatments Start: 10/09/21 08:11 Freq: Status: Active Protocol: Document 08/24/22 12:48 AMB (Rec: 08/24/22 13:29 AMB [id number]) Therapeutic Exercises Supine Exercises pec stretch Reps/Minutes 30x2 Comments gnetle Sitting Exercises shoulder rolls Sitting Exercise Name demetria, unil Reps/Minutes 5x ea rows Sitting Exercise Name AROM Reps/Minutes 2x10 pulleys Sitting Exercise Name flexion, scaption Reps/Minutes 10x Comments elbow bent, cues for relaxing left UE, scapular squeeze Reps/Minutes 5x5 Manual Therapy Treatment Soft Tissue Mobilization rhomboids Body Location plus Teres lucrecia Mobilization Type Myofascial Release,Sustained Pressure,Trigger Point Release Intensity/Depth Moderate Body Position Sidelying subscapularis Mobilization Type Sustained Pressure,Trigger Point Release,Other Intensity/Depth Moderate Body Position Supine Comments pin and stretch with very gentle passive shoulder flex, abd, ER, IR, horizontal abd PT-OP-R Modalities Start: 10/09/21 08:11 Freq: Status: Active Protocol: Document 05/11/22 13:03 AMB (Rec: 05/11/22 13:46 AMB [id number]) Iontophoresis Treatment Shoulder Treatment Medication Dexamethasone (-) Medication Amount (mL) (ml) 1 Treatment Polarity Negative to Negative Active Electrode Placement anterior shoulder Dispersive Electrode Placement posterior shoulder PT-OP-T Assessment and Plan Start: 10/09/21 08:11 Freq: Status: Active Protocol: Document 08/24/22 12:48 AMB (Rec: 08/24/22 13:29 AMB [id number]) Physical Therapy Assessment Goals Three Impairment shoulder function Impairment unable to reach overhead or behind her back for purposes of ADL's Short Term Goal (STG) Patient will be able to reach overhead and behind her back without difficulty. Pain continues to limit, can reach overhead but for very limited duration, can don/doff bra with difficulty. STG Duration NOT MET Packing Room Worker Goal (LTG) Patient to score less than 15% on Quickdash Disability Index score as measure of improved functional use of left UE. LTG Duration NOT MET 50% Two Impairment strength Short Term Goal (STG) Patient to be independent and compliant with a progressive HEP for purposes of increased left shoulder ROM and strength STG Duration MET Snf Goal (LTG) Patient to achieve at least 4+ /5 muscle strength left shoulder all muscle groups to allow her to return to her usual activities. Progress made: 4/5 in most muscle groups LTG Duration PROGRESS MADE One Impairment Decreased ROM left shoulder post-op shoulder surgery Short Term Goal (STG) Patient to achieve full PROM left shoulder-- pain limit end range, but significantly improved in comparison to preop and immediately post op STG Duration NOT MET Snf Goal (LTG) Patient to achieve full AROM left shoulder to allow her to do all usual ADL's and activities LTG Duration NOT MET Assessment Summary Assessment Stopped manual on clavicle. Pt reports she can only lay on her shoulder for 5-10 seconds and requires breathing. Pt continues to consider second opinion. Physical Therapy Plan Frequency and Duration Frequency of Treatment 1x/Week Duration of treatment (weeks) 10 Plan of Care Start Date 07/13/22 Plan of Care End Date 09/21/22 Therapeutic Interventions Therapeutic Interventions Aquatic Therapy,Home Exercise Program,Manual Therapy,Patient /Caregiver Education,Self-Care /Home Management,Soft Tissue Mobilization,Taping, Therapeutic Activities, Therapeutic Exercises Modalities Cold Pack/Ice Massage,Electric Stimulation,Hot Packs, Iontophoresis Other Therapeutic Interventions iontophoresis with dexamethasone
--- NOTE | 2022-11-18 15:01 | PT.OPDS ---
Current Diagnoses Stiffness of left shoulder, not elsewhere classified (08/24/22) Weakness (08/24/22) Contusion of left shoulder, initial encounter (08/24/22) Arthroscopic surgical procedure converted to open procedure (08/24/22) Visit Care Team Role Provider Type HENRRY [place] Primary Care Provider Advanced Machine Maintenance Repairer Specialty: Medical Address: [address] [place] [address], [id number] Email: [email or web address] Javier Castle MD Attending Provider Physician Family Provider Referring Provider Specialty: Orthopedics Orthopedic Surgery Address: [address] [place] [address], [id number] Email: [email or web address] Visit Number Visit Number 42 Discharge Summary PT-OP-B Current Condition Start: 10/09/21 08:11 Freq: Status: Active Protocol: Document 10/15/21 15:15 SAK (Rec: 10/15/21 16:37 SAK [id number]) Current Condition History of Current Condition Onset Date 09/18/21 Current Complaints left shoulder pain. History of Current Condition SLAP shoulder repair after failed PT. Reports post op wore sling for 1-2 weeks per doctor, then instructed in gentle limited motion and no lifting. Has had deep throbbing pain distal clavicle , has mostly been sitting or laying down, icing. Just now starting to move around a little. Has difficulty taking pain medications, has had to modify diet to tolerate. Uses ice machine. Prior Treatments and Tests Post-op with Dr. Castle , instructed no heavy lifting, no straining, move, but not too much. General protocol shows PROM until 5 weeks post op. Will contact physician office to further clarify. Future Testing and Treatments Planned Will see Dr. Castle again 6-8 weeks post-op Treatment Goals Patient/Caregiver Goals regain full active use of her left UE PT-OP-C Subjective Start: 10/09/21 08:11 Freq: Status: Active Protocol: Document 08/24/22 12:48 AMB (Rec: 08/24/22 13:29 AMB [id number]) OP-PT Subjective Patient Comments Patient Comments Pt reports increased pain after PT last visit, had increased clavicle pain. PT-OP-F Manual Assessment Start: 10/09/21 08:11 Freq: Status: Active Protocol: Document 10/09/21 15:20 [facility] (Rec: 10/09/21 17:09 [facility] [id number]) Manual Assessments Soft Tissue Assessment Soft Tissue Mobility Assessment increased tightness left UT, periscapular region PT-OP-H Neuro Start: 10/09/21 08:11 Freq: Status: Active Protocol: Document 10/09/21 15:20 [facility] (Rec: 10/09/21 17:09 [facility] [id number]) Sensation Evaluation Gross Sensation Gross Sensation WNL PT-OP-J Posture/Palpation/Skin Start: 10/09/21 08:11 Freq: Status: Active Protocol: Document 10/09/21 15:20 [facility] (Rec: 10/09/21 17:09 [facility] [id number]) Palpation Assessment Location upper traps Palpation Location left Palpation Findings Soft Tissue Tightness,Muscle Guarding,Tenderness,Trigger Point Skin Assessment Edema Assessment Left Arm Edema Appearance Discolored,Taut Subjective Edema Description Pain,Tightness Incisional Assessment Incision Appearance/Comments well-healing arthroscopic scar ant and post. PT-OP-K Range of Motion Start: 10/09/21 08:11 Freq: Status: Active Protocol: Document 07/13/22 13:02 AMB (Rec: 07/13/22 13:41 AMB [id number]) Shoulder Goniometric Range of Motion Shoulder Left Passive External Rotation at 90 degrees 50 Abduction Internal Rotation 35 Comments BEfore PT: flexion 130, abduction 120 PT-OP-M Strength Start: 10/09/21 08:11 Freq: Status: Active Protocol: Document 07/13/22 13:02 AMB (Rec: 07/13/22 13:41 AMB [id number]) Shoulder Strength Shoulder Manual Muscle Testing Left Flexion 4 Good Extension 4+ Good+ Abduction (C5) 4 Good External Rotation 4- Good- Internal Rotation 4 Good PT-OP-T Assessment and Plan Start: 10/09/21 08:11 Freq: Status: Active Protocol: Document 11/18/22 14:57 AMB (Rec: 11/18/22 15:01 AMB [id number]) Physical Therapy Assessment Goals Three Impairment shoulder function Impairment unable to reach overhead or behind her back for purposes of ADL's Short Term Goal (STG) Patient will be able to reach overhead and behind her back without difficulty. Pain continues to limit, can reach overhead but for very limited duration, can don/doff bra with difficulty. STG Duration NOT MET Tariff Expert Goal (LTG) Patient to score less than 15% on Quickdash Disability Index score as measure of improved functional use of left UE. LTG Duration NOT MET 50% Two Impairment strength Short Term Goal (STG) Patient to be independent and compliant with a progressive HEP for purposes of increased left shoulder ROM and strength STG Duration MET Prison Goal (LTG) Patient to achieve at least 4+ /5 muscle strength left shoulder all muscle groups to allow her to return to her usual activities. Progress made: 4/5 in most muscle groups LTG Duration PROGRESS MADE One Impairment Decreased ROM left shoulder post-op shoulder surgery Short Term Goal (STG) Patient to achieve full PROM left shoulder-- pain limit end range, but significantly improved in comparison to preop and immediately post op STG Duration NOT MET Prison Goal (LTG) Patient to achieve full AROM left shoulder to allow her to do all usual ADL's and activities LTG Duration NOT MET Assessment Summary Assessment At Ansley's last visit we discussed her progress, which has been limited for the past month. recommeneded that she follow up with her ortho and continue with ehr HEP at thist point since she has had limited success with PT for the last few visits. Physical Therapy Plan Discharge Physical Therapy Discharge Reasons Plateau in Progress
== END 2022-11-19 14:12 | disposition home or self-care (01) ==
LOC: PHYS 12:45
PROVIDERS: Family Provider Orthopaedic Surgery; PCP Nurse Practitioner Family; Referring Provider Orthopaedic Surgery; Visit Provider Orthopaedic Surgery
DX: Z53.33 Arthroscopic surgical procedure converted to open procedure (principal); S40.012A Contusion of left shoulder, initial encounter; R53.1 Weakness; M25.612 Stiffness of left shoulder, not elsewhere classified
CPT/HCPCS: 97014; 97110; 97140; 97162; 97535; G0283

== ENCOUNTER → 2022-12-10 16:36 | Outpatient (CLI) | payer MEDICARE, SELFPAY ==
[2022-12-10 17:36] LABS: Influenza A - CEPHEID Flu A NEGATIVE (NEGATIVE); Influenza B - CEPHEID Flu B NEGATIVE (NEGATIVE); Respiratory Syncytial Virus Negative (Negative)
[2022-12-10 17:55] LABS: COVID-19 CEPHEID 4-PLEX PCR POSITIVE (Negative)
== END ==
PROVIDERS: Family Provider Orthopaedic Surgery; PCP Registered Nurse Diabetes Educator; Visit Provider Nurse Practitioner Family
DX: J02.9 Acute pharyngitis, unspecified (principal); R50.9 Fever, unspecified
CPT/HCPCS: 0241U

== ENCOUNTER → 2022-12-11 15:12 | Outpatient (CLI) | payer MEDICARE, SELFPAY ==
--- NOTE | 2022-12-11 | DI.MG.S_ITS ---
BILATERAL DIGITAL SCREENING MAMMOGRAM 3D/2D WITH CAD: 12/11/2022 CLINICAL: Routine screening. Comparison is made to exams dated: 12/10/2021 mammogram, 11/05/2020 mammogram, and 11/04/2019 mammogram - [facility]. There are scattered areas of fibroglandular density in both breasts (category b / 25%-50% glandular tissue). Current study was also evaluated with a Computer Aided Detection (CAD) system. No significant masses, calcifications, or other findings are seen in either breast. There has been no significant interval change. IMPRESSION: NEGATIVE There is no mammographic evidence of malignancy. A 1 year screening mammogram is recommended. Based on the Tyrer Cuzick model (a risk assessment model) the patient's lifetime risk is 6.9% and her 10 year risk is 2.0%. According to the ACR, ACS, and NCCN guidelines, an annual breast MRI exam along with mammogram is recommended if the patient's lifetime risk is 20% or greater. This exam was interpreted at Station ID: [id number]. NOTE: For mammograms, a report in lay terms will be sent to the patient. Approximately 15% of breast malignancies will not be visualized mammographically. In the management of a palpable breast mass, a negative mammogram must not discourage biopsy of a clinically suspicious lesion. Electronically Signed By: Jeffrey cuello/brian:12/11/2022 15:58:31 letter sent: Normal Exam ACR BI-RADS Category 1: Negative [id number]
== END ==
PROVIDERS: Family Provider Orthopaedic Surgery; PCP Registered Nurse Diabetes Educator; Referring Provider Registered Nurse Diabetes Educator; Visit Provider Registered Nurse Diabetes Educator
DX: Z12.31 Encounter for screening mammogram for malignant neoplasm of breast (principal)
CPT/HCPCS: 77063; 77067

== ENCOUNTER 2023-03-21 18:58 | Emergency (ER) | payer MEDICARE, SELFPAY ==
[2023-03-21 19:03] VITALS: BP 117/63; PULSE 67; RESP 16; TEMP 36.2; O2SAT 100; BMI 20.1
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
[2023-03-21] MEDS: PROPARACAINE 0.5% OPHTH SOL 2 DROPS EYE-RIGHT (20:40)
[2023-03-21] MEDS: FLUORESCEIN 1 MG STRIP EYE-BOTH (20:40)
[2023-03-21] MEDS: ERYTHROMYCIN OPHTH 1 GM OINT 1 APPLIC EYE-BOTH (20:40)
[2023-03-21] MEDS: AMOXICILLIN/CLAV 875/125 MG 1 TAB PO (20:41)
[2023-03-21] MEDS: OXYCODONE/APAP 5/325 PREPACK 1 BOTTLE MISC (20:59)
[2023-03-21 21:06] VITALS: BP 114/65; PULSE 66; RESP 16; TEMP 37; O2SAT 100
== END 2023-03-21 21:07 | disposition home or self-care (01) ==
PROVIDERS: Emergency Provider Emergency Medicine; Family Provider Orthopaedic Surgery; PCP Registered Nurse Diabetes Educator
DX: H00.012 Hordeolum externum right lower eyelid (principal)
CPT/HCPCS: 99283

== ENCOUNTER → 2023-05-24 16:05 | Outpatient (CLI) | payer MEDICARE, SELFPAY ==
[2023-05-24 17:49] LABS: Add Manual Diff / Slide Review NO; Basophils Absolute Auto 100 /uL (0-100); Basophils Percent Auto 1.3 % (0-2); Eosinophils Absolute Auto 100 /uL (0-450); Eosinophils Percent Auto 1.8 % (2-4); Hematocrit 37.9 % (36-46); Hemoglobin 13.1 g/dL (12.0-16.0); Lymphocytes Absolute Auto 1700 /uL (1100-4500); Lymphocytes Percent Auto 44.2 % (25-40); Mean Corpuscular HGB Conc 34.4 % (30-36); Mean Corpuscular Volume 95.9 fL (80-100); Monocytes Absolute Auto 400 /uL (0-900); Monocytes Percent Auto 9.1 % (3-14); Neutrophils Absolute Auto 1700 /uL (1500-7000); Neutrophils Percent Auto 43.6 % (50-75); Platelet Count 211 X10^3/uL (150-400); Red Blood Cell Count 3.95 X10^6/uL (4.0-5.2); Red Cell Distribution Width 11.9 % (11.6-14.8); White Blood Cell Count 3.9 X10^3/uL (4.5-11.0)
[2023-05-24 18:18] LABS: Alanine Aminotransferase 22 IU/L (<35); Albumin 4.5 g/dL (3.5-5.0); Albumin Globulin Ratio 1.4 (1.0-2.8); Alkaline Phosphatase 44 U/L (38-126); Aspartate Aminotransferase 35 IU/L (14-36); BUN Creatinine Ratio 25.4 (6-22); Bilirubin Total 1.4 mg/dL (0.2-1.3); Blood Urea Nitrogen 17 mg/dL (7-17); Calcium 10.1 mg/dL (8.4-10.2); Carbon Dioxide 32 mmol/L (22-32); Chloride 98 mmol/L (98-107); Creatine Kinase 97 U/L (30-135); Estimated Glomerular Filt Rate > 60 mL/min (>60); Globulin 3.2 g/dL (1.7-4.1); Glucose 89 mg/dL (70-100); HEMOLYSIS < 15 (0-50); Potassium 4.2 mmol/L (3.4-5.1); Sodium 137 mmol/L (137-145); Total Protein 7.7 g/dL (6.3-8.2)
[2023-05-24 18:20] LABS: Troponin I < 0.012 ng/mL (0.01-0.034)
[2023-05-24 18:39] LABS: TSH w/ Reflex to FT4 0.88 uIU/mL (0.47-4.68)
== END ==
PROVIDERS: Family Provider Orthopaedic Surgery; PCP Registered Nurse Diabetes Educator; Referring Provider Family Medicine; Visit Provider Family Medicine
DX: R07.89 Other chest pain (principal)
CPT/HCPCS: 36415; 80053; 82550; 84443; 84484; 85025

== ENCOUNTER 2023-05-31 16:46 | Emergency (ER) | payer MEDICARE, SELFPAY ==
[2023-05-31 16:53] VITALS: BP 115/73; PULSE 68; RESP 16; TEMP 36.3; O2SAT 99; BMI 20.5
--- NOTE | 2023-05-31 17:03 | DI.RAD.S_ITS ---
PROCEDURE: XR CHEST 1V INDICATIONS: chest pain TECHNIQUE: One view of the chest was acquired. COMPARISON: [facility], CR, XR CHEST 1V, 08/27/2020, 19:34. FINDINGS: Surgical changes and devices: Stable postsurgical changes of the lower cervical spine Lungs and pleura: Lungs are clear. No pleural effusions or pneumothorax. Mediastinum: Mediastinal contours appear normal. Heart size is normal. Bones and chest wall: No suspicious bony lesions. Overlying soft tissues appear unremarkable. IMPRESSION: No acute cardiopulmonary abnormalities or focal airspace disease. Dictated by: Brady Montemayor M.D. on 05/31/2023 at 17:45 Approved by: Brady Montemayor M.D. on 05/31/2023 at 17:46
[2023-05-31 17:23] LABS: Add Manual Diff / Slide Review NO; Basophils Absolute Auto 100 /uL (0-100); Basophils Percent Auto 0.9 % (0-2); Eosinophils Absolute Auto 100 /uL (0-450); Eosinophils Percent Auto 1.2 % (2-4); Hematocrit 39.6 % (36-46); Hemoglobin 13.6 g/dL (12.0-16.0); Lymphocytes Absolute Auto 1500 /uL (1100-4500); Mean Corpuscular HGB Conc 34.2 % (30-36); Mean Corpuscular Hemoglobin 32.7 PG (26-34); Mean Corpuscular Volume 95.5 fL (80-100); Monocytes Absolute Auto 500 /uL (0-900); Monocytes Percent Auto 8.3 % (3-14); Neutrophils Absolute Auto 3400 /uL (1500-7000); Neutrophils Percent Auto 61.6 % (50-75); Platelet Count 193 X10^3/uL (150-400); Red Blood Cell Count 4.15 X10^6/uL (4.0-5.2); Red Cell Distribution Width 12.4 % (11.6-14.8); White Blood Cell Count 5.5 X10^3/uL (4.5-11.0)
[2023-05-31 17:30] LABS: INR 1.1 (0.9-1.3); Prothrombin Time 12.2 SECONDS (9.4-12.5)
[2023-05-31 17:33] LABS: PTT Partial Thromboplastin Tim 36 SECONDS (25.1-36.5)
[2023-05-31 17:34] LABS: Alanine Aminotransferase 22 IU/L (<35); Albumin 4.7 g/dL (3.5-5.0); Albumin Globulin Ratio 1.4 (1.0-2.8); Alkaline Phosphatase 39 U/L (38-126); Aspartate Aminotransferase 35 IU/L (14-36); BUN Creatinine Ratio 18.4 (6-22); Bilirubin Total 1.7 mg/dL (0.2-1.3); Blood Urea Nitrogen 14 mg/dL (7-17); Calcium 10.1 mg/dL (8.4-10.2); Carbon Dioxide 29 mmol/L (22-32); Chloride 98 mmol/L (98-107); Creatine Kinase 79 U/L (30-135); Estimated Glomerular Filt Rate > 60 mL/min (>60); Globulin 3.4 g/dL (1.7-4.1); Glucose 96 mg/dL (70-100); HEMOLYSIS 16 (0-50); Lipase 82 U/L (23-300); Magnesium 1.8 mg/dL (1.6-2.3); Potassium 3.9 mmol/L (3.4-5.1); Sodium 136 mmol/L (137-145); Total Protein 8.1 g/dL (6.3-8.2)
[2023-05-31 17:39] VITALS: BP 135/68; PULSE 57; RESP 16; O2SAT 100
--- NOTE | 2023-05-31 17:39 | PC.NURSE ---
PT reports feeling like I'm going to pass out. Pt was sitting in recliner/reclined in [place]. Vitals stable/charted. Blood sugar 84.
[2023-05-31 17:46] LABS: Troponin I < 0.012 ng/mL (0.01-0.034)
[2023-05-31 18:30] VITALS: BP 115/80; PULSE 60; RESP 18; O2SAT 99
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
[2023-05-31 19:15] VITALS: BP 120/61; PULSE 55; RESP 18; TEMP 37.1; O2SAT 100
== END 2023-05-31 19:25 | disposition home or self-care (01) ==
PROVIDERS: Emergency Medicine; Emergency Provider Emergency Medicine; Family Provider Orthopaedic Surgery; PCP Registered Nurse Diabetes Educator
DX: R07.9 Chest pain, unspecified (principal); R00.1 Bradycardia, unspecified; R06.02 Shortness of breath
CPT/HCPCS: 36415; 71045; 80053; 82550; 82962; 83690; 83735; 84484; 85025; 85610; 85730; 93005; 93010; 99283; 99284

== ENCOUNTER → 2023-06-03 10:31 | Outpatient (CLI) | payer MEDICARE, SELFPAY ==
[2023-06-03 12:29] LABS: Cholesterol 268 mg/dL (140-199); Triglycerides 55 mg/dL (35-150)
[2023-06-03 12:53] LABS: HDL Cholesterol 119 mg/dL (40-60); LDL Cholesterol Calculated 138 mg/dL (<100)
== END ==
PROVIDERS: Family Provider Orthopaedic Surgery; PCP Registered Nurse Diabetes Educator; Referring Provider Registered Nurse Diabetes Educator; Visit Provider Registered Nurse Diabetes Educator
DX: E78.2 Mixed hyperlipidemia (principal)
CPT/HCPCS: 36415; 80061

== ENCOUNTER → 2023-06-04 14:08 | Outpatient (CLI) | payer MEDICARE, SELFPAY ==
--- NOTE | 2023-06-04 14:09 | DI.NM.S_ITS ---
PROCEDURE: NM EXERCISE TREADMILL NON NUC COMPARISON: None. INDICATIONS: eval chest pain/SOB FINDINGS: The patient exercised for 12 minutes and 2 seconds reaching 93% of maximum predicted heart rate. Appropriate BP response to exercise. Outstanding exercise capacity (12.8METs, STEFFANIE -59%). No diagnostic ST changes, no angina, and no ectopy during exercise or recovery. IMPRESSION: Low risk, normal treadmill ECG only stress test. Outstanding exercise capacity (STEFFANIE -59%). Dictated by: Tushar Peña MD on 06/04/2023 at 16:01 Approved by: Tushar Peña MD on 06/04/2023 at 16:06
== END ==
LOC: RAD 14:09
PROVIDERS: Family Provider Orthopaedic Surgery; PCP Registered Nurse Diabetes Educator; Referring Provider Registered Nurse Diabetes Educator; Visit Provider Registered Nurse Diabetes Educator
DX: R07.9 Chest pain, unspecified (principal); R06.09 Other forms of dyspnea
CPT/HCPCS: 93016; 93017; 93018

== ENCOUNTER → 2023-06-16 08:00 | Outpatient (CLI) | payer MEDICARE, SELFPAY ==
--- NOTE | 2023-06-16 08:02 | DI.ECHO.S_ITS ---
[facility] +---------+ : : [address] : : : : [id number] : : : : Phone: [phone]+ Echocardiogram Report + + :Name: JINA OSBORN Study Date: 06/16/2023 Height: 66 in : :[facility] ReadingLocation: Weight: 127 lb : : Gender: Female BSA: 1.6 m2 : :: 1970 Age: 52 yrs BP: 108/71 mmHg: :Reason For Study: CHEST PAIN : :Ordering Physician: JOSE, : :THEODORA Performed By: Janie Price : :Referring: THEODORA GARCIA : + + Interpretation Summary The left ventricle is normal in size and wall thickness. Left ventricular systolic function appears normal without focal wall motion abnormalities. The ejection fraction is estimated to be 60-65%. Diastolic parameters suggest probable normal left ventricular diastolic function and normal filling pressures. The right ventricle is normal in size and function. The right ventricular systolic pressure is estimated to be at least 23 mmHg based on an estimated right atrial pressure of 8 mm Hg. The left atrial size is normal. There is no significant valvular heart disease. The aortic root is normal size. Procedure: A two-dimensional transthoracic echocardiogram with color flow and Doppler was performed. The study quality was technically adequate. There is no prior echocardiogram noted for this patient. The patient was in sinus bradycardia with heart rates between 50-57 bpm during the exam. Left Ventricle: The left ventricle is normal in size and wall thickness. Left ventricular systolic function appears normal without focal wall motion abnormalities. The ejection fraction is estimated to be 60-65%. Diastolic parameters suggest probable normal left ventricular diastolic function and normal filling pressures. Right Ventricle: The right ventricle is normal in size and function. Atria: The left atrial size is normal. Right atrial size is normal. There is no Doppler evidence for an interatrial shunt. Mitral Valve: The mitral valve is normal in structure and function. There is mild mitral regurgitation. Aortic Valve: The aortic valve is trileaflet. The aortic valve opens well. There is no aortic valve stenosis. No aortic regurgitation is present. Tricuspid Valve: The tricuspid valve is normal in structure and function. There is mild tricuspid regurgitation. The right ventricular systolic pressure is estimated to be at least 23 mmHg based on an estimated right atrial pressure of 8 mm Hg. Pulmonic Valve: The pulmonic valve is not well seen, but is grossly normal. There is no pulmonic valvular regurgitation. There is no significant valvular heart disease. Great Vessels: The aortic root is normal size. The dimensions of the ascending aorta are normal. The IVC is dilated (diameter is greater than 2.1 cm) yet it collapses greater than 50% with a sniff. This suggests a right atrial pressure of 8 mm Hg. Pericardium/ Pleura There is no pericardial effusion. There is no pleural effusion. MMode/2D Measurements & Calculations LVIDd: 4.7 cm LVOT diam: 2.0 cm LVIDs: 3.2 cm Ao root diam: 3.5 cm FS: 31.1 % asc Aorta Diam: 3.2 cm EPSS: 0.65 cm Ao Arch Diam (Prox Trans): 2.6 cm IVSd: 0.68 cm LVPWd: 0.70 cm LV jimenez. diameter/BSA (cm/m^2): 2.9 LV sys. diameter/BSA (cm/m^2): 2.0 LA A2 area: 17.7 cm2 RA long axis: 4.2 cm LA A4 area: 14.0 cm2 RA area: 12.8 cm2 LA length (vol): 4.6 cm RA vol: 33.0 ml LA vol: 45.5 ml RA : 20.0 ml/m2 LA vol index: 27.6 ml/m2 IVC diam: 2.2 cm RVD1 (basal): 3.6 cm RVD2 (mid): 2.7 cm TAPSE: 2.1 cm Doppler Measurements & Calculations Ao V2 max: 86.2 cm/sec LVOT Max Danyel: 76.9 cm/sec Ao V2 mean: 65.4 cm/sec LV V1 max P.4 mmHg Ao max P.0 mmHg LV V1 VTI: 15.3 cm Ao mean P.8 mmHg SEBASTIÁN(I,D): 2.2 cm2 Ao V2 VTI: 21.7 cm SEBASTIÁN(V,D): 2.7 cm2 sev ratio: 0.71 SEBASTIÁN indexed to BSA (cm^2/m^2): 1.3 MV E max danyel: 64.3 cm/sec TR max danyel: 194.6 cm/sec MV A max danyel: 39.7 cm/sec TR max P.2 mmHg MV E/A: 1.6 PA V2 max: 54.9 cm/sec Med Peak E' Danyel: 9.5 cm/sec PA V2 mean: 40.9 cm/sec E/E' med: 6.8 PA mean P.73 mmHg Lat Peak E' Danyel: 12.6 cm/sec PA pr(Accel): 24.2 mmHg E/E' lat: 5.1 E/e' average: 5.9 MV dec time: 0.20 sec SV(LVOT): 46.6 ml Reading Physician:01:37 PM
== END ==
PROVIDERS: Family Provider Orthopaedic Surgery; PCP Registered Nurse Diabetes Educator; Referring Provider Registered Nurse Diabetes Educator; Visit Provider Registered Nurse Diabetes Educator
DX: I08.1 Rheumatic disorders of both mitral and tricuspid valves (principal); R07.9 Chest pain, unspecified; R06.09 Other forms of dyspnea
CPT/HCPCS: 93306

== ENCOUNTER → 2023-07-05 18:03 | Outpatient (CLI) | payer MEDICARE, SELFPAY ==
--- NOTE | 2023-07-05 18:07 | DI.RAD.S_ITS ---
PROCEDURE: XR CERVICAL SPINE 4V OR 5V INDICATIONS: Neck pain, cervical radiculopathy TECHNIQUE: 5 views of the cervical spine were acquired. COMPARISON: [facility], CT, CT CERVICAL SPINE WO [facility], 01/07/2021, 15:51. FINDINGS: Bones: Postsurgical changes are seen from anterior fixation at C6-7 with solid osseous fusion across the joint space. Multilevel disc space narrowing degenerative endplate changes are seen. There is multilevel uncovertebral joint and facet hypertrophy. No acute fractures or dislocations to the T1 level. No suspicious bony lesions. There is reduced range of motion between flexion and extension, with preserved bony alignment. Soft tissues: Prevertebral soft tissues are normal in thickness. IMPRESSION: 1. No acute osseous fracture. 2. Postsurgical changes from prior ACDF at C6-7. 3. Reduced cervical range of motion without abnormal subluxation. 4. Moderate multilevel spondylosis. Approved by: Too Stephens M.D. on 07/05/2023 at 20:48
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
== END ==
PROVIDERS: Family Provider Orthopaedic Surgery; PCP Registered Nurse Diabetes Educator; Referring Provider Physician Assistant Surgical; Visit Provider Physician Assistant Surgical
DX: M47.22 Other spondylosis with radiculopathy, cervical region (principal); S49.92XA Unspecified injury of left shoulder and upper arm, initial encounter; M25.562 Pain in left knee; V89.2XXA Person injured in unspecified motor-vehicle accident, traffic, initial encounter; Z98.1 Arthrodesis status; Z98.890 Other specified postprocedural states
CPT/HCPCS: 72050; 73030; 73562

== ENCOUNTER → 2023-08-20 13:46 | Outpatient (CLI) | payer OTHER, SELFPAY ==
--- NOTE | 2023-08-20 13:47 | DI.MRI.S_ITS ---
PROCEDURE: MR LUMBAR SPINE WO CON INDICATIONS: eval LBP with new saddle anesthesia, urinary incontinence TECHNIQUE: Noncontrast sagittal T1 spin echo and T2 fast echo, sagittal STIR, and T2 fast spin echo through the lumbar spine. In cases with scoliosis, additional coronal T2 fast spin echo may be performed. COMPARISON: [facility], , MR LUMBAR SPINE WO CON, 07/11/2021, 19:27. FINDINGS: Image quality: Excellent. Alignment and Curvature: Slight straightening of the normal lumbar lordosis. Trace retrolisthesis L5-S1, stable. Bone Marrow: Moderate type 2 Modic changes at L4-5, to lesser extent L5-S1, and mild type 1 Modic changes around a small Schmorl's node in the L4 superior endplate at the L3-4 level. No vertebral body fractures. Spinal Cord: Conus medullaris terminates at the L1 level. Visualized cord demonstrates normal signal and size. Paraspinous Soft Tissues: No paravertebral masses. T12-L1: Normal disc and endplates. Mild facet arthropathy. L1-L2: Mild circumferential disc bulge. Mild facet arthropathy. L2-L3: Mild to moderate bilateral facet arthropathy. Prior left hemilaminectomy. Mild to moderate circumferential disc bulge. Improvement in central canal diameter at this level with mild residual narrowing. Disc desiccation and moderate height loss. Moderate residual, stable left foraminal narrowing. L3-L4: Moderate circumferential disc bulge, disc desiccation, and moderate disc height loss. There is a small left central inferior disc extrusion caudal to the disc level. Moderate bilateral facet arthropathy and ligamentum flavum hypertrophy contribute to a moderately severe central canal stenosis, similar in extent compared to the prior exam with complete effacement of CSF. Mild right foraminal narrowing. L4-L5: Severe disc height loss, desiccation, and moderate circumferential disc bulge. Probable left samreen laminotomy changes are again seen. There is moderate facet arthropathy. Mild central canal narrowing, stable compared to prior. [id number] left foraminal narrowing. L5-S1: Severe disc height loss, desiccation, and moderate circumferential disc osteophyte. Left-sided laminectomy changes. Mild to moderate facet arthropathy. Moderate to severe bilateral neural foraminal narrowing. No significant change compared to prior. IMPRESSION: There has been very slight progression of minimally extruded disc material below the disc line at the L3-4 level. At this level, is already moderate to severe central canal stenosis which is otherwise not significantly changed. There are no other significant changes to the central canal or neural foramen diameter at other levels in the lumbar spine. There are multiple levels of prior surgical intervention with left hemilaminectomy or laminotomy, and improvement in the central canal stenosis seen previously at the L2-3 level. Multilevel foraminal narrowing persists, and is most severe at the L5-S1 level bilaterally. Dictated by: Rosio Carrizales M.D. on 08/20/2023 at 15:05 Approved by: Rosio Carrizales M.D. on 08/20/2023 at 15:24
== END ==
PROVIDERS: Family Provider Orthopaedic Surgery; PCP Registered Nurse Diabetes Educator; Referring Provider Registered Nurse Diabetes Educator; Visit Provider Registered Nurse Diabetes Educator
DX: M51.26 Other intervertebral disc displacement, lumbar region (principal); Z98.890 Other specified postprocedural states; M51.36 Other intervertebral disc degeneration, lumbar region; R20.0 Anesthesia of skin; G89.29 Other chronic pain; N39.498 Other specified urinary incontinence; M48.061 Spinal stenosis, lumbar region without neurogenic claudication; M48.07 Spinal stenosis, lumbosacral region
CPT/HCPCS: 72148

== ENCOUNTER → 2023-12-14 16:42 | Outpatient (CLI) | payer MEDICARE, SELFPAY ==
--- NOTE | 2023-12-14 16:43 | DI.MG.S_ITS ---
BILATERAL DIGITAL SCREENING MAMMOGRAM 3D/2D WITH CAD: 12/14/2023 CLINICAL: Routine screening. Comparison is made to exams dated: 12/11/2022 mammogram, 12/10/2021 mammogram, 11/05/2020 mammogram, and 11/04/2019 mammogram - [facility]. There are scattered areas of fibroglandular density in both breasts (category b / 25%-50% glandular tissue). Current study was also evaluated with a Computer Aided Detection (CAD) system. No significant masses, calcifications, or other findings are seen in either breast. There has been no significant interval change. IMPRESSION: NEGATIVE There is no mammographic evidence of malignancy. A 1 year screening mammogram is recommended. Based on the Tyrer Cuzick model (a risk assessment model) the patient's lifetime risk is 6.9% and her 10 year risk is 2.1%. According to the ACR, ACS, and NCCN guidelines, an annual breast MRI exam along with mammogram is recommended if the patient's lifetime risk is 20% or greater. This exam was interpreted at Station ID: [id number]. NOTE: For mammograms, a report in lay terms will be sent to the patient. Approximately 15% of breast malignancies will not be visualized mammographically. In the management of a palpable breast mass, a negative mammogram must not discourage biopsy of a clinically suspicious lesion. Electronically Signed By: Cody anderson/brian:12/15/2023 13:44:52 letter sent: Normal Exam ACR BI-RADS Category 1: Negative [id number]
== END ==
PROVIDERS: Family Provider Orthopaedic Surgery; PCP Registered Nurse Diabetes Educator; Referring Provider Registered Nurse Diabetes Educator; Visit Provider Registered Nurse Diabetes Educator
DX: Z12.31 Encounter for screening mammogram for malignant neoplasm of breast (principal); R92.323 Mammographic fibroglandular density, bilateral breasts
CPT/HCPCS: 77063; 77067

== ENCOUNTER 2024-06-28 17:14 | Emergency (ER) | payer MEDICARE, SELFPAY ==
[2024-06-28] VITALS (7 sets, daily range): BP systolic 110–119; BP diastolic 60–81; PULSE 64–89; RESP 16; TEMP 36.6; O2SAT 97–100; BMI 20.5
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
[2024-06-28] MEDS: diazePAM 5 MG TABLET 10 MG PO (21:07)
[2024-06-28] MEDS: KETOROLAC 30 MG/ML VIAL IM (21:08)
[2024-06-28] MEDS: OXYCODONE/APAP 5/325 PREPACK 1 BOTTLE MISC (22:20)
[2024-06-28] MEDS: ONDANSETRON 4 MG ODT PREPACK 1 BOTTLE MISC (22:20)
== END 2024-06-28 22:29 | disposition home or self-care (01) ==
PROVIDERS: Emergency Provider Emergency Medicine; Family Provider Orthopaedic Surgery; PCP Registered Nurse Diabetes Educator
DX: M54.50 Low back pain, unspecified (principal)
CPT/HCPCS: 96372; 99283; J1885

== ENCOUNTER → 2024-07-21 13:33 | Outpatient (CLI) | payer MEDICARE, SELFPAY | PROVIDERS: Family Provider Orthopaedic Surgery; PCP Registered Nurse Diabetes Educator; Visit Provider Nurse Practitioner Family | DX: R30.0 Dysuria (principal) | CPT/HCPCS: 87077; 87086; 87186 ==

== ENCOUNTER → 2024-08-14 17:21 | Outpatient (CLI) | payer MEDICARE, SELFPAY | PROVIDERS: Family Provider Orthopaedic Surgery; PCP Registered Nurse Diabetes Educator; Visit Provider Registered Nurse Diabetes Educator | DX: R30.0 Dysuria (principal) | CPT/HCPCS: 87086 ==

== ENCOUNTER → 2024-09-13 17:33 | Outpatient (CLI) | payer MEDICARE, SELFPAY ==
[2024-09-13 18:30] LABS: Appearance Urine UA CLEAR; Bilirubin Urine UA NEGATIVE (NEGATIVE); Color Urine UA YELLOW; Glucose Urine UA NEGATIVE (Negative); Ketones Urine UA NEGATIVE (NEGATIVE); Leukocyte Esterase Urine UA TRACE (NEGATIVE); Nitrite Urine UA NEGATIVE (Negative); Occult Blood Urine UA NEGATIVE (Negative); Protein Urine UA NEGATIVE (Negative); Urobilinogen Urine UA 0.2 E.U./dL (0.2)
[2024-09-13 18:46] LABS: Urine Volume 10mL (spun)
[2024-09-13 18:47] LABS: Bacteria Urine None Seen; Culture Indicated Urine Cult Not Indicated; RBC Urine None Seen (0-5/HPF); Squamous Epithelial Cell Urine 0-1 /HPF (0-5/HPF); WBC Urine 0-1/HPF (0-5/HPF)
== END ==
PROVIDERS: Family Provider Orthopaedic Surgery; PCP Registered Nurse Diabetes Educator; Referring Provider Registered Nurse Diabetes Educator; Visit Provider Registered Nurse Diabetes Educator
DX: R30.9 Painful micturition, unspecified (principal)
CPT/HCPCS: 81001; 87086

== ENCOUNTER → 2024-09-15 13:22 | Outpatient (CLI) | payer MEDICARE, SELFPAY | PROVIDERS: Family Provider Orthopaedic Surgery; PCP Registered Nurse Diabetes Educator; Visit Provider Nurse Practitioner Family | DX: R39.89 Other symptoms and signs involving the genitourinary system (principal) | CPT/HCPCS: 87077; 87086; 87186 ==

== ENCOUNTER → 2024-09-22 19:46 | Outpatient (CLI) | payer MEDICARE, SELFPAY ==
--- NOTE | 2024-09-22 | DI.MRI.S_ITS ---
PROCEDURE: MR LUMBAR SPINE WO/W CON INDICATIONS: HX MICRODISKECTOMY AND BILAT LAMI, NEW SYMPTOMS TECHNIQUE: Noncontrast sagittal T1 spin echo and T2 fast spin echo, sagittal STIR, axial T1 and T2 fast spin echo through the lumbar spine. In cases with scoliosis, additional coronal T2 fast spin echo may be performed. After the administration of contrast, sagittal and axial T1 spin echo with fat saturation through the lumbar spine. COMPARISON: [facility], MR, MR LUMBAR SPINE WO CON, 08/20/2023, 13:57. [facility], MR, MR LUMBAR SPINE WO/W CON, 08/29/2020, 15:21. FINDINGS: Image quality: Excellent. Alignment and curvature: There is normal bony alignment. Marrow: Modic type 2 reactive endplate changes at L4-L5 as well as mild Modic type 1 reactive endplate changes at L3-L4. No suspicious areas of bone marrow abnormality seen otherwise. Spinal cord: Conus medullaris terminates at the L1 level. Visualized spinal cord demonstrates normal signal, without suspicious enhancement. Paraspinous soft tissues: No paravertebral masses or abnormal enhancement. T12-L1: No significant spinal stenosis. L1-L2: Stable disc bulge and bilateral facet arthropathy and ligamentum flavum thickening, without significant spinal stenosis. L2-L3: There is again seen prior left laminotomy. There is a moderate to large disc bulge as well as some bilateral facet arthropathy and ligamentum flavum thickening. There is more prominent, moderate degree of central spinal stenosis. There is also moderate bilateral lateral recess and foraminal stenosis. L3-L4: Prominent disc bulge, with stable appearance of superimposed small left paracentral extrusion extending inferiorly to suprapedicular level. There is significant bilateral facet arthropathy and ligamentum flavum thickening. There is more prominent, moderate to severe central spinal stenosis. There is also moderate bilateral lateral recess stenosis and mild bilateral foraminal stenosis. L4-L5: Prior left laminotomy. Disc bulge as well as bilateral facet arthropathy, more on the left, with some ligamentum flavum thickening. There is stable indentation of the thecal sac, with stable significant left lateral recess and foraminal stenosis, at least moderate. Mild right lateral recess stenosis. L5-S1: Probable prior left laminotomy. There is bilateral facet arthropathy and ligamentum flavum thickening. There is moderate bilateral foraminal stenosis. IMPRESSION: 1. Postoperative and degenerative changes as described. There is more prominent, moderate central spinal stenosis at L2-L3 and slightly more prominent moderate to severe central spinal stenosis at L3-L4. 2. Stable appearance of small left paracentral disc extrusion at L3-L4. No new disc extrusion or acute focal osseous lesion seen. Dictated by: Nick Beckham M.D. on 09/24/2024 at 18:17 Approved by: Nick Beckham M.D. on 09/24/2024 at 18:35
--- NOTE | 2024-09-22 19:48 | DI.RAD.S_ITS ---
PROCEDURE: XR KNEE LT 3V INDICATIONS: eval L knee pain acute TECHNIQUE: 3 views of the knee were acquired. COMPARISON: [facility], , XR KNEE LT 3V, 07/05/2023, 18:28. FINDINGS: Bones: No fractures or dislocations. Mild to moderate tricompartmental osteoarthritic changes with joint space narrowing and osteophytosis. No suspicious bony lesions. Soft tissues: Small joint effusion. No suspicious soft tissue calcifications. IMPRESSION: No acute osseous abnormalities. Mild to moderate tricompartmental osteoarthritic changes. Dictated by: Isaiah Boyer M.D. on 09/23/2024 at 9:14 Approved by: Isaiah Boyer M.D. on 09/23/2024 at 9:17
== END ==
LOC: MRI 19:48
PROVIDERS: Family Provider Orthopaedic Surgery; PCP Registered Nurse Diabetes Educator
DX: M51.16 Intervertebral disc disorders with radiculopathy, lumbar region (principal); M47.27 Other spondylosis with radiculopathy, lumbosacral region; M47.26 Other spondylosis with radiculopathy, lumbar region; M48.061 Spinal stenosis, lumbar region without neurogenic claudication; M48.07 Spinal stenosis, lumbosacral region; M25.562 Pain in left knee; M25.462 Effusion, left knee
CPT/HCPCS: 72158; 73562; A9579

== ENCOUNTER → 2025-02-15 13:22 | Outpatient (CLI) | payer MEDICARE, SELFPAY | PROVIDERS: Family Provider Orthopaedic Surgery; PCP Registered Nurse Diabetes Educator; Visit Provider Chiropractor | DX: R39.15 Urgency of urination (principal) | CPT/HCPCS: 87077; 87086; 87186 ==